=== PATIENT | male | born 1975 | race Caucasian/White ===

== ENCOUNTER 2017-09-12 02:37 | Emergency (ER) | payer OTHER ==
[2017-09-12] MEDS ORDERED: PROMETHAZINE HCL INJ 25 MG/1 ML VIAL IM ONE (02:52)
[2017-09-12] MEDS ORDERED: LORAZEPAM INJ 2 MG/1 ML VIAL IV ONE (02:52)
--- NOTE | 2017-09-12 02:58 | ER Document Report ---
ED General - General Stated Complaint: CHEST PAIN Time Seen by Provider: 09/12/17 02:45 Notes: Patient is a 42-year-old male is brought in from skilled nursing because of complaints of chest pain. Patient was arrested around 4 PM because of being drunk and disorderly. He says after he got to skilled nursing he started having chest pain. He is crying and emotionally upset. He does have a family history of coronary artery disease. His father had a heart attack in his 40s. His brother also had a heart attack as well. Patient himself has no previous history of chest pain before today. He was given nitro in a months which did not make a difference in his chest pain. Pain is mostly over the lower chest and he says it hurts to move. Some pain does seem to radiate to his left arm. Patient was given aspirin by to arrival. He has no other complaints at this time. She does not drink on a regular basis. - Related Data Allergies/Adverse Reactions: No Known Allergies Allergy (Unverified 09/12/17 03:03) Past Medical History - Social History Smoking Status: Never Smoker Frequency of alcohol use: Occasional Drug Abuse: None Family History: CAD Review of Systems - Review of Systems Notes: My Normal Review Basic REVIEW OF SYSTEMS: CONSTITUTIONAL : Denies fever, chills, or sweats. Denies recent illness. EENT: Denies eye, ear, throat, or mouth pain or symptoms. Denies nasal or sinus congestion. CARDIOVASCULAR: Chest pain RESPIRATORY: Denies cough, cold, or chest congestion. Denies shortness of breath, difficulty breathing, or wheezing. GASTROINTESTINAL: Denies abdominal pain. Denies nausea, vomiting, or diarrhea. MUSCULOSKELETAL: Denies neck or back pain or joint pain or swelling. SKIN: Denies rash or skin lesions. NEUROLOGICAL: Denies altered mental status or loss of consciousness. Denies headache. Denies weakness or paralysis or loss of use of either side. Denies problems with gait or speech. Denies sensory or motor loss. PSYCHIATRIC: Patient admits to severe anxiety since being arrested today. ALL OTHER SYSTEMS REVIEWED AND NEGATIVE. Physical Exam - Vital signs Vitals: Resp Pulse Ox 19 98 09/12/17 02:53 09/12/17 02:53 - Notes Notes: General Appearance: Well nourished, alert, cooperative, no acute distress, no obvious discomfort. Patient is very tearful and constantly crying and emotionally upset. Very anxious on exam. Vitals: reviewed, See vital signs table. Head: no swelling or tenderness to the head Eyes: PERRL, EOMI, Conjuctiva clear Mouth: No decreasd moisture Fall: Patient's pain is easily reproducible palpation of the chest wall over the lower left pectoral muscle. Neck: Supple, no neck tenderness Lungs: No wheezing, No rales, No rhonci, No accessory muscle use, good air exchange bilaterally. Heart: Tachycardiac rate, Regular rythm, No murmur, no rub Abdomen: Normal BS, soft, No rigidity, No abdominal tenderness, No guarding, no rebound, no abdominal masses, no organomegaly Extremities: strength 5/5 in all extremities, good pulses in all extremities, no swelling or tenderness in the extremities, no edema. Skin: warm, dry, appropriate color, no rash Neuro: speech clear, oriented x 3, normal affect, responds appropriately to questions. Course - Re-evaluation Re-evalutation: 09/12/17 02:58 I suspect that the patient's chest pain is more related to anxiety and emotional distress being that his pain did not start until he was placed in skilled nursing and the fact that he is crying and emotionally upsetting on exam. He does have family history of coronary disease at a young age and therefore will still do workup to help rule out IN. The initial EKG shows sinus tachycardia without any ischemic changes. 09/12/17 05:06 After the Ativan the patient's symptoms completely resolved. He is no longer crying or upset. His pain is completely resolved. His EKG initial troponin are negative. The please of left release the patient requested. Patient is requesting to leave. Talk to patient length about his family history of coronary disease. Informed him that I do suspect this most likely was anxiety related however he has a very strong family history of coronary disease at a young age and therefore I encouraged him to stay for at least a repeat troponin to make sure that his troponin is staying negative and not uptrending. I informed him that this is appropriate to rule out impending heart attack recurrent heart attack at this time. Patient says he understands this and understands heart attacks be fatal but at this time he wants to go home and wants to go without doing the repeat troponin. Patient is awake and alert. He is showing no signs of intoxication at this time and is acting appropriately and answering all questions appropriately and therefore I cannot hold him against his will. I informed the patient I want what is best form and encouraged to return to ER anytime if he has recurrence of his chest pain or wants further workup. I will refer him to cardiology for reevaluation. Dictation of this chart was performed using voice recognition software; therefore, there may be some unintended grammatical errors. - Vital Signs Vital signs: Temp Pulse Resp BP Pulse Ox 22 H 96 09/12/17 03:00 09/12/17 03:00 - Laboratory Result Diagrams: 09/12/17 03:00 09/12/17 03:00 Laboratory results interpreted by me: 09/12/17 03:00 Potassium 5.1 H Carbon Dioxide 21 L Glucose 249 H Direct Bilirubin 0.5 H AST 60 H ALT 124 H Total Protein 8.6 H Albumin 5.2 H - EKG Interpretation by Me Additional EKG results interpreted by me: 09/12/17 02:56 EKG is reviewed and interpreted by me. EKG shows sinus tachycardia with rate of [address] segment elevation or depression. No ischemic T-wave inversions. NM interval, QRS duration, QTc intervals are within normal range. No old EKG available for comparison. Discharge - Discharge Clinical Impression: Chest pain Qualifiers: Chest pain type: unspecified Qualified Code(s): R07.9 - Chest pain, unspecified Condition: Good Disposition: HOME, SELF-CARE Additional Instructions: As discussed with your we do recommend repeating your heart enzyme one more time to further ensure that there is no evidence of damage to your heart and no evidence for an heart attack. We respect your right to refuse this testing and want to go home. We want you to have a low threshold to return to the ER if you have any recurrence of chest pain or change your mind and want further workup. I will refer you to the auto radiator mechanic (Dr. Sánchez) for reevaluation because you have such a strong family history of heart attacks. Please call his office thursday morning to make a close follow up appointment. Take 81mg of aspirin every day. Referrals: GILBERTO WEIR MD [ACTIVE STAFF] - 09/14/17
[2017-09-12 03:07] LABS: ABSOLUTE EOSINOPHILS # (AUTO) 0.1 10^3/uL (0.0-0.6); ABSOLUTE LYMPHOCYTES (AUTO) 1.7 10^3/uL (0.5-4.7); ABSOLUTE MONOCYTES (AUTO) 0.6 10^3/uL (0.1-1.4); ABSOLUTE NEUT (AUTO) 4.5 10^3/uL (1.7-8.2); BASOPHILS % (AUTO) 0.7 % (0-2); EOSINOPHILS % (AUTO) 1.1 % (0-6); HEMATOCRIT 44.3 % (37.9-51.0); HEMOGLOBIN 15.7 g/dL (13.5-17.0); LYMPHOCYTES % (AUTO) 23.9 % (13-45); MEAN CORPUSCULAR HEMOGLOBIN 30.8 pg (27.0-33.4); MEAN CORPUSCULAR HGB CONC 35.4 g/dL (32.0-36.0); MEAN CORPUSCULAR VOLUME 87 fl (80-97); MONOCYTES % (AUTO) 9.4 % (3-13); PLATELET COUNT 183 10^3/uL (150-450); RED BLOOD COUNT 5.09 10^6/uL (4.35-5.55); SEGMENTED NEUTROPHILS % (AUTO) 64.9 % (42-78); TOTAL CELLS COUNTED % (AUTO) 100 %; WHITE BLOOD COUNT 6.9 10^3/uL (4.0-10.5)
[2017-09-12 03:16] LABS: ALANINE AMINOTRANSFERASE 124 U/L (21-72); ALBUMIN 5.2 g/dL (3.5-5.0); ALKALINE PHOSPHATASE 78 U/L (38-126); ANION GAP 19 (5-19); ASPARTATE AMINO TRANSFERASE 60 U/L (17-59); BILIRUBIN,DIRECT 0.5 mg/dL (0.0-0.4); BILIRUBIN,TOTAL 0.7 mg/dL (0.2-1.3); BLOOD UREA NITROGEN 10 mg/dL (7-20); CALCIUM 9.4 mg/dL (8.4-10.2); CARBON DIOXIDE 21 mmol/L (22-30); CHLORIDE 101 mmol/L (98-107); GLUCOSE 249 mg/dL (75-110); POTASSIUM 5.1 mmol/L (3.6-5.0); SODIUM 140.8 mmol/L (137-145); TOTAL PROTEIN 8.6 g/dL (6.3-8.2)
--- NOTE | 2017-09-12 03:47 | RADIOLOGY REPORT (SQ) ---
EXAM DESCRIPTION: XR CHEST 1 VIEW COMPLETED DATE/TME: 09/12/2017 02:52 CLINICAL HISTORY: chest pain COMPARISON: None. FINDINGS: Single frontal view of the chest. The cardiomediastinal silhouette has normal size and contour. No consolidation, pneumothorax, or pleural effusion. No displaced rib fractures identified. Leads overlie the chest. Low lung volumes. Upper abdominal soft tissues are unremarkable. IMPRESSION: 1. No acute pulmonary process identified.
--- NOTE | 2017-09-12 07:19 | EKG REPORT ---
SEVERITY:- ABNORMAL ECG - SINUS TACHYCARDIA PROBABLE LEFT ATRIAL ABNORMALITY LEFT VENTRICULAR HYPERTROPHY : Confirmed by: Sarah Gonzalez MD 12-Sep-2017 07:17:20
== END 2017-09-12 03:56 | disposition home or self-care (01) ==
LOC: ER 02:37
DX: R07.9 Chest pain, unspecified (principal); F41.9 Anxiety disorder, unspecified; R00.0 Tachycardia, unspecified; Z82.49 Family history of ischemic heart disease and other diseases of the circulatory system
CPT/HCPCS: 93005; 99285; 96372; 96374; 36415; 85025; 80053; 84484; 71045; 93010; J2060; J2550

== ENCOUNTER 2017-11-10 10:38 | Emergency (ER) | payer SELFPAY ==
[~2017-11-10 10:38] MED LIST: ASPIRIN 81 MG TABLET, CHEWABLE ONE; NITROGLYCERIN 0.4 MG/TAB 25 TAB/BOTTLE ONE; TENECTEPLASE INJ 50 MG KIT IV ONE
[2017-11-10] MEDS ORDERED: ASPIRIN 81 MG TABLET, CHEWABLE PO ONE (10:56)
[2017-11-10] MEDS ORDERED: ONDANSETRON HCL INJ/PF 4 MG/2 ML SDV IV ONE (11:00)
[2017-11-10] MEDS ORDERED: MORPHINE SULFATE 10 MG/ML INJ IV ONE (11:00)
[2017-11-10] MEDS ORDERED: NITROGLYCERIN 0.4 MG/TAB 25 TAB/BOTTLE SL PRN (11:01)
[2017-11-10] MEDS ORDERED: METOPROLOL TARTRATE PF/INJ 5 MG/5 ML SDV IV ONE (11:08)
[2017-11-10] MEDS ORDERED: NITROGLYCERIN 2% OINTMENT 1 GM PACKET TP ONE (11:14)
--- NOTE | 2017-11-10 11:15 | ER Document Report ---
ED Cardiac - General Chief Complaint: Chest Pain Stated Complaint: CHEST PAIN Time Seen by Provider: 11/10/17 10:55 Mode of Arrival: Ambulatory Information source: Patient TRAVEL OUTSIDE OF THE [place] IN LAST 30 DAYS: No - HPI Patient complains to provider of: Chest pain Was the onset of pain: Sudden When did pain begin: 0900 YESTERDAY Is the pain a: New problem Chest pain location: Substernal Quality of pain: Tightness Chest pain radiation location: Left arm, Left shoulder Severity now: Moderate Severity at worst: Moderate Chest pain precipitating factors: At Rest Cardiac risk factors: Smoker. denies: Hypertension Positive cardiac history: No Associated symptoms: Nausea/vomiting, Shortness of breath. denies: Diaphoresis Exacerbated by: Denies Relieved by: Nothing Similar symptoms previously: No Recently seen / treated by doctor: No - Related Data Allergies/Adverse Reactions: No Known Allergies Allergy (Verified 11/10/17 10:38) Past Medical History - General Information source: Patient - Social History Smoking Status: Current Every Day Smoker Cigarette use (# per day): Yes - 1/2 PK/DAY Chew tobacco use (# tins/day): No Smoking Education Provided: No Frequency of alcohol use: Occasional - LAST 2 DAYS AGO Drug Abuse: None Lives with: Spouse/Significant other Family History: None, CAD Patient has suicidal ideation: No Patient has homicidal ideation: No - Past Medical History Cardiac Medical History: Reports: None Pulmonary Medical History: Reports: None EENT Medical History: Reports: None Neurological Medical History: Reports: None. Denies: Hx Cerebrovascular Accident Endocrine Medical History: Reports: None. Denies: Hx Diabetes Mellitus Type 1, Hx Diabetes Mellitus Type 2 Renal/ Medical History: Reports: None. Denies: Hx Peritoneal Dialysis Malignancy Medical History: Reports None GI Medical History: Reports: None Musculoskeletal Medical History: Reports None Skin Medical History: Reports None Psychiatric Medical History: Reports: None Past Surgical History: Reports: Hx Orthopedic Surgery Review of Systems - Review of Systems Constitutional: No symptoms reported EENT: No symptoms reported Cardiovascular: See HPI Respiratory: See HPI Gastrointestinal: See HPI Genitourinary: No symptoms reported Musculoskeletal: No symptoms reported Skin: No symptoms reported Neurological/Psychological: No symptoms reported Physical Exam - Vital signs Vitals: Resp Pulse Ox 21 H 100 11/10/17 10:54 11/10/17 10:54 Interpretation: Hypertensive, Tachycardic - General General appearance: Alert, Anxious In distress: Moderate - HEENT Head: Normocephalic Eyes: Normal Conjunctiva: Normal Ears: Normal Nasal: Normal Mouth/Lips: Normal Mucous membranes: Normal - Respiratory Respiratory status: No respiratory distress Chest status: Nontender Breath sounds: Normal - Cardiovascular Rhythm: Regular, Tachycardia Heart sounds: Normal auscultation Murmur: No - Abdominal Inspection: Normal Distension: No distension - Back Back: Normal - Extremities General upper extremity: Normal inspection General lower extremity: Normal inspection - Neurological Neuro grossly intact: Yes Cognition: Normal Orientation: AAOx4 - Psychological Associated symptoms: Normal affect, Normal mood - Skin Skin Temperature: Warm Skin Moisture: Dry Skin Color: Normal Skin Turgor: Elastic Course - Re-evaluation Re-evalutation: 11/10/17 11:25 Patient reports minimal improvement of pain after nitroglycerin and morphine. Still complains of significant shortness of breath. Remains in apparent moderate distress, tachycardic and hypertensive. It was explained to patient that he was having an acute NE and needed the services of a cardiac drop crew laborer, which we do not have here at [facility]. I suggested that we seek transfer to the instrument worker at [facility] as quickly as possible, by air medevac if possible. Patient is very resistant to the idea of transfer to anywhere by any means, says he will get in his car and drive himself there if need be. He absolutely refuses to consider transfer via helicopter. Patient spoke with his by telephone, and she also tried to convince him to agree to transfer, without success. Patient ultimately did agree to transfer by ground ambulance. Consultation was made with the cardiac connections at [facility], and they will send 1 of their ambulance units to transfer patient. - Vital Signs Vital signs: Temp Pulse Resp BP Pulse Ox 29 H 134/90 H 100 11/10/17 11:13 11/10/17 11:05 11/10/17 11:13 - Laboratory Result Diagrams: 11/10/17 10:55 11/10/17 10:55 Laboratory results interpreted by me: 11/10/17 11/10/17 11/10/17 10:55 10:55 10:55 RBC 5.60 H Hgb 17.1 H Glucose 229 H Direct Bilirubin 0.6 H AST 83 H ALT 133 H Creatine Kinase 222 H CK-MB (CK-2) 8.78 H - Diagnostic Test Radiology reviewed: Image reviewed, Reports reviewed - EKG Interpretation by Me EKG shows normal: Sinus rhythm. abnormal: QRS Complexes - Q WAVES IN III, V2, AND V3, ST-T Waves - ST ELEVATION V1 THRU V5 Rate: Tachycardia When compared to previous EKG there are: Changes noted Additional EKG results interpreted by me: 11/10/17 11:40 ACUTE ANTEROSEPTAL STEMI - Consults CARDIAC CONNECTIONS Time consulted: 10:50 DR. BARONE Time consulted: 10:58 Reason for consultation: 11/10/17 11:23 ACCEPTS PATIENT FOR TRANSFER. ADVISES USE CLINICAL JUDGMENT RE: THROMBOLYTIC THERAPY. Critical Care Note - Critical Care Note Total time excluding time spent on procedures (mins): 30 Comments: LIFE-THREATENING MYOCARDIAL INFARCTION, AGGRESSIVE PHARMACOLOGIC INTERVENTIONS NECESSARY, CONSULTATIONS WITH TRANSFER CENTER. Discharge - Discharge Clinical Impression: Myocardial infarction acute Qualifiers: Myocardial infarction type: ST elevation myocardial infarction Involved coronary artery: unspecified coronary artery Qualified Code(s): I21.3 - ST elevation (STEMI) myocardial infarction of unspecified site Condition: Serious Disposition: AGAINST MEDICAL ADVICE Additional Instructions: YOU ARE HAVING AN ACUTE MYOCARDIAL INFARCTION (HEART ATTACK). THIS IS A LIFE- THREATENING CONDITION. PROPER TREATMENT OF YOUR PROBLEM NEEDS TO BE DONE BY A CABLE ARMORER OPERATOR IN A CARDIAC AMMUNITION ASSEMBLY II LABORER. THIS TREATMENT IS NOT AVAILABLE AT [facility]; YOU NEED TO BE TRANSFERRED TO ANOTHER FACILITY. THIS TRANSFER HAS BEEN ARRANGED FOR YOU. WITHOUT PROPER TREATMENT, YOU MIGHT , OR YOU MIGHT BE PERMANENTLY CRIPPLED. REFUSAL OF TREATMENT IS VERY UNWISE, AND VERY, VERY DANGEROUS. PLEASE RETURN TO THE E.R. FOR TREATMENT IF YOU CHANGE YOUR MIND, ANY TIME.
--- NOTE | 2017-11-10 11:25 | RADIOLOGY REPORT (SQ) ---
EXAM DESCRIPTION: CHEST SINGLE VIEW COMPLETED DATE/TIME: 11/10/2017 11:05 am REASON FOR STUDY: CHEST PAIN COMPARISON: AP chest 09/12/2017 EXAM PARAMETERS: NUMBER OF VIEWS: One view. TECHNIQUE: Single frontal radiographic view of the chest acquired. RADIATION DOSE: NA LIMITATIONS: AP portable chest lordotic positioning, 09/12/2017 FINDINGS: LUNGS AND PLEURA: No opacities, masses or pneumothorax. No pleural effusion. MEDIASTINUM AND HILAR STRUCTURES: No masses. Contour normal. HEART AND VASCULAR STRUCTURES: Heart normal in size. Normal vasculature. BONES: No acute findings. HARDWARE: None in the chest. OTHER: No other significant finding. IMPRESSION: NO ACUTE RADIOGRAPHIC FINDING IN THE CHEST. TECHNICAL DOCUMENTATION: JOB ID: [id number] [employer]- All Rights Reserved Reading location - IP/workstation name: [email or web address]
[2017-11-10 11:57] LABS: ABSOLUTE EOSINOPHILS # (AUTO) 0.1 10^3/uL (0.0-0.6); ABSOLUTE LYMPHOCYTES (AUTO) 1.4 10^3/uL (0.5-4.7); ABSOLUTE MONOCYTES (AUTO) 0.9 10^3/uL (0.1-1.4); ABSOLUTE NEUT (AUTO) 6.5 10^3/uL (1.7-8.2); BASOPHILS % (AUTO) 0.5 % (0-2); EOSINOPHILS % (AUTO) 0.7 % (0-6); HEMATOCRIT 49.2 % (37.9-51.0); HEMOGLOBIN 17.1 g/dL (13.5-17.0); LYMPHOCYTES % (AUTO) 16.2 % (13-45); MEAN CORPUSCULAR HEMOGLOBIN 30.5 pg (27.0-33.4); MEAN CORPUSCULAR HGB CONC 34.7 g/dL (32.0-36.0); MEAN CORPUSCULAR VOLUME 88 fl (80-97); MONOCYTES % (AUTO) 10.1 % (3-13); PLATELET COUNT 221 10^3/uL (150-450); RED CELL DISTRIBUTION WIDTH 12.6 % (11.5-14.0); SEGMENTED NEUTROPHILS % (AUTO) 72.5 % (42-78); TOTAL CELLS COUNTED % (AUTO) 100 %; WHITE BLOOD COUNT 8.9 10^3/uL (4.0-10.5)
[2017-11-10 12:12] LABS: ALANINE AMINOTRANSFERASE 133 U/L (21-72); ALBUMIN 4.8 g/dL (3.5-5.0); ALKALINE PHOSPHATASE 99 U/L (38-126); ANION GAP 13 (5-19); ASPARTATE AMINO TRANSFERASE 83 U/L (17-59); BILIRUBIN,DIRECT 0.6 mg/dL (0.0-0.4); BILIRUBIN,TOTAL 1.3 mg/dL (0.2-1.3); BLOOD UREA NITROGEN 9 mg/dL (7-20); CALCIUM 10.1 mg/dL (8.4-10.2); CARBON DIOXIDE 24 mmol/L (22-30); CHLORIDE 100 mmol/L (98-107); CREATINE KINASE 222 U/L (55-170); GLUCOSE 229 mg/dL (75-110); POTASSIUM 4.6 mmol/L (3.6-5.0); SODIUM 137.3 mmol/L (137-145)
--- NOTE | 2017-11-10 12:17 | ER Document Report ---
Inclusion/Exclusion-STEMI - Absolute Contraindications: Any prior Intracranial Hemorrhage: No Known structural cerebral vascular lesion (AV malformations): No Known malignant intracranial neoplasm (primary ormetastatic): No Ischemic stroke with 3 months(except acute ischemic stroke with symptom onset with past 4.5 hours): No Suspected aortic dissection: No Active bleeding or bleeding diathesis (excluding menses): No Significant closed head or facial trauma within 3 months: No Intracranial or intraspinal surgery within 2 months: No Severe uncontrolled hypertension unresponsive to emergent therapy: No If yes to any of the above, DO NOT ADMINISTER FIBRINOLYTIC. Prepare patient for rapid transfer for primary PCI. - Relative Contraindictations: History of chronic, severe. poorly controlled HTN: No Significant HTN on presentation(SBP greater than 180mm Hg or DBP greater than 110 mm Hg): No History of prior ischemic stroke greater than 3 months: No Dementia: No Known intracranial pathology not covered in absolute contraindications: No Traumatic or prolonged CPR (Greater than 10 minutes): No Major Surgery less than 3 weeks: No Recent internal bleeding (within 2-4 weeks): No Non compressible vascular puncture: No : No Active peptic ulcer: No Oral anticoagulant therapy: No Consider transfer for primary PCI, if severe symptoms of cardiogenic shock (SBP less than 90 or Pulse pressure greater than 20 mmHg).
[2017-11-10 12:25] LABS: CREATINE KINASE MB 8.78 ng/mL (<4.55)
[2017-11-10 12:26] LABS: TROPONIN I 1.8 ng/mL
[2017-11-10 13:02] VITALS: BP 138/91
[2017-11-10] MEDS ORDERED: TENECTEPLASE INJ 50 MG KIT IV ONE (14:11)
--- NOTE | 2017-11-10 23:08 | EKG REPORT ---
SEVERITY:- ABNORMAL ECG - SINUS TACHYCARDIA ANTERIOR INFARCT, ACUTE BORDERLINE PROLONGED QT INTERVAL : Confirmed by: Otis Franz 10-Nov-2017 23:07:25
--- NOTE | 2017-11-10 23:08 | EKG REPORT ---
SEVERITY:- ABNORMAL ECG - SINUS TACHYCARDIA ANTERIOR INFARCT, ACUTE LATERAL LEADS ARE ALSO INVOLVED BORDERLINE PROLONGED QT INTERVAL : Confirmed by: Otis Franz 10-Nov-2017 23:07:11
== END 2017-11-10 12:20 | disposition left against medical advice (07) ==
LOC: ER 10:38
DX: I21.3 ST elevation (STEMI) myocardial infarction of unspecified site (principal); R07.9 Chest pain, unspecified; R06.02 Shortness of breath; M79.602 Pain in left arm; M25.512 Pain in left shoulder; R11.2 Nausea with vomiting, unspecified; F17.210 Nicotine dependence, cigarettes, uncomplicated
CPT/HCPCS: 93005; 99291; 96374; 96375; 36415; 82553; 82550; 85025; 80053; 84484; 71045; 93010; J3101; J3490; J2270; J2405

== ENCOUNTER 2017-11-18 23:18 | Emergency (ER) | payer SELFPAY ==
--- NOTE | 2017-11-18 23:39 | ER Document Report ---
ED Cardiac - General Stated Complaint: CHEST PAIN Time Seen by Provider: 11/18/17 23:32 Mode of Arrival: Medic TRAVEL OUTSIDE OF THE [place] IN LAST 30 DAYS: No - HPI Notes: 42-year-old male with recent myocardial infarction 11/10 and 4 stents per patient done at [facility] presents with chest pain. He does not describe it very well states initially it is nonradiating then reports it did go down the back of his left arm. He states this is similar pain as when he had his myocardial infarction when he was here earlier last week and left AMA and ended up going to [place] himself. He has shortness of breath associated. He gives limited history and requires significant redirection. He states he hurts all over and that is because he was resuscitated and "brought back to life". He does not know what medications he is supposed to be taking but he states they are at home and he has been taking them including a blood thinner. He was given nitroglycerin in route to the hospital without any significant improvement. - Related Data Allergies/Adverse Reactions: No Known Allergies Allergy (Verified 11/10/17 10:38) Past Medical History - Social History Smoking Status: Current Every Day Smoker Family History: None, CAD Neurological Medical History: Denies: Hx Cerebrovascular Accident Endocrine Medical History: Denies: Hx Diabetes Mellitus Type 1, Hx Diabetes Mellitus Type 2 Renal/ Medical History: Denies: Hx Peritoneal Dialysis Past Surgical History: Reports: Hx Orthopedic Surgery Review of Systems - Review of Systems -: Yes All other systems reviewed and negative Physical Exam - Vital signs Vitals: Temp Pulse Resp BP Pulse Ox 97.9 F 104 H 20 129/79 H 98 11/18/17 23:18 11/18/17 23:18 11/18/17 23:18 11/18/17 23:18 11/18/17 23:18 - Notes Notes: Physical Exam: GENERAL: VS as per nursing doc. nontoxic-appearing, rolling around on the stretcher, requiring significant redirection for history and physical. HEAD: Atraumatic, normocephalic. EYES: Extraocular movements intact, sclera anicteric, no conjunctival injection or discharge. ENT: Nares patent, oropharynx clear without exudates. Moist mucous membranes. NECK: Normal range of motion, supple without lymphadenopathy. LUNGS: Breath sounds are coarse bilaterally and equal. No wheezes rales or rhonchi. Diffuse chest wall tenderness to palpation. HEART: Normal S1S2. Regular rate and rhythm without murmurs. Equal peripheral pulses. ABDOMEN: Soft, non-tender EXTREMITIES: Normal range of motion. No calf tenderness. No edema. Bruising noted in the right inguinal region from recent heart cath NEUROLOGICAL: Cranial nerves grossly intact. Normal speech. Normal sensory and motor exams. No gross cerebellar abnormalities. PSYCH: Anxious SKIN: Warm, dry, no cyanosis, no splinter hemorrhages. Cap refill < 2 sec. Course - Re-evaluation Re-evalutation: 11/18/17 23:35 Patient's EKG showed some ST elevation that is in the same distribution it was in when he was here with his myocardial infarction which is the anterior distribution with some reciprocal changes in 1 and aVL. I told the patient that he needed emergently to go to [facility]. He adamantly refused offered him transfer to another facility and he states he would leave AMA like he did on Thursday. I encouraged him to reconsider this as likely he will from a myocardial infarction considering he has pain consistent with what he had. The ST elevation appears improved from prior but it is present and unclear where this is in the evolution of his recent NV. 11/18/17 23:42 I went and spoke again with the patient as he is being a difficult patient with the nurses. He is alert and oriented he has capable decision making even no it does not seem very reasonable. He states he just wants some Xanax. I told him I was not comfortable treating his chest pain and appropriately. Again offered him transfer to [facility] or another institution and he is refusing still understanding that likely he is having cardiac ischemia progressive cardiac damage with likelihood of or at least permanent disability. 11/18/17 23:54 Patient now states that he will consider transfer to [facility]. I have contacted the transfer center and awaiting callback. He is now letting him treated us treat him and we are initiating a nitroglycerin drip. 11/19/17 00:[address] Vigil at [facility] from cardiology and he accepts transfer to their facility. He will be going by air. Patient is aware of risks and is accepting of this. Dr. Vigil recommends an IV heparin bolus of 5000 units IV. 09/20/18 01:19 Chest X-Ray 11/18/17 23:48 IMPRESSION: No active disease. - Vital Signs Vital signs: Temp Pulse Resp BP Pulse Ox 97.9 F 104 H 27 H 133/97 H 100 11/18/17 23:18 11/18/17 23:18 11/19/17 00:46 11/19/17 00:46 11/19/17 00:46 - Laboratory Result Diagrams: 11/18/17 23:29 11/18/17 23:29 Laboratory results interpreted by me: 11/18/17 11/18/17 23:29 23:29 RBC 4.32 L Hgb 13.3 L Hct 37.4 L ALT 86 H - EKG Interpretation by Me EKG shows normal: Sinus rhythm Rate: Tachycardia - Some mild ST elevation in the anterior lead his recent myocardial infarction the ST elevation is improved from his prior EKG. He has some reciprocal changes in 1 and aVL. Sinus tachycardia with rate 109. Possibly consistent with acute myocardial infarction but difficult to know in the evolution of his recent myocardial infarction. Critical Care Note - Critical Care Note Total time excluding time spent on procedures (mins): 35 Discharge - Discharge Clinical Impression: Acute coronary syndrome, Chest pain Condition: Serious Disposition: [facility]
[2017-11-18] MEDS ORDERED: ASPIRIN 81 MG TABLET, CHEWABLE PO ONE (23:48)
[2017-11-18] MEDS ORDERED: NITROGLYCERIN/D5W 50 MG/250 ML RTUINJ IV PRN (23:52)
[2017-11-19] MEDS ORDERED: HEPARIN SOD (PORCINE) 1,000 UNIT/ML 10 ML VIAL IV ONE (00:05)
[2017-11-19] MEDS ORDERED: ONDANSETRON HCL INJ/PF 4 MG/2 ML SDV IV ONE (00:07)
[2017-11-19] MEDS ORDERED: MORPHINE SULFATE 10 MG/ML INJ IV ONE (00:08)
[2017-11-19 00:30] LABS: ABSOLUTE BASOPHILS # (AUTO) 0.1 10^3/uL (0.0-0.2); ABSOLUTE EOSINOPHILS # (AUTO) 0.4 10^3/uL (0.0-0.6); ABSOLUTE MONOCYTES (AUTO) 0.9 10^3/uL (0.1-1.4); ABSOLUTE NEUT (AUTO) 6.1 10^3/uL (1.7-8.2); BASOPHILS % (AUTO) 0.9 % (0-2); EOSINOPHILS % (AUTO) 3.8 % (0-6); HEMATOCRIT 37.4 % (37.9-51.0); HEMOGLOBIN 13.3 g/dL (13.5-17.0); MEAN CORPUSCULAR HEMOGLOBIN 30.8 pg (27.0-33.4); MEAN CORPUSCULAR HGB CONC 35.7 g/dL (32.0-36.0); MEAN CORPUSCULAR VOLUME 87 fl (80-97); MONOCYTES % (AUTO) 9.6 % (3-13); PLATELET COUNT 392 10^3/uL (150-450); RED BLOOD COUNT 4.32 10^6/uL (4.35-5.55); RED CELL DISTRIBUTION WIDTH 12.1 % (11.5-14.0); SEGMENTED NEUTROPHILS % (AUTO) 64.7 % (42-78); TOTAL CELLS COUNTED % (AUTO) 100 %; WHITE BLOOD COUNT 9.5 10^3/uL (4.0-10.5)
[2017-11-19 00:36] LABS: ALANINE AMINOTRANSFERASE 86 U/L (21-72); ALKALINE PHOSPHATASE 83 U/L (38-126); ANION GAP 11 (5-19); ASPARTATE AMINO TRANSFERASE 50 U/L (17-59); BILIRUBIN,DIRECT 0.4 mg/dL (0.0-0.4); BILIRUBIN,TOTAL 0.6 mg/dL (0.2-1.3); BLOOD UREA NITROGEN 10 mg/dL (7-20); CALCIUM 9.5 mg/dL (8.4-10.2); CARBON DIOXIDE 26 mmol/L (22-30); CHLORIDE 101 mmol/L (98-107); CREATINE KINASE 107 U/L (55-170); GLUCOSE 98 mg/dL (75-110); INTERNATIONAL RATION (INR) 0.96; POTASSIUM 4.2 mmol/L (3.6-5.0); PROTHROMBIN TIME 13.3 SEC (11.4-15.4); SODIUM 137.9 mmol/L (137-145); TOTAL PROTEIN 7.1 g/dL (6.3-8.2)
--- NOTE | 2017-11-19 00:39 | RADIOLOGY REPORT (SQ) ---
Chest single view on 11/19/2017 at 12:12 AM CLINICAL INDICATION: Chest pain COMPARISON: 11/10/2017 FINDINGS: The lungs are clear. Cardiac, hilar and mediastinal contours are within normal limits. Pulmonary vascularity is within normal limits. No bony abnormality is noted. IMPRESSION: No active disease.
[2017-11-19 00:48] LABS: CREATINE KINASE MB 0.77 ng/mL (<4.55)
[2017-11-19 00:49] LABS: TROPONIN I 1.44 ng/mL
[2017-11-19 06:56] VITALS: BP 100/86
--- NOTE | 2017-11-19 13:46 | EKG REPORT ---
SEVERITY:- ABNORMAL ECG - SINUS RHYTHM ANTERIOR INFARCT, AGE INDETERMINATE : Confirmed by: Sarah Gonzalez MD 19-Nov-2017 13:45:51
--- NOTE | 2017-11-19 13:46 | EKG REPORT ---
SEVERITY:- ABNORMAL ECG - SINUS TACHYCARDIA ANTERIOR INFARCT, AGE INDETERMINATE : Confirmed by: Sarah Gonzalez MD 19-Nov-2017 13:45:57
== END 2017-11-19 00:58 | disposition short-term general hospital (02) ==
LOC: ER 23:18
DX: I24.9 Acute ischemic heart disease, unspecified (principal); R07.9 Chest pain, unspecified; F17.210 Nicotine dependence, cigarettes, uncomplicated
CPT/HCPCS: 93005; 99285; 96375; 96365; 36415; 82553; 82550; 85025; 85610; 80053; 84484; 71045; 93010; J1644; J2270; J2405; J3490

== ENCOUNTER 2017-11-27 19:30 | Emergency (ER) | payer SELFPAY ==
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
[2017-11-27] MEDS ORDERED: NORMAL SALINE 1000 ML 1,000 ML IV ONE (20:21)
[2017-11-27] MEDS ORDERED: DIAZEPAM INJ 10 MG/2 ML DISP.SYRIN IV ONE (20:21)
[2017-11-27] MEDS ORDERED: ONDANSETRON HCL INJ/PF 4 MG/2 ML SDV IV ONE (20:21)
[2017-11-27] MEDS ORDERED: MECLIZINE HCL 25 MG TABLET PO ONE (20:22)
--- NOTE | 2017-11-27 20:24 | RADIOLOGY REPORT (SQ) ---
EXAM DESCRIPTION: CT HEAD WITHOUT COMPLETED DATE/TIME: 11/27/2017 8:00 pm REASON FOR STUDY: dizziness, recent intracranial hemorrhage. COMPARISON: None. TECHNIQUE: Axial images acquired through the brain without intravenous contrast. Images reviewed wi th bone, brain and subdural windows. Additional sagittal and coronal reconstructions were generated. Images stored on PACS. All CT scanners at this facility use dose modulation, iterative reconstruction, and/or weight based d osing when appropriate to reduce radiation dose to as low as reasonably achievable (ALARA). [facility]: Dose Right [facility]: CareDose [facility]: Dose Right [facility]: Teradose 4D [facility]: Smart [place] RADIATION DOSE: CT Rad equipment meets quality standard of care and radiation dose reduction techniq ues were employed. CTDIvol: 55.2 mGy. DLP: 1084 mGy-cm. mGy. LIMITATIONS: None. FINDINGS: VENTRICLES: Normal size and contour. CEREBRUM: No masses. No hemorrhage. No midline shift. No evidence for acute infarction. A lacunar infarct traverses the right internal capsule. Otherwise normal colon/white matter differentiation. No areas of low density in the white matter. CEREBELLUM: No masses. No hemorrhage. No alteration of density. No evidence for acute infarction. EXTRAAXIAL SPACES: No fluid collections. No masses. ORBITS AND GLOBE: No intra- or extraconal masses. Normal contour of globe without masses. CALVARIUM: No fracture. PARANASAL SINUSES: No fluid or mucosal thickening. SOFT TISSUES: No mass or hematoma. OTHER: Atherosclerotic vascular calcifications are seen within the cavernous segments of the internal carotid arteries. IMPRESSION: Right basal ganglia lacunar infarct. No evidence of acute intracranial hemorrhage or se quela of previous intracranial hemorrhage. EVIDENCE OF ACUTE STROKE: NO. COMMENT: Quality ID # [id number]: Final reports with documentation of one or more dose reduction techniques (e.g., Automated exposure control, adjustment of the mA and/or kV according to patient size, use of iterative reconstruction technique) TECHNICAL DOCUMENTATION: JOB ID: [id number] All Rights Reserved Reading location - IP/workstation name: [email or web address]
[2017-11-27 21:47] VITALS: BP 134/71
[2017-11-27] MEDS ORDERED: HYDROCODONE/ACETAMINOPHEN 5-325 MG (6 TAB/ER DISP) PO PRN (21:56)
== END 2017-11-27 22:23 | disposition home or self-care (01) ==
LOC: ER 19:30
DX: R42 Dizziness and giddiness (principal); F07.81 Postconcussional syndrome; F17.210 Nicotine dependence, cigarettes, uncomplicated
CPT/HCPCS: 99284; 96361; 96374; 96375; 70450; J3360; J2405

== ENCOUNTER 2017-12-06 02:40 | Emergency (ER) | payer SELFPAY ==
[2017-12-06] MEDS ORDERED: ONDANSETRON HCL INJ/PF 4 MG/2 ML SDV IV ONE (02:49)
[2017-12-06] MEDS ORDERED: NORMAL SALINE 1000 ML 500 ML IV ONE (02:49)
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
[2017-12-06 03:19] LABS: ABSOLUTE BASOPHILS # (AUTO) 0.1 10^3/uL (0.0-0.2); ABSOLUTE EOSINOPHILS # (AUTO) 0.4 10^3/uL (0.0-0.6); ABSOLUTE LYMPHOCYTES (AUTO) 2.3 10^3/uL (0.5-4.7); ABSOLUTE MONOCYTES (AUTO) 0.6 10^3/uL (0.1-1.4); ABSOLUTE NEUT (AUTO) 4.2 10^3/uL (1.7-8.2); EOSINOPHILS % (AUTO) 5.4 % (0-6); HEMOGLOBIN 13.5 g/dL (13.5-17.0); LYMPHOCYTES % (AUTO) 30.6 % (13-45); MEAN CORPUSCULAR HEMOGLOBIN 30.7 pg (27.0-33.4); MEAN CORPUSCULAR HGB CONC 35.6 g/dL (32.0-36.0); MEAN CORPUSCULAR VOLUME 86 fl (80-97); MONOCYTES % (AUTO) 7.9 % (3-13); PLATELET COUNT 291 10^3/uL (150-450); RED BLOOD COUNT 4.41 10^6/uL (4.35-5.55); RED CELL DISTRIBUTION WIDTH 12.8 % (11.5-14.0); SEGMENTED NEUTROPHILS % (AUTO) 55.1 % (42-78); TOTAL CELLS COUNTED % (AUTO) 100 %; WHITE BLOOD COUNT 7.6 10^3/uL (4.0-10.5)
[2017-12-06 03:21] LABS: ALCOHOL 167 mg/dL (NONE DETECTED); ANION GAP 15 (5-19); BLOOD UREA NITROGEN 12 mg/dL (7-20); CALCIUM 9.1 mg/dL (8.4-10.2); CARBON DIOXIDE 25 mmol/L (22-30); CHLORIDE 102 mmol/L (98-107); GLUCOSE 192 mg/dL (75-110); POTASSIUM 4.3 mmol/L (3.6-5.0); SODIUM 141.5 mmol/L (137-145)
--- NOTE | 2017-12-06 03:27 | RADIOLOGY REPORT (SQ) ---
EXAM DESCRIPTION: XR CHEST 1 VIEW COMPLETED DATE/TME: 12/06/2017 02:48 CLINICAL HISTORY: syncopal episode COMPARISON: 11/19/2017 FINDINGS: Single frontal view of the chest. The cardiomediastinal silhouette has normal size and contour. No consolidation, pneumothorax, or pleural effusion. Leads overlie the chest. Low lung volumes. No displaced rib fractures identified. Upper abdominal soft tissues are unremarkable. IMPRESSION: 1. No acute pulmonary process identified.
--- NOTE | 2017-12-06 03:41 | RADIOLOGY REPORT (SQ) ---
EXAM DESCRIPTION: CT HEAD WITHOUT IV CONTRAST COMPLETED DATE/TME: 12/06/2017 02:48 CLINICAL HISTORY: passed out, head injury, ETOH, on plavix COMPARISON: None available TECHNIQUE: Axial CT of the head obtained from the skull apex to the skull base without contrast. FINDINGS: No acute intracranial hemorrhage identified. No mass, mass effect, shift of the midline, abnormal extra-axial fluid collection or CT evidence of acute ischemic change identified. The ventricular system is unremarkable. Focal residual encephalomalacia involving the right caudate nucleus likely represents a remote lacunar type infarction. No acute abnormalities of the supratentorial white matter, basal ganglia, cerebellum, or brainstem. The visualized paranasal sinuses and the mastoids are clear. No skull fracture identified. Visualized orbits and globes are unremarkable. Atherosclerotic vascular calcification. DLP: 990.56 mGy-cm IMPRESSION: 1. No acute intracranial abnormality identified. This exam was performed according to our departmental dose-optimization program, which includes automated exposure control, adjustment of the mA and/or kV according to patient size and/or use of iterative reconstruction technique.
--- NOTE | 2017-12-06 03:44 | RADIOLOGY REPORT (SQ) ---
EXAM DESCRIPTION: CT CERVICAL SPINE WITHOUT IV CONTRAST COMPLETED DATE/TME: 12/06/2017 02:48 CLINICAL HISTORY: passed out, injury, ETOH, on plavix COMPARISON: None available TECHNIQUE: Axial CT of the cervical spine obtained without contrast. FINDINGS: Alignment of the cervical spine is maintained without evidence of subluxation. The atlantoaxial, atlantodental, and occipitoatlantal intervals are preserved. No fracture identified. Vertebral body height preserved. Prevertebral soft tissues are unremarkable. Endplate spondylosis of the cervical spine. No central canal nor osseous neural foraminal narrowing. Visualized skull base is intact. No fracture of the visualized facial bones. Visualized mastoid air cells and paranasal sinuses are well aerated. Visualized thyroid is unremarkable. No cervical lymphadenopathy. No pneumothorax in the visualized lung apices. DLP: 456.17 mGy-cm IMPRESSION: 1. No acute fracture or subluxation of the cervical spine. This exam was performed according to our departmental dose-optimization program, which includes automated exposure control, adjustment of the mA and/or kV according to patient size and/or use of iterative reconstruction technique.
[2017-12-06 07:49] VITALS: BP 100/54
--- NOTE | 2017-12-06 19:00 | EKG REPORT ---
SEVERITY:- ABNORMAL ECG - SINUS TACHYCARDIA ANTERIOR INFARCT, AGE INDETERMINATE : Confirmed by: Otis Franz 06-Dec-2017 18:59:56
== END 2017-12-06 07:58 | disposition home or self-care (01) ==
LOC: ER 02:40
DX: R42 Dizziness and giddiness (principal); R11.0 Nausea; R51 Headache; F10.929 Alcohol use, unspecified with intoxication, unspecified; R55 Syncope and collapse; E78.00 Pure hypercholesterolemia, unspecified; I10 Essential (primary) hypertension; E11.9 Type 2 diabetes mellitus without complications; I25.2 Old myocardial infarction; Z79.02 Long term (current) use of antithrombotics/antiplatelets
CPT/HCPCS: 93005; 99285; 96361; 96374; 36415; 82962; 80307; 85025; 80048; 84484; 71045; 70450; 72125; 93010; J2405; J7030

== ENCOUNTER 2018-01-30 03:38 | Emergency (ER) | payer SELFPAY ==
[2018-01-30] MEDS ORDERED: NITROGLYCERIN 0.4 MG/TAB 25 TAB/BOTTLE SL PRN (04:01)
[2018-01-30] MEDS ORDERED: NORMAL SALINE 1000 ML 1,000 ML IV ONE (04:02)
[2018-01-30 04:03] LABS: ABSOLUTE EOSINOPHILS # (AUTO) 0.2 10^3/uL (0.0-0.6); ABSOLUTE LYMPHOCYTES (AUTO) 1.7 10^3/uL (0.5-4.7); ABSOLUTE MONOCYTES (AUTO) 0.4 10^3/uL (0.1-1.4); ABSOLUTE NEUT (AUTO) 3.2 10^3/uL (1.7-8.2); BASOPHILS % (AUTO) 0.5 % (0-2); EOSINOPHILS % (AUTO) 3.2 % (0-6); HEMATOCRIT 44.1 % (37.9-51.0); HEMOGLOBIN 15.3 g/dL (13.5-17.0); LYMPHOCYTES % (AUTO) 30.4 % (13-45); MEAN CORPUSCULAR HEMOGLOBIN 30.7 pg (27.0-33.4); MEAN CORPUSCULAR HGB CONC 34.7 g/dL (32.0-36.0); MEAN CORPUSCULAR VOLUME 89 fl (80-97); MONOCYTES % (AUTO) 7.6 % (3-13); PLATELET COUNT 228 10^3/uL (150-450); RED BLOOD COUNT 4.98 10^6/uL (4.35-5.55); RED CELL DISTRIBUTION WIDTH 13.5 % (11.5-14.0); SEGMENTED NEUTROPHILS % (AUTO) 58.3 % (42-78); TOTAL CELLS COUNTED % (AUTO) 100 %; WHITE BLOOD COUNT 5.5 10^3/uL (4.0-10.5)
[2018-01-30 04:07] LABS: INTERNATIONAL RATION (INR) 0.92; PROTHROMBIN TIME 12.8 SEC (11.4-15.4)
[2018-01-30 04:24] LABS: ALANINE AMINOTRANSFERASE 46 U/L (21-72); ALBUMIN 4.7 g/dL (3.5-5.0); ALKALINE PHOSPHATASE 80 U/L (38-126); ANION GAP 17 (5-19); ASPARTATE AMINO TRANSFERASE 36 U/L (17-59); BILIRUBIN,DIRECT 0.3 mg/dL (0.0-0.4); BILIRUBIN,TOTAL 0.4 mg/dL (0.2-1.3); BLOOD UREA NITROGEN 8 mg/dL (7-20); CALCIUM 9.3 mg/dL (8.4-10.2); CARBON DIOXIDE 25 mmol/L (22-30); CHLORIDE 108 mmol/L (98-107); CREATINE KINASE 191 U/L (55-170); GLUCOSE 144 mg/dL (75-110); POTASSIUM 4.2 mmol/L (3.6-5.0); SODIUM 149.5 mmol/L (137-145); TOTAL PROTEIN 7.8 g/dL (6.3-8.2)
--- NOTE | 2018-01-30 04:29 | RADIOLOGY REPORT (SQ) ---
EXAM DESCRIPTION: XR CHEST 1 VIEW COMPLETED DATE/TME: 01/30/2018 03:41 CLINICAL HISTORY: 42 years, Male, chest pain COMPARISON: None. NUMBER OF VIEWS: 1 TECHNIQUE: Portable upright chest LIMITATIONS: None. FINDINGS: Heart size is normal. Lungs are clear. No pneumothorax IMPRESSION: Negative chest copyright 2010 [employer]- All Rights Reserved
[2018-01-30 04:35] LABS: CREATINE KINASE MB 1.55 ng/mL (<4.55)
[2018-01-30 04:38] VITALS: BP 117/69
[2018-01-30 04:50] LABS: TROPONIN I 0.079 ng/mL
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
--- NOTE | 2018-01-30 07:55 | EKG REPORT ---
SEVERITY:- ABNORMAL ECG - SINUS RHYTHM PROBABLE INFERIOR INFARCT, OLD ANTERIOR INFARCT, AGE INDETERMINATE : Confirmed by: Pramod Borden MD 30-Jan-2018 07:54:30
== END 2018-01-30 04:50 | disposition left against medical advice (07) ==
LOC: ER 03:38
DX: R07.9 Chest pain, unspecified (principal); F10.129 Alcohol abuse with intoxication, unspecified; Y90.8 Blood alcohol level of 240 mg/100 ml or more; R55 Syncope and collapse; Z53.20 Procedure and treatment not carried out because of patient's decision for unspecified reasons; I25.10 Atherosclerotic heart disease of native coronary artery without angina pectoris; I10 Essential (primary) hypertension; E11.9 Type 2 diabetes mellitus without complications; F17.200 Nicotine dependence, unspecified, uncomplicated; I25.2 Old myocardial infarction; E78.5 Hyperlipidemia, unspecified; E78.00 Pure hypercholesterolemia, unspecified; Z95.5 Presence of coronary angioplasty implant and graft; Z79.899 Other long term (current) drug therapy; Z79.84 Long term (current) use of oral hypoglycemic drugs; Z79.891 Long term (current) use of opiate analgesic
CPT/HCPCS: 93005; 99285; 96360; 36415; 82553; 80307; 82550; 85025; 85610; 80053; 84484; 71045; 93010; J7030

== ENCOUNTER 2018-02-15 13:50 | Emergency (ER) | payer SELFPAY ==
[2018-02-15 14:23] VITALS: BP 134/76
[2018-02-15 14:29] LABS: ABSOLUTE EOSINOPHILS # (AUTO) 0.1 10^3/uL (0.0-0.6); ABSOLUTE LYMPHOCYTES (AUTO) 1.6 10^3/uL (0.5-4.7); ABSOLUTE MONOCYTES (AUTO) 0.3 10^3/uL (0.1-1.4); ABSOLUTE NEUT (AUTO) 3.4 10^3/uL (1.7-8.2); BASOPHILS % (AUTO) 0.9 % (0-2); HEMATOCRIT 47.3 % (37.9-51.0); HEMOGLOBIN 16.2 g/dL (13.5-17.0); MEAN CORPUSCULAR HEMOGLOBIN 30.3 pg (27.0-33.4); MEAN CORPUSCULAR HGB CONC 34.3 g/dL (32.0-36.0); MEAN CORPUSCULAR VOLUME 88 fl (80-97); MONOCYTES % (AUTO) 5.9 % (3-13); PLATELET COUNT 225 10^3/uL (150-450); RED BLOOD COUNT 5.36 10^6/uL (4.35-5.55); RED CELL DISTRIBUTION WIDTH 13.9 % (11.5-14.0); SEGMENTED NEUTROPHILS % (AUTO) 62.2 % (42-78); TOTAL CELLS COUNTED % (AUTO) 100 %; WHITE BLOOD COUNT 5.5 10^3/uL (4.0-10.5)
[2018-02-15 14:53] LABS: ALANINE AMINOTRANSFERASE 42 U/L (21-72); ALBUMIN 4.6 g/dL (3.5-5.0); ALKALINE PHOSPHATASE 83 U/L (38-126); ANION GAP 14 (5-19); ASPARTATE AMINO TRANSFERASE 40 U/L (17-59); BILIRUBIN,DIRECT 0.2 mg/dL (0.0-0.4); BILIRUBIN,TOTAL 0.2 mg/dL (0.2-1.3); BLOOD UREA NITROGEN 8 mg/dL (7-20); CALCIUM 9.5 mg/dL (8.4-10.2); CARBON DIOXIDE 23 mmol/L (22-30); CHLORIDE 105 mmol/L (98-107); CREATINE KINASE 108 U/L (55-170); GLUCOSE 137 mg/dL (75-110); POTASSIUM 4.5 mmol/L (3.6-5.0); SODIUM 142.3 mmol/L (137-145); TOTAL PROTEIN 7.7 g/dL (6.3-8.2)
--- NOTE | 2018-02-15 14:54 | RADIOLOGY REPORT (SQ) ---
EXAM DESCRIPTION: CHEST SINGLE VIEW COMPLETED DATE/TIME: 02/15/2018 2:37 pm REASON FOR STUDY: chest pain COMPARISON: 01/30/2018. EXAM PARAMETERS: NUMBER OF VIEWS: One view. TECHNIQUE: Single frontal radiographic view of the chest acquired. RADIATION DOSE: NA LIMITATIONS: None. FINDINGS: LUNGS AND PLEURA: No opacities, masses or pneumothorax. No pleural effusion. MEDIASTINUM AND HILAR STRUCTURES: No masses. Contour normal. HEART AND VASCULAR STRUCTURES: Heart normal in size. Normal vasculature. BONES: No acute findings. HARDWARE: None in the chest. OTHER: No other significant finding. IMPRESSION: NO ACUTE RADIOGRAPHIC FINDING IN THE CHEST. TECHNICAL DOCUMENTATION: JOB ID: [id number] [employer]- All Rights Reserved Reading location - IP/workstation name: [email or web address]
[2018-02-15 15:07] LABS: CREATINE KINASE MB 1.39 ng/mL (<4.55); TROPONIN I 0.015 ng/mL
--- NOTE | 2018-02-15 15:10 | ER Document Report ---
ED Cardiac - General Chief Complaint: Chest Pain Stated Complaint: CHEST PAIN Time Seen by Provider: 02/15/18 13:59 Mode of Arrival: Medic Information source: Patient Notes: Patient is a 42-year-old male who presents to the emergency department via EMS for chest pain that has been going on for 3 days. Patient denies any associated symptoms, denies any shortness of breath, nausea or radiation of the pain. Patient does report that he does not like to take medication so he has been drinking beer to take the pain away. He admits to drinking 4-6 beers today. Patient is not very forthcoming with answering questions. TRAVEL OUTSIDE OF THE [place] IN LAST 30 DAYS: No - Related Data Allergies/Adverse Reactions: No Known Allergies Allergy (Verified 11/10/17 10:38) Past Medical History - General Information source: Patient - Social History Smoking Status: Current Every Day Smoker Frequency of alcohol use: currently intoxicated Drug Abuse: None Family History: None, CAD Patient has suicidal ideation: No Patient has homicidal ideation: No - Past Medical History Cardiac Medical History: Reports: Hx Heart Attack - 10/2017, Hx Hypercholesterolemia, Hx Hypertension Neurological Medical History: Denies: Hx Cerebrovascular Accident Endocrine Medical History: Reports: Hx Diabetes Mellitus Type 2. Denies: Hx Diabetes Mellitus Type 1 Renal/ Medical History: Denies: Hx Peritoneal Dialysis Past Surgical History: Reports: Hx Cardiac Catheterization - stent x4, Hx Cardiac Surgery, Hx Orthopedic Surgery - Immunizations Hx Diphtheria, Pertussis, Tetanus Vaccination: Yes Review of Systems - Review of Systems Cardiovascular: Chest pain. denies: Palpitations, Dyspnea, Dizziness Gastrointestinal: denies: Nausea, Vomiting -: Yes All other systems reviewed and negative Physical Exam - Vital signs Vitals: Pulse Ox 94 02/15/18 14:00 - Notes Notes: PHYSICAL EXAMINATION: GENERAL: Disheveled but well-nourished and in no acute distress. HEAD: Atraumatic, normocephalic. EYES: Pupils equal round and reactive to light, extraocular movements intact, sclera anicteric, conjunctiva are normal. ENT: Nares patent, oropharynx clear without exudates. Moist mucous membranes. NECK: Normal range of motion, supple without lymphadenopathy LUNGS: Breath sounds clear to auscultation bilaterally and equal. No wheezes rales or rhonchi. HEART: Regular rate and rhythm without murmurs, reproducible chest pain to the left chest wall with palpation. ABDOMEN: Soft, nontender, nondistended abdomen. No guarding, no rebound. No masses appreciated. Musculoskeletal: Normal range of motion, no pitting or edema. No cyanosis. NEUROLOGICAL: Cranial nerves grossly intact. Normal speech, normal gait. Normal sensory, motor exams PSYCH: Normal mood, normal affect. SKIN: Warm, Dry, normal turgor, no rashes or lesions noted. Course - Re-evaluation Re-evalutation: CBC, CMP are unremarkable. EKG shows a sinus rhythm, rate of 94, normal axis with no ST segment elevations, this EKG is unchanged from previous on record from 01/30/18. Chest x-ray with no acute findings to include infiltrates or pneumothorax. Patient called out became very aggressive with the nurse stating that he is ready to leave. Cardiac enzymes have not resulted yet. Multiple attempts to ask patient to stay and wait for results were unsuccessful. Patient ripped-out his IV and ambulated out of the department. Patient is of sound mind and able to safely make his own decisions. Patient eloped from room. - Vital Signs Vital signs: Temp Pulse Resp BP Pulse Ox 97.9 F 22 H 134/76 H 94 02/15/18 14:16 02/15/18 14:04 02/15/18 14:04 02/15/18 14:04 - Laboratory Result Diagrams: 02/15/18 14:12 02/15/18 14:12 Laboratory results interpreted by me: 02/15/18 14:12 Glucose 137 H Discharge - Discharge Clinical Impression: Chest pain Qualifiers: Chest pain type: unspecified Qualified Code(s): R07.9 - Chest pain, unspecified Disposition: ELOPED
--- NOTE | 2018-02-16 07:41 | EKG REPORT ---
SEVERITY:- ABNORMAL ECG - SINUS RHYTHM PROBABLE LEFT ATRIAL ABNORMALITY ANTEROLATERAL INFARCT, RECENT , SINCE 10/2017 : Confirmed by: Pramod Borden MD 16-Feb-2018 07:40:50
== END 2018-02-15 15:00 | disposition left against medical advice (07) ==
LOC: ER 13:50
DX: R07.9 Chest pain, unspecified (principal); F17.200 Nicotine dependence, unspecified, uncomplicated; F10.129 Alcohol abuse with intoxication, unspecified; I25.2 Old myocardial infarction; I10 Essential (primary) hypertension; E11.9 Type 2 diabetes mellitus without complications
CPT/HCPCS: 36415; 71045; 80053; 82550; 82553; 84484; 85025; 93005; 93010; 99281

== ENCOUNTER 2018-03-24 09:04 | Emergency (ER) | payer SELFPAY ==
[2018-03-24 09:24] VITALS: BP 105/68
--- NOTE | 2018-03-24 09:51 | ER Document Report ---
ED Respiratory Problem - General Chief Complaint: Fever Stated Complaint: FEVER Time Seen by Provider: 03/24/18 09:37 Mode of Arrival: Ambulatory Information source: Patient, [facility] Records Notes: 42-year-old male complaining 2 days of fever to 102, cough and congestion. Reports yellow sputum and yellow nasal discharge. Complains of chest and abdominal pain related to the coughing. TRAVEL OUTSIDE OF THE [place] 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 [employer] Lives with: Spouse/Significant other Family History: None, CAD Patient has suicidal ideation: No Patient has homicidal ideation: No - Past Medical History Cardiac Medical History: Reports: Hx Heart Attack - 10/2017, Hx Hypercholesterolemia, Hx Hypertension Neurological Medical History: Reports: None Endocrine Medical History: Reports: Hx Diabetes Mellitus Type 2 Past Surgical History: Reports: Hx Cardiac Catheterization, Hx Cardiac Surgery, Hx Coronary Stent - x4, Hx Orthopedic Surgery - Immunizations Hx Diphtheria, Pertussis, Tetanus Vaccination: Yes Review of Systems - Review of Systems Constitutional: Fever EENT: Nose congestion, Nose discharge Cardiovascular: See HPI, Chest pain Respiratory: Cough, Short of breath, Sputum, Wheezing Gastrointestinal: See HPI, Abdominal pain Genitourinary: No symptoms reported Musculoskeletal: No symptoms reported Skin: No symptoms reported Hematologic/Lymphatic: No symptoms reported Neurological/Psychological: No symptoms reported Physical Exam - Vital signs Vitals: Temp Pulse Resp BP Pulse Ox 98.7 F 107 H 24 H 105/68 97 03/24/18 09:23 03/24/18 09:23 03/24/18 09:23 03/24/18 09:23 03/24/18 09:23 - Notes Notes: PHYSICAL EXAMINATION: GENERAL: Well-appearing, well-nourished and in no acute distress. HEAD: Atraumatic, normocephalic. I do not appreciate the left facial swelling the patient is describing that he notices. EYES: Pupils equal round and reactive to light, extraocular movements intact, sclera anicteric, conjunctiva are normal. ENT: nares patent, oropharynx clear without exudates. Moist mucous membranes. There is some nasal and sinus congestion. Evaluation of the teeth does not show any significant decay, no gum swelling or buccal mucosal swelling. NECK: Normal range of motion, supple without lymphadenopathy LUNGS: Patient has diffuse wheezes and rhonchi made worse with cough. HEART: Regular rate and rhythm without murmurs ABDOMEN: Soft, normoactive bowel sounds. No guarding, no rebound. No masses appreciated. EXTREMITIES: Normal range of motion, no pitting or edema. No cyanosis. NEUROLOGICAL: Cranial nerves grossly intact. Normal speech, normal gait. Normal sensory, motor, and reflex exams. PSYCH: Normal mood, normal affect. SKIN: Warm, Dry, normal turgor, no rashes or lesions noted. Course - Vital Signs Vital signs: Temp Pulse Resp BP Pulse Ox 98.7 F 107 H 24 H 105/68 97 03/24/18 09:23 03/24/18 09:23 03/24/18 09:23 03/24/18 09:23 03/24/18 09:23 Discharge - Discharge Clinical Impression: Bronchitis, acute, with bronchospasm Sinusitis Qualifiers: Sinusitis location: unspecified location Chronicity: acute Recurrence: non- recurrent Qualified Code(s): J01.90 - Acute sinusitis, unspecified Condition: Stable Disposition: HOME, SELF-CARE Additional Instructions: Bronchitis with Bronchospasm (Wheezing) You have bronchitis with bronchospasm (wheezing). Sometimes people develop wheezing with a chest cold. This occurs either because of an underlying tendency toward asthma or because the virus itself irritates the bronchial tubes. This irritation causes cough, shortness of breath, and wheezing. Emergency treatment of bronchospasm may include adrenaline shots or bronchodilator aerosol. You may feel lightheaded and have a rapid pulse for an hour or two. Rest and get plenty of fluids. At home, we'll treat you with a bronchodilator inhaler. Corticosteroids may be required for some patients. Until you recover, avoid chemical fumes, dusts, pollens, and exercising in very cold or dry air. If you smoke, stop now! Most cases of bronchitis get better without antibiotics. We prescribe antibiotics when we believe bacteria are damaging your airways, or if there's high risk the bronchitis will worsen into pneumonia. Increase your fluid intake. A cool mist humidifier may make your lungs more comfortable. An expectorant (cough medicine that loosens phlegm) can help. Repeated episodes of bronchitis and bronchospasm may result in lung damage -- for example, chronic bronchitis, recurrent pneumonias, or emphysema. If you develop a fever, increased wheezing, chest pain, or severe shortness of breath, you should contact the doctor immediately. Take medications as prescribed. Try Robitussin-DM to help suppress your cough. Try to stop smoking. Drink lots of fluids throughout the day in the evening. Get plenty of rest and sleep. Follow-up with your primary care provider next week if not improving. RETURN TO THE EMERGENCY ROOM IF ANY NEW OR WORSENING SYMPTOMS. Prescriptions: Albuterol Sulfate [Proair Hfa Inhalation Aerosol 8.5 gm Mdi] 2 puff IH Q4 PRN #1 mdi PRN Reason: Doxycycline Hyclate 100 mg PO BID #20 tablet. Prednisone [Deltasone 10 mg Tablet] 10 mg PO ASDIR PRN #21 tablet PRN Reason: Forms: Return to Work
== END 2018-03-24 09:55 | disposition home or self-care (01) ==
LOC: ER 09:04
DX: J20.9 Acute bronchitis, unspecified (principal); J01.90 Acute sinusitis, unspecified; R50.9 Fever, unspecified; R05 Cough; J34.89 Other specified disorders of nose and nasal sinuses; R10.9 Unspecified abdominal pain; R09.81 Nasal congestion; R06.02 Shortness of breath; R07.9 Chest pain, unspecified; F17.210 Nicotine dependence, cigarettes, uncomplicated; I10 Essential (primary) hypertension; I25.2 Old myocardial infarction; E11.9 Type 2 diabetes mellitus without complications; Z95.5 Presence of coronary angioplasty implant and graft
CPT/HCPCS: 99283

== ENCOUNTER 2018-05-05 23:03 | Observation (INO) | payer SELFPAY ==
[2018-05-05] MEDS ORDERED: ASPIRIN 81 MG TABLET, CHEWABLE PO ONE (23:08)
--- NOTE | 2018-05-05 23:47 | RADIOLOGY REPORT (SQ) ---
EXAM DESCRIPTION: XR CHEST 1 VIEW COMPLETED DATE/TME: 05/05/2018 23:08 CLINICAL HISTORY: 42 years, Male, cp COMPARISON: 02/15/2018 chest NUMBER OF VIEWS: 1 TECHNIQUE: Portable chest LIMITATIONS: None. FINDINGS: Heart size is normal. Lungs are clear. No pneumothorax IMPRESSION: Negative chest copyright 2010 [employer]- All Rights Reserved
--- NOTE | 2018-05-05 23:50 | ER Document Report ---
ED General - General Chief Complaint: Chest Pain Stated Complaint: CHEST PAIN Time Seen by Provider: 05/05/18 23:40 TRAVEL OUTSIDE OF THE [place] IN LAST 30 DAYS: No - HPI Notes: Patient is a 42-year-old male that presents to the emergency department for chief complaint of chest pain. Patient reports he was sitting at rest around 10 PM and started having a left- sided chest pain. He describes it as a heavy achy sensation. He states he is now having sharp pains radiating down his left arm. The pain is been constant since onset. He is out of his home nitroglycerin. He did take a baby aspirin and Brilinta this morning. He has a history of coronary stenting x4 in October 2017 at [facility]. Patient states this feels similar to his previous heart attacks. He states he does feel short of breath and has vomited 3 times as well. Past Medical History: CAD, hypertension Past Surgical History: Coronary stent x4 Social History: Daily tobacco, occasional alcohol, denies drug use Family History: Reviewed and noncontributory for presenting illness Allergies: Reviewed, see documented allergy list. REVIEW OF SYSTEMS: CONSTITUTIONAL : No fever No chills No diaphoresis No recent illness EENT: No vision changes No congestion No sore throat CARDIOVASCULAR: chest pain No palpitations RESPIRATORY: shortness of breath No cough No difficulty breathing GASTROINTESTINAL: No abdominal pain nausea vomiting No diarrhea GENITOURINARY: No dysuria No hematuria No difficulty urinating MUSCULOSKELETAL: No back pain No leg pain arm pain SKIN: No rashes No lesions LYMPHATIC: No swollen, enlarged glands. NEUROLOGICAL: No lightheadedness No headache No weakness No paresthesias PSYCHIATRIC: No anxiety No depression PHYSICAL EXAMINATION: Vital signs reviewed, nursing noted reviewed. GENERAL: Mildly diaphoretic, Ell-nourished and in no acute distress. HEAD: Atraumatic, normocephalic. EYES: Eyes appear normal, extraocular movements intact, sclera anicteric, conjunctiva are normal. ENT: nares patent, oropharynx clear without exudates. Moist mucous membranes. NECK: Normal range of motion, supple without lymphadenopathy LUNGS: No chest wall tenderness, breath sounds mild wheezing to auscultation HEART: Regular rate and rhythm without murmurs ABDOMEN: Soft, nontender, normoactive bowel sounds. No rebound, guarding, or rigidity. No masses appreciated. EXTREMITIES: Nontender, good range of motion, no pitting or edema. NEUROLOGICAL: No focal neurological deficits. Moves all extremities spontaneously Motor and sensory grossly intact on exam. PSYCH: Normal mood, normal affect. SKIN: Warm, mildly diaphoretic normal turgor, no rashes or lesions noted on exposed skin - Related Data Allergies/Adverse Reactions: No Known Allergies Allergy (Verified 03/24/18 09:06) Past Medical History - Social History Smoking Status: Current Every Day Smoker Family History: None, CAD - Past Medical History Cardiac Medical History: Reports: Hx Heart Attack - 10/2017, Hx Hypercholesterolemia, Hx Hypertension Neurological Medical History: Denies: Hx Cerebrovascular Accident Endocrine Medical History: Reports: Hx Diabetes Mellitus Type 2. Denies: Hx Diabetes Mellitus Type 1 Renal/ Medical History: Denies: Hx Peritoneal Dialysis Past Surgical History: Reports: Hx Cardiac Catheterization, Hx Cardiac Surgery, Hx Coronary Stent - x4, Hx Orthopedic Surgery - Immunizations Hx Diphtheria, Pertussis, Tetanus Vaccination: Yes Physical Exam - Vital signs Vitals: Temp Pulse Resp BP Pulse Ox 98 F 90 20 175/110 H 97 05/05/18 23:04 05/05/18 23:04 05/05/18 23:04 05/05/18 23:04 05/05/18 23:04 Course - Re-evaluation Re-evalutation: 05/05/18 23:58 Vitals reviewed. Nursing notes reviewed. Patient's EKG is unchanged from prior was given aspirin, nitro and Zofran for symptomatic management. 05/06/18 01:20 Patient reevaluated after 3 sublingual nitroglycerin he was asleep and when I woke him up he stated his pain was significantly better but slightly present st ill. 1 inch of Nitropaste will be placed on his chest. Patient is now complaining of pain all over his body from his bruises. He states he bruises easily because of the Brilinta. He denies any acute traumatic injury. Patient was given morphine for his further pain complaints. His lab work today is unremarkable. His troponin is 0.033. His EKG is unchanged from January 2018. I discussed patient's care with Dr. Gonzalez who feels he is appropriate to be admitted at this facility given his negative initial workup. Patient's care discussed with Dr. Neville who accepted admission. Laboratory 05/05/18 05/05/1805/05/19 23:00 23:00 23:00 WBC 8.0 RBC 5.48 Hgb 16.3 Hct 46.9 MCV 86 MCH 29.7 MCHC 34.7 RDW 13.4 Plt Count 166 Seg Neutrophils % 65.6 Lymphocytes % 23.1 Monocytes % 6.4 Eosinophils % 4.2 Basophils % 0.7 Absolute Neutrophils 5.3 Absolute Lymphocytes 1.8 Absolute Monocytes 0.5 Absolute Eosinophils 0.3 Absolute Basophils 0.1 PT INR APTT Sodium 137.0 Potassium 4.3 Chloride 99 Carbon Dioxide 27 Anion Gap 11 BUN 14 Creatinine 0.80 Est GFR ( Amer) > 60 Est GFR (Non-Af Amer) > 60 Glucose 171 H Calcium 10.2 Total Bilirubin 0.5 Direct Bilirubin 0.2 Neonat Total Bilirubin Not Reportable Neonat Direct Bilirubin Not Reportable Neonat Indirect Bili Not Reportable AST 26 ALT 42 Alkaline Phosphatase 89 Troponin I 0.033 Total Protein 7.8 Albumin 4.8 05/05/18 23:00 WBC RBC Hgb Hct MCV MCH MCHC RDW Plt Count Seg Neutrophils % Lymphocytes % Monocytes % Eosinophils % Basophils % Absolute Neutrophils Absolute Lymphocytes Absolute Monocytes Absolute Eosinophils Absolute Basophils PT 12.1 INR 0.86 APTT 23.7 Sodium Potassium Chloride Carbon Dioxide Anion Gap BUN Creatinine Est GFR ( Amer) Est GFR (Non-Af Amer) Glucose Calcium Total Bilirubin Direct Bilirubin Neonat Total Bilirubin Neonat Direct Bilirubin Neonat Indirect Bili AST ALT Alkaline Phosphatase Troponin I Total Protein Albumin Chest X-Ray 05/05/18 23:08 IMPRESSION: Negative chest copyright 2011 [employer]- All Rights Reserved - Vital Signs Vital signs: Temp Pulse Resp BP Pulse Ox 98 F 90 18 136/86 H 99 05/05/18 23:04 05/05/18 23:04 05/06/18 01:01 05/06/18 01:01 05/06/18 01:01 - Laboratory Result Diagrams: 05/05/18 23:00 05/05/18 23:00 Laboratory results interpreted by me: 05/05/18 23:00 Glucose 171 H - EKG Interpretation by Me Additional EKG results interpreted by me: 05/05/18 23:58 Interpreted by myself [id number]: Normal sinus rhythm, rate 77, normal axis, no ectopy, no STEMI Discharge - Discharge Clinical Impression: Chest pain Qualifiers: Chest pain type: unspecified Qualified Code(s): R07.9 - Chest pain, unspecified Condition: Stable Disposition: ADMITTED OBSERVATION Admitting Provider: Hospitalist Unit Admitted: Telemetry
[2018-05-05 23:54] LABS: ABSOLUTE BASOPHILS # (AUTO) 0.1 10^3/uL (0.0-0.2); ABSOLUTE EOSINOPHILS # (AUTO) 0.3 10^3/uL (0.0-0.6); ABSOLUTE LYMPHOCYTES (AUTO) 1.8 10^3/uL (0.5-4.7); ABSOLUTE MONOCYTES (AUTO) 0.5 10^3/uL (0.1-1.4); ABSOLUTE NEUT (AUTO) 5.3 10^3/uL (1.7-8.2); BASOPHILS % (AUTO) 0.7 % (0-2); EOSINOPHILS % (AUTO) 4.2 % (0-6); HEMATOCRIT 46.9 % (37.9-51.0); HEMOGLOBIN 16.3 g/dL (13.5-17.0); LYMPHOCYTES % (AUTO) 23.1 % (13-45); MEAN CORPUSCULAR HEMOGLOBIN 29.7 pg (27.0-33.4); MEAN CORPUSCULAR HGB CONC 34.7 g/dL (32.0-36.0); MEAN CORPUSCULAR VOLUME 86 fl (80-97); MONOCYTES % (AUTO) 6.4 % (3-13); PLATELET COUNT 166 10^3/uL (150-450); RED BLOOD COUNT 5.48 10^6/uL (4.35-5.55); RED CELL DISTRIBUTION WIDTH 13.4 % (11.5-14.0); SEGMENTED NEUTROPHILS % (AUTO) 65.6 % (42-78); TOTAL CELLS COUNTED % (AUTO) 100 %
[2018-05-05] MEDS: NITROGLYCERIN 0.4 MG/TAB 25 TAB/BOTTLE SL PRN (23:57)
[2018-05-05] MEDS ORDERED: ONDANSETRON HCL INJ/PF 4 MG/2 ML SDV IV ONE (23:58)
[2018-05-06] LABS: INTERNATIONAL RATION (INR) 0.86; PROTHROMBIN TIME 12.1 SEC (11.4-15.4)
[2018-05-06 00:04] LABS: PARTIAL THROMBOPLASTIN TIME 23.7 SEC (23.5-35.8)
[2018-05-06] MEDS: NITROGLYCERIN 0.4 MG/TAB 25 TAB/BOTTLE SL PRN ×5 (00:04→05:49)
[2018-05-06 00:07] LABS: ALANINE AMINOTRANSFERASE 42 U/L (21-72); ALBUMIN 4.8 g/dL (3.5-5.0); ALKALINE PHOSPHATASE 89 U/L (38-126); ANION GAP 11 (5-19); ASPARTATE AMINO TRANSFERASE 26 U/L (17-59); BILIRUBIN,DIRECT 0.2 mg/dL (0.0-0.4); BILIRUBIN,TOTAL 0.5 mg/dL (0.2-1.3); BLOOD UREA NITROGEN 14 mg/dL (7-20); CALCIUM 10.2 mg/dL (8.4-10.2); CARBON DIOXIDE 27 mmol/L (22-30); CHLORIDE 99 mmol/L (98-107); GLUCOSE 171 mg/dL (75-110); POTASSIUM 4.3 mmol/L (3.6-5.0); TOTAL PROTEIN 7.8 g/dL (6.3-8.2)
[2018-05-06] MEDS ORDERED: MORPHINE SULFATE 10 MG/ML INJ IV ONE ×2 (01:11→06:00)
[2018-05-06] MEDS ORDERED: NITROGLYCERIN 2% OINTMENT 1 GM PACKET TP ONE (01:11)
[2018-05-06] MEDS ORDERED: ONDANSETRON HCL INJ/PF 4 MG/2 ML SDV IV PRN (01:56)
[2018-05-06] MEDS ORDERED: ONDANSETRON 4 MG TAB.RAPDIS PO PRN (01:56)
[2018-05-06] MEDS ORDERED: MAGNESIUM HYDROXIDE SUSP 30 ML UDCUP PO PRN (01:56)
[2018-05-06] MEDS ORDERED: TEMAZEPAM 15 MG CAPSULE PO PRN (01:56)
[2018-05-06] MEDS ORDERED: MAG HYDROX/AL HYDROX/SIMETH SUSP 30 ML UDCUP PO PRN (01:56)
[2018-05-06] MEDS ORDERED: LEVALBUTEROL HCL NEB 1.25 MG/3 ML AMPUL NEB PRN (01:56)
[2018-05-06] MEDS ORDERED: DEXTROSE 40% GEL 15 GM TUBE PO PRN ×2 (02:05)
[2018-05-06] MEDS ORDERED: DEXTROSE 50%-WATER 25 GM/50 ML DISP.SYRIN IV PRN ×2 (02:05)
[2018-05-06] MEDS ORDERED: INSULIN REG, HUMAN 100 UNIT/ML 3 ML VIAL (PYX) SUBCUT PRN (02:05)
[2018-05-06] MEDS ORDERED: GLUCAGON,HUMAN RECOMB 1 MG INJ IM PRN (02:05)
[2018-05-06] MEDS ORDERED: NICOTINE 21 MG/24 HR PATCH.TD24 TD PRN (02:25)
[2018-05-06 03:04] LABS: FREE T3 4.9 pg/mL (2.77-5.27); FREE T4 (FREE THYROXINE) 1.25 ng/dL (0.78-2.19)
[2018-05-06 03:18] LABS: THYROID STIMULATING HORMONE 1.73 uIU/mL (0.47-4.68)
[2018-05-06 05:14] LABS: ANION GAP 7 (5-19); BLOOD UREA NITROGEN 14 mg/dL (7-20); CALCIUM 9.5 mg/dL (8.4-10.2); CARBON DIOXIDE 28 mmol/L (22-30); CHLORIDE 103 mmol/L (98-107); CHOLESTEROL 213.24 mg/dL (0-200); GLUCOSE 170 mg/dL (75-110); POTASSIUM 4.4 mmol/L (3.6-5.0); SODIUM 138.1 mmol/L (137-145); TRIGLYCERIDES 77 mg/dL (<150)
[2018-05-06] MEDS ORDERED: MORPHINE SULFATE 10 MG/ML INJ ONE (05:24)
[2018-05-06 05:25] LABS: DIRECT LDL 152 mg/dL (<100)
--- NOTE | 2018-05-06 05:28 | PDOC H&P ---
History of Present Illness Admission Date/PCP: 05/06/18 01:39 Patient complains of: Chest pain History of Present Illness: MAUDE MENA is a 42 year old male who presented to the emergency room with the acute onset of chest pain. Patient admitted that he suddenly began having chest pain while seated in his chair at home, at approximately 10 PM. He describes the pain as a constant, heavy aching painful sensation in his left anterior chest, radiating down his left arm and accompanied by dyspnea and 3 episodes of emesis. He describes the pain as being exactly the same as he had with his previous heart attacks. He denies identification of any aggravating or ameliorating factors for his chest pain at this time. He has a long coronary artery disease history and 4 prior stent placements. In the emergency room he was found to have no acute EKG changes and his cardiac enzymes were negative. Patient's pain was treated with nitroglycerin sublingually x3 after which she had some improvement but did not have resolution of his pain. He was continued with nitroglycerin paste but still had chest pain after that application. As the patient was having fairly typical anginal pain I felt that the patient might be best transferred to the hospital where emergency catheterization was available, but due to severely limited ability to transfer patient's at the current time due to high hospital census situations and Dr. Gonzalez's willingness to accept the patient, the patient admitted via observation status to [facility]. Past Medical History Cardiac Medical History: Reports: Coronary Artery Disease, Myocardial Infarction - 10/2017, Hyperlipidema, Hypertension Pulmonary Medical History: Reports: Chronic Obstructive Pulmonary Disease (COPD) Denies: Asthma EENT Medical History: Denies: Cataracts, Nose - Nasal polyps Neurological Medical History: Denies: Hemorrhagic CVA, Ischemic CVA, Seizures Endocrine Medical History: Reports: Diabetes Mellitus Type 2 Denies: Diabetes Mellitus Type 1, Hyperthyroidism, Hypothyroidism Renal/ Medical History: Denies: Chronic Kidney Disease, Nephrolithiasis Malignancy Medical History: Reports: None GI Medical History: Denies: Cirrhosis, Hepatitis Musculoskeltal Medical History: Denies: Arthritis, Gout Skin Medical History: Denies: Eczema, Psoriasis Psychiatric Medical History: Reports: Tobacco Dependency Denies: Alcohol Dependency, Substance Abuse Traumatic Medical History: Reports: None Hematology: Denies: Anemia, Bleeding Tendencies Infectious Medical History: Reports: None Past Surgical History Past Surgical History: Reports: Cardiac Catheterization, Coronary Stent - x4, Orthopedic Surgery Social History Information Source: Patient Lives with: Spouse/Significant other Smoking Status: Current Every Day Smoker Frequency of Alcohol Use: Rare Hx Recreational Drug Use: No Drugs: None Hx Prescription Drug Abuse: No - Advance Directive Resuscitation Status: Full Code Surrogate healthcare decision maker:: Ashleigh his significant other Family History Family History: CAD, Hypertension Parental Family History Reviewed: Yes Children Family History Reviewed: No Sibling(s) Family History Reviewed.: Yes Medication/Allergy Home Medications: Albuterol Sulfate [Proair Hfa Inhalation Aerosol 8.5 gm Mdi] 2 puff IH Q4 PRN #1 mdi 03/24/18 Aspirin [Ecotrin 81 mg EC Tablet] 81 mg PO DAILY 03/24/18 Atorvastatin Calcium [Lipitor 80 mg Tablet] 80 mg PO QHS 03/24/18 Clopidogrel Bisulfate [Plavix 75 mg Tablet] 75 mg PO DAILY 03/24/18 Doxycycline Hyclate 100 mg PO BID #20 tablet. 03/24/18 Glipizide [Glocotrol 5 Mg Tablet] 5 mg PO DAILY 03/24/18 Isosorbide Mononitrate [Imdur 30 mg Tablet.er] 30 mg PO DAILY 03/24/18 Lisinopril/Hydrochlorothiazide [Lisinopril-Hctz 10-12.5 mg Tab] 1 each PO DAILY 03/24/18 Metoprolol Tartrate [Lopressor 50 mg Tablet] 50 mg PO DAILY 03/24/18 Nicotine [Nicotine Patch] 1 each TD Q24H 03/24/18 Nitroglycerin [Nitrostat 0.4 mg (1/150 Gr) Tabs 25/Bottle] 1 tab SL Q5MP PRN 03/24/18 Prednisone [Deltasone 10 mg Tablet] 10 mg PO ASDIR PRN #21 tablet 03/24/18 Allergies/Adverse Reactions: No Known Allergies Allergy (Verified 03/24/18 09:06) Review of Systems Constitutional: ABSENT: chills, fever(s) Eyes: ABSENT: visual disturbances, other - Eye pain Ears: ABSENT: hearing changes, other - Ear pain Nose, Mouth, and Throat: ABSENT: mouth pain, sore throat Cardiovascular: PRESENT: as per HPI, chest pain, other - Dyspnea at rest. ABSENT: dyspnea on exertion, edema, orthropnea, palpitations Respiratory: PRESENT: dyspnea. ABSENT: cough Gastrointestinal: ABSENT: abdominal pain, constipation, diarrhea, nausea, vom iting Genitourinary: ABSENT: dysuria, hematuria Musculoskeletal: ABSENT: deformity, joint swelling Integumentary: ABSENT: pruritus, rash Neurological: ABSENT: confusion, convulsions, focal weakness, memory loss Psychiatric: ABSENT: anxiety, depression Endocrine: ABSENT: cold intolerance, heat intolerance Hematologic/Lymphatic: ABSENT: easy bleeding, easy bruising Physical Exam Vital Signs: Temp Pulse Resp BP Pulse Ox 98 F 90 18 136/86 H 99 05/05/18 23:04 05/05/18 23:04 05/06/18 01:01 05/06/18 01:01 05/06/18 01:01 Intake & Output 05/04/18 05/05/18 05/06/18 23:59 23:59 23:59 Weight 91.8 kg General appearance: PRESENT: no acute distress, cooperative Head exam: PRESENT: atraumatic, normocephalic Eye exam: PRESENT: conjunctiva pink, EOMI. ABSENT: scleral icterus Ear exam: PRESENT: normal external ear exam. ABSENT: bleeding, drainage Mouth exam: PRESENT: dry mucosa, neck supple Neck exam: ABSENT: thyromegaly, tracheal deviation Respiratory exam: PRESENT: clear to auscultation elizabeth, symmetrical, unlabored Cardiovascular exam: PRESENT: RRR. ABSENT: clicks, gallop, rubs Pulses: PRESENT: normal radial pulses, normal dorsalis pedis pul Vascular exam: PRESENT: normal capillary refill. ABSENT: pallor GI/Abdominal exam: PRESENT: normal bowel sounds, soft Rectal exam: PRESENT: deferred Extremities exam: ABSENT: joint swelling, pedal edema Musculoskeletal exam: PRESENT: full ROM, normal inspection Neurological exam: PRESENT: alert, oriented to person, oriented to place, oriented to time, oriented to situation, CN II-XII grossly intact. ABSENT: motor sensory deficit Psychiatric exam: PRESENT: appropriate affect, normal mood Skin exam: PRESENT: dry, intact, warm. ABSENT: jaundice, rash, urticaria Results Laboratory Results: 05/05/18 23:00 05/05/18 23:00 05/05/18 05/05/18 23:00 23:00 WBC 8.0 RBC 5.48 Hgb 16.3 Hct 46.9 MCV 86 MCH 29.7 MCHC 34.7 RDW 13.4 Plt Count 166 Seg Neutrophils % 65.6 Lymphocytes % 23.1 Monocytes % 6.4 Eosinophils % 4.2 Basophils % 0.7 Absolute Neutrophils 5.3 Absolute Lymphocytes 1.8 Absolute Monocytes 0.5 Absolute Eosinophils 0.3 Absolute Basophils 0.1 Sodium 137.0 Potassium 4.3 Chloride 99 Carbon Dioxide 27 Anion Gap 11 BUN 14 Creatinine 0.80 Est GFR ( Amer) > 60 Est GFR (Non-Af Amer) > 60 Glucose 171 H Calcium 10.2 Total Bilirubin 0.5 AST 26 ALT 42 Alkaline Phosphatase 89 Total Protein 7.8 Albumin 4.8 05/05/18 23:00 Troponin I 0.033 Impressions: Chest X-Ray 05/05/18 23:08 IMPRESSION: Negative chest copyright 2011 [employer]- All Rights Reserved Assessment & Plan - Diagnosis (1) Acute angina Plan: Patient is admitted to observation status and will be treated with nitroglycerin sublingual every 5 minutes as needed chest pain. If patient's pain persists he will be treated with morphine sulfate IV 2-4 mg every 2 hours as needed for chest pain. Serial cardiac enzymes will be performed to evaluate the patient for cardiac ischemia or injury. (2) Coronary artery disease Qualifiers: Coronary Disease-Associated Artery/Lesion type: [place] artery [place] vs. transplanted heart: [place] heart Associated angina: with unstable angina Qualified Code(s): I25.110 - Atherosclerotic heart disease of [place] coronary artery with unstable angina pectoris Is this a current diagnosis for this admission?: Yes Plan: Serial cardiac enzymes will be performed to evaluate the patient for cardiac is chemia or injury. Cardiac consultation will be obtained with Dr. Gonzalez. (3) Hypertension Is this a current diagnosis for this admission?: Yes Plan: Patient will be continued on his usual antihypertensive medications as approp riate during his hospital care. (4) Tobacco use disorder, severe, dependence Is this a current diagnosis for this admission?: Yes Plan: Smoking cessation is advised and counseled briefly. A nicotine patch will be available patient as desired. - Time Time Spent: 30 to 50 Minutes Critical Time spent with patient: Less than 15 minutes Smoking Cessation Education: 3 to 10 minutes Medications reviewed and adjusted accordingly: Yes Anticipated discharge: Home - Inpatient Certification Based on my medical assessment, after consideration of the patient's comorbidit ies, presenting symptoms, or acuity I expect that the services needed warrant INPATIENT care.: No I certify that my determination is in accordance with my understanding of [facility]'s requirements for reasonable and necessary INPATIENT services [42 CFR 412.3e].: No Medical Necessity: Need Close Monitoring Due to Risk of Patient Decompensation, Need For Continuous Telemetry Monitoring, Need for Pain Control, Risk of Complication if Not Cared For in Hospital
[2018-05-06] MEDS ORDERED: NITROGLYCERIN 50 MG/D5W 250 ML IV PRN (05:38)
[2018-05-06] MEDS ORDERED: METOPROLOL TARTRATE PF/INJ 5 MG/5 ML SDV IV ONE ×2 (05:50→05:54)
[2018-05-06] MEDS ORDERED: HEPARIN SOD (PORCINE) 5,000 UNIT/ML 1 ML SYRINGE SUBCUT SCH (06:00)
[2018-05-06] MEDS ORDERED: HYDROCODONE/ACETAMINOPHEN 5-325 MG TABLET PO ONE (06:10)
[2018-05-06] MEDS ORDERED: HYDROCODONE/ACETAMINOPHEN 5-325 MG TABLET ONE (06:13)
[2018-05-06] MEDS ORDERED: HEPARIN SODIUM,PORCINE/D5W 25,000 UNIT/250 ML RTUINJ IV PRN (06:47)
[2018-05-06] MEDS ORDERED: HEPARIN SOD (PORCINE) 1,000 UNIT/ML 10 ML VIAL IV ONE (06:47)
[2018-05-06] MEDS ORDERED: TICAGRELOR 90 MG TABLET PO ONE (07:00)
[2018-05-06 07:20] VITALS: BP 121/61
[2018-05-06 07:33] LABS: ABSOLUTE BASOPHILS # (AUTO) 0.1 10^3/uL (0.0-0.2); ABSOLUTE EOSINOPHILS # (AUTO) 0.3 10^3/uL (0.0-0.6); ABSOLUTE LYMPHOCYTES (AUTO) 1.8 10^3/uL (0.5-4.7); ABSOLUTE MONOCYTES (AUTO) 0.6 10^3/uL (0.1-1.4); BASOPHILS % (AUTO) 0.8 % (0-2); EOSINOPHILS % (AUTO) 4.8 % (0-6); HEMOGLOBIN 15.2 g/dL (13.5-17.0); LYMPHOCYTES % (AUTO) 26.4 % (13-45); MEAN CORPUSCULAR HEMOGLOBIN 29.2 pg (27.0-33.4); MEAN CORPUSCULAR HGB CONC 33.9 g/dL (32.0-36.0); MEAN CORPUSCULAR VOLUME 86 fl (80-97); PLATELET COUNT 167 10^3/uL (150-450); RED BLOOD COUNT 5.21 10^6/uL (4.35-5.55); RED CELL DISTRIBUTION WIDTH 13.4 % (11.5-14.0); TOTAL CELLS COUNTED % (AUTO) 100 %; WHITE BLOOD COUNT 6.8 10^3/uL (4.0-10.5)
[2018-05-06 07:35] LABS: INTERNATIONAL RATION (INR) 0.91; PROTHROMBIN TIME 12.8 SEC (11.4-15.4)
[2018-05-06 07:36] LABS: PARTIAL THROMBOPLASTIN TIME 24.3 SEC (23.5-35.8)
[2018-05-06 08:05] LABS: CREATINE KINASE MB 6.63 ng/mL (<4.55)
[2018-05-06 08:16] LABS: TROPONIN I 2.59 ng/mL
--- NOTE | 2018-05-06 08:35 | PDOC CONSULTATION ---
Consultation-Blank Consultation: Cardiology consultation/transfer summary note by Dr. Sarah Gonzalez on 05/06/2017. Patient seen at 5:20 AM. 60 minutes spent on this patient, with more than 50% of time spent in direct patient care and coordinating his medication treatment. REASON FOR CONSULTATION: Patient with non-ST elevation HI, with postinfarction angina. DISPOSITION: Patient being transferred to [facility] under Dr.Alho pérez of [place], [place]. FINAL DIAGNOSIS ON TRANSFER: 1. Non-ST elevation HI with postinfarction angina: Acute coronary syndrome. The patient was given Lopressor 2.5 mg IV push, with the patient only receiving 5 mg IV push. The patient's has been started on IV nitroglycerin at 10 mcg/min, will give morphine sulfate intravenously as needed, will start the patient on full dose heparin with a bolus of 3500 units, and start the patient on 70 units/h. We will continue the patient's aspirin at 81 mg p.o. daily, and Brilinta 90 mg p.o. twice daily the patient being transferred, being kept n.p.o., for emergent cardiac catheterization. 2. Coronary artery disease:: History o ST is elevation HI in October 2017, found to have a totally occluded mid LAD, which was intervened upon and a bare- metal stent placed in the LAD with good results. The patient on that admission also had a intra-aortic balloon pump placement, and also had a bare-metal stent in the obtuse marginal branch and bare-metal stent in his left circumflex. 3. Cardiomyopathy/ischemic: With a moderate reduction in LV ejection fraction of 40% by echo of October 2017.: No clinical signs of heart failure. 4. Hypertension: Blood pressure seems to be well-controlled 5. Diabetes mellitus: Type II [id number] without complications. 6. Hyperlipidemia. 7. Ongoing tobacco abuse disorder: Ill effects of tobacco explained to the patient. Tobacco cessation counseling given 3 minutes spent on this. Current Medications Generic Name Dose Route Start Last Admin Trade Name Freq PRN Reason Stop Dose Admin Al Hydrox/Mg Hydrox/Simethicone 30 ml 05/06/18 01:56 Maalox Plus Susp 30 Udcup PO 06/05/18 01:55 Q6HP PRN HEARTBURN Aspirin 81 mg 05/06/18 10:00 Aspirin 81 Mg Chewable Tablet PO 06/05/18 09:59 DAILY [facility] Dextrose 12.5 gm 05/06/18 02:05 Dextrose Inj 50% Syringe (25 Gm/50 Ml) IV 06/05/18 02:04 PRN PRN FOR BG 50-69 IN ALERT PATIENT Protocol Dextrose 25 gm 05/06/18 02:05 Dextrose Inj 50% Syringe (25 Gm/50 Ml) IV 06/05/18 02:04 PRN PRN PER PROTOCOL Protocol Docusate Sodium 100 mg 05/06/18 10:00 Colace 100 Mg Capsule PO 06/05/18 09:59 BID [facility] Famotidine 20 mg 05/06/18 10:00 Pepcid 20 Mg Tablet PO 06/05/18 09:59 Q12 [facility] Glucagon 1 mg 05/06/18 02:05 Glucagen Inj 1 Mg Vial IM 06/05/18 02:04 PRN PRN Evaluate for BG < 70 Protocol Glucose 15 gm 05/06/18 02:05 Glutose 40% Gel 15 Gm Tube PO 06/05/18 02:04 PRN PRN FOR BG 50-69 IN ALERT PATIENT Protocol Glucose 30 gm 05/06/18 02:05 Glutose 40% Gel 15 Gm Tube PO 06/05/18 02:04 PRN PRN FOR BG < 50 IN ALERT PATIENT Protocol Nitroglycerin/Dextrose 50 mg in 250 mls @ 0 mls/hr 05/06/18 05:38 05/06/18 06:01 Ntg Rtu 50 Mg/D5w 250 Ml Iv Premix Bottle IV 06/05/18 05:37 3 mls/hr CONTINUOUS PRN 3 mls/hr THIS MED IS NOT "PRN" Administration Protocol Titrate Heparin Sodium/Dextrose 25,000 unit in 250 mls @ 0 mls/hr 05/06/18 06:47 03/0 09/17 07:58 Heparin Rtu 25,000 Unit/250 Ml D5w Premix IV 06/05/18 06:46 20 mls/hr CONTINUOUS PRN 20 mls/hr THIS MED IS NOT "PRN" Administration Protocol Titrate Insulin Human Regular 0 - 15 unit 05/06/18 02:05 Humulin R (Pyxis) Insulin 100 Unit/Ml 3ml SUBCUT 06/05/18 02:04 ACHSP PRN PER PROTOCOL Protocol Levalbuterol HCl 1.25 mg 05/06/18 01:56 Xopenex Neb 1.25 Mg/3 Ml Ampul NEB 06/05/18 01:55 RTQ2HP PRN SHORTNESS OF BREATH Magnesium Hydroxide 30 ml 05/06/18 01:56 Milk Of Magnesia 30 Ml Udcup PO 06/05/18 01:55 HSP PRN FOR CONSTIPATION Metoprolol Tartrate 50 mg 05/06/18 10:00 Lopressor 50 Mg Tablet PO 06/05/18 09:59 Q12 [facility] Nicotine 1 each 05/06/18 02:25 Nicoderm 21 Mg/24 Hr Transderm Patch TD 06/05/18 02:24 DAILYP PRN WITHDRAWAL SYMPTOMS Nitroglycerin 1 tab 05/05/18 23:46 05/06/18 05:49 Nitrostat 0.4 Mg (1/150 Gr) Tabs 25/Bottle SL 06/04/18 23:45 1 tab Q5MP PRN Administration FOR CHEST PAIN Ondansetron HCl 4 mg 05/06/18 01:56 Zofran Inj/Pf 4 Mg/2 Ml Sdv IV 06/05/18 01:55 Q4HP PRN FOR NAUSEA/VOMITING Ondansetron HCl 4 mg 05/06/18 01:56 Zofran Odt 4 Mg Tablet PO 06/05/18 01:55 Q4HP PRN FOR NAUSEA/VOMITING Sodium Chloride 2.5 ml 05/06/18 06:00 05/06/18 06:02 Saline Flush 2.5 Ml Monoject Prefil Syrin IV 06/05/18 05:59 Not Given Q8 [facility] Temazepam 15 mg 05/06/18 01:56 Restoril 15 Mg Capsule PO 05/13/18 01:55 HSP PRN SLEEP OR INSOMNIA Ticagrelor 90 mg 05/06/18 18:00 Brilinta 90 Mg Tablet PO 06/05/18 17:59 BID [facility] Discontinued Medications 05/06/18 07:16 05/06/18 03:30 05/05/18 05/05/18 05/05/18 23:00 23:00 23:00 WBC 8.0 RBC 5.48 Hgb 16.3 Hct 46.9 MCV 86 MCH 29.7 MCHC 34.7 RDW 13.4 Plt Count 166 Seg Neutrophils % 65.6 Lymphocytes % 23.1 Monocytes % 6.4 Eosinophils % 4.2 Basophils % 0.7 Absolute Neutrophils 5.3 Absolute Lymphocytes 1.8 Absolute Monocytes 0.5 Absolute Eosinophils 0.3 Absolute Basophils 0.1 Sodium 137.0 Potassium 4.3 Chloride 99 Carbon Dioxide 27 Anion Gap 11 BUN 14 Creatinine 0.80 Est GFR ( Amer) > 60 Est GFR (Non-Af Amer) > 60 Glucose 171 H Calcium 10.2 Magnesium Total Bilirubin 0.5 AST 26 ALT 42 Alkaline Phosphatase 89 Total Protein 7.8 Albumin 4.8 Triglycerides Cholesterol LDL Cholesterol Direct VLDL Cholesterol HDL Cholesterol TSH 1.73 Free T4 1.25 Free T3 pg/mL 4.90 05/06/18 05/06/18 03:30 07:16 WBC 6.8 RBC 5.21 Hgb 15.2 Hct 45.0 MCV 86 MCH 29.2 MCHC 33.9 RDW 13.4 Plt Count 167 Seg Neutrophils % 59.0 Lymphocytes % 26.4 Monocytes % 9.0 Eosinophils % 4.8 Basophils % 0.8 Absolute Neutrophils 4.0 Absolute Lymphocytes 1.8 Absolute Monocytes 0.6 Absolute Eosinophils 0.3 Absolute Basophils 0.1 Sodium 138.1 Potassium 4.4 Chloride 103 Carbon Dioxide 28 Anion Gap 7 BUN 14 Creatinine 0.75 Est GFR ( Amer) > 60 Est GFR (Non-Af Amer) > 60 Glucose 170 H Calcium 9.5 Magnesium 1.8 Total Bilirubin AST ALT Alkaline Phosphatase Total Protein Albumin Triglycerides 77 Cholesterol 213.24 H LDL Cholesterol Direct 152 H VLDL Cholesterol 15.0 HDL Cholesterol 46 TSH Free T4 Free T3 pg/mL 05/05/18 05/06/18 05/06/18 23:00 03:30 07:16 Creatine Kinase 157 Troponin I 0.033 1.080 Labs- Entire Visit 05/05/18 05/05/18 05/05/18 23:00 23:00 23:00 WBC 8.0 RBC 5.48 Hgb 16.3 Hct 46.9 MCV 86 MCH 29.7 MCHC 34.7 RDW 13.4 Plt Count 166 Seg Neutrophils % 65.6 Lymphocytes % 23.1 Monocytes % 6.4 Eosinophils % 4.2 Basophils % 0.7 Absolute Neutrophils 5.3 Absolute Lymphocytes 1.8 Absolute Monocytes 0.5 Absolute Eosinophils 0.3 Absolute Basophils 0.1 PT INR APTT Sodium 137.0 Potassium 4.3 Chloride 99 Carbon Dioxide 27 Anion Gap 11 BUN 14 Creatinine 0.80 Est GFR ( Amer) > 60 Est GFR (Non-Af Amer) > 60 Glucose 171 H POC Glucose Hemoglobin A1c % Calcium 10.2 Magnesium Total Bilirubin 0.5 Direct Bilirubin 0.2 Neonat Total Bilirubin Not Reportable Neonat Direct Bilirubin Not Reportable Neonat Indirect Bili Not Reportable AST 26 ALT 42 Alkaline Phosphatase 89 Creatine Kinase Troponin I 0.033 Total Protein 7.8 Albumin 4.8 Triglycerides Cholesterol LDL Cholesterol Direct VLDL Cholesterol HDL Cholesterol TSH Free T4 Free T3 pg/mL 05/05/18 05/05/18 05/06/18 23:00 23:00 03:30 WBC RBC Hgb Hct MCV MCH MCHC RDW Plt Count Seg Neutrophils % Lymphocytes % Monocytes % Eosinophils % Basophils % Absolute Neutrophils Absolute Lymphocytes Absolute Monocytes Absolute Eosinophils Absolute Basophils PT 12.1 INR 0.86 APTT 23.7 Sodium Potassium Chloride Carbon Dioxide Anion Gap BUN Creatinine Est GFR ( Amer) Est GFR (Non-Af Amer) Glucose POC Glucose Hemoglobin A1c % Calcium Magnesium Total Bilirubin Direct Bilirubin Neonat Total Bilirubin Neonat Direct Bilirubin Neonat Indirect Bili AST ALT Alkaline Phosphatase Creatine Kinase Troponin I 1.080 Total Protein Albumin Triglycerides Cholesterol LDL Cholesterol Direct VLDL Cholesterol HDL Cholesterol TSH 1.73 Free T4 1.25 Free T3 pg/mL 4.90 05/06/18 05/06/18 05/06/18 03:30 06:17 07:16 WBC RBC Hgb Hct MCV MCH MCHC RDW Plt Count Seg Neutrophils % Lymphocytes % Monocytes % Eosinophils % Basophils % Absolute Neutrophils Absolute Lymphocytes Absolute Monocytes Absolute Eosinophils Absolute Basophils PT INR APTT Sodium 138.1 Potassium 4.4 Chloride 103 Carbon Dioxide 28 Anion Gap 7 BUN 14 Creatinine 0.75 Est GFR ( Amer) > 60 Est GFR (Non-Af Amer) > 60 Glucose 170 H POC Glucose 154 H Hemoglobin A1c % Calcium 9.5 Magnesium 1.8 Total Bilirubin Direct Bilirubin Neonat Total Bilirubin Neonat Direct Bilirubin Neonat Indirect Bili AST ALT Alkaline Phosphatase Creatine Kinase 157 Troponin I Total Protein Albumin Triglycerides 77 Cholesterol 213.24 H LDL Cholesterol Direct 152 H VLDL Cholesterol 15.0 HDL Cholesterol 46 TSH Free T4 Free T3 pg/mL 05/06/18 05/06/18 05/06/18 07:16 07:16 07:16 WBC 6.8 RBC 5.21 Hgb 15.2 Hct 45.0 MCV 86 MCH 29.2 MCHC 33.9 RDW 13.4 Plt Count 167 Seg Neutrophils % 59.0 Lymphocytes % 26.4 Monocytes % 9.0 Eosinophils % 4.8 Basophils % 0.8 Absolute Neutrophils 4.0 Absolute Lymphocytes 1.8 Absolute Monocytes 0.6 Absolute Eosinophils 0.3 Absolute Basophils 0.1 PT 12.8 INR 0.91 APTT 24.3 Sodium Potassium Chloride Carbon Dioxide Anion Gap BUN Creatinine Est GFR ( Amer) Est GFR (Non-Af Amer) Glucose POC Glucose Hemoglobin A1c % 7.2 H Calcium Magnesium Total Bilirubin Direct Bilirubin Neonat Total Bilirubin Neonat Direct Bilirubin Neonat Indirect Bili AST ALT Alkaline Phosphatase Creatine Kinase Troponin I Total Protein Albumin Triglycerides Cholesterol LDL Cholesterol Direct VLDL Cholesterol HDL Cholesterol TSH Free T4 Free T3 pg/mL Labs- Entire Visit 05/05/18 05/05/18 05/05/18 23:00 23:00 23:00 WBC 8.0 RBC 5.48 Hgb 16.3 Hct 46.9 MCV 86 MCH 29.7 MCHC 34.7 RDW 13.4 Plt Count 166 Seg Neutrophils % 65.6 Lymphocytes % 23.1 Monocytes % 6.4 Eosinophils % 4.2 Basophils % 0.7 Absolute Neutrophils 5.3 Absolute Lymphocytes 1.8 Absolute Monocytes 0.5 Absolute Eosinophils 0.3 Absolute Basophils 0.1 PT INR APTT Sodium 137.0 Potassium 4.3 Chloride 99 Carbon Dioxide 27 Anion Gap 11 BUN 14 Creatinine 0.80 Est GFR ( Amer) > 60 Est GFR (Non-Af Amer) > 60 Glucose 171 H POC Glucose Hemoglobin A1c % Calcium 10.2 Magnesium Total Bilirubin 0.5 Direct Bilirubin 0.2 Neonat Total Bilirubin Not Reportable Neonat Direct Bilirubin Not Reportable Neonat Indirect Bili Not Reportable AST 26 ALT 42 Alkaline Phosphatase 89 Creatine Kinase Troponin I 0.033 Total Protein 7.8 Albumin 4.8 Triglycerides Cholesterol LDL Cholesterol Direct VLDL Cholesterol HDL Cholesterol TSH Free T4 Free T3 pg/mL 05/05/18 05/05/18 05/06/18 23:00 23:00 03:30 WBC RBC Hgb Hct MCV MCH MCHC RDW Plt Count Seg Neutrophils % Lymphocytes % Monocytes % Eosinophils % Basophils % Absolute Neutrophils Absolute Lymphocytes Absolute Monocytes Absolute Eosinophils Absolute Basophils PT 12.1 INR 0.86 APTT 23.7 Sodium Potassium Chloride Carbon Dioxide Anion Gap BUN Creatinine Est GFR ( Amer) Est GFR (Non-Af Amer) Glucose POC Glucose Hemoglobin A1c % Calcium Magnesium Total Bilirubin Direct Bilirubin Neonat Total Bilirubin Neonat Direct Bilirubin Neonat Indirect Bili AST ALT Alkaline Phosphatase Creatine Kinase Troponin I 1.080 Total Protein Albumin Triglycerides Cholesterol LDL Cholesterol Direct VLDL Cholesterol HDL Cholesterol TSH 1.73 Free T4 1.25 Free T3 pg/mL 4.90 05/06/18 05/06/18 05/06/18 03:30 06:17 07:16 WBC RBC Hgb Hct MCV MCH MCHC RDW Plt Count Seg Neutrophils % Lymphocytes % Monocytes % Eosinophils % Basophils % Absolute Neutrophils Absolute Lymphocytes Absolute Monocytes Absolute Eosinophils Absolute Basophils PT INR APTT Sodium 138.1 Potassium 4.4 Chloride 103 Carbon Dioxide 28 Anion Gap 7 BUN 14 Creatinine 0.75 Est GFR ( Amer) > 60 Est GFR (Non-Af Amer) > 60 Glucose 170 H POC Glucose 154 H Hemoglobin A1c % Calcium 9.5 Magnesium 1.8 Total Bilirubin Direct Bilirubin Neonat Total Bilirubin Neonat Direct Bilirubin Neonat Indirect Bili AST ALT Alkaline Phosphatase Creatine Kinase 157 Troponin I Total Protein Albumin Triglycerides 77 Cholesterol 213.24 H LDL Cholesterol Direct 152 H VLDL Cholesterol 15.0 HDL Cholesterol 46 TSH Free T4 Free T3 pg/mL 05/06/18 05/06/18 05/06/18 07:16 07:16 07:16 WBC 6.8 RBC 5.21 Hgb 15.2 Hct 45.0 MCV 86 MCH 29.2 MCHC 33.9 RDW 13.4 Plt Count 167 Seg Neutrophils % 59.0 Lymphocytes % 26.4 Monocytes % 9.0 Eosinophils % 4.8 Basophils % 0.8 Absolute Neutrophils 4.0 Absolute Lymphocytes 1.8 Absolute Monocytes 0.6 Absolute Eosinophils 0.3 Absolute Basophils 0.1 PT 12.8 INR 0.91 APTT 24.3 Sodium Potassium Chloride Carbon Dioxide Anion Gap BUN Creatinine Est GFR ( Amer) Est GFR (Non-Af Amer) Glucose POC Glucose Hemoglobin A1c % 7.2 H Calcium Magnesium Total Bilirubin Direct Bilirubin Neonat Total Bilirubin Neonat Direct Bilirubin Neonat Indirect Bili AST ALT Alkaline Phosphatase Creatine Kinase Troponin I Total Protein Albumin Triglycerides Cholesterol LDL Cholesterol Direct VLDL Cholesterol HDL Cholesterol TSH Free T4 Free T3 pg/mL Chest X-Ray 05/05/18 23:08 IMPRESSION: Negative chest THE patient's EKG: Initial EKG shows sinus rhythm with old anteroseptal HI, with involvement of the apical lateral wall. Subsequent EKG shows no changes. There is no ST segment shifts. Generic Name Dose Route Start Last Admin Trade Name Anant PRN Reason Stop Dose Admin Hydrocodone Bitart/Acetaminophen 1 tab 05/06/18 06:10 05/06/18 07:17 Rayle 5-325 Mg Tablet PO 05/06/18 06:11 Not Given NOW ONE Hydrocodone Bitart/Acetaminophen Confirm 05/06/18 06:13 05/06/18 06:17 Rayle 5-325 Mg Tablet Administered 05/06/18 06:14 1 tab Dose Administration 1 tab .ROUTE .STK-MED ONE Aspirin 324 mg 05/05/18 23:08 05/05/18 23:57 Aspirin 81 Mg Chewable Tablet PO 05/05/18 23:09 324 mg NOW ONE Administration Heparin Sodium (Porcine) 5,000 unit 05/06/18 06:00 05/06/18 05:31 Heparin Inj 5,000 Units/Ml 1 Ml Syringe SUBCUT 06/05/18 05:59 5,000 unit Q8 [facility] Administration Heparin Sodium (Porcine) 3,500 unit 05/06/18 06:47 05/06/18 07:58 Heparin Inj 1,000 Unit/Ml 10 Ml Vial IV 05/06/18 06:48 3,500 units NOW ONE Administration Metoprolol Tartrate Confirm 05/06/18 05:50 05/06/18 05:58 Lopressor Inj/Pf 5 Mg/5 Ml Sdv Administered 05/06/18 05:51 2.5 mg Dose Administration 5 mg IV .STK-MED ONE Metoprolol Tartrate 2.5 mg 05/06/18 05:54 05/06/18 07:17 Lopressor Inj/Pf 5 Mg/5 Ml Sdv IV 05/06/18 05:55 Not Given NOW ONE Morphine Sulfate 4 mg 05/06/18 01:11 05/06/18 01:19 Morphine 10 Mg/Ml Inj IV 05/06/18 01:12 4 mg NOW ONE Administration Morphine Sulfate Confirm 05/06/18 05:24 05/06/18 05:30 Morphine 10 Mg/Ml Inj Administered 05/06/18 05:25 Not Given Dose 10 mg .ROUTE .STK-MED ONE Morphine Sulfate 3 mg 05/06/18 06:00 05/06/18 05:44 Morphine 10 Mg/Ml Inj IV 05/06/18 06:01 3 mg NOW ONE Administration Nitroglycerin 1 gm 05/06/18 01:11 05/06/18 01:19 Nitrol 2% Ointment 1gm Packet TP 05/06/18 01:12 1 gm NOW ONE Administration Ondansetron HCl 4 mg 05/05/18 23:58 05/06/18 00:03 Zofran Inj/Pf 4 Mg/2 Ml Sdv IV 05/05/18 23:59 4 mg NOW ONE Administration Ticagrelor 90 mg 05/06/18 07:00 Brilinta 90 Mg Tablet PO 05/06/18 07:01 NOW ONE Selected Entries 05/05/18 05/05/18 05/06/18 23:00 23:00 03:30 Troponin I 0.033 1.080 Total Protein 7.8 HISTORY OF PRESENT ILLNESS: Patient is a 42-year-old male with known history of coronary artery disease, prior history of HI, and history of stents in the mid LAD for a totally occluded LAD in October 2017 which caused him to have ST elevation HI, and stents in the obtuse marginal 1 branch and circumflex branch, who states he has been compliant with medications states that he was sitting in in a chair yesterday at around 10 PM, when he started having sudden onset of left sided oppressive chest pressure with radiation of the pain into the left arm. This was associated shortness of breath. Stated he had nausea and vomited once, without any blood or dark coffee-ground vomitus. He came to the emergency room. Although the ER physician told me that the patient is being pain-free and the initial troponin was 0.033, the patient states that his pain level left and the pain had decreased with the treatment in the emergency room. This morning his pain escalated to 3 out of 5. EKG obtained showed no acute ST segment changes, and was consistent with old anterolateral infarct. The patient was given several nitroglycerin, and IV Lopressor, and also IV morphine, and the patient was started on IV nitroglycerin drip and also IV heparin. With this the patient chest pain did decrease to less than 1 out of 5. The patient looked much more comfortable. The patient at present is no shortness of breath. There is no palpitations. There is no diaphoresis. There is no syncope or near syncopal symptoms or symptoms. There is no atrial or ventricular arrhythmia seen on the monitor.. The case was discussed with the transfer center and [facility], and the patient is being flown over there by helicopter, with ACLS protocol, for emergent cardiac catheterization. PAST MEDICAL HISTORY: Is positive coronary artery disease, history of ST elevation HI, and history of stents. He has a history of ischemic cardia myopathy with a echo EF of 40% with and anterior and anteroseptal hypokinesis, as per report of report of 07/2017. As mentioned earlier he has had stents [bare-metal stents] in the mid LAD, and a home 1 branch and the left circumflex branch. He also has a history of diabetes mellitus type 2 [id number]. He has a history of hypertension. He has a history of ongoing tobacco abuse. All of the patient states he has been compliant with medications. He has no history of asthma or COPD. There is no history of TIA CVA. Note that the patient is on Brilinta 90 mg p.o. twice daily and aspirin 81 mg p.o. daily he states that he has been taking these regularly, without missing any doses. Past SURGICAL HISTORY: The Patient Has Had Cardiac Catheterization and Stent Placement. ALLERGIES: The Patient Has No Known Allergies. FAMILY HISTORY: Is Positive for Hypertension and Coronary Artery Disease. DISPOSITION: The Patient Is a Full Code. His Is His Surrogate Healthcare Decision Maker. SOCIAL HISTORY: The patient smokes. There is no history of EtOH abuse. REVIEW SYSTEMS: CONSTITUTIONAL: Denies any fever chills or rigors. There is no generalized malaise or fatigue. HEAD: No history of headaches or head injury. EYES: No history of amblyopia diplopia. No history of amaurosis fugax. EARS: No history of hearing loss. No history of tinnitus. No history of recurrent ear infections. NOSE: No history of hayfever. No history of nosebleeds. MOUTH: No history of altered taste sensation. No ulcers in the mouth. THROAT: No history of odynophagia or dysphagia. No history of recurrent sore throats. SKIN: No history of pruritus. No history of yellowish discoloration of the skin. NECK: No history of neck pain. No history of swelling in the neck. No history of goiter. LUNGS: No history of asthma or COPD. The patient is a ongoing smoker. No history of sleep apnea. But is not. No history of hemoptysis or pleuritic chest pain. No history of pulmonary embolism. No symptoms of upper or lower respiratory tract infection. No history of asthma and no wheezing. HEART: History of coronary artery disease. History of HI history. History of stents. Also has moderately reduced LV ejection fraction secondary to ischemic cardia myopathy. History of hypertension, well controlled as per the patient. No history of congestive heart failure. No history of palpitations or arrhythmia. No history of syncope. No history of PND orthopnea or leg edema. GI: Denies history of GERD or GI bleed. No history of fatty food intolerance. No history of jaundice. No history of altered bowel movements. No abdominal pain. MUSCULOSKELETAL denies arthritis or collagen vascular disease. ENDOCRINE: No history of thyroid disease. History of diabetes mellitus type 2 [id number]. No polydipsia or polyuria. His hemoglobin A1c is elevated. He has no heat or cold intolerance. RENAL: No history of chronic kidney disease. No symptoms of enlarged prostate. No history of hematuria pyuria or dysuria. No symptoms of UTI. METABOLIC: History of hyperlipidemia present. No history of gout or obesity. DOOR ASSEMBLER: No history of TIA or CVA. No history of headaches migraines or seizures. No gait imbalance. PSYCHIATRIC: No history of anxiety or depression. No suicidal ideation. No homicidal ideation. HEMATOLOGICAL: No history of bleeding diathesis. No history of anemia. No history of hematological malignancies. No history of clotting disorders. Vascular: No history of calf or buttock claudication. No h istory of DVT. PHYSICAL EXAMINATION: The patient is well-built and well-nourished. In mild distress due to chest pain. Selected Entries 05/06/18 07:18 Temperature 98.0 F Temperature Oral Source Pulse Rate 77 Respiratory 16 Rate Blood Pressure 121/61 Blood Pressure 81 Mean BP Location Right Arm BP Position Supine O2 Sat by Pulse 100 Oximetry Oxygen Flow 2.00 Rate Oxygen Delivery Nasal Cannula Method HEAD: Is atraumatic, normocephalic. EYES: Pupils are equal round regular react to light accommodation. Extraocular movements are normal. There is no clinical pallor. There is no scleral icterus. EARS: Tympanic memories are intact. External auditory canals are clear. EYES: Pupils are equal round regular reactive to light accommodation, there is no clinical pallor. There is no scleral icterus. NOSE: Nasal mucous membranes are without any inflammation. There is no deviated nasal septum. MOUTH: Mucous mucous members of the mouth are moist. Tongue is moist. There is no ulcers in the mouth. There is no bleeding from the gums. THROAT: There is no redness of the oropharynx. There is no exudates. SKIN: There is no petechia or ecchymosis. There is no skin lesions or skin rashes. NECK: Is supple. There is no JVD. Carotids are equal without any bruits. There is no transmitted murmurs over the carotids. There is no carotid delay. There is no lymphadenopathy. There is no goiter. There is no accessory muscle respiration use. Trachea central. LUNGS: Is clear to auscultation percussion, without any rhonchi rales or wheezing.. There is no chest wall tenderness on palpation. HEART: S1-S2 is heard. There is no S3 gallop. There is no S4 gallop. S1 is of normal intensity. There is systolic murmur left sternal border and the apex. There is no rub. ABDOMEN: Is soft. Nontender. There is no masses. Bowel sounds are normal. There is no hepatosplenomegaly. There is no rebound, guarding or rigidity. EXTREMITIES: F emorals are well felt. There is no femoral bruits. Leg pulses are well felt. There is no pedal edema. There is no DVT or cellulitis. There is no calf tenderness. No cyanosis or clubbing capillary refill is normal. DOOR ASSEMBLER: The patient is conscious awake alert oriented x3 with no focal deficit. P SYCHIATRIC: The patient judgment and insight are intact. His affect is normal. Plan: Continue medications as mentioned above. Patient being transferred to [facility] for emergent cardiac catheterization. Case discussed with [facility]. Medical decision making is of high complexity. 60 minutes spent on this patient with more than 50% of time spent in direct patient care. Management plan and transfer plans discussed with attending physician on the case. The the benefits and risks of transfer have all been discussed with the patient also discussed the patient need to be airlifted to [facility], in view of the emergent need for cardiac catheterization.
[2018-05-06] MEDS ORDERED: FAMOTIDINE 20 MG TABLET PO SCH (10:00)
[2018-05-06] MEDS ORDERED: ASPIRIN 81 MG TABLET, CHEWABLE PO SCH (10:00)
[2018-05-06] MEDS ORDERED: METOPROLOL TARTRATE 50 MG TABLET PO SCH (10:00)
[2018-05-06] MEDS ORDERED: DOCUSATE SODIUM 100 MG CAPSULE PO SCH (10:00)
--- NOTE | 2018-05-06 12:37 | EKG REPORT ---
SEVERITY:- ABNORMAL ECG - SINUS RHYTHM ANTEROLATERAL INFARCT, OLD : Confirmed by: Sarah Gonzalez MD 06-May-2018 12:37:18
--- NOTE | 2018-05-06 12:39 | EKG REPORT ---
SEVERITY:- ABNORMAL ECG - SINUS RHYTHM ANTERIOR INFARCT, OLD WITH APICAL LATERAL INVOLVEMENT. : Confirmed by: Sarah Gonzalez MD 06-May-2018 12:38:09
[2018-05-06] MEDS ORDERED: TICAGRELOR 90 MG TABLET PO SCH (18:00)
--- NOTE | 2018-05-08 15:58 | PDOC TRANSFER SUMMARY ---
General Admission Date/PCP: 05/06/18 01:39 Resuscitation Status: Full Code - Transfer Diagnosis (1) Non-STEMI (non-ST elevated myocardial infarction) Is this a current diagnosis for this admission?: Yes Diagnosis Summary: Non-ST elevation ND with postinfarction angina: Acute coronary syndrome. The patient was given Lopressor 2.5 mg IV push, with the patient only receiving 5 mg IV push. The patient's has been started on IV nitroglycerin at 10 mcg/min, will give morphine sulfate intravenously as needed, will start the patient on full dose heparin with a bolus of 3500 units, and start the patient on 70 units/h. We will continue the patient's aspirin at 81 mg p.o. daily, and Brilinta 90 mg p.o. twice daily the patient being transferred, being kept n.p.o., for emergent cardiac catheterization. (2) Chest pain Is this a current diagnosis for this admission?: Yes (3) Coronary artery disease Is this a current diagnosis for this admission?: No Diagnosis Summary: History o ST is elevation ND in October 2017, found to have a totally occluded mid LAD, which was intervened upon and a bare-metal stent placed in the LAD with good results. The patient on that admission also had a intra-aortic balloon pump placement, and also had a bare-metal stent in the obtuse marginal branch and bare-metal stent in his left circumflex. (4) Hypertension Is this a current diagnosis for this admission?: No Diagnosis Summary: Blood pressure seems to be well-controlled (5) Tobacco use disorder, severe, dependence Is this a current diagnosis for this admission?: No Diagnosis Summary: : Ill effects of tobacco explained to the patient. Tobacco cessation counseling given 3 minutes spent on this. - Allergies Allergies/Adverse Reactions: No Known Allergies Allergy (Verified 03/24/18 09:06) Physical Exam Vital Signs: Temp Pulse Resp BP Pulse Ox 98.0 F 77 16 121/61 100 05/06/18 07:18 05/06/18 07:18 05/06/18 07:18 05/06/18 07:18 05/06/18 07:18 General appearance: PRESENT: no acute distress Head exam: PRESENT: atraumatic Eye exam: PRESENT: PERRLA Mouth exam: PRESENT: moist, tongue midline Neck exam: ABSENT: carotid bruit, JVD, lymphadenopathy, thyromegaly Respiratory exam: PRESENT: clear to auscultation elizabeth. ABSENT: rales, rhonchi, wheezes Cardiovascular exam: PRESENT: RRR. ABSENT: diastolic murmur, rubs, systolic murmur GI/Abdominal exam: PRESENT: normal bowel sounds, soft. ABSENT: distended, guarding, mass, organolmegaly, rebound, tenderness Extremities exam: PRESENT: full ROM. ABSENT: calf tenderness, clubbing, pedal edema Neurological exam: PRESENT: alert, awake, oriented to person, oriented to place, oriented to time, oriented to situation, CN II-XII grossly intact. ABSENT: motor sensory deficit Psychiatric exam: PRESENT: appropriate affect, normal mood. ABSENT: homicidal ideation, suicidal ideation Results Laboratory Results: 05/06/18 07:16 05/06/18 03:30 05/05/18 05/06/18 05/06/18 23:00 03:30 07:16 Creatine Kinase 157 CK-MB (CK-2) Troponin I 0.033 1.080 05/06/18 07:16 Creatine Kinase CK-MB (CK-2) 6.63 H Troponin I 2.590 Impressions: Chest X-Ray 05/05/18 23:08 IMPRESSION: Negative chest copyright 2010 [employer]- All Rights Reserved Plan Discharge Plan: Patient is transferred to [facility] please see Dr. Gonzalez's consult/transfer summary.
== END 2018-05-06 08:22 | disposition short-term general hospital (02) ==
LOC: ER 23:03 → EH 05-06 01:39 → 3S 05-06 04:57
PROVIDERS: ADMIT Emergency Medicine; ATTEND Emergency Medicine
PROC: HZ31ZZZ Individual Counseling for Substance Abuse Treatment, Behavioral (ICD-10-PCS; principal; 2018-05-06)
DX: I21.4 Non-ST elevation (NSTEMI) myocardial infarction (principal); I23.7 Postinfarction angina; R07.89 Other chest pain; I25.2 Old myocardial infarction; I10 Essential (primary) hypertension; I25.5 Ischemic cardiomyopathy; E11.9 Type 2 diabetes mellitus without complications; E78.5 Hyperlipidemia, unspecified; J44.9 Chronic obstructive pulmonary disease, unspecified; I25.110 Atherosclerotic heart disease of native coronary artery with unstable angina pectoris; F17.200 Nicotine dependence, unspecified, uncomplicated; T14.8XXA Other injury of unspecified body region, initial encounter; X58.XXXA Exposure to other specified factors, initial encounter; Z95.5 Presence of coronary angioplasty implant and graft; Z79.899 Other long term (current) drug therapy; Z82.49 Family history of ischemic heart disease and other diseases of the circulatory system; Z79.02 Long term (current) use of antithrombotics/antiplatelets
CPT/HCPCS: 93005 ×2; 99285; 96374; 96375; 36415 ×2; 84439; 82553; 82962; 82550; 83735; 84443; 85025 ×2; 85610 ×2; 85730 ×2; 80048; 80053; 84484 ×2; 84481; 83036; 80061; 71045; 93010 ×2; 99406; G0378 ×2; J1644 ×3; J3490 ×2; J2270; J2405

== ENCOUNTER 2018-05-19 21:59 | Emergency (ER) | payer SELFPAY ==
[2018-05-19] MEDS ORDERED: ONDANSETRON HCL INJ/PF 4 MG/2 ML SDV ONE (22:26)
[2018-05-19] MEDS ORDERED: HYDROMORPHONE HCL INJ/PF 2 MG/ML AMPULE ONE (22:26)
[2018-05-19] MEDS ORDERED: NORMAL SALINE 1000 ML 1,000 ML IV ONE (22:36)
--- NOTE | 2018-05-19 22:41 | RADIOLOGY REPORT (SQ) ---
EXAM DESCRIPTION: XR CHEST 1 VIEW COMPLETED DATE/TME: 05/19/2018 22:20 CLINICAL HISTORY: 42 years, Male, cp COMPARISON: 05/05/2018 chest NUMBER OF VIEWS: 1 TECHNIQUE: Portable chest LIMITATIONS: None. FINDINGS: Heart size at the upper limits of normal. There are new sternotomy wires and postsurgical changes of the mediastinum. Lungs are clear. No pneumothorax IMPRESSION: New postsurgical change. Lungs are clear copyright 2011 [employer]- All Rights Reserved
[2018-05-19 22:47] LABS: ABSOLUTE BASOPHILS # (AUTO) 0.1 10^3/uL (0.0-0.2); ABSOLUTE EOSINOPHILS # (AUTO) 0.3 10^3/uL (0.0-0.6); ABSOLUTE LYMPHOCYTES (AUTO) 1.2 10^3/uL (0.5-4.7); ABSOLUTE MONOCYTES (AUTO) 1.2 10^3/uL (0.1-1.4); ABSOLUTE NEUT (AUTO) 5.1 10^3/uL (1.7-8.2); BASOPHILS % (AUTO) 0.6 % (0-2); EOSINOPHILS % (AUTO) 3.4 % (0-6); HEMATOCRIT 32.6 % (37.9-51.0); HEMOGLOBIN 11.5 g/dL (13.5-17.0); LYMPHOCYTES % (AUTO) 15.7 % (13-45); MEAN CORPUSCULAR HEMOGLOBIN 29.9 pg (27.0-33.4); MEAN CORPUSCULAR HGB CONC 35.4 g/dL (32.0-36.0); MEAN CORPUSCULAR VOLUME 85 fl (80-97); MONOCYTES % (AUTO) 14.9 % (3-13); PLATELET COUNT 354 10^3/uL (150-450); RED BLOOD COUNT 3.85 10^6/uL (4.35-5.55); RED CELL DISTRIBUTION WIDTH 13.1 % (11.5-14.0); SEGMENTED NEUTROPHILS % (AUTO) 65.4 % (42-78); TOTAL CELLS COUNTED % (AUTO) 100 %; WHITE BLOOD COUNT 7.8 10^3/uL (4.0-10.5)
[2018-05-19] MEDS ORDERED: HYDROMORPHONE HCL INJ/PF 2 MG/ML AMPULE IV ONE ×2 (22:51→23:16)
[2018-05-19] MEDS ORDERED: ONDANSETRON HCL INJ/PF 4 MG/2 ML SDV IV ONE (22:52)
[2018-05-19 23:07] LABS: ALANINE AMINOTRANSFERASE 33 U/L (21-72); ALKALINE PHOSPHATASE 76 U/L (38-126); ANION GAP 13 (5-19); ASPARTATE AMINO TRANSFERASE 32 U/L (17-59); BILIRUBIN,DIRECT 0.2 mg/dL (0.0-0.4); BILIRUBIN,TOTAL 1.1 mg/dL (0.2-1.3); BLOOD UREA NITROGEN 13 mg/dL (7-20); CALCIUM 9.5 mg/dL (8.4-10.2); CARBON DIOXIDE 31 mmol/L (22-30); CHLORIDE 88 mmol/L (98-107); CREATINE KINASE 139 U/L (55-170); GLUCOSE 141 mg/dL (75-110); POTASSIUM 3.6 mmol/L (3.6-5.0); SODIUM 131.7 mmol/L (137-145); TOTAL PROTEIN 7.2 g/dL (6.3-8.2)
[2018-05-19 23:19] LABS: CREATINE KINASE MB 0.96 ng/mL (<4.55)
--- NOTE | 2018-05-19 23:28 | EKG REPORT ---
SEVERITY:- ABNORMAL ECG - SINUS RHYTHM PROBABLE LEFT ATRIAL ABNORMALITY INFERIOR INFARCT, AGE INDETERMINATE ANTERIOR INFARCT, POSSIBLY ACUTE : Confirmed by: Otis Franz 19-May-2018 23:27:58
--- NOTE | 2018-05-19 23:29 | EKG REPORT ---
SEVERITY:- ABNORMAL ECG - SINUS RHYTHM PROBABLE LEFT ATRIAL ABNORMALITY INFERIOR INFARCT, AGE INDETERMINATE LATERAL INFARCT, AGE INDETERMINATE ANTERIOR INFARCT, AGE INDETERMINATE : Confirmed by: Otis Franz 19-May-2018 23:28:19
[2018-05-19 23:31] LABS: TROPONIN I 3.94 ng/mL
[2018-05-20] MEDS ORDERED: HYDROMORPHONE HCL INJ/PF 2 MG/ML AMPULE IV ONE (00:29)
[2018-05-20] MEDS ORDERED: ONDANSETRON ODT 4 MG TAB (6 TAB/ER DISP) PO PRN (00:35)
--- NOTE | 2018-05-20 00:36 | ER Document Report ---
ED General - General Chief Complaint: Chest Pain Stated Complaint: CHEST PAIN Time Seen by Provider: 05/19/18 22:20 Primary Care Provider: SYED GIVENS MD [Primary Care Provider] - Follow up as needed Mode of Arrival: Wheelchair Information source: Patient Notes: 42-year-old man with coronary artery disease status post CABG in [place] earlier this month, just discharged 1 week ago. Patient presents to the ER with significant pain to the sternal area. Patient states this is significantly different from his cardiac pain. He states that sternal pain and its worse with movement and taking off his shirt and moving his arms. Patient's states that he has had this pain ever since discharge. TRAVEL OUTSIDE OF THE [place] IN LAST 30 DAYS: No - HPI Onset: Last week Onset/Duration: Gradual Quality of pain: Sharp Severity: Moderate Pain Level: 3 Associated symptoms: Chest pain. denies: Fever, Shortness of breath Exacerbated by: Movement Relieved by: Denies Similar symptoms previously: Yes Recently seen / treated by doctor: Yes - Related Data Allergies/Adverse Reactions: No Known Allergies Allergy (Verified 03/24/18 09:06) Past Medical History - General Information source: Patient - Social History Smoking Status: Former Smoker Cigarette use (# per day): No Chew tobacco use (# tins/day): No Frequency of alcohol use: None Drug Abuse: None Lives with: Spouse/Significant other Family History: CAD, Hypertension Patient has suicidal ideation: No Patient has homicidal ideation: No - Past Medical History Cardiac Medical History: Reports: Hx Coronary Artery Disease, Hx Heart Attack - 10/2017, Hx Hypercholesterolemia, Hx Hypertension Pulmonary Medical History: Reports: Hx COPD Denies: Hx Asthma Neurological Medical History: Denies: Hx Cerebrovascular Accident, Hx Seizures Endocrine Medical History: Reports: Hx Diabetes Mellitus Type 2. Denies: Hx Diabetes Mellitus Type 1, Hx Hyperthyroidism, Hx Hypothyroidism Renal/ Medical History: Denies: Hx Peritoneal Dialysis GI Medical History: Denies: Hx Cirrhosis, Hx Hepatitis Musculoskeletal Medical History: Denies Hx Arthritis, Denies Hx Gout Skin Medical History: Denies Hx Eczema, Denies Hx Psoriasis Psychiatric Medical History: Reports: Hx Depression Infectious Medical History: Denies: Hx Hepatitis Past Surgical History: Reports: Hx Cardiac Catheterization, Hx Cardiac Surgery, Hx Coronary Stent - x4, Hx Orthopedic Surgery - Immunizations Hx Diphtheria, Pertussis, Tetanus Vaccination: Yes Review of Systems - Review of Systems Constitutional: denies: Chills, Fever EENT: No symptoms reported Cardiovascular: See HPI Respiratory: No symptoms reported Gastrointestinal: No symptoms reported Genitourinary: No symptoms reported Male Genitourinary: No symptoms reported Musculoskeletal: See HPI Skin: No symptoms reported Hematologic/Lymphatic: No symptoms reported Neurological/Psychological: No symptoms reported Physical Exam - Vital signs Vitals: Pulse Ox 96 05/19/18 22:06 Notes: Physical exam: GENERAL: Patient is alert and oriented x3, he is complaining of sternal pain to palpation and movement of his torso. HEAD: Atraumatic, normocephalic. EYES: Pupils equal round and reactive to light, extraocular movements intact, sclera anicteric, conjunctiva are normal. ENT: TMs normal, nares patent, oropharynx clear without exudates. Moist mucous membranes. NECK: Normal range of motion, supple without obvious mass or JVD. LUNGS: Breath sounds clear to auscultation bilaterally and equal. No wheezes rales or rhonchi. Chest wall: Sternotomy site is intact, no evidence of infection. HEART: Regular rate and rhythm without murmurs, rubs or gallops. ABDOMEN: Soft, normoactive bowel sounds. No tenderness to palpation. No guarding, no rebound. No masses appreciated. EXTREMITIES: Normal range of motion, no pitting or edema. No clubbing or cyanosis. NEUROLOGICAL: Cranial nerves II through XII grossly intact. Normal speech, moving all extremities. PSYCH: Normal mood, normal affect. SKIN: Warm, Dry, normal turgor, no rashes or lesions noted. Course - Re-evaluation Re-evalutation: 05/20/18 00:31 I have had multiple conversations with the patient as well as his . Patient absolutely refuses that I discuss the case with [facility]. He does not want to be transferred there. He states he will contact them himself. He states that his pain is from the sternotomy site. His pain does appear to be chest wall in origin and hurts putting on his shirt and moving. When I tell him his troponin was elevated to 3.9, he states that it has been elevated and he has been told by the cardiac surgeon that the troponin may be elevated for another 4 weeks. He states that this is absolutely different than his heart pain. And he has refused on multiple occasions that I call and states he does not want to be transferred. Patient wants his chest wall pain addressed (Dilaudid has significantly helped) and he would like to follow-up as an outpatient. He was given IV fluids and we watched him and gave him IV Dilaudid. He looks 100% better than when he came in and states he feels so much better. I discussed with him that there is no way I could potentially tell him that this is not cardiac in origin based upon his history and he fully understands and comprehends. He is alert and oriented x3 and conversant and appears to understand everything that I say. He is leaving against my advice but I have told him he is welcome to come back here at any time if he feels his pain is getting worse. 05/20/18 03:16 - Vital Signs Vital signs: Temp Pulse Resp BP Pulse Ox 13 118/75 100 05/20/18 01:00 05/20/18 01:00 05/20/18 01:00 - Laboratory Result Diagrams: 05/19/18 22:30 05/19/18 22:30 Laboratory results interpreted by me: 05/19/18 05/19/18 22:30 22:30 RBC 3.85 L Hgb 11.5 L Hct 32.6 L Monocytes % 14.9 H Sodium 131.7 L Chloride 88 L Carbon Dioxide 31 H Glucose 141 H - Diagnostic Test Radiology reviewed: Image reviewed, Reports reviewed - Chest x-ray shows no infiltrates - EKG Interpretation by Me Rhythm: NSR - Patient's EKG shows normal sinus rhythm with a ventricular rate of 72. He does have Q waves inferiorly as well as anteriorly he is got some ST elevation in 2, F, V2, V3. He does have a history of having ST elevations in these leads compared to previous EKG. We do not have an EKG since his CABG. Discharge - Discharge Clinical Impression: Chest wall pain Condition: Stable Disposition: AGAINST MEDICAL ADVICE Additional Instructions: As we discussed, there is no way for me to say that this is not heart pain. As far as the chest wall pain, I want you to take the Dilaudid as prescribed. Take the Zofran for nausea. I want you to follow-up with your heart doctors in [place] as planned. Return to the emergency room for worsening pain. Prescriptions: Hydromorphone HCl [Dilaudid 2 Mg Tablet] 2 mg PO Q6H PRN #30 tablet PRN Reason: for pain Ondansetron HCl [Zofran 4 mg Tablet] 1 - 2 tab PO Q4H PRN #10 tablet PRN Reason: Referrals: SYED GIVENS MD [Primary Care Provider] - Follow up as needed
[2018-05-20 01:02] VITALS: BP 118/75
== END 2018-05-20 01:07 | disposition left against medical advice (07) ==
LOC: ER 21:59
DX: R07.89 Other chest pain (principal); R74.8 Abnormal levels of other serum enzymes; I25.10 Atherosclerotic heart disease of native coronary artery without angina pectoris; I25.2 Old myocardial infarction; I10 Essential (primary) hypertension; J44.9 Chronic obstructive pulmonary disease, unspecified; E11.9 Type 2 diabetes mellitus without complications; Z95.5 Presence of coronary angioplasty implant and graft; Z95.1 Presence of aortocoronary bypass graft; Z87.891 Personal history of nicotine dependence; Z53.20 Procedure and treatment not carried out because of patient's decision for unspecified reasons
CPT/HCPCS: 93005; 96376; 99285; 96361; 96374; 96375; 36415; 82553; 80307; 82550; 85025; 80053; 84484; 71045; 93010; J1170 ×2; J2405; J7030

== ENCOUNTER 2018-05-23 00:35 | Emergency (ER) | payer SELFPAY ==
[2018-05-23] MEDS ORDERED: HYDROMORPHONE HCL INJ/PF 2 MG/ML AMPULE ONE (00:45)
[2018-05-23] MEDS ORDERED: NORMAL SALINE 500 ML IV ONE (00:53)
[2018-05-23] MEDS ORDERED: HYDROMORPHONE HCL INJ/PF 2 MG/ML AMPULE IV ONE ×2 (00:53→00:56)
[2018-05-23 01:01] LABS: ABSOLUTE BASOPHILS # (AUTO) 0.1 10^3/uL (0.0-0.2); ABSOLUTE EOSINOPHILS # (AUTO) 0.3 10^3/uL (0.0-0.6); ABSOLUTE LYMPHOCYTES (AUTO) 1.6 10^3/uL (0.5-4.7); ABSOLUTE MONOCYTES (AUTO) 0.9 10^3/uL (0.1-1.4); ABSOLUTE NEUT (AUTO) 7.8 10^3/uL (1.7-8.2); EOSINOPHILS % (AUTO) 3.1 % (0-6); HEMATOCRIT 34.4 % (37.9-51.0); LYMPHOCYTES % (AUTO) 14.7 % (13-45); MEAN CORPUSCULAR HEMOGLOBIN 29.8 pg (27.0-33.4); MEAN CORPUSCULAR VOLUME 85 fl (80-97); MONOCYTES % (AUTO) 8.7 % (3-13); PLATELET COUNT 557 10^3/uL (150-450); RED BLOOD COUNT 4.03 10^6/uL (4.35-5.55); RED CELL DISTRIBUTION WIDTH 13.1 % (11.5-14.0); SEGMENTED NEUTROPHILS % (AUTO) 72.5 % (42-78); TOTAL CELLS COUNTED % (AUTO) 100 %; WHITE BLOOD COUNT 10.8 10^3/uL (4.0-10.5)
[2018-05-23] MEDS ORDERED: LORAZEPAM INJ 2 MG/1 ML VIAL ONE (01:10)
--- NOTE | 2018-05-23 01:23 | RADIOLOGY REPORT (SQ) ---
EXAM DESCRIPTION: XR CHEST 1 VIEW COMPLETED DATE/TME: 05/23/2018 00:54 CLINICAL HISTORY: 42 years, Male, fall COMPARISON: 05/19/2018 chest NUMBER OF VIEWS: 1 TECHNIQUE: Portable chest LIMITATIONS: None. FINDINGS: Cardiomegaly. Stable postsurgical changes. Scarring in the left midlung. No pneumothorax. Lungs are otherwise clear IMPRESSION: Cardiomegaly with stable postsurgical change copyright 2010 [employer]- All Rights Reserved
[2018-05-23 01:34] LABS: ANION GAP 10 (5-19); BLOOD UREA NITROGEN 10 mg/dL (7-20); CALCIUM 9.9 mg/dL (8.4-10.2); CARBON DIOXIDE 31 mmol/L (22-30); CHLORIDE 96 mmol/L (98-107); GLUCOSE 166 mg/dL (75-110); POTASSIUM 4.4 mmol/L (3.6-5.0); SODIUM 137.1 mmol/L (137-145)
[2018-05-23] MEDS ORDERED: LORAZEPAM INJ 2 MG/1 ML VIAL IV ONE ×2 (01:35→01:36)
--- NOTE | 2018-05-23 01:41 | ER Document Report ---
ED General - General Chief Complaint: Fall Injury Stated Complaint: FALL/POST OP PAIN Time Seen by Provider: 05/23/18 00:53 Primary Care Provider: SYED GIVENS MD [Primary Care Provider] - Follow up as needed Notes: Patient is a 42-year-old male who presents with complaint of tripping over his dog and falling hitting his chest. He had coronary bypass surgery at [facility] on May 06. He says he has pain over the upper part of his sternum and he feels as if it swelling over his upper chest. Patient is very anxious on arrival. He denies any other injuries or any other complaints. He has some difficulty breathing. No coughing up of blood. No vomiting. Did not hit his head. TRAVEL OUTSIDE OF THE [place] IN LAST 30 DAYS: No - Related Data Allergies/Adverse Reactions: No Known Allergies Allergy (Verified 05/23/18 00:39) Past Medical History - Social History Smoking Status: Unknown if Ever Smoked Frequency of alcohol use: None Drug Abuse: None Family History: CAD, Hypertension - Past Medical History Cardiac Medical History: Reports: Hx Coronary Artery Disease, Hx Heart Attack - 10/2017, Hx Hypercholesterolemia, Hx Hypertension Pulmonary Medical History: Reports: Hx COPD Denies: Hx Asthma Neurological Medical History: Denies: Hx Cerebrovascular Accident, Hx Seizures Endocrine Medical History: Reports: Hx Diabetes Mellitus Type 2. Denies: Hx Diabetes Mellitus Type 1, Hx Hyperthyroidism, Hx Hypothyroidism Renal/ Medical History: Denies: Hx Peritoneal Dialysis GI Medical History: Denies: Hx Cirrhosis, Hx Hepatitis Musculoskeletal Medical History: Denies Hx Arthritis, Denies Hx Gout Skin Medical History: Denies Hx Eczema, Denies Hx Psoriasis Psychiatric Medical History: Reports: Hx Depression Infectious Medical History: Denies: Hx Hepatitis Past Surgical History: Reports: Hx Cardiac Catheterization, Hx Cardiac Surgery, Hx Coronary Stent - x4, Hx Orthopedic Surgery - Immunizations Hx Diphtheria, Pertussis, Tetanus Vaccination: Yes Review of Systems - Review of Systems Notes: My Normal Review Basic REVIEW OF SYSTEMS: CONSTITUTIONAL : Denies fever, chills, or sweats. Denies recent illness. CARDIOVASCULAR: Chest pain after fall RESPIRATORY: Denies cough, cold, or chest congestion. Denies shortness of breath, difficulty breathing, or wheezing. GASTROINTESTINAL: Denies abdominal pain. Denies nausea, vomiting, or diarrhea. MUSCULOSKELETAL: Pain over upper chest from fall SKIN: Denies rash or skin lesions. HEMATOLOGIC : Denies easy bruising or bleeding. NEUROLOGICAL: Denies altered mental status or loss of consciousness. Denies headache. Denies weakness or paralysis or loss of use of either side. Denies problems with gait or speech. Denies sensory or motor loss. ALL OTHER SYSTEMS REVIEWED AND NEGATIVE. Physical Exam - Vital signs Vitals: Temp Pulse Resp BP Pulse Ox 97.7 F 95 24 H 143/90 H 100 05/23/18 00:35 05/23/18 00:35 05/23/18 00:35 05/23/18 00:35 05/23/18 00:35 - Notes Notes: General Appearance: Well nourished, alert, cooperative, no acute distress, moderate obvious discomfort. Very anxious Vitals: reviewed, See vital signs table. Head: no swelling or tenderness to the head Eyes: PERRL, EOMI, Conjuctiva clear Mouth: No decreasd moisture Neck: Supple, no neck tenderness, no neck swelling Chest wall: Tenderness to palpation over upper chest wall. There may be very minimal swelling over the upper sternum. No further swelling noted. Lungs: No wheezing, No rales, No rhonci, No accessory muscle use, good air exchange bilaterally. Heart: Normal rate, Regular rythm, No murmur, no rub Abdomen: Normal BS, soft, No rigidity, No abdominal tenderness, No guarding, no rebound, no abdominal masses, no organomegaly Extremities: strength 5/5 in all extremities, good pulses in all extremities, no swelling or tenderness in the extremities, no edema. Skin: warm, dry, appropriate color, no rash Neuro: speech clear, oriented x 3, normal affect, responds appropriately to questions. Course - Re-evaluation Re-evalutation: 05/23/18 01:[address] of the chest did not show any evidence of concerning traumatic injury to the chest. His EKG does show some ST segment elevation in V2 which she has had on his previous EKG; however, it is less concave up but it has been in the past. Therefore avoid a troponin. Patient does not meet STEMI criteria as the patient does not have any ST segment changes in the other leads. His only lead V2. I think it is unlikely that this would be indicative of an [place] as patient just recently had coronary bypass surgery and also the patient has had similar changes on his most recent previous EKG. 05/23/18 02:02 Pain is starting to calm down. I will give patient a dose of fentanyl to try to help relieve rest away as he still is having significant pain despite it being better than when he first arrived. 05/23/18 02:35 Patient's troponin is elevated. It is unclear if this is new or related to his recent surgery. Suspect his troponin should be almost normalized by now basically his surgery was over 2 weeks ago. I will do a delta troponin. I have ordered repeat EKG to make sure there is no progression of any changes. 05/23/18 03:26 I am concerned the patient continues to have ongoing pain. Again his pain is better than when he first arrived but he is requiring large doses of pain medicine to get make it bearable and he continues to ask for more pain medicine. I am also concerned that the patient has dynamic EKG changes and that he had a significant ST segment elevation in lead V2 which then resolved once his his pain did prove some. I did discuss case with Dr. Cruz, cardiothoracic surgeon at [facility]. He agrees to accept the patient so they can further evaluate him. My concern is patient could potentially have a cardiac contusion based on his fall and the EKG change when he arrived and his ongoing pain. - Vital Signs Vital signs: Temp Pulse Resp BP Pulse Ox 97.7 F 95 23 H 104/72 97 05/23/18 00:35 05/23/18 00:35 05/23/18 03:01 05/23/18 03:01 05/23/18 03:01 - Laboratory Result Diagrams: 05/23/18 00:48 05/23/18 00:48 Laboratory results interpreted by me: 05/23/18 05/23/18 00:48 00:48 WBC 10.8 H RBC 4.03 L Hgb 12.0 L Hct 34.4 L Plt Count 557 H Chloride 96 L Carbon Dioxide 31 H Glucose 166 H - EKG Interpretation by Me Additional EKG results interpreted by me: 05/23/18 01:51 EKG is reviewed and interpreted by me. EKG shows sinus rhythm with rate of 83 bpm. Patient does have [address] segment elevation in lead V2. He does have similar previous ST segment elevation on his previous EKG from May 19; however, it is less concave up than it was in the past. There is no reciprocal ST segment depression. There are no other acute changes on the EKG. 05/23/18 02:49 EKG is reviewed and interpreted by me. EKG #2 shows sinus rhythm with a rate of [address] segment elevation in lead V2 has improved. No further changes. WV interval, QRS duration, QTc intervals are within normal range. Discharge - Discharge Clinical Impression: Acute electrocardiogram changes Chest pain Qualifiers: Chest pain type: unspecified Qualified Code(s): R07.9 - Chest pain, unspecified Fall Qualifiers: Encounter type: initial encounter Qualified Code(s): W19.XXXA - Unspecified fall, initial encounter Condition: Stable Disposition: [facility] Referrals: SYED GIVENS MD [Primary Care Provider] - Follow up as needed
--- NOTE | 2018-05-23 01:49 | RADIOLOGY REPORT (SQ) ---
EXAM DESCRIPTION: CT CHEST ANGIOGRAPHY WITHOUT THEN WITH IV CONTRAST COMPLETED DATE/TME: 05/23/2018 00:53 CLINICAL HISTORY: 42 years, Male, chest trauma. 14 days post CABG COMPARISON: None. TECHNIQUE: 514 Images stored on PACS. All CT scanners at this facility use dose modulation, iterative reconstruction, and/or weight based dosing when appropriate to reduce radiation dose to as low as reasonably achievable (ALARA). Axial CTA images with coronal and sagittal MIPS reconstructions. [facility]: Dose Right [facility]: CareDose [facility]: Dose Right [facility]: Teradose 4D [facility]: [employer] LIMITATIONS: None. FINDINGS: Mediastinal vasculature enhances normally. No intraluminal filling defect to suggest pulmonary embolus. Suboptimal opacification of the thoracic aorta. No gross evidence for thoracic aorta aneurysm or dissection. Post surgical changes of the mediastinum. Coronary artery calcification. The heart and pericardium are otherwise unremarkable. Small amount of air anterior to the heart in the retrosternal region is likely postoperative in nature. Minor adjacent inflammatory changes are present. Limited evaluation of the upper abdomen is unremarkable. Tiny left pleural effusion. Minor consolidative changes in each lung base. No pneumothorax. IMPRESSION: Post surgical changes of the mediastinum with small amount of residual inflammatory change and gas in the anterior mediastinum, as above. Negative for pulmonary embolus. Tiny left pleural effusion. Minor consolidative change in each lung base TECHNICAL DOCUMENTATION: Quality ID # [id number]: Final reports with documentation of one or more dose reduction techniques (e.g., Automated exposure control, adjustment of the mA and/or kV according to patient size, use of iterative reconstruction technique) copyright 2011 [employer]- All Rights Reserved
[2018-05-23] MEDS ORDERED: FENTANYL CITRATE INJ/PF 100 MCG/2 ML AMPUL IV ONE ×2 (02:02→03:25)
[2018-05-23 04:22] VITALS: BP 105/74
--- NOTE | 2018-05-23 10:41 | EKG REPORT ---
SEVERITY:- ABNORMAL ECG - SINUS RHYTHM INFERIOR INFARCT, OLD LATERAL INFARCT, OLD ANTERIOR INFARCT, AGE INDETERMINATE : Confirmed by: Otis Franz 23-May-2018 10:41:34
--- NOTE | 2018-05-23 10:43 | EKG REPORT ---
SEVERITY:- ABNORMAL ECG - SINUS RHYTHM INFERIOR INFARCT, OLD ANTERIOR INFARCT, AGE INDETERMINATE : Confirmed by: Otis Franz 23-May-2018 10:42:09
== END 2018-05-23 04:01 | disposition short-term general hospital (02) ==
LOC: ER 00:35
DX: R07.9 Chest pain, unspecified (principal); W01.0XXA Fall on same level from slipping, tripping and stumbling without subsequent striking against object, initial encounter; Z95.1 Presence of aortocoronary bypass graft; R74.8 Abnormal levels of other serum enzymes; R94.31 Abnormal electrocardiogram [ECG] [EKG]; I25.10 Atherosclerotic heart disease of native coronary artery without angina pectoris; I10 Essential (primary) hypertension; J44.9 Chronic obstructive pulmonary disease, unspecified; E11.9 Type 2 diabetes mellitus without complications; Z95.5 Presence of coronary angioplasty implant and graft
CPT/HCPCS: 93005; 96376; 99285; 96374; 96375; 36415; 85025; 80048; 84484; 71045; 71275; 93010; J3010; J1170; J2060; J7040

== ENCOUNTER 2018-05-27 21:02 | Emergency (ER) | payer SELFPAY ==
[2018-05-27] MEDS ORDERED: ASPIRIN 81 MG TABLET, CHEWABLE PO ONE (21:38)
[2018-05-27] MEDS ORDERED: HYDROMORPHONE HCL INJ/PF 2 MG/ML AMPULE IV ONE ×3 (21:59→23:55)
--- NOTE | 2018-05-27 22:02 | ER Document Report ---
ED General - General Chief Complaint: Chest Pain Stated Complaint: CHEST PAIN Time Seen by Provider: 05/27/18 21:52 Primary Care Provider: SYED GIVENS MD [Primary Care Provider] - Follow up as needed Mode of Arrival: Ambulatory Information source: Patient Notes: 42-year-old man with a history of coronary artery disease (status post CABG on May 06 in [place]) who presents chest wall pain. Patient has had a lot of chest wall pain secondary to his sternotomy. He denies any fever, Chills, shortness of breath. He states that this pain is nothing like his cardiac pain before the surgery. TRAVEL OUTSIDE OF THE [place] IN LAST 30 DAYS: No - HPI Onset: Last week Onset/Duration: Gradual Quality of pain: Sharp Severity: Moderate Pain Level: 3 Associated symptoms: Chest pain. denies: Fever, Shortness of breath Exacerbated by: Movement - Chest wall pain Relieved by: Remaining still Similar symptoms previously: No Recently seen / treated by doctor: No - Related Data Allergies/Adverse Reactions: No Known Allergies Allergy (Verified 05/23/18 00:39) Past Medical History - General Information source: Patient - Social History Smoking Status: Never Smoker Cigarette use (# per day): No Chew tobacco use (# tins/day): No Frequency of alcohol use: None Drug Abuse: None Lives with: Family Family History: CAD, Hypertension Patient has suicidal ideation: No Patient has homicidal ideation: No - Past Medical History Cardiac Medical History: Reports: Hx Coronary Artery Disease, Hx Heart Attack - 10/2017, Hx Hypercholesterolemia, Hx Hypertension Pulmonary Medical History: Reports: Hx COPD Denies: Hx Asthma Neurological Medical History: Denies: Hx Cerebrovascular Accident, Hx Seizures Endocrine Medical History: Reports: Hx Diabetes Mellitus Type 2. Denies: Hx Diabetes Mellitus Type 1, Hx Hyperthyroidism, Hx Hypothyroidism Renal/ Medical History: Denies: Hx Peritoneal Dialysis GI Medical History: Denies: Hx Cirrhosis, Hx Hepatitis Musculoskeletal Medical History: Denies Hx Arthritis, Denies Hx Gout Skin Medical History: Denies Hx Eczema, Denies Hx Psoriasis Psychiatric Medical History: Reports: Hx Depression Infectious Medical History: Denies: Hx Hepatitis Past Surgical History: Reports: Hx Cardiac Catheterization, Hx Cardiac Surgery, Hx Coronary Stent - x4, Hx Orthopedic Surgery - Immunizations Hx Diphtheria, Pertussis, Tetanus Vaccination: Yes Review of Systems - Review of Systems Constitutional: denies: Chills, Fever EENT: No symptoms reported Cardiovascular: Chest pain. denies: Palpitations - This wall pain, Dyspnea Respiratory: No symptoms reported Gastrointestinal: No symptoms reported Genitourinary: No symptoms reported Male Genitourinary: No symptoms reported Musculoskeletal: See HPI Skin: No symptoms reported Hematologic/Lymphatic: No symptoms reported Neurological/Psychological: No symptoms reported Physical Exam - Vital signs Vitals: Temp Pulse Resp BP Pulse Ox 98.8 F 108 H 42 H 125/72 108 H 05/27/18 21:17 05/27/18 21:17 05/27/18 21:17 05/27/18 21:17 05/27/18 21:17 Notes: Physical exam: GENERAL: Patient is alert and oriented x3, no acute distress HEAD: Atraumatic, normocephalic. EYES: Pupils equal round and reactive to light, extraocular movements intact, sclera anicteric, conjunctiva are normal. ENT: TMs normal, nares patent, oropharynx clear without exudates. Moist mucous membranes. NECK: Normal range of motion, supple without obvious mass or JVD. Chest wall: Sternotomy site is dry and intact. Site looks good. There is no evidence of infection LUNGS: Breath sounds clear to auscultation bilaterally and equal. No wheezes rales or rhonchi. HEART: Regular rate and rhythm without murmurs, rubs or gallops. ABDOMEN: Soft, normoactive bowel sounds. No tenderness to palpation. No guarding, no rebound. No masses appreciated. EXTREMITIES: Normal range of motion, no pitting or edema. No clubbing or cyanosis. NEUROLOGICAL: Cranial nerves II through XII grossly intact. Normal speech, moving all extremities. PSYCH: Normal mood, normal affect. SKIN: Warm, Dry, normal turgor, no rashes or lesions noted. Course - Vital Signs Vital signs: Temp Pulse Resp BP Pulse Ox 98.8 F 108 H 19 128/84 H 108 H 05/27/18 21:17 05/27/18 21:17 05/28/18 01:01 05/28/18 01:01 05/27/18 21:17 - Laboratory Result Diagrams: 05/27/18 22:15 05/27/18 22:15 Laboratory results interpreted by me: 05/27/18 05/27/18 22:15 22:15 WBC 12.3 H RBC 4.04 L Hgb 11.9 L Hct 33.4 L Plt Count 620 H Seg Neutrophils % 80.6 H Lymphocytes % 9.9 L Absolute Neutrophils 9.9 H Sodium 136.9 L Chloride 97 L Glucose 176 H Creatine Kinase 43 L - Diagnostic Test Radiology reviewed: Image reviewed, Reports reviewed - X-ray shows no infiltrates - EKG Interpretation by Me Rate: Tachycardia - EKG shows sinus tachycardia with a ventricular rate of 101, no significant change from previous EKG. Discharge - Discharge Clinical Impression: Chest wall pain Condition: Stable Disposition: HOME, SELF-CARE Additional Instructions: Important that you follow-up with your heart surgeon is planned on Thursday. Continue current medicines. The pain medicine you're taking prescribed as a narcotic. There are several important things you should know about this medicine: 1. Taking narcotics for too long can lead to physical and mental dependence. Take this medicine only if really needed and in the lowest quantity to achieve pain relief. 2. Do not drink alcohol while on this medicine. Alcohol interacts with narcotics and the combination can be dangerous. 3. Do not drive or operate machinery while on this medicine. 4. Narcotics do cause constipation, so drink plenty of fluids and daily stool softeners. Prescriptions: Hydromorphone HCl [Dilaudid 2 Mg Tablet] 2 mg PO Q6H PRN #20 tablet PRN Reason: for pain Referrals: SYED GIVENS MD [Primary Care Provider] - Follow up as needed
[2018-05-27 22:28] LABS: ABSOLUTE BASOPHILS # (AUTO) 0.1 10^3/uL (0.0-0.2); ABSOLUTE EOSINOPHILS # (AUTO) 0.4 10^3/uL (0.0-0.6); ABSOLUTE LYMPHOCYTES (AUTO) 1.2 10^3/uL (0.5-4.7); ABSOLUTE MONOCYTES (AUTO) 0.7 10^3/uL (0.1-1.4); ABSOLUTE NEUT (AUTO) 9.9 10^3/uL (1.7-8.2); BASOPHILS % (AUTO) 0.8 % (0-2); EOSINOPHILS % (AUTO) 2.9 % (0-6); HEMATOCRIT 33.4 % (37.9-51.0); HEMOGLOBIN 11.9 g/dL (13.5-17.0); LYMPHOCYTES % (AUTO) 9.9 % (13-45); MEAN CORPUSCULAR HEMOGLOBIN 29.4 pg (27.0-33.4); MEAN CORPUSCULAR HGB CONC 35.5 g/dL (32.0-36.0); MEAN CORPUSCULAR VOLUME 83 fl (80-97); MONOCYTES % (AUTO) 5.8 % (3-13); PLATELET COUNT 620 10^3/uL (150-450); RED BLOOD COUNT 4.04 10^6/uL (4.35-5.55); SEGMENTED NEUTROPHILS % (AUTO) 80.6 % (42-78); TOTAL CELLS COUNTED % (AUTO) 100 %; WHITE BLOOD COUNT 12.3 10^3/uL (4.0-10.5)
--- NOTE | 2018-05-27 22:29 | RADIOLOGY REPORT (SQ) ---
EXAM DESCRIPTION: X-ray single view chest. CLINICAL HISTORY: 42 years Male, with chest pain status post open heart surgery on 05/13/2018 COMPARISON: Prior portable chest performed on 05/23/2018 and 05/19/2018 and CTA chest performed on 05/23/2018 TECHNIQUE: Single (one) portable x-ray view of the chest performed on 05/27/2018 at 9:49 PM FINDINGS: The lungs are well expanded and are grossly clear. There is minimal scarring or atelectasis in the left perihilar region. There is no evidence of a pneumothorax. The cardiac silhouette is normal in size and configuration. There are postsurgical changes of the mediastinum. The mediastinal contours are normal. No acute osseous abnormality is identified. No focal soft tissue abnormalities are seen. Lines and tubes: None. IMPRESSION: 1. No evidence of acute intrathoracic disease or significant change when compared to the prior studies. There is minimal scarring or atelectasis in the left perihilar region. 2. Status post median sternotomy.
[2018-05-27 22:43] LABS: ALANINE AMINOTRANSFERASE 24 U/L (21-72); ALKALINE PHOSPHATASE 98 U/L (38-126); ANION GAP 11 (5-19); ASPARTATE AMINO TRANSFERASE 19 U/L (17-59); BILIRUBIN,DIRECT 0.2 mg/dL (0.0-0.4); BILIRUBIN,TOTAL 0.4 mg/dL (0.2-1.3); BLOOD UREA NITROGEN 15 mg/dL (7-20); CARBON DIOXIDE 29 mmol/L (22-30); CHLORIDE 97 mmol/L (98-107); CREATINE KINASE 43 U/L (55-170); GLUCOSE 176 mg/dL (75-110); POTASSIUM 4.5 mmol/L (3.6-5.0); SODIUM 136.9 mmol/L (137-145); TOTAL PROTEIN 7.2 g/dL (6.3-8.2)
[2018-05-27 22:55] LABS: CREATINE KINASE MB 0.94 ng/mL (<4.55)
[2018-05-27 22:58] LABS: TROPONIN I 0.065 ng/mL
[2018-05-28] MEDS ORDERED: HYDROMORPHONE HCL INJ/PF 2 MG/ML AMPULE IV ONE (01:29)
[2018-05-28 01:48] VITALS: BP 144/92
--- NOTE | 2018-05-28 20:59 | EKG REPORT ---
SEVERITY:- ABNORMAL ECG - SINUS TACHYCARDIA PROBABLE LEFT ATRIAL ABNORMALITY PROBABLE INFERIOR INFARCT, AGE INDETERMINATE LATERAL INFARCT, AGE INDETERMINATE ANTERIOR INFARCT, AGE INDETERMINATE : Confirmed by: Sarah Gonzalez MD 28-May-2018 20:58:02
== END 2018-05-28 01:55 | disposition home or self-care (01) ==
LOC: ER 21:02
DX: R07.89 Other chest pain (principal); I25.10 Atherosclerotic heart disease of native coronary artery without angina pectoris; I10 Essential (primary) hypertension; J44.9 Chronic obstructive pulmonary disease, unspecified; E11.9 Type 2 diabetes mellitus without complications
CPT/HCPCS: 93005; 96376; 99284; 96374; 36415; 82553; 82550; 85025; 80053; 84484; 71045; 93010; J1170 ×2

== ENCOUNTER 2018-06-02 09:09 | Emergency (ER) | payer SELFPAY ==
[2018-06-02 09:13] VITALS: BP 125/73
--- NOTE | 2018-06-02 10:51 | ER Document Report ---
ED Extremity Problem, Lower - General Chief Complaint: Leg Pain Stated Complaint: LEFT LEG PAIN Time Seen by Provider: 06/02/18 10:14 Primary Care Provider: CONCEPCION SARMIENTO PA-C [Primary Care Provider] - 06/02/18 Notes: Patient is a 42-year-old male who presents emergency department with a chief complaint of left lower extremity pain. He states he started to have an aching pain in her his left lower extremities 3 days after he had a CABG, which was May 13. He was seen by his primary care provider and was sent for a left lower extremity venous Doppler study and there was a DVT noted in his popliteal and calf veins. He was then referred here to the emergency department. Past medical history includes hyperlipidemia, hypertension, borderline diabetes, and his CABG. He states that he had 4 stents placed, but the stents did not take, therefore he ended up having the CABG. patient denies any shortness of breath, difficulty breathing, chest pain. He only admits to incision pain and left lower extremity pain in his calf. TRAVEL OUTSIDE OF THE [place] IN LAST 30 DAYS: No - Related Data Allergies/Adverse Reactions: No Known Allergies Allergy (Verified 06/02/18 09:09) Past Medical History - Social History Smoking Status: Former Smoker Frequency of alcohol use: None Drug Abuse: None Family History: CAD, Hypertension Patient has suicidal ideation: No Patient has homicidal ideation: No - Past Medical History Cardiac Medical History: Reports: Hx Coronary Artery Disease, Hx Heart Attack - 10/2017, Hx Hypercholesterolemia, Hx Hypertension Pulmonary Medical History: Reports: Hx COPD Denies: Hx Asthma Neurological Medical History: Denies: Hx Cerebrovascular Accident, Hx Seizures Endocrine Medical History: Reports: Hx Diabetes Mellitus Type 2. Denies: Hx Diabetes Mellitus Type 1, Hx Hyperthyroidism, Hx Hypothyroidism Renal/ Medical History: Denies: Hx Peritoneal Dialysis GI Medical History: Denies: Hx Cirrhosis, Hx Hepatitis Musculoskeletal Medical History: Denies Hx Arthritis, Denies Hx Gout Skin Medical History: Denies Hx Eczema, Denies Hx Psoriasis Psychiatric Medical History: Reports: Hx Depression Infectious Medical History: Denies: Hx Hepatitis Past Surgical History: Reports: Hx Cardiac Catheterization, Hx Cardiac Surgery - cabg 05/13, Hx Coronary Stent - x4, Hx Orthopedic Surgery - Immunizations Hx Diphtheria, Pertussis, Tetanus Vaccination: Yes Review of Systems - Review of Systems Notes: REVIEW OF SYSTEMS: CONSTITUTIONAL : Denies recent illness. Denies recent unintentional weight loss. Denies fever, chills, or sweats. EENT: Denies eye, ear, throat, or mouth pain, discharge, or symptoms. Denies nasal or sinus congestion. CARDIOVASCULAR: Denies chest pain. RESPIRATORY: Denies shortness of breath, cough, congestion, difficulty breathing, or wheezing. GASTROINTESTINAL: Denies nausea, vomiting, and diarrhea. Denies abdominal pain. Denies constipation. GENITOURINARY: Denies difficulty urinating, burning, blood in urine, urgency or frequency. MUSCULOSKELETAL: See HPI SKIN: Denies rash, itchiness, or lesions HEMATOLOGIC : Denies easy bruising or bleeding. LYMPHATIC: Denies swollen, painful, enlarged glands. NEUROLOGICAL: Denies no numbness or tingling denies weakness. Denies headache. Denies altered mental status. Denies alteration in speech. PSYCHIATRIC: Denies stress, anxiety, alteration in sleep patterns, or depression. All other systems reviewed and negative. Physical Exam - Vital signs Vitals: Temp Pulse Resp BP Pulse Ox 97.6 F 86 18 125/73 100 06/02/18 09:13 06/02/18 09:13 06/02/18 09:13 06/02/18 09:13 06/02/18 09:13 - Notes Notes: PHYSICAL EXAMINATION: GENERAL: Appears well, healthy, well-nourished, no acute distress. HEAD: Normocephalic, atraumatic. EYES: PERRL, conjunctiva normal, all extraocular movements intact, sclera nonicteric ENT: Moist mucous membranes. NECK: Supple, no noticeable swelling, redness, rash. Normal range of motion. LUNGS: Equal breath sounds bilaterally and clear to auscultation. No wheezes rales or rhonchi. CARDIOVASCULAR: S1-S2, regular rate, regular rhythm. Radial pulses 2+, normal. ABDOMEN: Normoactive bowel sounds. Soft, nontender, no guarding, no rebound tenderness, and no masses palpated. EXTREMITIES: Normal strength and range of motion, no pitting or edema. No cyanosis. NEUROLOGICAL: Moves all extremities upon command. Strength 5/5 in all extremities. PSYCH: Normal mood, normal affect. SKIN: Warm, dry. No rash, lesions, ulcerations noted. Normal skin turgor. Midline incision noted to sternum from CABG. Incision on left lower extremity from CABG donor site. Course - Re-evaluation Re-evalutation: 06/02/18 10:[address] Sarmiento, who saw the patient outpatient, and they were unable to get a hold of the patient, therefore the patient did not know to go back to his doctor's office. Dr. Sarmiento would like to see the patient in the office. Patient is in agreement with this plan. He will be covered with his normal pain medication here in the emergency department. Verbal discharge instructions were given to the patient. They verbalized understanding. They are stable for discharge. - Vital Signs Vital signs: Temp Pulse Resp BP Pulse Ox 97.6 F 86 18 125/73 100 06/02/18 09:13 06/02/18 09:13 06/02/18 09:13 06/02/18 09:13 06/02/18 09:13 Discharge - Discharge Clinical Impression: DVT (deep venous thrombosis) Qualifiers: DVT location: lower extremity Affected thrombotic vein of extremity: unspecified lower extremity distal vein Chronicity: acute Laterality: left Qualified Code(s): I82.4Z2 - Acute embolism and thrombosis of unspecified deep veins of left distal lower extremity Condition: Stable Disposition: HOME, SELF-CARE Additional Instructions: You were seen today in the emergency department for a deep vein thrombosis, a blood clot in your leg. Your primary care doctor would like to manage your blood clot in the office. Please see him immediately after leaving the emergency department. If you develop shortness of breath, difficulty breathing, or any symptoms that are worrisome to you, please return to the emergency department. Referrals: CONCEPCION SARMIENTO PA-C [Primary Care Provider] - 06/02/18
[2018-06-02] MEDS ORDERED: OXYCODONE HCL IR 5 MG TABLET PO ONE (10:59)
== END 2018-06-02 11:16 | disposition home or self-care (01) ==
LOC: ER 09:09
DX: I82.432 Acute embolism and thrombosis of left popliteal vein (principal); M79.662 Pain in left lower leg; Z95.1 Presence of aortocoronary bypass graft; I10 Essential (primary) hypertension; I25.10 Atherosclerotic heart disease of native coronary artery without angina pectoris; I25.2 Old myocardial infarction; J44.9 Chronic obstructive pulmonary disease, unspecified; Z87.891 Personal history of nicotine dependence
CPT/HCPCS: 99283

== ENCOUNTER 2018-06-16 20:59 | Emergency (ER) | payer SELFPAY ==
--- NOTE | 2018-06-16 21:50 | EKG REPORT ---
SEVERITY:- ABNORMAL ECG - SINUS RHYTHM INFERIOR INFARCT, AGE INDETERMINATE ANTERIOR INFARCT, AGE INDETERMINATE : Confirmed by: Sarah Gonzalez MD 16-Jun-2018 21:49:37
[2018-06-16] MEDS ORDERED: NITROGLYCERIN 0.4 MG/TAB 25 TAB/BOTTLE SL STA (22:25)
--- NOTE | 2018-06-16 22:31 | ER Document Report ---
ED Medical Screen (RME) - General Chief Complaint: Chest Pain Stated Complaint: SICK Time Seen by Provider: 06/16/18 22:01 Primary Care Provider: CONCEPCION SMITH PA-C [Primary Care Provider] - Follow up as needed Mode of Arrival: Ambulatory Information source: Patient, Relative Notes: Patient is a 42-year-old male who comes emergency room with a 2-day onset of left anterior chest pain with increasing shortness of breath. Patient states that he had a two-vessel bypass on May 132018 and since that time has been having difficulty with the outcome of that surgery. He states that he has been having some stabbing pains in his chest that seem to go to his back. The started yesterday. Patient is currently taking pain medication on a regular basis last time he can at 7 PM tonight which is Percocet and oxycodone cotton. A stating that this medication is not helping him. His increasing shortness of breath and having reaction with him on his daily functions of living. He is unable to walk very far without getting short of breath. Patient denies smoking he will be soon be seeing Dr. Frost here locally. Patient's vital signs on arrival at triage showed a temp of 98.1 a pulse rate of 92 respiratory rate of 18 saturating 98% on room air but nonlabored blood pressure is 142/84. His EKG was completed at 2108 and shows a normal sinus rhythm as read by bevel gear generator operator shows that there is an inferior infarct age undetermined and anterior infarct age undetermined. Comparison of the EKGs are difficult because the last one was done with patient with anxiety and the leads are somewhat sketchy. But it to set a lateral infarct age undetermined and anterior infarct age undetermined. TRAVEL OUTSIDE OF THE [place] IN LAST 30 DAYS: No - HPI Onset: Other - 2 days Onset/Duration: Gradual, Persistent, Worse Quality of pain: Sharp, Stabbing, Throbbing Severity: Moderate Pain Level: 3 Exacerbated by: Movement, Walking, Coughing, Deep breathing Relieved by: Denies Similar symptoms previously: Yes Recently seen / treated by doctor: Yes - Related Data Allergies/Adverse Reactions: No Known Allergies Allergy (Verified 06/02/18 09:09) Past Medical History - General Information source: Patient, Relative - Social History Cigarette use (# per day): No Chew tobacco use (# tins/day): No Frequency of alcohol use: None Drug Abuse: None Lives with: Family Family history: Reviewed & Not Pertinent - Past Medical History Cardiac Medical History: Reports: Hx Coronary Artery Disease, Hx Heart Attack - 10/2017, Hx Hypercholesterolemia, Hx Hypertension Pulmonary Medical History: Reports: Hx COPD Denies: Hx Asthma Neurological Medical History: Denies: Hx Cerebrovascular Accident, Hx Seizures Endocrine Medical History: Reports: Hx Diabetes Mellitus Type 2. Denies: Hx Diabetes Mellitus Type 1, Hx Hyperthyroidism, Hx Hypothyroidism Renal/ Medical History: Denies: Hx Peritoneal Dialysis GI Medical History: Denies: Hx Cirrhosis, Hx Hepatitis Musculoskeltal Medical History: Denies Hx Arthritis, Denies Hx Gout Skin Medical History: Denies Hx Eczema, Denies Hx Psoriasis Psychiatric Medical History: Reports: Hx Depression Infectious Medical History: Denies: Hx Hepatitis Past Surgical History: Reports: Hx Cardiac Catheterization, Hx Cardiac Surgery - cabg 05/13, Hx Coronary Stent - x4, Hx Orthopedic Surgery - Immunizations Hx Diphtheria, Pertussis, Tetanus Vaccination: Yes Review of Systems - Review of Systems Constitutional: No symptoms reported EENT: No symptoms reported Cardiovascular: See HPI, Chest pain, Dizziness Respiratory: See HPI, Hurts to breathe, Short of breath Gastrointestinal: No symptoms reported Genitourinary: No symptoms reported Male Genitourinary: No symptoms reported Musculoskeletal: No symptoms reported Skin: No symptoms reported Hematologic/Lymphatic: No symptoms reported Neurological/Psychological: No symptoms reported -: Yes All other systems reviewed and negative Physical Exam - Vital signs Vitals: Temp Pulse Resp BP Pulse Ox 98.1 F 97 18 142/84 H 98 06/16/18 21:21 06/16/18 21:21 06/16/18 21:21 06/16/18 21:21 06/16/18 21:21 Interpretation: Hypertensive - Notes Notes: PHYSICAL EXAMINATION: GENERAL: Patient is a well-nourished well-developed 42-year-old male who is no apparent distress on physical exam tonight however he does appear somewhat uncom fortable and is having a difficult time finding a position of comfort. HEAD: Atraumatic, normocephalic. EYES: Pupils equal round and reactive to light, extraocular movements intact, sclera anicteric, conjunctiva are normal. ENT: Nares patent, oropharynx clear without exudates. Moist mucous membranes. NECK: Normal range of motion, supple without lymphadenopathy LUNGS: auscultation patient's lung monzon shows he has bilateral breath sounds breath sounds are increased throughout all lung monzon there is no noticeable respiratory expiratory wheeze no rhonchi or rales are heard at this time. Examination patient's anterior chest shows a anterior surgical scar extending from the base of the neck downwards towards the top of the stomach. Well- healing no sign of infection no sign of dehiscence.. HEART: Regular rate and rhythm without murmurs ABDOMEN: Soft, nontender, nondistended abdomen. No guarding, no rebound. No masses appreciated. Musculoskeletal: Normal range of motion, no pitting or edema. No cyanosis. NEUROLOGICAL: Normal speech, normal gait. Normal sensory, motor exams PSYCH: Normal mood, normal affect. SKIN: See chest above Course - Re-evaluation Re-evalutation: 06/16/18 23:29 I have greeted and performed a rapid initial assessment of this patient. A comprehensive ED assessment and evaluation of the patient, analysis of test results and completion of the medical decision making process will be conducted by additional ED providers. Dictation of this chart was performed using voice recognition software; therefore, there may be some unintended grammatical errors. - Vital Signs Vital signs: Temp Pulse Resp BP Pulse Ox 98.1 F 97 18 142/84 H 98 06/16/18 21:21 06/16/18 21:21 06/16/18 21:21 06/16/18 21:21 06/16/18 21:21 - Laboratory Result Diagrams: 06/16/18 23:00 06/16/18 23:00 Laboratory results interpreted by me: 06/16/18 23:00 Hgb 13.1 L Hct 37.8 L RDW 14.5 H Eosinophils % 6.2 H Doctor's Discharge - Discharge Referrals: CONCEPCION SMITH PA-C [Primary Care Provider] - Follow up as needed
--- NOTE | 2018-06-16 22:58 | RADIOLOGY REPORT (SQ) ---
EXAM DESCRIPTION: XR CHEST 1 VIEW COMPLETED DATE/TME: 06/16/2018 22:23 CLINICAL HISTORY: 42 years Male chest pain COMPARISON: 05/27/2018 FINDINGS: The cardiomediastinal silhouette appears unremarkable. No consolidating infiltrates or pleural effusions. No pneumothorax. Median sternotomy wires are present. Small amount of atelectasis or scarring adjacent to the left heart border. IMPRESSION: No acute abnormality is identified.
[2018-06-16 23:12] LABS: ABSOLUTE BASOPHILS # (AUTO) 0.1 10^3/uL (0.0-0.2); ABSOLUTE EOSINOPHILS # (AUTO) 0.6 10^3/uL (0.0-0.6); ABSOLUTE LYMPHOCYTES (AUTO) 1.9 10^3/uL (0.5-4.7); ABSOLUTE MONOCYTES (AUTO) 0.6 10^3/uL (0.1-1.4); ABSOLUTE NEUT (AUTO) 6.9 10^3/uL (1.7-8.2); BASOPHILS % (AUTO) 1.1 % (0-2); EOSINOPHILS % (AUTO) 6.2 % (0-6); HEMATOCRIT 37.8 % (37.9-51.0); HEMOGLOBIN 13.1 g/dL (13.5-17.0); LYMPHOCYTES % (AUTO) 18.9 % (13-45); MEAN CORPUSCULAR HEMOGLOBIN 28.9 pg (27.0-33.4); MEAN CORPUSCULAR HGB CONC 34.7 g/dL (32.0-36.0); MEAN CORPUSCULAR VOLUME 83 fl (80-97); MONOCYTES % (AUTO) 6.3 % (3-13); PLATELET COUNT 306 10^3/uL (150-450); RED BLOOD COUNT 4.55 10^6/uL (4.35-5.55); RED CELL DISTRIBUTION WIDTH 14.5 % (11.5-14.0); SEGMENTED NEUTROPHILS % (AUTO) 67.5 % (42-78); TOTAL CELLS COUNTED % (AUTO) 100 %; WHITE BLOOD COUNT 10.2 10^3/uL (4.0-10.5)
[2018-06-16 23:20] LABS: INTERNATIONAL RATION (INR) 1.19; PROTHROMBIN TIME 15.7 SEC (11.4-15.4)
[2018-06-16 23:46] LABS: ALANINE AMINOTRANSFERASE 36 U/L (21-72); ALBUMIN 4.5 g/dL (3.5-5.0); ALKALINE PHOSPHATASE 97 U/L (38-126); ANION GAP 11 (5-19); ASPARTATE AMINO TRANSFERASE 23 U/L (17-59); BILIRUBIN,DIRECT 0.3 mg/dL (0.0-0.4); BILIRUBIN,TOTAL 0.4 mg/dL (0.2-1.3); BLOOD UREA NITROGEN 12 mg/dL (7-20); CALCIUM 10.2 mg/dL (8.4-10.2); CARBON DIOXIDE 32 mmol/L (22-30); CHLORIDE 98 mmol/L (98-107); CREATINE KINASE 46 U/L (55-170); GLUCOSE 145 mg/dL (75-110); SODIUM 140.5 mmol/L (137-145); TOTAL PROTEIN 7.9 g/dL (6.3-8.2)
[2018-06-16 23:58] LABS: CREATINE KINASE MB 0.53 ng/mL (<4.55); TROPONIN I 0.024 ng/mL
--- NOTE | 2018-06-17 01:09 | ER Document Report ---
ED General - General Chief Complaint: Chest Pain Stated Complaint: SICK Time Seen by Provider: 06/16/18 22:01 Primary Care Provider: CONCEPCION SMITH PA-C [Primary Care Provider] - 06/18/18 Mode of Arrival: Ambulatory Notes: Patient is a 42-year-old male with extensive history of coronary disease. He recently had a coronary artery bypass approximately a month ago. This was done at [facility]. Since then he has had recurrent chronic pain over his chest. He says just touching the skin on his chest causing severe pain. He says that he has been taking oxycodone and Percocet which have not helped. He said last time he was in the ER they gave him oral Dilaudid which helped. He says at this time the pain is taking his breath away. He has no other complaints at this time. He said he just saw his heart doctor 2 days ago was told to continue his pain medicine. He does have a known DVT in the left leg. He is currently on Xarelto. No previous history of PE. TRAVEL OUTSIDE OF THE [place] IN LAST 30 DAYS: No - Related Data Allergies/Adverse Reactions: No Known Allergies Allergy (Verified 06/02/18 09:09) Past Medical History - General Information source: Patient, Relative - Social History Smoking Status: Unknown if Ever Smoked Cigarette use (# per day): No Chew tobacco use (# tins/day): No Frequency of alcohol use: None Drug Abuse: None Lives with: Family Family History: CAD, Hypertension - Past Medical History Cardiac Medical History: Reports: Hx Coronary Artery Disease, Hx Heart Attack - 10/2017, Hx Hypercholesterolemia, Hx Hypertension Pulmonary Medical History: Reports: Hx COPD Denies: Hx Asthma Neurological Medical History: Denies: Hx Cerebrovascular Accident, Hx Seizures Endocrine Medical History: Reports: Hx Diabetes Mellitus Type 2. Denies: Hx Diabetes Mellitus Type 1, Hx Hyperthyroidism, Hx Hypothyroidism Renal/ Medical History: Denies: Hx Peritoneal Dialysis GI Medical History: Denies: Hx Cirrhosis, Hx Hepatitis Musculoskeletal Medical History: Denies Hx Arthritis, Denies Hx Gout Skin Medical History: Denies Hx Eczema, Denies Hx Psoriasis Psychiatric Medical History: Reports: Hx Depression Infectious Medical History: Denies: Hx Hepatitis Past Surgical History: Reports: Hx Cardiac Catheterization, Hx Cardiac Surgery - cabg 05/13, Hx Coronary Stent - x4, Hx Orthopedic Surgery - Immunizations Hx Diphtheria, Pertussis, Tetanus Vaccination: Yes Review of Systems - Review of Systems Notes: My Normal Review Basic REVIEW OF SYSTEMS: CONSTITUTIONAL : Denies fever, chills, or sweats. Denies recent illness. EENT: Denies eye, ear, throat, or mouth pain or symptoms. Denies nasal or sinus congestion. CARDIOVASCULAR: Chronic ongoing chest pain RESPIRATORY: Denies cough, cold, or chest congestion. Some shortness of breath GASTROINTESTINAL: Denies abdominal pain. Denies nausea, vomiting, or diarrhea. MUSCULOSKELETAL: Denies neck or back pain or joint pain or swelling. SKIN: Denies rash or skin lesions. NEUROLOGICAL: Denies altered mental status or loss of consciousness. Denies headache. Denies weakness or paralysis or loss of use of either side. Denies problems with gait or speech. Denies sensory or motor loss. ALL OTHER SYSTEMS REVIEWED AND NEGATIVE. Physical Exam - Vital signs Vitals: Temp Pulse Resp BP Pulse Ox 98.1 F 97 18 142/84 H 98 06/16/18 21:21 06/16/18 21:21 06/16/18 21:21 06/16/18 21:21 06/16/18 21:21 - Notes Notes: General Appearance: Well nourished, alert, cooperative, no acute distress, moderate obvious discomfort. Vitals: reviewed, See vital signs table. Head: no swelling or tenderness to the head Eyes: PERRL, EOMI, Conjuctiva clear Mouth: No decreasd moisture Neck: Supple, no neck tenderness, No thyromegaly Chest wall: Patient has tenderness to palpation of chest wall when I barely brush my fingers across the skin of his chest. He says that the skin on his chest is extremely sensitive and any touch causes severe pain. Lungs: No wheezing, No rales, No rhonci, No accessory muscle use, good air exchange bilaterally. Heart: Normal rate, Regular rythm, No murmur, no rub Abdomen: Normal BS, soft, No rigidity, No abdominal tenderness, No guarding, no rebound, no abdominal masses, no organomegaly Extremities: good pulses in all extremities, no swelling or tenderness in the extremities, no edema. Skin: warm, dry, appropriate color, no rash Neuro: speech clear, oriented x 3, normal affect, responds appropriately to questions. Course - Re-evaluation Re-evalutation: 06/17/18 07:07 Patient is feeling improved after the dose of fentanyl. He asked me if I would give him fentanyl patches. I informed that I do not think this is a good idea as he is already on Percocet and oxycodone. He denies to me from prescribing Dilaudid. Also informed him that this would not be a good idea. I had a long talk with him and informed him that I think a lot of his chronic pain is related to the fact that he is now become dependent on opiates and explained to him the process of upper regulation of pain receptors and why this occurs. I informed him that he should talk to his doctor about potentially decreasing his opiates and seeing if he actually did start having improvement in his painful symptoms by actually slowly decreasing his pain medicine over time. In the meantime I informed him we will try lidocaine patch over the chest wall being that he is so tender to touch even the skin on the chest wall. He seems to have a hypersensitivity of the skin on the chest wall itself. I did do a CTA of the chest pain with patients that he was having some dyspnea with the pain this time around and he has a DVT. CT of the chest was negative. His troponin and delta troponin are normal. He just had a recent coronary bypass and therefore it is unlikely that he is having ischemia to the heart especially being that his EKG in troponin and repeat troponin are negative. At this time I feel he is safe to be discharged home. I encouraged him to follow-up closely with his doctor. Encouraged him return to ER if he has worsening pain or difficulty breathing or fevers. Dictation of this chart was performed using voice recognition software; therefore, there may be some unintended grammatical errors. - Vital Signs Vital signs: Temp Pulse Resp BP Pulse Ox 98.3 F 97 18 134/88 H 99 06/17/18 04:25 06/16/18 21:21 06/17/18 04:01 06/17/18 04:01 06/17/18 04:01 - Laboratory Result Diagrams: 06/16/18 23:00 06/16/18 23:00 Laboratory results interpreted by me: 06/16/18 06/16/18 06/16/18 23:00 23:00 23:00 Hgb 13.1 L Hct 37.8 L RDW 14.5 H Eosinophils % 6.2 H PT 15.7 H Carbon Dioxide 32 H Glucose 145 H Creatine Kinase 46 L NT-Pro-B Natriuret Pep 06/16/18 23:00 Hgb Hct RDW Eosinophils % PT Carbon Dioxide Glucose Creatine Kinase NT-Pro-B Natriuret Pep 1440 H - EKG Interpretation by Me Additional EKG results interpreted by me: 06/17/18 01:07 EKG is reviewed and interpreted by me. EKG shows sinus rhythm with rate of [address] segment elevation or depression. Some T wave inversions need aVL which are unchanged comparison to previous EKG. Small Q waves in inferior and the lateral precordial leads which were also seen on his previous EKG. Old EKG for comparison is from May 19, 2018. NE interval, QRS duration, QT intervals are within normal range. Discharge - Discharge Clinical Impression: Chest pain Qualifiers: Chest pain type: unspecified Qualified Code(s): R07.9 - Chest pain, unspecified Condition: Good Disposition: HOME, SELF-CARE Additional Instructions: Please take your pain medicine as prescribed. I have given you a lidocaine patch to place over your chest to see if this helps your pain. Please let your doctor know if this helps so they can consider continue prescribing them for you. please return to the ER if you have worsening pain, fevers, or if you feel that you are worsening in any way. Referrals: CONCEPCION SMITH PA-C [Primary Care Provider] - 06/18/18
[2018-06-17] MEDS ORDERED: MORPHINE SULFATE 10 MG/ML INJ IV ONE (01:23)
--- NOTE | 2018-06-17 02:41 | RADIOLOGY REPORT (SQ) ---
EXAM DESCRIPTION: CT CHEST ANGIOGRAPHY WITHOUT THEN WITH IV CONTRAST COMPLETED DATE/TME: 06/17/2018 01:23 CLINICAL HISTORY: 42 years, Male, chest pain, recent DVT, OPEN HEART SURG A MONTH AGO. COMPARISON: 05/23/2018 CTA chest TECHNIQUE: 539 Images stored on PACS. All CT scanners at this facility use dose modulation, iterative reconstruction, and/or weight based dosing when appropriate to reduce radiation dose to as low as reasonably achievable (ALARA). Axial CTA images with coronal and sagittal MIPS reconstructions [facility]: Dose Right [facility]: CareDose [facility]: Dose Right [facility]: Teradose 4D [facility]: [employer] LIMITATIONS: None. FINDINGS: The mediastinal vasculature enhances normally. No intraluminal filling defect to suggest pulmonary most. Negative for thoracic aneurysm or dissection. Post surgical changes of the mediastinum. Coronary artery catheterization. Heart is mildly. Limited evaluation of upper abdomen unremarkable. Osseous structures otherwise grossly intact. No pneumothorax. Visualized airways are patent. Lungs are clear IMPRESSION: Negative for pulmonary embolus, thoracic aortic aneurysm, or dissection. Postsurgical changes of the mediastinum. TECHNICAL DOCUMENTATION: Quality ID # 436: Final reports with documentation of one or more dose reduction techniques (e.g., Automated exposure control, adjustment of the mA and/or kV according to patient size, use of iterative reconstruction technique) copyright 2011 [employer]- All Rights Reserved
[2018-06-17] MEDS ORDERED: FENTANYL CITRATE INJ/PF 100 MCG/2 ML AMPUL IV ONE (02:51)
[2018-06-17] MEDS ORDERED: NORMAL SALINE 500 ML IV ONE (03:48)
[2018-06-17 04:11] VITALS: BP 134/88
[2018-06-17] MEDS ORDERED: LIDOCAINE 5% (700 MG) TRANSDERMAL ADH..PATCH TP ONE (04:18)
== END 2018-06-17 04:43 | disposition home or self-care (01) ==
LOC: ER 20:59
DX: R07.9 Chest pain, unspecified (principal); I25.10 Atherosclerotic heart disease of native coronary artery without angina pectoris; E78.00 Pure hypercholesterolemia, unspecified; I10 Essential (primary) hypertension; E11.9 Type 2 diabetes mellitus without complications; Z95.1 Presence of aortocoronary bypass graft; I25.2 Old myocardial infarction
CPT/HCPCS: 93005; 99285; 96374; 96375; 36415; 82553; 82550; 85025; 85610; 80053; 84484; 83880; 71045; 71275; 93010; J3010; J2270; J7040

== ENCOUNTER 2018-10-05 12:46 | Emergency (ER) | payer SELFPAY ==
[2018-10-05] MEDS ORDERED: ASPIRIN 81 MG TABLET, CHEWABLE PO ONE (13:12)
[2018-10-05 13:30] LABS: ABSOLUTE BASOPHILS # (AUTO) 0.1 10^3/uL (0.0-0.2); ABSOLUTE EOSINOPHILS # (AUTO) 0.1 10^3/uL (0.0-0.6); ABSOLUTE LYMPHOCYTES (AUTO) 1.5 10^3/uL (0.5-4.7); ABSOLUTE MONOCYTES (AUTO) 0.5 10^3/uL (0.1-1.4); ABSOLUTE NEUT (AUTO) 5.7 10^3/uL (1.7-8.2); BASOPHILS % (AUTO) 0.9 % (0-2); EOSINOPHILS % (AUTO) 1.6 % (0-6); HEMATOCRIT 43.2 % (37.9-51.0); HEMOGLOBIN 14.6 g/dL (13.5-17.0); LYMPHOCYTES % (AUTO) 18.9 % (13-45); MEAN CORPUSCULAR HEMOGLOBIN 27.9 pg (27.0-33.4); MEAN CORPUSCULAR HGB CONC 33.8 g/dL (32.0-36.0); MEAN CORPUSCULAR VOLUME 83 fl (80-97); MONOCYTES % (AUTO) 6.1 % (3-13); PLATELET COUNT 217 10^3/uL (150-450); RED BLOOD COUNT 5.24 10^6/uL (4.35-5.55); RED CELL DISTRIBUTION WIDTH 15.4 % (11.5-14.0); SEGMENTED NEUTROPHILS % (AUTO) 72.5 % (42-78); TOTAL CELLS COUNTED % (AUTO) 100 %; WHITE BLOOD COUNT 7.9 10^3/uL (4.0-10.5)
[2018-10-05] MEDS ORDERED: FENTANYL CITRATE INJ/PF 100 MCG/2 ML AMPUL IV ONE ×3 (13:45→16:56)
--- NOTE | 2018-10-05 13:51 | ER Document Report ---
ED Cardiac - General Chief Complaint: Chest Pain Stated Complaint: CHEST PAIN Time Seen by Provider: 10/05/18 13:35 Information source: Patient TRAVEL OUTSIDE OF THE [place] IN LAST 30 DAYS: No - HPI Patient complains to provider of: Chest pain, Shortness of breath Was the onset of pain: Gradual - chronic Is the pain a: Chronic problem Chest pain location: Substernal - at cabg scar Quality of pain: Constant Chest pain radiation location: None Severity now: Moderate Severity at worst: Severe Chest pain precipitating factors: Physical Exertion - with movement Cardiac risk factors: Hx GA - had CABG this year in [place] Positive cardiac history: Yes Associated symptoms: Shortness of breath. denies: Diaphoresis, Jaw pain, Nausea/vomiting Exacerbated by: Torso movement Relieved by: Other - oxycodone Similar symptoms previously: Yes Notes: 43 y/o s/p cabg done in [place] earlier this year he reports pain at sternotomy site since he is on oxycodone but notes incomplete relief with this he has had a DVT since CABG and was on xarelto for 3 months denies h/o PE he is on brilinta currently for CAD prevention/care he tells me the pain is worsened by certain movements of the chest and neck he is having some mild sob as well but notes he feels like he cannot breathe due to the pain - Related Data Allergies/Adverse Reactions: No Known Allergies Allergy (Verified 06/02/18 09:09) Past Medical History - General Information source: Patient - Social History Smoking Status: Former Smoker Chew tobacco use (# tins/day): No Frequency of alcohol use: Rare Drug Abuse: None Family History: CAD, Hypertension Patient has suicidal ideation: No Patient has homicidal ideation: No - Past Medical History Cardiac Medical History: Reports: Hx Coronary Artery Disease, Hx Heart Attack - 10/2017, Hx Hypercholesterolemia, Hx Hypertension Pulmonary Medical History: Reports: Hx COPD Denies: Hx Asthma Neurological Medical History: Denies: Hx Cerebrovascular Accident, Hx Seizures Endocrine Medical History: Reports: Hx Diabetes Mellitus Type 2. Denies: Hx Diabetes Mellitus Type 1, Hx Hyperthyroidism, Hx Hypothyroidism Renal/ Medical History: Denies: Hx Peritoneal Dialysis GI Medical History: Denies: Hx Cirrhosis, Hx Hepatitis Musculoskeletal Medical History: Denies Hx Arthritis, Denies Hx Gout Skin Medical History: Denies Hx Eczema, Denies Hx Psoriasis Psychiatric Medical History: Reports: Hx Depression Infectious Medical History: Denies: Hx Hepatitis Past Surgical History: Reports: Hx Cardiac Catheterization, Hx Cardiac Surgery - cabg 05/13, Hx Coronary Stent - x4, Hx Orthopedic Surgery - Immunizations Hx Diphtheria, Pertussis, Tetanus Vaccination: Yes Review of Systems - Review of Systems Constitutional: No symptoms reported EENT: No symptoms reported Cardiovascular: Chest pain Respiratory: No symptoms reported Gastrointestinal: No symptoms reported Genitourinary: No symptoms reported Male Genitourinary: No symptoms reported Musculoskeletal: No symptoms reported Skin: No symptoms reported Hematologic/Lymphatic: No symptoms reported Neurological/Psychological: No symptoms reported Physical Exam - Vital signs Vitals: Temp Pulse Resp BP Pulse Ox 98.3 F 98 16 153/90 H 97 10/05/18 13:04 10/05/18 13:04 10/05/18 13:04 10/05/18 13:04 10/05/18 13:04 Interpretation: Normal - General General appearance: Appears well, Alert - HEENT Head: Normocephalic, Atraumatic Eyes: Normal Pupils: PERRL - Respiratory Respiratory status: No respiratory distress Chest status: Nontender Breath sounds: Normal Chest palpation: Normal - Cardiovascular Rhythm: Regular Heart sounds: Normal auscultation Murmur: No Notes: chest wall w/ healed sternotomy scar. no evidence of cellulitis, no fluctuance or induration to suggest abscess. this scar region is tender to palpation - Abdominal Inspection: Normal Distension: No distension Bowel sounds: Normal Tenderness: Nontender Organomegaly: No organomegaly - Back Back: Normal, Nontender - Extremities General upper extremity: Normal inspection, Nontender, Normal color, Normal ROM, Normal temperature General lower extremity: Normal inspection, Nontender, Normal color, Normal ROM, Normal temperature, Normal weight bearing. No: Lesley's sign - Neurological Neuro grossly intact: Yes Cognition: Normal Orientation: AAOx4 Garett Coma Scale Eye Opening: Spontaneous Lincoln Coma Scale Verbal: Oriented Garett Coma Scale Motor: Obeys Commands Garett Coma Scale Total: 15 Speech: Normal Motor strength normal: LUE, RUE, LLE, RLE Sensory: Normal - Psychological Associated symptoms: Normal affect, Normal mood - Skin Skin Temperature: Warm Skin Moisture: Dry Skin Color: Normal Course - Re-evaluation Re-evalutation: 10/05/18 13:49 patient seen in ED by me upon arrival to a room his EKG has sinus rhythm with normal rate given his h/o cad s/p cabg and dvt, will obtain CTA to evaluate for PE will check troponin to evaluate for coronary ischemia however patient's history is very inconsistnet w/ coronary related pain patient states fentanyl helps pain so fentanyl dose ordered 10/05/18 13:51 10/05/18 18:32 2 trops neg CTA neg will discharge to home w/ encouragement to see cardiology as outpt and consider enrolling in a pain management program for ongoing chest wall pain - Vital Signs Vital signs: Temp Pulse Resp BP Pulse Ox 98.3 F 87 19 144/81 H 98 10/05/18 13:04 10/05/18 16:00 10/05/18 16:31 10/05/18 16:31 10/05/18 16:31 - Laboratory Result Diagrams: 10/05/18 13:20 10/05/18 13:20 Laboratory results interpreted by me: 10/05/18 10/05/18 13:20 13:20 RDW 15.4 H Sodium 136.4 L Glucose 235 H - Diagnostic Test Radiology reviewed: Reports reviewed - CXR and CTA - EKG Interpretation by Me EKG shows normal: Sinus rhythm Rate: Normal - 92 Rhythm: NSR When compared to previous EKG there are: No significant change Additional EKG results interpreted by me: 10/05/18 13:50 Q waves inferiorly, poor R wave progression similar to previous study Discharge - Discharge Clinical Impression: Elevated blood pressure reading Chest pain Qualifiers: Chest pain type: unspecified Qualified Code(s): R07.9 - Chest pain, unspecified Condition: Stable Disposition: HOME, SELF-CARE Instructions: Chest Wall Pain ([facility]), Oral Narcotic Medication ([facility]) Prescriptions: Oxycodone HCl [Oxycodone HCl 10 MG Tablet] 1 tab PO Q6H PRN #10 tablet PRN Reason: Pain Scale Per Md
[2018-10-05 13:52] LABS: ALBUMIN 4.6 g/dL (3.5-5.0); ALKALINE PHOSPHATASE 84 U/L (38-126); ANION GAP 12 (5-19); ASPARTATE AMINO TRANSFERASE 27 U/L (17-59); BILIRUBIN,DIRECT 0.3 mg/dL (0.0-0.4); BILIRUBIN,TOTAL 0.7 mg/dL (0.2-1.3); BLOOD UREA NITROGEN 10 mg/dL (7-20); CALCIUM 9.7 mg/dL (8.4-10.2); CARBON DIOXIDE 26 mmol/L (22-30); CHLORIDE 98 mmol/L (98-107); CREATINE KINASE 83 U/L (55-170); GLUCOSE 235 mg/dL (75-110); TOTAL PROTEIN 7.4 g/dL (6.3-8.2)
[2018-10-05 14:02] LABS: CREATINE KINASE MB 0.88 ng/mL (<4.55)
[2018-10-05 14:07] LABS: TROPONIN I < 0.012 ng/mL
--- NOTE | 2018-10-05 14:15 | RADIOLOGY REPORT (SQ) ---
EXAM DESCRIPTION: CHEST SINGLE VIEW COMPLETED DATE/TIME: 10/05/2018 1:53 pm REASON FOR STUDY: cp COMPARISON: 06/16/2018 EXAM PARAMETERS: NUMBER OF VIEWS: One view. TECHNIQUE: Single frontal radiographic view of the chest acquired. RADIATION DOSE: NA LIMITATIONS: None. FINDINGS: LUNGS AND PLEURA: No opacities, masses or pneumothorax. No pleural effusion. MEDIASTINUM AND HILAR STRUCTURES: No masses. Contour normal. HEART AND VASCULAR STRUCTURES: Cardiomegaly. No pulmonary edema. BONES: No acute findings. HARDWARE: Sternotomy wires. OTHER: No other significant finding. IMPRESSION: Cardiomegaly without pulmonary edema. TECHNICAL DOCUMENTATION: JOB ID: [id number] [employer]- All Rights Reserved Reading location - IP/workstation name: [email or web address]
--- NOTE | 2018-10-05 15:40 | RADIOLOGY REPORT (SQ) ---
EXAM DESCRIPTION: CTA CHEST COMPLETED DATE/TIME: 10/05/2018 3:28 pm REASON FOR STUDY: chest pain COMPARISON: 06/17/2018 TECHNIQUE: CT scan of the chest performed using helical scanning technique with dynamic intravenous contrast injection. Images reviewed with lung, soft tissue and bone windows. Reconstructed coronal and sagittal MPR images reviewed. Additional 3 dimensional post-processing performed to develop Maximal Intensity Projection images (MT P). All images stored on PACS. All CT scanners at this facility use dose modulation, iterative reconstruction, and/or weight based d osing when appropriate to reduce radiation dose to as low as reasonably achievable (ALARA). [facility]: Dose Right [facility]: CareDose [facility]: Dose Right [facility]: Teradose 4D [facility]: Real Time Tomography CONTRAST TYPE AND DOSE: contrast/concentration: Isovue 350.00 mg/ml; Total Contrast Delivered: 68.0 ml; Total Saline Delivered: 50.0 ml Contrast bolus adequate for pulmonary arteries and aorta. RENAL FUNCTION: BUN 10, creatinine 0.80 RADIATION DOSE: CT Rad equipment meets quality standard of care and radiation dose reduction techniq ues were employed. CTDIvol: 20.5 - 29.8 mGy. DLP: 798 mGy-cm. . LIMITATIONS: None. FINDINGS: LUNGS AND PLEURA: No masses, infiltrates, or pneumothorax. No pleural effusions or pleura l calcifications. AORTA AND GREAT VESSELS: No aneurysm. Contrast bolus not optimized for the aorta. HEART: No pericardial effusion. No significant coronary artery calcifications. PULMONARY ARTERIES: No emboli visualized in the main pulmonary arteries or the segmental branches. HILAR AND MEDIASTINAL STRUCTURES: No identified masses or abnormal nodes. HARDWARE: None in the chest. UPPER ABDOMEN: No significant findings. Limited exam. THYROID AND OTHER SOFT TISSUES: No masses. No adenopathy. BONES: No acute or significant finding. 3D MIPS: Confirm above findings. OTHER: No other significant finding. IMPRESSION: NORMAL CTA OF THE CHEST. NO PULMONARY EMBOLI. COMMENT: Quality ID # [id number]: Final reports with documentation of one or more dose reduction techniques (e.g., Automated exposure control, adjustment of the mA and/or kV according to patient size, use of iterative reconstruction technique) TECHNICAL DOCUMENTATION: JOB ID: [id number] [employer]- All Rights Reserved Reading location - IP/workstation name: [email or web address]
--- NOTE | 2018-10-05 18:26 | EKG REPORT ---
SEVERITY:- ABNORMAL ECG - SINUS RHYTHM ABERRANT COMPLEX, POSSIBLY SUPRAVENTRICULAR PROBABLE LEFT ATRIAL ABNORMALITY INFERIOR INFARCT, OLD ANTERIOR INFARCT, AGE INDETERMINATE : Confirmed by: Pramod Borden MD 05-Oct-2018 18:26:22
[2018-10-05 18:45] VITALS: BP 153/93
== END 2018-10-05 18:45 | disposition home or self-care (01) ==
LOC: ER 12:46
DX: R07.89 Other chest pain (principal); J44.9 Chronic obstructive pulmonary disease, unspecified; R06.02 Shortness of breath; I10 Essential (primary) hypertension; E11.9 Type 2 diabetes mellitus without complications; I25.10 Atherosclerotic heart disease of native coronary artery without angina pectoris; I25.2 Old myocardial infarction; Z95.1 Presence of aortocoronary bypass graft; Z79.02 Long term (current) use of antithrombotics/antiplatelets; Z87.891 Personal history of nicotine dependence; Z95.5 Presence of coronary angioplasty implant and graft
CPT/HCPCS: 93005; 96376; 99285; 96374; 36415; 82553; 82550; 83690; 85025; 80053; 84484; 71045; 71275; 93010; J3010

== ENCOUNTER 2018-10-18 22:55 | Emergency (ER) | payer SELFPAY ==
[2018-10-18] MEDS ORDERED: ASPIRIN 81 MG TABLET, CHEWABLE PO ONE (23:21)
--- NOTE | 2018-10-18 23:48 | RADIOLOGY REPORT (SQ) ---
EXAM DESCRIPTION: XR CHEST 2 VIEWS COMPLETED DATE/TME: 10/18/2018 00:00 CLINICAL HISTORY: 43 years, Male, chest pain COMPARISON: 10/05/2018 chest NUMBER OF VIEWS: 2 TECHNIQUE: 2 view chest LIMITATIONS: None. FINDINGS: Heart size normal. Stable postsurgical change. Lungs clear. No pneumothorax IMPRESSION: No acute cardiopulmonary process copyright 2010 [employer]- All Rights Reserved
[2018-10-18 23:52] LABS: HEMOGLOBIN 16.5 g/dL (13.5-17.0); MEAN CORPUSCULAR HEMOGLOBIN 28.2 pg (27.0-33.4); MEAN CORPUSCULAR HGB CONC 34.3 g/dL (32.0-36.0); MEAN CORPUSCULAR VOLUME 82 fl (80-97); PLATELET COUNT 234 10^3/uL (150-450); RED BLOOD COUNT 5.85 10^6/uL (4.35-5.55); RED CELL DISTRIBUTION WIDTH 15.1 % (11.5-14.0); WHITE BLOOD COUNT 7.9 10^3/uL (4.0-10.5)
[2018-10-18 23:53] LABS: INTERNATIONAL RATION (INR) 0.98
[2018-10-19 00:15] LABS: ALBUMIN 4.9 g/dL (3.5-5.0); ALKALINE PHOSPHATASE 99 U/L (38-126); ANION GAP 14 (5-19); ASPARTATE AMINO TRANSFERASE 36 U/L (17-59); BILIRUBIN,DIRECT 0.3 mg/dL (0.0-0.4); BILIRUBIN,TOTAL 0.4 mg/dL (0.2-1.3); BLOOD UREA NITROGEN 13 mg/dL (7-20); CARBON DIOXIDE 28 mmol/L (22-30); CHLORIDE 95 mmol/L (98-107); CREATINE KINASE 84 U/L (55-170); GLUCOSE 205 mg/dL (75-110); POTASSIUM 4.5 mmol/L (3.6-5.0); TOTAL PROTEIN 7.9 g/dL (6.3-8.2)
[2018-10-19 00:27] LABS: CREATINE KINASE MB 0.91 ng/mL (<4.55); TROPONIN I < 0.012 ng/mL
[2018-10-19 00:29] LABS: ABSOLUTE LYMPHOCYTES# (MANUAL) 2.4 10^3/uL (0.5-4.7); ABSOLUTE MONOCYTES # (MANUAL) 0.2 10^3/uL (0.1-1.4); BASOPHILS % (MANUAL) 0 % (0-2); EOSINOPHILS % (MANUAL) 2 % (0-6); LYMPHOCYTES % (MANUAL) 27 % (13-45); MONOCYTES % (MANUAL) 2 % (3-13); SEGMENTED NEUTROPHILS % (MAN) 65 % (42-78); TOTAL CELLS COUNTED 100
[2018-10-19 00:34] LABS: ANISOCYTOSIS SLIGHT; OVALOCYTES SLIGHT; PLATELET COMMENT ADEQUATE; POIKILOCYTOSIS SLIGHT; TEAR DROP CELLS SLIGHT
[2018-10-19] MEDS ORDERED: ONDANSETRON HCL INJ/PF 4 MG/2 ML SDV IV ONE (00:38)
[2018-10-19] MEDS ORDERED: MORPHINE SULFATE 10 MG/ML INJ IV ONE (00:38)
--- NOTE | 2018-10-19 00:39 | ER Document Report ---
ED General - General Chief Complaint: Chest Pain Stated Complaint: CHEST PAIN Time Seen by Provider: 10/19/18 00:04 Primary Care Provider: [facility] [Provider Group] - Follow up in 3-5 days Notes: Patient is a 43-year-old male that presents to the emergency department for chief complaint of chest pain, body pain and lightheadedness. Patient reports that he went to get something out of the oven and felt lightheaded and fell backwards and landed on his back, he had some nausea before this occurred, and is not feeling pain across his chest and abdomen and on his arms as well, essentially pain all over, currently describes as an aching sensation. He does have a history of CAD, status post PCI and stenting and CABG in April of this year, he states this does not feel like his heart pain, and states it feels more like muscles. He states he also has some pain in his left elbow where he is had a bursitis in the past, and is tender to palpate he thinks he may have injured it today. He currently rates his pain as a 7 out of 10 describes as aching all over. He denies having any head injury or neck injury, denies any numbness, weakness or tingling in extremity. Denies any shortness of breath or difficulty breathing. Past Medical History: CAD, diabetes, hyperlipidemia Past Surgical History: PCI with stenting, CABG x2 Social History: Former smoker, denies current alcohol or illicit drug use. Family History: Reviewed and noncontributory for presenting illness Allergies: Reviewed, see documented allergy list. REVIEW OF SYSTEMS: Other than noted above, the 12 point review of systems was reviewed with the patient and were negative, all pertinent findings are included in the HPI. PHYSICAL EXAMINATION: Vital signs reviewed, nursing noted reviewed. GENERAL: Well-appearing, well-nourished and in no acute distress. HEAD: Atraumatic, normocephalic. EYES: Eyes appear normal, extraocular movements intact, sclera anicteric, conjunctiva are normal. ENT: nares patent, oropharynx clear without exudates. Moist mucous membranes. The right TM, does have a middle ear effusion, no erythema, the left TM appears normal. NECK: Normal range of motion, supple without lymphadenopathy, no midline or paraspinal tenderness. LUNGS: Breath sounds clear to auscultation bilaterally and equal. No wheezes rales or rhonchi. Chest wall tenderness with palpation, diffusely bilaterally. HEART: Regular rate and rhythm without murmurs ABDOMEN: Soft, mild upper abdominal tenderness to palpation bilaterally, normoactive bowel sounds. No rebound, guarding, or rigidity. No masses appreciated. EXTREMITIES: Tenderness to palpation to the upper extremities, and more specifically he was having some tenderness to palpation in the left elbow over the olecranon, without gross deformity, no significant signs of bursitis, no erythema, no lacerations noted in there is good range of motion, he can flex with full range of motion of the elbow and extend a full range, without difficulty. The rest the patient's extremity exam is grossly unremarkable. No edema. NEUROLOGICAL: No focal neurological deficits. Moves all extremities spontaneously Motor and sensory grossly intact on exam. PSYCH: Normal mood, normal affect. SKIN: Warm, Dry, normal turgor, no rashes or lesions noted on exposed skin TRAVEL OUTSIDE OF THE [place] IN LAST 30 DAYS: No - Related Data Allergies/Adverse Reactions: No Known Allergies Allergy (Verified 06/02/18 09:09) Past Medical History - Social History Smoking Status: Former Smoker Family History: CAD, Hypertension - Past Medical History Cardiac Medical History: Reports: Hx Coronary Artery Disease, Hx Heart Attack - 10/2017, Hx Hypercholesterolemia, Hx Hypertension Pulmonary Medical History: Reports: Hx COPD Denies: Hx Asthma Neurological Medical History: Denies: Hx Cerebrovascular Accident, Hx Seizures Endocrine Medical History: Reports: Hx Diabetes Mellitus Type 2. Denies: Hx Di abetes Mellitus Type 1, Hx Hyperthyroidism, Hx Hypothyroidism Renal/ Medical History: Denies: Hx Peritoneal Dialysis GI Medical History: Denies: Hx Cirrhosis, Hx Hepatitis Musculoskeletal Medical History: Denies Hx Arthritis, Denies Hx Gout Skin Medical History: Denies Hx Eczema, Denies Hx Psoriasis Psychiatric Medical History: Reports: Hx Depression Infectious Medical History: Denies: Hx Hepatitis Past Surgical History: Reports: Hx Cardiac Catheterization, Hx Cardiac Surgery - cabg 05/13, Hx Coronary Stent - x4, Hx Orthopedic Surgery - Immunizations Hx Diphtheria, Pertussis, Tetanus Vaccination: Yes Physical Exam - Vital signs Vitals: Temp Pulse Resp BP Pulse Ox 98.6 F 102 H 24 H 168/105 H 100 10/18/18 23:11 10/18/18 23:11 10/18/18 23:11 10/18/18 23:11 10/18/18 23:11 Course - Re-evaluation Re-evalutation: Patient seen and examined vital signs reviewed. Laboratory data and/or imaging were ordered as appropriate for the patient's presenting symptoms and complaint, with consideration of any critical or life threatening conditions that may be associated with their obtained history and exam as noted above. Patient was treated with nitro glycerin, morphine Results were reviewed when available and demonstrated unchanged EKG from prior, chest x-ray negative, elbow x-ray negative he does have a spur there, but no fracture or signs of effusion, his blood work was otherwise unremarkable, he had 2- troponins. The patient was re-evaluated and was stable still complaining of some overall body pain, I have low suspicion that this patient is having ACS, or that this is cardiac related pain, as he had diffuse tenderness to palpation across the chest wall, and was reproducible, patient was asking for Dilaudid by name, stating that morphine did not work, I did not give him Dilaudid in the ED, I reviewed the patient's prescription history he was intermittently given prescriptions for oxycodone, most recently was almost a month ago, I discussed with him, that he should follow-up with pain management as he is having chronic postoperative pain from sternotomy, and patient states that he will try to follow-up he was referred to the before he was just afraid to go see pain management, because of the stigma. He is given a short prescription of 6 tablets of oxycodone, is given a prescription for meclizine, for his ear effusion as well as Flonase, as he was having vertigo type symptoms when he turned his head to became more dizzy. Evaluation was most consistent with dizziness, chest wall pain, advised follow- up with his primary care. Results were discussed with the patient at this point, after careful consideration I feel that that patient can be discharged from the emergency department, the patient was educated treatments and reasons to return to the emergency department based on their presumed diagnosis as noted above, they were advised to followup with a primary care physician in 2-3 days. Patient was agreeable to plan of care. *Note is created using voice recognition software and may contain spelling, syntax or grammatical errors. Laboratory 10/18/18 10/18/18 10/18/18 23:33 23:33 23:33 WBC 7.9 RBC 5.85 H Hgb 16.5 Hct 48.0 MCV 82 MCH 28.2 MCHC 34.3 RDW 15.1 H Plt Count 234 Total Counted 100 Seg Neutrophils % Not Reportable Seg Neuts % (Manual) 65 Lymphocytes % Not Reportable Lymphocytes % (Manual) 27 Atypical Lymphs % 4 Monocytes % Not Reportable Monocytes % (Manual) 2 L Eosinophils % Not Reportable Eosinophils % (Manual) 2 Basophils % Not Reportable Basophils % (Manual) 0 Absolute Neutrophils Not Reportable Abs Neuts (Manual) 5.1 Absolute Lymphocytes Not Reportable Abs Lymphs (Manual) 2.4 Absolute Monocytes Not Reportable Abs Monocytes (Manual) 0.2 Absolute Eosinophils Not Reportable Absolute Eos (Manual) 0.2 Absolute Basophils Not Reportable Abs Basophils (Manual) 0.0 Platelet Comment ADEQUATE Poikilocytosis SLIGHT Anisocytosis SLIGHT Tear Drop Cells SLIGHT Ovalocytes SLIGHT PT 13.0 INR 0.98 Sodium 136.7 L Potassium 4.5 Chloride 95 L Carbon Dioxide 28 Anion Gap 14 BUN 13 Creatinine 0.97 Est GFR ( Amer) > 60 Est GFR (Non-Af Amer) > 60 Glucose 205 H Calcium 10.0 Total Bilirubin 0.4 Direct Bilirubin 0.3 Neonat Total Bilirubin Not Reportable Neonat Direct Bilirubin Not Reportable Neonat Indirect Bili Not Reportable AST 36 ALT 45 Alkaline Phosphatase 99 Creatine Kinase 84 CK-MB (CK-2) Troponin I Total Protein 7.9 Albumin 4.9 10/18/18 10/19/18 23:33 01:55 WBC RBC Hgb Hct MCV MCH MCHC RDW Plt Count Total Counted Seg Neutrophils % Seg Neuts % (Manual) Lymphocytes % Lymphocytes % (Manual) Atypical Lymphs % Monocytes % Monocytes % (Manual) Eosinophils % Eosinophils % (Manual) Basophils % Basophils % (Manual) Absolute Neutrophils Abs Neuts (Manual) Absolute Lymphocytes Abs Lymphs (Manual) Absolute Monocytes Abs Monocytes (Manual) Absolute Eosinophils Absolute Eos (Manual) Absolute Basophils Abs Basophils (Manual) Platelet Comment Poikilocytosis Anisocytosis Tear Drop Cells Ovalocytes PT INR Sodium Potassium Chloride Carbon Dioxide Anion Gap BUN Creatinine Est GFR ( Amer) Est GFR (Non-Af Amer) Glucose Calcium Total Bilirubin Direct Bilirubin Neonat Total Bilirubin Neonat Direct Bilirubin Neonat Indirect Bili AST ALT Alkaline Phosphatase Creatine Kinase CK-MB (CK-2) 0.91 Troponin I < 0.012 < 0.012 Total Protein Albumin Chest X-Ray 10/18/18 00:00 IMPRESSION: No acute cardiopulmonary process copyright 2011 [employer]- All Rights Reserved Elbow X-Ray 10/19/18 00:38 IMPRESSION: 1. No acute findings. - Vital Signs Vital signs: Temp Pulse Resp BP Pulse Ox 98.3 F 102 H 19 131/95 H 98 10/19/18 00:11 10/18/18 23:11 10/19/18 03:00 10/19/18 01:11 10/19/18 03:00 - Laboratory Result Diagrams: 10/18/18 23:33 10/18/18 23:33 Laboratory results interpreted by me: 10/18/18 10/18/18 23:33 23:33 RBC 5.85 H RDW 15.1 H Monocytes % (Manual) 2 L Sodium 136.7 L Chloride 95 L Glucose 205 H - EKG Interpretation by Me Additional EKG results interpreted by me: EKG demonstrates sinus rhythm with a ventricular rate of 98 bpm, normal axis, normal intervals, there is T wave inversion in leads I and aVL, no ST elevation, this is compared with the prior EKG from 10/05/2018, without significant change. Discharge - Discharge Clinical Impression: Dizziness Chest pain Qualifiers: Chest pain type: unspecified Qualified Code(s): R07.9 - Chest pain, unspecified Condition: Stable Disposition: HOME, SELF-CARE Instructions: Chest Wall Pain ([facility]), Dizziness ([facility]) Additional Instructions: Please follow-up with the pain management clinic, and I advised you to take the Flonase to help with the dizziness, as well as the Antivert, that is been prescribed, make sure to drink plenty of fluids. Prescriptions: Fluticasone Propionate [Flonase Nasal [place] 50 Mcg/[place] 16 gm] 1 spray NASL Q12 #1 inhaler RX: Meclizine HCl [Motion Relief] 25 mg PO TID PRN #15 tablet PRN Reason: Dizziness Oxycodone HCl [Oxycontin Ir 5 Mg Tablet] 1 mg PO Q8H PRN #6 tablet PRN Reason: chest wall pain Forms: Return to Work Referrals: [facility] [Provider Group] - Follow up in 3-5 days
[2018-10-19] MEDS: NITROGLYCERIN 0.4 MG/TAB 25 TAB/BOTTLE SL PRN ×2 (00:46→01:43)
[2018-10-19] MEDS ORDERED: NORMAL SALINE 1000 ML 1,000 ML IV ONE (00:58)
--- NOTE | 2018-10-19 02:17 | RADIOLOGY REPORT (SQ) ---
EXAM DESCRIPTION: Right elbow [employer]Lex: XR ELBOW 3 VIEWS Views: 4 CLINICAL HISTORY: 43 years Male, right elbow pain, injury COMPARISON: None. FINDINGS: Negative for acute fracture, dislocation, or radiopaque foreign body. No joint effusion. Olecranon spur is noted. No lytic bone changes or periosteal reaction. IMPRESSION: 1. No acute findings.
[2018-10-19] MEDS ORDERED: MECLIZINE HCL 25 MG TABLET PO ONE (03:23)
[2018-10-19 03:32] VITALS: BP 131/95
--- NOTE | 2018-10-19 10:12 | EKG REPORT ---
SEVERITY:- ABNORMAL ECG - SINUS RHYTHM PROBABLE LEFT ATRIAL ABNORMALITY INFERIOR INFARCT, OLD ANTERIOR INFARCT, AGE INDETERMINATE : Confirmed by: Sarah Gonzalez MD 19-Oct-2018 10:11:59
== END 2018-10-19 03:43 | disposition home or self-care (01) ==
LOC: ER 22:55
DX: R42 Dizziness and giddiness (principal); R07.9 Chest pain, unspecified; M79.10 Myalgia, unspecified site; I25.10 Atherosclerotic heart disease of native coronary artery without angina pectoris; E78.00 Pure hypercholesterolemia, unspecified; I10 Essential (primary) hypertension; E11.9 Type 2 diabetes mellitus without complications; I25.2 Old myocardial infarction; Z95.1 Presence of aortocoronary bypass graft
CPT/HCPCS: 93005; 36415; 82553; 82550; 85025; 85610; 80053; 84484; 71046; 73080; 93010; J2270; J2405; J7030; 96361; 96374; 96375; 99285

== ENCOUNTER 2018-12-19 18:19 | Emergency (ER) | payer SELFPAY ==
[2018-12-19] MEDS ORDERED: ASPIRIN 81 MG TABLET, CHEWABLE PO ONE (18:40)
[2018-12-19 18:51] LABS: ABSOLUTE BASOPHILS # (AUTO) 0.1 10^3/uL (0.0-0.2); ABSOLUTE EOSINOPHILS # (AUTO) 0.1 10^3/uL (0.0-0.6); ABSOLUTE LYMPHOCYTES (AUTO) 1.8 10^3/uL (0.5-4.7); ABSOLUTE MONOCYTES (AUTO) 0.6 10^3/uL (0.1-1.4); BASOPHILS % (AUTO) 0.8 % (0-2); EOSINOPHILS % (AUTO) 1.3 % (0-6); HEMATOCRIT 48.5 % (37.9-51.0); HEMOGLOBIN 16.2 g/dL (13.5-17.0); LYMPHOCYTES % (AUTO) 20.6 % (13-45); MEAN CORPUSCULAR HEMOGLOBIN 28.4 pg (27.0-33.4); MEAN CORPUSCULAR HGB CONC 33.5 g/dL (32.0-36.0); MEAN CORPUSCULAR VOLUME 85 fl (80-97); MONOCYTES % (AUTO) 7.3 % (3-13); PLATELET COUNT 266 10^3/uL (150-450); RED BLOOD COUNT 5.71 10^6/uL (4.35-5.55); RED CELL DISTRIBUTION WIDTH 13.8 % (11.5-14.0); TOTAL CELLS COUNTED % (AUTO) 100 %; WHITE BLOOD COUNT 8.5 10^3/uL (4.0-10.5)
[2018-12-19 19:12] LABS: ALKALINE PHOSPHATASE 108 U/L (38-126); ANION GAP 15 (5-19); ASPARTATE AMINO TRANSFERASE 35 U/L (17-59); BILIRUBIN,DIRECT 0.2 mg/dL (0.0-0.4); BILIRUBIN,TOTAL 0.4 mg/dL (0.2-1.3); BLOOD UREA NITROGEN 9 mg/dL (7-20); CALCIUM 9.8 mg/dL (8.4-10.2); CARBON DIOXIDE 25 mmol/L (22-30); CHLORIDE 102 mmol/L (98-107); CREATINE KINASE 93 U/L (55-170); GLUCOSE 198 mg/dL (75-110); POTASSIUM 3.9 mmol/L (3.6-5.0); TOTAL PROTEIN 8.4 g/dL (6.3-8.2)
[2018-12-19 19:28] LABS: CREATINE KINASE MB 0.89 ng/mL (<4.55)
[2018-12-19 19:29] LABS: TROPONIN I < 0.012 ng/mL
[2018-12-19] MEDS ORDERED: PROCHLORPERAZINE EDISYLATE INJ 10 MG/2 ML VIAL IV ONE (20:36)
[2018-12-19] MEDS ORDERED: DIPHENHYDRAMINE HCL 50 MG/ML VIAL IV ONE (20:36)
--- NOTE | 2018-12-19 20:55 | ER Document Report ---
ED General - General Chief Complaint: Chest Pain Stated Complaint: CHEST PAIN Time Seen by Provider: 12/19/18 20:22 TRAVEL OUTSIDE OF THE [place] IN LAST 30 DAYS: No - HPI Notes: 43-year-old male with a history of prior CABG in outside facility, prior DVT, presents chest pain. Has history of chronic pain in his anterior chest. Of note, states he forgot to take his pain patch today. Typically uses a daily fentanyl patch. He has had pain since yesterday essentially constant, sharp at times and achy. No real dyspnea. He states that it got much more severe after he was pulled over for speeding and given a ticket earlier this evening just prior to coming in. Nonradiating. No fever, chills or sweats. Like similar pain in the past. Moderate intensity, gradual onset. No other modifying factors, no other associated symptoms, no other provocative or palliative factors. - Related Data Allergies/Adverse Reactions: No Known Allergies Allergy (Verified 06/02/18 09:09) Home Medications: METFORMIN. NITRO. LISINOPRIL Past Medical History - Social History Smoking Status: Unknown if Ever Smoked Frequency of alcohol use: None Drug Abuse: None Family History: CAD, Hypertension Patient has suicidal ideation: No Patient has homicidal ideation: No - Past Medical History Cardiac Medical History: Reports: Hx Coronary Artery Disease, Hx DVT, Hx Heart Attack - 10/2017, Hx Hypercholesterolemia, Hx Hypertension Pulmonary Medical History: Reports: Hx COPD Denies: Hx Asthma Neurological Medical History: Denies: Hx Cerebrovascular Accident, Hx Seizures Endocrine Medical History: Reports: Hx Diabetes Mellitus Type 2. Denies: Hx Diabetes Mellitus Type 1, Hx Hyperthyroidism, Hx Hypothyroidism Renal/ Medical History: Denies: Hx Peritoneal Dialysis GI Medical History: Denies: Hx Cirrhosis, Hx Hepatitis Musculoskeletal Medical History: Denies Hx Arthritis, Denies Hx Gout Skin Medical History: Denies Hx Eczema, Denies Hx Psoriasis Psychiatric Medical History: Reports: Hx Depression Infectious Medical History: Denies: Hx Hepatitis Past Surgical History: Reports: Hx Cardiac Catheterization, Hx Cardiac Surgery - cabg 05/13, Hx Coronary Stent - x4, Hx Orthopedic Surgery - Immunizations Hx Diphtheria, Pertussis, Tetanus Vaccination: Yes Review of Systems - Review of Systems Notes: Review of systems as in the history of present illness, otherwise negative x 10 systems. Physical Exam - Vital signs Vitals: Resp 19 12/19/18 18:25 - Notes Notes: General: Well developed . HEENT: Normocephalic, atraumatic. Pupils equal round reactive to light. No JVD. Chest: No trauma. Exquisitely reproducible chest pain left anterolateral chest and midsternal region without any underlying skin abnormalities that appear acute Respiratory: Good air exchange, normal excursion. Cardiac: Regular rhythm. No murmurs or gallops. Abdomen: Soft, benign. Nondistended. Nontender. Back: No asymmetry or gross abnormality. Motor: Grossly normal power and tone. Neurologic: Alert, nonfocal. Cranial nerves II-12 are intact. Sensation intact. Vascular: Well perfused. Normal peripheral pulses. Skin: No petechiae or purpura. Course - Re-evaluation Re-evalutation: 12/19/18 20:54 Female the after mentioned symptoms, protocol laboratory and EKG evaluation initiated prior to my evaluation of the patient. Although he certainly has significant risk factors for ACS, his pain is somewhat atypical, prolonged and I think a single negative troponin makes posttest probability of ACS except below. Given his VTE history, we will proceed with d- dimer screening, this seems atypical as well and apparently had a provoked DVT. Will treat nausea with Compazine and diphenhydramine, reassess pain, check x- ray, reassess. 12/19/18 23:36 Patient was watched through his extensive course in the ED. He is sleeping comfortably, pain is somewhat improved but still remains reproducible and palpable. His is arrived and I spoken with her, this appears to be a chronic pain issue for him more than anything is been going on for some time since his bypass surgery. Labs reviewed, CBC and chemistries are normal. Delta troponin x2 is unchanged and normal. His ECG is nonischemic and baseline. I feel that he is safe for discharge home, I have admonished him to follow-up with his primary care doctor, surgeon and pain clinic physician. Discharge home as discussed. - Vital Signs Vital signs: Temp Pulse Resp BP Pulse Ox 99.3 F 90 26 H 145/84 H 100 12/19/18 18:30 12/19/18 18:30 12/19/18 22:01 12/19/18 22:00 12/19/18 21:00 - Laboratory Result Diagrams: 12/19/18 18:32 12/19/18 18:32 Laboratory results interpreted by me: 12/19/18 12/19/18 18:32 18:32 RBC 5.71 H Glucose 198 H Total Protein 8.4 H - EKG Interpretation by Me EKG shows normal: Sinus rhythm, [place], Intervals - Nonspecific ST-T changes Discharge - Discharge Clinical Impression: Chest pain Qualifiers: Chest pain type: other chest pain Qualified Code(s): R07.89 - Other chest pain; R07.8 - Other chest pain Condition: Stable Disposition: HOME, SELF-CARE Instructions: Chest Pain of Unclear Cause ([facility]) Additional Instructions: See your primary care doctor and pain specialist in follow-up over the next 24 hours.
[2018-12-19] MEDS ORDERED: DIPHENHYDRAMINE HCL 25 MG CAPSULE PO ONE (23:34)
[2018-12-19 23:35] VITALS: BP 133/80
--- NOTE | 2018-12-20 02:16 | EKG REPORT ---
SEVERITY:- ABNORMAL ECG - SINUS RHYTHM [Remains] PROBABLE LEFT ATRIAL ABNORMALITY [Remains] INFERIOR INFARCT, OLD [Remains] ANTERIOR INFARCT, AGE INDETERMINATE [Remains] NO SIGNIFICANT CHANGE : Confirmed by: Otis Franz 20-Dec-2018 02:16:34
== END 2018-12-19 23:49 | disposition home or self-care (01) ==
LOC: ER 18:19
DX: R07.89 Other chest pain (principal); I25.10 Atherosclerotic heart disease of native coronary artery without angina pectoris; E78.00 Pure hypercholesterolemia, unspecified; I10 Essential (primary) hypertension; E11.9 Type 2 diabetes mellitus without complications; Z86.718 Personal history of other venous thrombosis and embolism; Z95.1 Presence of aortocoronary bypass graft; Z79.84 Long term (current) use of oral hypoglycemic drugs; I25.2 Old myocardial infarction
CPT/HCPCS: 93005; 36415; 82553; 82550; 85025; 80053; 84484; 85379; 93010; J1200; J0780; 96374; 96375; 99285

== ENCOUNTER 2019-04-14 03:29 | Emergency (ER) | payer SELFPAY ==
[2019-04-14 03:43] VITALS: BP 140/92
[2019-04-14 04:32] LABS: ABSOLUTE BASOPHILS # (AUTO) 0.1 10^3/uL (0.0-0.2); ABSOLUTE EOSINOPHILS # (AUTO) 0.3 10^3/uL (0.0-0.6); ABSOLUTE LYMPHOCYTES (AUTO) 2.1 10^3/uL (0.5-4.7); ABSOLUTE MONOCYTES (AUTO) 0.5 10^3/uL (0.1-1.4); ABSOLUTE NEUT (AUTO) 3.2 10^3/uL (1.7-8.2); BASOPHILS % (AUTO) 1.2 % (0-2); EOSINOPHILS % (AUTO) 4.9 % (0-6); HEMATOCRIT 43.7 % (37.9-51.0); HEMOGLOBIN 15.2 g/dL (13.5-17.0); LYMPHOCYTES % (AUTO) 33.2 % (13-45); MEAN CORPUSCULAR HEMOGLOBIN 29.4 pg (27.0-33.4); MEAN CORPUSCULAR HGB CONC 34.9 g/dL (32.0-36.0); MEAN CORPUSCULAR VOLUME 84 fl (80-97); MONOCYTES % (AUTO) 8.7 % (3-13); PLATELET COUNT 247 10^3/uL (150-450); RED BLOOD COUNT 5.17 10^6/uL (4.35-5.55); RED CELL DISTRIBUTION WIDTH 13.8 % (11.5-14.0); TOTAL CELLS COUNTED % (AUTO) 100 %; WHITE BLOOD COUNT 6.2 10^3/uL (4.0-10.5)
[2019-04-14 04:48] LABS: ALBUMIN 4.5 g/dL (3.5-5.0); ALKALINE PHOSPHATASE 98 U/L (38-126); ANION GAP 15 (5-19); ASPARTATE AMINO TRANSFERASE 54 U/L (17-59); BILIRUBIN,DIRECT 0.3 mg/dL (0.0-0.4); BILIRUBIN,TOTAL 0.4 mg/dL (0.2-1.3); BLOOD UREA NITROGEN 7 mg/dL (7-20); CALCIUM 9.5 mg/dL (8.4-10.2); CARBON DIOXIDE 24 mmol/L (22-30); CHLORIDE 100 mmol/L (98-107); GLUCOSE 346 mg/dL (75-110); POTASSIUM 4.2 mmol/L (3.6-5.0); TOTAL PROTEIN 7.7 g/dL (6.3-8.2)
--- NOTE | 2019-04-14 09:06 | EKG REPORT ---
SEVERITY:- ABNORMAL ECG - SINUS TACHYCARDIA PROBABLE LEFT ATRIAL ABNORMALITY INFERIOR INFARCT, AGE INDETERMINATE ANTERIOR INFARCT, AGE INDETERMINATE : Confirmed by: Pramod Borden MD 14-Apr-2019 07:02:57
== END 2019-04-14 07:28 | disposition left against medical advice (07) ==
LOC: ER 03:29
DX: Z53.21 Procedure and treatment not carried out due to patient leaving prior to being seen by health care provider (principal)
CPT/HCPCS: 36415; 80053; 84484; 85025; 93005; 93010

== ENCOUNTER 2019-09-03 01:18 | Emergency (ER) | payer SELFPAY ==
--- NOTE | 2019-09-03 02:03 | ER Document Report ---
ED Medical Screen (RME) - General Chief Complaint: Pain All Over Stated Complaint: PAIN ALL OVER Mode of Arrival: Medic Information source: Patient Notes: Patient is a 44-year-old male presents the emergency department with a multitude of complaints. Complaint 1 is that patient ran out of his oxycodone yesterday. He has been out of his medicine for approximately 48 hours. He states he takes oxycodone 5 times daily for his chronic pain. Today patient is complaining of numbness and tingling to his left arm, left facial numbness and left sided upper extremity weakness. He states the symptoms started at 4 PM. He is also complaining of left-sided chest pain. He reports this is chronic and has been ongoing since he had cardiac surgery 1 year ago. Patient is alert, oriented, visibly shaky in the triage room. He will be sent for a stroke rule out due to his neurological complaints. I have greeted and performed a rapid initial assessment of this patient. A comprehensive ED assessment and evaluation of the patient, analysis of test results and completion of the medical decision making process will be conducted by additional ED providers. I have specifically instructed the patient or family members with the patient to immediately return to any nursing staff should anything change in the patient's condition or with their chief complaint. TRAVEL OUTSIDE OF THE [place] IN LAST 30 DAYS: No - Related Data Allergies/Adverse Reactions: No Known Allergies Allergy (Verified 04/14/19 03:48) Past Medical History - Social History Family history: Reviewed & Not Pertinent - Past Medical History Cardiac Medical History: Reports: Hx Coronary Artery Disease, Hx DVT, Hx Heart Attack - 10/2017, Hx Hypercholesterolemia, Hx Hypertension Pulmonary Medical History: Reports: Hx COPD Denies: Hx Asthma Neurological Medical History: Denies: Hx Cerebrovascular Accident, Hx Seizures Endocrine Medical History: Reports: Hx Diabetes Mellitus Type 2. Denies: Hx Diabetes Mellitus Type 1, Hx Hyperthyroidism, Hx Hypothyroidism Renal/ Medical History: Denies: Hx Peritoneal Dialysis GI Medical History: Denies: Hx Cirrhosis, Hx Hepatitis Musculoskeltal Medical History: Denies Hx Arthritis, Denies Hx Gout Skin Medical History: Denies Hx Eczema, Denies Hx Psoriasis Psychiatric Medical History: Reports: Hx Depression Infectious Medical History: Denies: Hx Hepatitis Past Surgical History: Reports: Hx Cardiac Catheterization, Hx Cardiac Surgery - cabg 05/13, Hx Coronary Stent - x4, Hx Orthopedic Surgery - Immunizations Hx Diphtheria, Pertussis, Tetanus Vaccination: Yes Physical Exam - Vital signs Vitals: Temp Pulse Resp BP Pulse Ox 98.7 F 116 H 16 109/71 99 09/03/19 01:09/03/19 01:09/03/19 01:09/03/19 01:09/03/19 01:29 Course - Vital Signs Vital signs: Temp Pulse Resp BP Pulse Ox 98.7 F 116 H 16 109/71 99 09/03/19 01:09/03/19 01:09/03/19 01:09/03/19 01:09/03/19 01:29
--- NOTE | 2019-09-03 02:23 | RADIOLOGY REPORT (SQ) ---
CT head without contrast on 09/03/2019 at 2:08 AM CLINICAL INDICATION: Arm numbness and weakness, stroke alert TECHNIQUE: Multiple axial images are obtained throughout the head without the administration of contrast. This exam was performed according to our departmental dose-optimization program, which includes automated exposure control, adjustment of the mA and/or kV according to patient size and/or use of iterative reconstruction technique. Total DLP is 990.56 mGy*cm. COMPARISON: 12/06/2017 FINDINGS: There is a stable linear low-density area extending from the right basal ganglia into the right periventricular region consistent with a small old lacunar infarct. There is no hydrocephalus. There is no CT evidence of acute infarct. There is no hemorrhage. There are no abnormal extra-axial fluid collections. There is no mass, mass effect or midline shift. No bony abnormality is noted. IMPRESSION: Stable examination with no acute intracranial abnormality.
--- NOTE | 2019-09-03 02:35 | RADIOLOGY REPORT (SQ) ---
EXAM DESCRIPTION: XR CHEST 1 VIEW COMPLETED DATE/TME: 09/03/2019 02:01 CLINICAL HISTORY: 44 years, Male, stroke alert COMPARISON: X-ray chest 10/05/2018 NUMBER OF VIEWS: TECHNIQUE: LIMITATIONS: None. FINDINGS: No evidence of pulmonary infiltrate or pleural effusion. The heart is normal in size. Pulmonary vascularity appears normal. There is evidence of prior coronary artery bypass surgery. There is no significant change, as compared with the prior x-ray(s). IMPRESSION: No acute finding. copyright 2010 [employer]- All Rights Reserved
[2019-09-03 04:09] LABS: ABSOLUTE BASOPHILS # (AUTO) 0.1 10^3/uL (0.0-0.2); ABSOLUTE EOSINOPHILS # (AUTO) 0.1 10^3/uL (0.0-0.6); EOSINOPHILS % (AUTO) 1.3 % (0-6); MEAN CORPUSCULAR HEMOGLOBIN 29.3 pg (27.0-33.4); TOTAL CELLS COUNTED % (AUTO) 100 %
[2019-09-03 04:15] LABS: ABSOLUTE LYMPHOCYTES (AUTO) 2.1 10^3/uL (0.5-4.7); ABSOLUTE MONOCYTES (AUTO) 0.6 10^3/uL (0.1-1.4); ABSOLUTE NEUT (AUTO) 8.6 10^3/uL (1.7-8.2); BASOPHILS % (AUTO) 0.7 % (0-2); HEMATOCRIT 49.7 % (37.9-51.0); HEMOGLOBIN 17.4 g/dL (13.5-17.0); LYMPHOCYTES % (AUTO) 17.9 % (13-45); MEAN CORPUSCULAR VOLUME 84 fl (80-97); MONOCYTES % (AUTO) 5.4 % (3-13); PLATELET COUNT 329 10^3/uL (150-450); RED BLOOD COUNT 5.94 10^6/uL (4.35-5.55); SEGMENTED NEUTROPHILS % (AUTO) 74.7 % (42-78); WHITE BLOOD COUNT 11.5 10^3/uL (4.0-10.5)
[2019-09-03 04:17] LABS: INTERNATIONAL RATION (INR) 0.95; PARTIAL THROMBOPLASTIN TIME 22.7 SEC (23.5-35.8); PROTHROMBIN TIME 12.6 SEC (11.4-15.4)
[2019-09-03 04:24] LABS: ALBUMIN 4.9 g/dL (3.5-5.0); ALKALINE PHOSPHATASE 92 U/L (38-126); ANION GAP 10 (5-19); ASPARTATE AMINO TRANSFERASE 27 U/L (17-59); BILIRUBIN,TOTAL 0.6 mg/dL (0.2-1.3); BLOOD UREA NITROGEN 17 mg/dL (7-20); CALCIUM 10.4 mg/dL (8.4-10.2); CARBON DIOXIDE 25 mmol/L (22-30); CHLORIDE 100 mmol/L (98-107); CREATINE KINASE 41 U/L (55-170); GLUCOSE 227 mg/dL (75-110); POTASSIUM 4.8 mmol/L (3.6-5.0); TOTAL PROTEIN 8.3 g/dL (6.3-8.2)
[2019-09-03 04:35] LABS: CREATINE KINASE MB 0.58 ng/mL (<4.55)
[2019-09-03 04:38] LABS: TROPONIN I < 0.012 ng/mL
[2019-09-03 07:53] LABS: APPEARANCE,URINE CLEAR; BILIRUBIN,URINE NEGATIVE (NEGATIVE); COLOR,URINE YELLOW; GLUCOSE, URINE >=500 mg/dL (NEGATIVE); KETONES,URINE NEGATIVE (NEGATIVE); LEUKOCYTE ESTERASE,URINE NEGATIVE (NEGATIVE); NITRITE,URINE NEGATIVE (NEGATIVE); PROTEIN,URINE NEGATIVE (NEGATIVE); UROBILINOGEN,URINE NEGATIVE mg/dL (<2.0)
[2019-09-03 08:11] LABS: URINE AMPHETAMINES SCREEN NEGATIVE; URINE BARBITURATES SCREEN NEGATIVE; URINE BENZODIAZEPINES SCREEN NEGATIVE; URINE COCAINE SCREEN NEGATIVE; URINE MARIJUANA (THC) SCREEN NEGATIVE; URINE METHADONE SCREEN NEGATIVE; URINE PHENCYCLIDINE SCREEN NEGATIVE
[2019-09-03] MEDS ORDERED: OXYCODONE-ACETAMINOPHEN 5-325 MG TABLET PO ONE (08:54)
[2019-09-03 09:05] VITALS: BP 118/81
--- NOTE | 2019-09-03 09:29 | ER Document Report ---
Entered by SONAL MARRUFO SCRIBE 09/03/19 0709 Acting as scribe for:CHRIS TOSCANO MD ED General - General Chief Complaint: Shortness Of Breath Stated Complaint: PAIN ALL OVER Time Seen by Provider: 09/03/19 02:03 Mode of Arrival: Medic Information source: Patient Notes: This 44 year old male patient presents to the emergency department today with complaints of pain after withdrawal from his prescribed oxycodone. Patient states he takes oxycodone for chronic pain and ran out x2 days ago after getting his medications wet on a fishing trip. Patient states he has taken oxycodone for the past x1 year and this is the first time this has happened. Patient states he talked to the pain clinic, and is picking up prescribed oxycodone tomorrow morning when things are open again since today was a holiday. TRAVEL OUTSIDE OF THE [place] IN LAST 30 DAYS: No - Related Data Allergies/Adverse Reactions: No Known Allergies Allergy (Verified 04/14/19 03:48) Home Medications: metformin, lisinopril, ntg, plavix, oxycodone Past Medical History - General Information source: Patient - Social History Smoking Status: Former Smoker Cigarette use (# per day): No Family History: Reviewed & Not Pertinent, CAD, Hypertension Patient has homicidal ideation: No - Past Medical History Cardiac Medical History: Reports: Hx Coronary Artery Disease, Hx DVT, Hx Heart Attack - 10/2017, Hx Hypercholesterolemia, Hx Hypertension Pulmonary Medical History: Reports: Hx COPD Endocrine Medical History: Reports: Hx Diabetes Mellitus Type 2 Psychiatric Medical History: Reports: Hx Depression Past Surgical History: Reports: Hx Cardiac Catheterization, Hx Cardiac Surgery - cabg 05/13, Hx Coronary Stent - x4, Hx Orthopedic Surgery - Immunizations Hx Diphtheria, Pertussis, Tetanus Vaccination: Yes Review of Systems - Review of Systems Constitutional: No symptoms reported EENT: No symptoms reported Cardiovascular: No symptoms reported Respiratory: No symptoms reported Gastrointestinal: No symptoms reported Genitourinary: No symptoms reported Male Genitourinary: No symptoms reported Musculoskeletal: See HPI Skin: No symptoms reported Hematologic/Lymphatic: No symptoms reported Neurological/Psychological: No symptoms reported -: Yes All other systems reviewed and negative Physical Exam - Vital signs Vitals: Temp Pulse Resp BP Pulse Ox 98.7 F 116 H 16 109/71 99 09/03/19 01:29 09/03/19 01:29 09/03/19 01:29 09/03/19 01:29 09/03/19 01:29 - General General appearance: Appears well, Alert - HEENT Head: Normocephalic, Atraumatic Eyes: Normal Pupils: PERRL - Respiratory Respiratory status: No respiratory distress Breath sounds: Normal Notes: Superficial tenderness with palpation to the chest wall. - Cardiovascular Rhythm: Regular Heart sounds: Normal auscultation, S1 appreciated, S2 appreciated Murmur: No - Abdominal Inspection: Normal Distension: No distension Bowel sounds: Normal Tenderness: Nontender - Extremities General upper extremity: Normal inspection. No: Edema General lower extremity: Normal inspection. No: Edema - Neurological Neuro grossly intact: Yes Cognition: Normal Orientation: AAOx4 Speech: Normal - Psychological Associated symptoms: Normal affect, Normal mood - Skin Skin Temperature: Warm Skin Moisture: Dry Skin Color: Normal Course - Re-evaluation Re-evalutation: 09/03/19 09:22 Patient resting comfortably. Patient reports that he does not want to wait for a second troponin that was just ordered. Patient is already call for his right to be discharged home. 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 - Vital Signs Vital signs: Temp Pulse Resp BP Pulse Ox 98.7 F 109 H 22 H 118/81 95 09/03/19 01:29 09/03/19 09:05 09/03/19 09:05 09/03/19 09:05 09/03/19 09:05 09/03/19 09:23 Vital signs stable - Laboratory Result Diagrams: 09/03/19 03:57 09/03/19 03:57 Laboratory results interpreted by me: 09/03/19 09/03/19 09/03/19 03:57 03:57 03:57 WBC 11.5 H RBC 5.94 H Hgb 17.4 H Absolute Neuts (auto) 8.6 H APTT 22.7 L Sodium 135.4 L Glucose 227 H Calcium 10.4 H Creatine Kinase 41 L Total Protein 8.3 H Urine Glucose (UA) 09/03/19 07:26 WBC RBC Hgb Absolute Neuts (auto) APTT Sodium Glucose Calcium Creatine Kinase Total Protein Urine Glucose (UA) >=500 H - Diagnostic Test Radiology reviewed: Image reviewed, Reports reviewed Radiology results interpreted by me: 09/03/19 09:24 Chest x-ray shows no acute process. CT scan of head shows no evidence for stroke or any other acute process. - EKG Interpretation by Me Additional EKG results interpreted by me: 09/03/19 09:25 Twelve-lead EKG shows sinus tachycardia rate of 107 with left atrial abnormality abnormality, and old indeterminate age inferior lateral and anterior infarctions. Discharge - Discharge Clinical Impression: Opiate withdrawal, Chest pain Condition: Stable Disposition: HOME, SELF-CARE Additional Instructions: Chronic Pain Control Stress, inactivity, and depression make pain more severe regardless of the cause of the pain. Stress and poor physical condition can cause pain such as headaches and backache. Relaxation: Rest in a quiet place with your eyes closed for 20 minutes twice daily. Concentrate on a pleasant image, or simply "feel" your breathing. Clear your mind. Stress management: Deal with your "stressors." Either take action, or eliminate the stressor from your life. Don't let things hang over you. Accept those things you can't change. Nutrition: Eat small, balanced meals -- don't skip, don't overeat. Meals should be high-carbohydrate, low-sugar, low-fat. Exercise: Exercise helps painful conditions and eases stress. Get 30 minutes of moderate exercise, five days a week. Do an activity that does not flare your pain. Precautions: Pain which continues to disrupt daily activities, or which changes in nature, requires a medical evaluation. Pain Clinic referral is available. Please follow-up as you have indicated to pick up truck driver your occasions as been prescribed by your chest pain provider. We do not manage chronic pain in the Emergency Department. We will try to appropriately help you through an acute flare of your chronic painful condition, but for on-going chronic pain that does not improve, you will need to see your private doctor or paint technician. We do not provide repeated medication management of chronic painful conditions. If you wish, we can provide the name of local pain management physicians. I personally performed the services described in the documentation, reviewed and edited the documentation which was dictated to the scribe in my presence, and it accurately records my words and actions.
--- NOTE | 2019-09-03 12:04 | EKG REPORT ---
SEVERITY:- ABNORMAL ECG - SINUS TACHYCARDIA LEFT ATRIAL ABNORMALITY INFERIOR INFARCT, AGE INDETERMINATE LATERAL INFARCT, AGE INDETERMINATE ANTERIOR INFARCT, AGE INDETERMINATE : Confirmed by: Sarah Gonzalez MD 03-Sep-2019 12:03:46
== END 2019-09-03 09:35 | disposition home or self-care (01) ==
LOC: ER 01:18
DX: F11.23 Opioid dependence with withdrawal (principal); R06.02 Shortness of breath; M79.10 Myalgia, unspecified site; E78.00 Pure hypercholesterolemia, unspecified; I25.10 Atherosclerotic heart disease of native coronary artery without angina pectoris; Z79.02 Long term (current) use of antithrombotics/antiplatelets; Z79.4 Long term (current) use of insulin; Z86.718 Personal history of other venous thrombosis and embolism; I25.2 Old myocardial infarction
CPT/HCPCS: 36415; 70450; 71045; 80053; 80307; 81001; 82550; 82553; 84484; 85025; 85610; 85730; 93005; 93010; 99284

== ENCOUNTER 2019-10-29 09:51 | Inpatient (IN) | payer SELFPAY ==
[2019-10-29 10:26] LABS: ABSOLUTE BASOPHILS # (AUTO) 0.1 10^3/uL (0.0-0.2); ABSOLUTE EOSINOPHILS # (AUTO) 0.2 10^3/uL (0.0-0.6); ABSOLUTE LYMPHOCYTES (AUTO) 1.4 10^3/uL (0.5-4.7); ABSOLUTE MONOCYTES (AUTO) 0.7 10^3/uL (0.1-1.4); BASOPHILS % (AUTO) 0.7 % (0-2); EOSINOPHILS % (AUTO) 2.3 % (0-6); HEMATOCRIT 47.2 % (37.9-51.0); HEMOGLOBIN 16.5 g/dL (13.5-17.0); LYMPHOCYTES % (AUTO) 13.3 % (13-45); MEAN CORPUSCULAR HEMOGLOBIN 29.5 pg (27.0-33.4); MEAN CORPUSCULAR HGB CONC 35.1 g/dL (32.0-36.0); MEAN CORPUSCULAR VOLUME 84 fl (80-97); MONOCYTES % (AUTO) 6.9 % (3-13); PLATELET COUNT 284 10^3/uL (150-450); RED BLOOD COUNT 5.62 10^6/uL (4.35-5.55); RED CELL DISTRIBUTION WIDTH 13.4 % (11.5-14.0); SEGMENTED NEUTROPHILS % (AUTO) 76.8 % (42-78); TOTAL CELLS COUNTED % (AUTO) 100 %; WHITE BLOOD COUNT 10.5 10^3/uL (4.0-10.5)
[2019-10-29 10:43] LABS: ALBUMIN 4.6 g/dL (3.5-5.0); ALKALINE PHOSPHATASE 84 U/L (38-126); ANION GAP 18 (5-19); ASPARTATE AMINO TRANSFERASE 24 U/L (17-59); BILIRUBIN,DIRECT 0.3 mg/dL (0.0-0.4); BILIRUBIN,TOTAL 0.9 mg/dL (0.2-1.3); BLOOD UREA NITROGEN 36 mg/dL (7-20); CALCIUM 9.7 mg/dL (8.4-10.2); CARBON DIOXIDE 24 mmol/L (22-30); CHLORIDE 90 mmol/L (98-107); CREATINE KINASE 97 U/L (55-170); GLUCOSE 312 mg/dL (75-110); POTASSIUM 4.9 mmol/L (3.6-5.0); TOTAL PROTEIN 7.2 g/dL (6.3-8.2)
[2019-10-29] MEDS ORDERED: HYDROMORPHONE HCL INJ/PF 2 MG/ML AMPULE IV ONE (10:47)
[2019-10-29] MEDS ORDERED: NORMAL SALINE 1000 ML 1,000 ML IV ONE ×2 (10:47→10:55)
[2019-10-29 10:52] LABS: APPEARANCE,URINE CLOUDY; BILIRUBIN,URINE SMALL (NEGATIVE); COLOR,URINE AMBER; GLUCOSE, URINE >=500 mg/dL (NEGATIVE); KETONES,URINE NEGATIVE (NEGATIVE); LEUKOCYTE ESTERASE,URINE NEGATIVE (NEGATIVE); NITRITE,URINE NEGATIVE (NEGATIVE); PROTEIN,URINE 30 mg/dL (NEGATIVE)
--- NOTE | 2019-10-29 10:54 | ER Document Report ---
Entered by VENKAT CARBAJAL SCRIBE 10/29/19 1043 Acting as scribe for:CARON MATHEW MD ED General - General Stated Complaint: SYNCOPE,FALL,BODY PAIN Time Seen by Provider: 10/29/19 10:16 Information source: Patient Notes: This 44 year old opiate dependent male patient s/p CABG April 2018 that presents to the emergency department today with complaints of multiple syncopal events. He reports that he has blacked out "bunches of times" and he noticed that it happens if he stands up. He is in pain management taking 15 mg oxycodone 5 times a day secondary to pain from median sternotomy. He denies chills or fevers. TRAVEL OUTSIDE OF THE [place] IN LAST 30 DAYS: No - Related Data Allergies/Adverse Reactions: No Known Allergies Allergy (Verified 04/14/19 03:48) Past Medical History - General Information source: Patient, [facility] Records - Social History Smoking Status: Former Smoker - quit early in 2019 Cigarette use (# per day): No Chew tobacco use (# tins/day): Yes Frequency of alcohol use: None Drug Abuse: None Family History: Reviewed & Not Pertinent, CAD, Hypertension - Past Medical History Cardiac Medical History: Reports: Hx Coronary Artery Disease, Hx DVT, Hx Heart Attack - 10/2017, Hx Hypercholesterolemia, Hx Hypertension Pulmonary Medical History: Reports: Hx COPD Endocrine Medical History: Reports: Hx Diabetes Mellitus Type 2 Psychiatric Medical History: Reports: Hx Depression Past Surgical History: Reports: Hx Cardiac Catheterization, Hx Coronary Artery B ypass Graft, Hx Coronary Stent - x4, Hx Orthopedic Surgery - Immunizations Hx Diphtheria, Pertussis, Tetanus Vaccination: Yes Review of Systems - Review of Systems Constitutional: No symptoms reported EENT: No symptoms reported Cardiovascular: See HPI, Syncope Respiratory: No symptoms reported Gastrointestinal: No symptoms reported Genitourinary: No symptoms reported Male Genitourinary: No symptoms reported Musculoskeletal: No symptoms reported Skin: No symptoms reported Hematologic/Lymphatic: No symptoms reported Neurological/Psychological: No symptoms reported -: Yes All other systems reviewed and negative Physical Exam - Vital signs Vitals: Temp Pulse Resp BP Pulse Ox 97.5 F 122 H 20 110/42 L 97 10/29/19 09:56 10/29/19 09:56 10/29/19 09:56 10/29/19 09:56 10/29/19 09:56 - Notes Notes: Physical Exam: General: Alert, multiple tattoos. HEENT: Normocephalic. Atraumatic. PERRL. Extraocular movements intact. Oropharynx clear. Neck: Supple. Non-tender. Respiratory: No respiratory distress. Clear and equal breath sounds bilaterally. Left anterior chest wall is exquisitely tender to palpation. Cardiovascular: Regular rate and rhythm. Abdominal: Normal Inspection. Non-tender. No distension. Normal Bowel Sounds. Back: No gross abnormalities. Extremities: Moves all four extremities. Upper extremities: Normal inspection. Normal ROM. Lower extremities: Normal inspection. No edema. Normal ROM. Neurological: Normal cognition. AAOx4. Normal speech. Psychological: Normal affect. Normal Mood. Skin: Warm. Dry. Normal color. Course - Re-evaluation Re-evalutation: 10/29/19 11:15 The patient was evaluated during the global COVID-19 pandemic and that diagnosis was suspected/considered upon their initial presentation. Their evaluation, treatment and testing was consistent with current guidelines for patients who present with complaints or symptoms that may be related to COVID-19. 10/29/19 11:27 Patient is noted to have an acute rise in his creatinine to 4.28, it was less t hidalgo 1.0 a month ago. His urine had 224 hyaline casts. His BUN is elevated. His blood pressure was about 90 systolic laying on the stretcher when I was evaluating him, and he would become symptomatic just sitting up for long auscultation. He does have past history of DVT, so d-dimer was checked but it is only 0.36 and that is a negative dimer at this facility. - Vital Signs Vital signs: Temp Pulse Resp BP Pulse Ox 97.5 F 122 H 18 98/68 L 95 10/29/19 09:56 10/29/19 09:56 10/29/19 12:01 10/29/19 12:01 10/29/19 12:01 - Laboratory Result Diagrams: 10/29/19 10:13 10/29/19 10:13 Laboratory results interpreted by me: 10/29/19 10/29/19 10/29/19 10:13 10:13 10:23 RBC 5.62 H Sodium 131.5 L Chloride 90 L BUN 36 H Creatinine 4.28 H Est GFR ( Amer) 18 L Est GFR (MDRD) Non-Af 15 L Glucose 312 H Urine Protein 30 H Urine Glucose (UA) >=500 H Urine Bilirubin SMALL H Urine Urobilinogen 2.0 H - EKG Interpretation by Me EKG shows normal: Sinus rhythm, [place], Intervals, ST-T Waves. abnormal: QRS Complexes - Old inferior and anterior MIs Rate: Normal - 99 Rhythm: NSR P Waves: LAE - Consults Dr. Mata Time consulted: 11:21 Consulted provider: will come to ER Critical Care Note - Critical Care Note Total time excluding time spent on procedures (mins): 35 Comments: At least 35 minutes spent evaluating the patient, reviewing old medical records and old history. Time spent responding to grossly abnormal lab work showing acute kidney injury, managing hypotension. Phone calls made to hospitalist to arrange admission. Discharge - Discharge Clinical Impression: Syncope due to orthostatic hypotension, Dehydration, Chronic chest wall pain Acute renal failure Qualifiers: Acute renal failure type: unspecified Qualified Code(s): N17.9 - Acute kidney failure, unspecified Opioid dependence Qualifiers: Substance use status: with unspecified opioid-induced disorder Qualified Code(s): F11.29 - Opioid dependence with unspecified opioid-induced disorder Hypotension Qualifiers: Hypotension type: unspecified hypotension type Qualified Code(s): I95.9 - Hypotension, unspecified Condition: Stable Disposition: ADMITTED INPATIENT Admitting Provider: Adolfo (Hospitalist) Unit Admitted: Telemetry I personally performed the services described in the documentation, reviewed and edited the documentation which was dictated to the scribe in my presence, and it accurately records my words and actions.
[2019-10-29 10:56] LABS: INTERNATIONAL RATION (INR) 0.92; PROTHROMBIN TIME 12.5 SEC (11.4-15.4)
[2019-10-29 10:58] LABS: CREATINE KINASE MB 0.84 ng/mL (<4.55); D-DIMER 0.36 ug/mL (0.00-0.50); TROPONIN I 0.017 ng/mL
[2019-10-29 11:29] LABS: URINE AMPHETAMINES SCREEN NEGATIVE; URINE BARBITURATES SCREEN NEGATIVE; URINE BENZODIAZEPINES SCREEN NEGATIVE; URINE COCAINE SCREEN NEGATIVE; URINE MARIJUANA (THC) SCREEN NEGATIVE; URINE METHADONE SCREEN NEGATIVE; URINE PHENCYCLIDINE SCREEN NEGATIVE
[2019-10-29] MEDS ORDERED: MAG HYDROX/AL HYDROX/SIMETH SUSP 30 ML UDCUP PO PRN (13:11)
[2019-10-29] MEDS ORDERED: GLUCAGON,HUMAN RECOMB 1 MG INJ IM PRN (13:24)
[2019-10-29] MEDS ORDERED: DEXTROSE 50%-WATER 25 GM/50 ML DISP.SYRIN IV PRN ×2 (13:24)
[2019-10-29] MEDS ORDERED: DEXTROSE 40% GEL 15 GM TUBE PO PRN ×2 (13:24)
--- NOTE | 2019-10-29 13:51 | PDOC H&P ---
History of Present Illness Admission Date/PCP: 10/29/19 12:18 Patient complains of: Syncope on standing up History of Present Illness: MAUDE MENA is a 44 year old male with a history of STEMI status post CABG [8 months ago at [facility]], chronic chest wall pain following open sternotomy, diabetes mellitus type 2, hypertension, who presents to the hospital with complaints of multiple episodes of syncope starting yesterday. He states that these episodes are precipitated by standing up. When he stands up, everything goes white out and then he syncopized this. Uncertain about the duration of his syncopal episodes but does not think it lasts up to 20 minutes. He takes oxycodone 15 mg 5 times a day sometimes more than that. He takes this for his chest wall pain and 2 days ago he try taking fentanyl patch as he still had 1 left. He does tell me that he follows at [facility] and was taken off fentanyl 2 months ago. He has not had it since then until 2 days ago. He is scheduled to have some type of nerve block to help with his chest wall pain. Currently denies any symptoms suggestive of heart attack and just states that he is having his typical severe chest wall pain. He denies diuretic use. He also denies any new additions of any antihypertensive medications. Past Medical History Cardiac Medical History: Reports: Coronary Artery Disease, DVT, Myocardial Infarction - 10/2017, Hyperlipidema, Hypertension Pulmonary Medical History: Reports: Chronic Obstructive Pulmonary Disease (COPD) Denies: Asthma Neurological Medical History: Denies: Seizures Endocrine Medical History: Reports: Diabetes Mellitus Type 2 Denies: Diabetes Mellitus Type 1, Hyperthyroidism, Hypothyroidism GI Medical History: Denies: Cirrhosis, Hepatitis Musculoskeltal Medical History: Denies: Arthritis, Gout Skin Medical History: Denies: Eczema, Psoriasis Psychiatric Medical History: Reports: Depression Hematology: Denies: Anemia, Bleeding Tendencies Past Surgical History Past Surgical History: Reports: Cardiac Catheterization, Coronary Artery Bypass Graft, Coronary Stent - x4, Orthopedic Surgery Social History Smoking Status: Former Smoker - quit early in 2019 Frequency of Alcohol Use: Rare Hx Recreational Drug Use: No Drugs: None Hx Prescription Drug Abuse: No - Advance Directive Resuscitation Status: Full Code Family History Family History: Reviewed & Not Pertinent, CAD, Hypertension Parental Family History Reviewed: Yes Children Family History Reviewed: NA Sibling(s) Family History Reviewed.: NA Medication/Allergy Home Medications: Hydromorphone HCl [Dilaudid 2 Mg Tablet] 2 mg PO Q6H PRN #30 tablet 05/20/18 Ondansetron HCl [Zofran 4 mg Tablet] 1 - 2 tab PO Q4H PRN #10 tablet 05/20/18 Hydromorphone HCl [Dilaudid 2 Mg Tablet] 2 mg PO Q6H PRN #20 tablet 05/28/18 Oxycodone HCl [Oxycodone HCl 10 MG Tablet] 1 tab PO Q6H PRN #10 tablet 10/05/18 Fluticasone Propionate [Flonase Nasal [place] 50 Mcg/[place] 16 gm] 1 spray NASL Q12 #1 inhaler 10/19/18 Meclizine HCl [Motion Relief] 25 mg PO TID PRN #15 tablet 10/19/18 Oxycodone HCl [Oxycontin Ir 5 Mg Tablet] 1 mg PO Q8H PRN #6 tablet 10/19/18 Allergies/Adverse Reactions: No Known Allergies Allergy (Verified 04/14/19 03:48) Review of Systems Constitutional: ABSENT: chills, fever(s) Eyes: PRESENT: visual disturbances - As per HPI Ears: ABSENT: hearing changes Nose, Mouth, and Throat: ABSENT: headache(s) Cardiovascular: PRESENT: chest pain Respiratory: ABSENT: cough, dyspnea Gastrointestinal: PRESENT: nausea. ABSENT: abdominal pain Genitourinary: ABSENT: dysuria Musculoskeletal: ABSENT: back pain Integumentary: ABSENT: diaphoresis Neurological: PRESENT: dizziness Psychiatric: PRESENT: depression - History of this in the past Endocrine: ABSENT: polyuria Allergic/Immunologic: ABSENT: seasonal rhinorrhea Physical Exam Vital Signs: Temp Pulse Resp BP Pulse Ox 97.5 F 122 H 18 98/68 L 95 10/29/19 09:56 10/29/19 09:56 10/29/19 12:01 10/29/19 12:01 10/29/19 12:01 Intake & Output 10/28/19 10/29/19 10/30/19 06:59 06:59 06:59 Intake Total 1999 Balance 1999 Weight 90.718 kg General appearance: PRESENT: no acute distress, cooperative Head exam: PRESENT: normocephalic Eye exam: PRESENT: EOMI Neck exam: ABSENT: JVD Respiratory exam: PRESENT: chest wall tenderness, clear to auscultation elizabeth, symmetrical, unlabored. ABSENT: accessory muscle use, retraction, tachypnea, wheezes Cardiovascular exam: PRESENT: RRR, +S1, +S2. ABSENT: tachycardia GI/Abdominal exam: PRESENT: soft. ABSENT: rebound, rigid, tenderness Extremities exam: ABSENT: pedal edema Neurological exam: PRESENT: alert, awake, oriented to person, oriented to place, oriented to time Psychiatric exam: PRESENT: anxious. ABSENT: agitated Focused psych exam: ABSENT: pressured speech Skin exam: ABSENT: jaundice Results Laboratory Results: 10/29/19 10:13 10/29/19 10:13 10/29/19 10/29/19 10/29/19 10:13 10:13 10:23 WBC 10.5 RBC 5.62 H Hgb 16.5 Hct 47.2 MCV 84 MCH 29.5 MCHC 35.1 RDW 13.4 Plt Count 284 Seg Neutrophils % 76.8 Sodium 131.5 L Potassium 4.9 Chloride 90 L Carbon Dioxide 24 Anion Gap 18 BUN 36 H Creatinine 4.28 H Est GFR ( Amer) 18 L Glucose 312 H Calcium 9.7 Total Bilirubin 0.9 AST 24 Alkaline Phosphatase 84 Total Protein 7.2 Albumin 4.6 Urine Color MARY ALICE Urine Appearance CLOUDY Urine pH 5.0 Ur Specific [place] 1.020 Urine Protein 30 H Urine Glucose (UA) >=500 H Urine Ketones NEGATIVE Urine Blood NEGATIVE Urine Nitrite NEGATIVE Ur Leukocyte Esterase NEGATIVE Urine WBC (Auto) 3 Urine RBC (Auto) 1 10/29/19 10/29/19 10:13 10:13 Creatine Kinase 97 CK-MB (CK-2) 0.84 Troponin I 0.017 Assessment and Plan - Diagnosis (1) Syncope due to orthostatic hypotension Is this a current diagnosis for this admission?: Yes Plan: Several episodes occurred at home over the past day associated with standing up. Noted to be hypotensive in the ER 90s/50s and felt very dizzy whenever attempted to stand up to measure orthostatics. Such orthostatics could not be measured. I suspect this is secondary to his heavy narcotic use. He uses oxycodone 15 mg 5-6 times a day and took a dose of fentanyl patch 2 days ago [does not typically use the fentanyl]. Has received 2 L in the ER of IV fluids. I will continue on normal saline infusion. I will try Midodrine to help counteract vasodilatory effects of the opioids Discussed with Dr. Natarajan via phone to see if he has had any echos and Dr. Dong mullins informs me that he has had an echo within the past 8 months which showed low normal ejection fraction without any hemodynamically significant valvular disease. Maintain bedrest for now until BP improves. (2) Acute renal failure Qualifiers: Acute renal failure type: unspecified Qualified Code(s): N17.9 - Acute kidney failure, unspecified Is this a current diagnosis for this admission?: Yes Plan: Baseline creatinine is normal. Creatinine level 4.5. I suspect it is secondary to hypotension. Monitor response to IV fluids Monitor outputs strictly Recheck BMP in the morning (3) Chronic chest wall pain Is this a current diagnosis for this admission?: Yes Plan: Secondary to nerve pain from his CABG. Follows with [place] [facility]. Has heavy chronic opioid dependence. States he is being scheduled for some type of nerve block to help to reduce pain. I will put him on oxycodone 15 mg every 6 hours PRN. We will overlap with other nonnarcotic options. We will try to be cautious with opioids in order not to worsen his orthostasis. (4) Coronary artery disease Qualifiers: Coronary Disease-Associated Artery/Lesion type: [place] artery [place] vs. transplanted heart: [place] heart Associated angina: with unstable angina Qualified Code(s): I25.110 - Atherosclerotic heart disease of [place] coronary artery with unstable angina pectoris Is this a current diagnosis for this admission?: Yes Plan: Status post CABG end of 2019. his primary svp monetization is Dr. Cruz Natarajan. Continue aspirin and Plavix. Beta-marin. Awaiting med rec to see if he is on cholesterol medication. (5) Diabetes mellitus type 2 in nonobese Is this a current diagnosis for this admission?: Yes Plan: Sliding scale insulin Accu-Cheks - Time Time Spent with patient: 35 or more minutes Anticipated Discharge Disposition: Home, Self Care Anticipated Discharge Timeframe: within 48 hours
[2019-10-29] MEDS: CLOPIDOGREL BISULFATE 75 MG TABLET PO SCH (14:46)
[2019-10-29] MEDS: ASPIRIN 81 MG TABLET, CHEWABLE PO SCH (14:46)
[2019-10-29] MEDS: HEPARIN SOD (PORCINE) 5,000 UNIT/ML 1 ML VIAL SUBCUT SCH ×2 (14:46→22:00)
[2019-10-29] MEDS: OXYCODONE HCL IR 5 MG TABLET PO PRN ×2 (14:46→20:46)
[2019-10-29] MEDS: NORMAL SALINE 1000 ML 1,000 ML IV PRN (14:50)
[2019-10-29] MEDS: MIDODRINE HCL 5 MG TABLET PO SCH ×2 (15:04→18:16)
[2019-10-29] MEDS: ACETAMINOPHEN 325 MG TABLET PO PRN (18:12)
[2019-10-29] MEDS: INSULIN LISPRO 100 UNIT/ML 3 ML VIAL SUBCUT SCH ×2 (18:24→22:00)
--- NOTE | 2019-10-29 19:00 | EKG REPORT ---
SEVERITY:- ABNORMAL ECG - SINUS RHYTHM PROBABLE LEFT ATRIAL ABNORMALITY INFERIOR INFARCT, OLD ANTERIOR INFARCT, AGE INDETERMINATE : Confirmed by: Sarah Gonzalez MD 29-Oct-2019 18:58:39
[2019-10-29] MEDS: FAMOTIDINE 20 MG TABLET PO SCH (21:59)
[2019-10-29] MEDS: BUSPIRONE HCL 10 MG TABLET PO SCH (22:00)
[2019-10-30] MEDS: OXYCODONE HCL IR 5 MG TABLET PO PRN ×4 (03:04→22:43)
[2019-10-30] MEDS: HEPARIN SOD (PORCINE) 5,000 UNIT/ML 1 ML VIAL SUBCUT SCH ×3 (05:24→22:45)
[2019-10-30 06:27] LABS: HEMATOCRIT 39.2 % (37.9-51.0); MEAN CORPUSCULAR HEMOGLOBIN 29.2 pg (27.0-33.4); MEAN CORPUSCULAR HGB CONC 34.8 g/dL (32.0-36.0); MEAN CORPUSCULAR VOLUME 84 fl (80-97); PLATELET COUNT 187 10^3/uL (150-450); RED BLOOD COUNT 4.67 10^6/uL (4.35-5.55); RED CELL DISTRIBUTION WIDTH 13.5 % (11.5-14.0); WHITE BLOOD COUNT 5.2 10^3/uL (4.0-10.5)
[2019-10-30 06:28] LABS: ALBUMIN 3.5 g/dL (3.5-5.0); ALKALINE PHOSPHATASE 67 U/L (38-126); ANION GAP 6 (5-19); ASPARTATE AMINO TRANSFERASE 26 U/L (17-59); BILIRUBIN,DIRECT 0.3 mg/dL (0.0-0.4); BILIRUBIN,TOTAL 0.7 mg/dL (0.2-1.3); BLOOD UREA NITROGEN 26 mg/dL (7-20); CALCIUM 8.7 mg/dL (8.4-10.2); CARBON DIOXIDE 27 mmol/L (22-30); CHLORIDE 99 mmol/L (98-107); GLUCOSE 153 mg/dL (75-110); HEMOGLOBIN 13.7 g/dL (13.5-17.0); POTASSIUM 5.3 mmol/L (3.6-5.0); TOTAL PROTEIN 5.7 g/dL (6.3-8.2)
[2019-10-30] MEDS: ACETAMINOPHEN 325 MG TABLET PO PRN ×3 (08:04→23:36)
[2019-10-30] MEDS: INSULIN LISPRO 100 UNIT/ML 3 ML VIAL SUBCUT SCH ×4 (08:05→22:43)
[2019-10-30] MEDS: NORMAL SALINE 1000 ML 1,000 ML IV PRN ×2 (08:07→22:45)
[2019-10-30] MEDS: FAMOTIDINE 20 MG TABLET PO SCH ×2 (09:16→22:45)
[2019-10-30] MEDS: BUSPIRONE HCL 10 MG TABLET PO SCH ×2 (09:17→22:44)
[2019-10-30] MEDS: CLOPIDOGREL BISULFATE 75 MG TABLET PO SCH (09:17)
[2019-10-30] MEDS: ASPIRIN 81 MG TABLET, CHEWABLE PO SCH (09:17)
[2019-10-30] MEDS: MIDODRINE HCL 5 MG TABLET PO SCH (09:38)
[2019-10-30] MEDS: ONDANSETRON HCL INJ/PF 4 MG/2 ML SDV IV PRN (09:56)
--- NOTE | 2019-10-30 10:34 | EKG REPORT ---
SEVERITY:- ABNORMAL ECG - SINUS RHYTHM PROBABLE LEFT ATRIAL ABNORMALITY INFERIOR INFARCT, OLD ANTEROLATERAL INFARCT, OLD : Confirmed by: Sarah Gonzalez MD 30-Oct-2019 10:34:00
[2019-10-30] MEDS: NITROGLYCERIN 0.4 MG/TAB 25 TAB/BOTTLE SL PRN ×3 (10:35→23:24)
[2019-10-30] MEDS ORDERED: LORAZEPAM INJ 2 MG/1 ML VIAL IV PRN (12:27)
--- NOTE | 2019-10-30 16:33 | RADIOLOGY REPORT (SQ) ---
EXAM DESCRIPTION: MRA HEAD WITHOUT; MRA NECK WITHOUT IMAGES COMPLETED DATE/TIME: 10/30/2019 2:23 pm REASON FOR STUDY: w/wo contr. B/l Vision loss syncope on standing.; B/l Vision loss syncope on s tanding. COMPARISON: CT brain 09/03/2019 TECHNIQUE: Axial 3-D ksoy-cr-eaerap acquisition imaging performed through the brain in the area of t he [place]. Images reformatted using 3-D MIPS. 3D xvya-et-melcjo MRA exam of extracranial carotid and vertebral circulation was obtained. 2D time-o f-flight MRA extracranial carotid vertebral circulations. Images reformatted using 3D MIPS. LIMITATIONS: None. FINDINGS: [place] MRA: SOURCE IMAGES: No unexpected findings on source images. No large masses. 3-D MIP: No [place] stenosis, vascular malformation, or aneurysm. . OTHER: No other significant finding. Extracranial carotid and vertebral MRA: Source images: No gross neck masses. 3D MIPS: Visualized extracranial carotid circulation unremarkable. Common carotid arteries, carotid bifurcations, cervical internal carotid artery are widely patent. Left vertebral artery is dominant. Small right vertebral artery, MINIMAL LUMINAL IRREGULARITY. RIGH T VERTEBRAL ARTERY DISSECTION MAY BE PRESENT. Consider follow-up CT angio neck Other: No other significant findings IMPRESSION: NORMAL MRA OF THE [place]. NORMAL MRA EXAM OF THE EXTRACRANIAL CAROTID CIRCULATION NORMAL FLOW SIGNAL LEFT CERVICAL VERTEBRAL ARTERY DIMINISHED FLOW RIGHT CERVICAL VERTEBRAL ARTERY WITH VESSEL IRREGULARITY. RIGHT VERTEBRAL ARTERY DIS SECTION COULD NOT BE EXCLUDED. CONSIDER FOLLOW-UP CT ANGIO NECK TECHNICAL DOCUMENTATION: JOB ID: [id number] [employer]- All Rights Reserved Reading location - IP/workstation name: [id number]
--- NOTE | 2019-10-30 16:33 | RADIOLOGY REPORT (SQ) ---
EXAM DESCRIPTION: MRA HEAD WITHOUT; MRA NECK WITHOUT IMAGES COMPLETED DATE/TIME: 10/30/2019 2:23 pm REASON FOR STUDY: w/wo contr. B/l Vision loss syncope on standing.; B/l Vision loss syncope on s tanding. COMPARISON: CT brain 09/03/2019 TECHNIQUE: Axial 3-D [id number]-ze-nlrylp acquisition imaging performed through the brain in the area of t he [place]. Images reformatted using 3-D MIPS. 3D khek-ul-ulumye MRA exam of extracranial carotid and vertebral circulation was obtained. 2D time-o f-flight MRA extracranial carotid vertebral circulations. Images reformatted using 3D MIPS. LIMITATIONS: None. FINDINGS: [place] MRA: SOURCE IMAGES: No unexpected findings on source images. No large masses. 3-D MIP: No [place] stenosis, vascular malformation, or aneurysm. . OTHER: No other significant finding. Extracranial carotid and vertebral MRA: Source images: No gross neck masses. 3D MIPS: Visualized extracranial carotid circulation unremarkable. Common carotid arteries, carotid bifurcations, cervical internal carotid artery are widely patent. Left vertebral artery is dominant. Small right vertebral artery, MINIMAL LUMINAL IRREGULARITY. RIGH T VERTEBRAL ARTERY DISSECTION MAY BE PRESENT. Consider follow-up CT angio neck Other: No other significant findings IMPRESSION: NORMAL MRA OF THE [place]. NORMAL MRA EXAM OF THE EXTRACRANIAL CAROTID CIRCULATION NORMAL FLOW SIGNAL LEFT CERVICAL VERTEBRAL ARTERY DIMINISHED FLOW RIGHT CERVICAL VERTEBRAL ARTERY WITH VESSEL IRREGULARITY. RIGHT VERTEBRAL ARTERY DIS SECTION COULD NOT BE EXCLUDED. CONSIDER FOLLOW-UP CT ANGIO NECK TECHNICAL DOCUMENTATION: JOB ID: [id number] 2010 [employer]- All Rights Reserved Reading location - IP/workstation name: [id number]
--- NOTE | 2019-10-30 18:36 | RADIOLOGY REPORT (SQ) ---
EXAM DESCRIPTION: CTA NECK IMAGES COMPLETED DATE/TIME: 10/30/2019 6:16 pm REASON FOR STUDY: abnormal mri findings. COMPARISON: MRA exam carotid bifurcations 10/30/2019 TECHNIQUE: Axial dynamic scanning technique with dynamic contrast enhancement through the extra-crate maker nial carotid and vertebral arteries. Multiplanar reconstruction. 3-D MIPS and Volume-rendered imag es acquired at the workstation and saved to PACS. Images are reviewed in soft tissue, bone, lung w indows. All CT scanners at this facility use dose modulation, iterative reconstruction, and/or weight based d osing when appropriate to reduce radiation dose to as low as reasonably achievable (ALARA). [facility]: Dose Right [facility]: CareDose [facility]: Dose Right [facility]: Teradose 4D [facility]: [employer] CONTRAST TYPE AND DOSE: contrast/concentration: Isovue 350.00 mmol/ml; Total Contrast Delivered: 70. 0 ml; Total Saline Delivered: 75.0 ml RENAL FUNCTION: Creatinine 1.3 LIMITATIONS: None. FINDINGS: AORTIC ARCH: Normal three-vessel origin. Bilateral subclavian arteries are patent. No d issection. RIGHT CAROTIDS: Patent common, internal and external carotid arteries. Mild non calcific plaque at t he origin of the right proximal internal carotid artery without flow significant stenosis. No dissec tion. LEFT CAROTIDS: Patent common, internal and external carotid arteries without suggestion of significan t stenosis or irregular plaque. No dissection. RIGHT VERTEBRAL: Diffusely small proximally, best shown on coronal image 20-30. Mid cervical vertebr al artery larger in caliber with minimal vessel wall irregularity high cervical/ distal intracranial vertebral artery diffusely small. This most likely represents a right vertebral artery dissection, a ge indeterminate. LEFT VERTEBRAL: Patent. No dissection. OTHER: No other significant finding. OTHER: 3-D reconstructions confirm findings. IMPRESSION: Small irregular right vertebral artery proximally distally, findings likely represent a right vertebral dissection, age indeterminate. COMMENT: Quality ID #[id number]: Measurements of distal internal carotid diameter were used as the denomina tor for stenosis measurement. TECHNICAL DOCUMENTATION: JOB ID: [id number] Quality ID # [id number]: Final reports with documentation of one or more dose reduction techniques (e.g., Au tomated exposure control, adjustment of the mA and/or kV according to patient size, use of iterative reconstruction technique) 2010 [employer]- All Rights Reserved Reading location - IP/workstation name: [id number]
--- NOTE | 2019-10-30 20:24 | PDOC PROGRESS REPORT ---
Subjective Progress Note for:: 10/30/19 Subjective:: Patient became very dizzy when stood this morning to check orthostatics. Almost syncopized. He also became very jittery started feeling some tingling in his right arm. Reason For Visit: SYNCOPE DUE TO ORTHOSTATIC HYPOTENSION, Physical Exam Vital Signs: Temp Pulse Resp BP Pulse Ox 97.9 F 72 18 133/74 H 100 10/30/19 19:45 10/30/19 19:45 10/30/19 15:59 10/30/19 19:45 10/30/19 19:45 Intake & Output 10/29/19 10/30/19 10/31/19 06:59 06:59 06:59 Intake Total 4360 880 Output Total 500 2050 Balance 3860 -1170 Weight 90.5 kg 90.5 kg General appearance: PRESENT: no acute distress, cooperative Neck exam: ABSENT: JVD Respiratory exam: PRESENT: clear to auscultation elizabeth, symmetrical, unlabored. ABSENT: tachypnea, wheezes Cardiovascular exam: PRESENT: RRR, +S1, +S2. ABSENT: tachycardia GI/Abdominal exam: PRESENT: soft. ABSENT: rebound, rigid, tenderness Neurological exam: PRESENT: alert, awake, oriented to person, oriented to place, oriented to time, oriented to situation. ABSENT: ataxia, CN II-XII grossly intact - no gross abnormality, motor sensory deficit - felt too jittery to follow commands. But not grossly weak Results Laboratory Results: 10/30/19 05:35 10/30/19 05:35 10/30/19 10/30/19 10/30/19 05:35 05:35 05:35 WBC 5.2 RBC 4.67 Hgb 13.7 D Hct 39.2 MCV 84 MCH 29.2 MCHC 34.8 RDW 13.5 Plt Count 187 Sodium 132.1 L Potassium 5.3 H Chloride 99 Carbon Dioxide 27 Anion Gap 6 BUN 26 H Creatinine 1.29 H Est GFR ( Amer) > 60 Glucose 153 H Calcium 8.7 Magnesium 2.2 Total Bilirubin 0.7 AST 26 Alkaline Phosphatase 67 Total Protein 5.7 L Albumin 3.5 TSH 0.98 10/29/19 10/29/19 10/29/19 10:13 10:13 15:00 Creatine Kinase 97 CK-MB (CK-2) 0.84 Troponin I 0.017 < 0.012 Impressions: Brain MRI with MRA 10/30/19 00:00 IMPRESSION: NORMAL MRA OF THE [place] OF [place]. NORMAL MRA EXAM OF THE EXTRACRANIAL CAROTID CIRCULATION NORMAL FLOW SIGNAL LEFT CERVICAL VERTEBRAL ARTERY DIMINISHED FLOW RIGHT CERVICAL VERTEBRAL ARTERY WITH VESSEL IRREGULARITY. RIGHT VERTEBRAL ARTERY DISSECTION COULD NOT BE EXCLUDED. CONSIDER FOLLOW-UP CT ANGIO NECK Neck MRA 10/30/19 00:00 IMPRESSION: NORMAL MRA OF THE [place]. NORMAL MRA EXAM OF THE EXTRACRANIAL CAROTID CIRCULATION NORMAL FLOW SIGNAL LEFT CERVICAL VERTEBRAL ARTERY DIMINISHED FLOW RIGHT CERVICAL VERTEBRAL ARTERY WITH VESSEL IRREGULARITY. RIGHT VERTEBRAL ARTERY DISSECTION COULD NOT BE EXCLUDED. CONSIDER FOLLOW-UP CT ANGIO NECK Neck CTA 10/30/19 16:54 IMPRESSION: Small irregular right vertebral artery proximally distally, findings likely represent a right vertebral dissection, age indeterminate. Assessment and Plan - Diagnosis (1) Syncope due to orthostatic hypotension Is this a current diagnosis for this admission?: Yes Plan: Today blood pressure has improved very well. Notably still had symptoms upon standing up this morning even though not orthostatics on vital signs. I will have ophthalmology see patient tomorrow regarding this issue of whitening of his vision when he stands up. MRI/MRA head and neck negative for stroke but incidentally picked up small right vertebral artery dissection (2) Vertebral artery dissection Is this a current diagnosis for this admission?: Yes Plan: Sent over radiology images to [facility] I did a phone consult Dr. Simms (Neurovascular) regarding this finding. He recommends that there is typically no intervention needed for such finding and that it is not possible to know the acuity of this finding based off imaging. Recommend that the only intervention needed is daily baby aspirin for stroke prevention. (3) Acute renal failure Qualifiers: Acute renal failure type: unspecified Qualified Code(s): N17.9 - Acute kidney failure, unspecified Is this a current diagnosis for this admission?: Yes Plan: Baseline creatinine is normal. Creatinine level 4.5. I suspect it is secondary to hypotension. Markedly improved with IV fluids. Creatinine down to 1.29 today. Check BMP in the morning. (4) Chronic chest wall pain Is this a current diagnosis for this admission?: Yes Plan: Secondary to nerve pain from his CABG. Follows with [place] pain management clinic. Has heavy chronic opioid dependence. States he is being scheduled for some type of nerve block to help to reduce pain. I will put him on oxycodone 15 mg every 6 hours PRN. We will overlap with other nonnarcotic options. We will try to be cautious with opioids in order not to worsen his orthostasis. (5) Coronary artery disease Qualifiers: Coronary Disease-Associated Artery/Lesion type: [place] artery [place] vs. transplanted heart: [place] heart Associated angina: with unstable angina Qualified Code(s): I25.110 - Atherosclerotic heart disease of [place] coronary artery with unstable angina pectoris Is this a current diagnosis for this admission?: Yes (6) Diabetes mellitus type 2 in nonobese Is this a current diagnosis for this admission?: Yes - Time Time Spent with patient: 25-34 minutes Anticipated Discharge Disposition: Home, Self Care Anticipated Discharge Timeframe: within 36 hours
[2019-10-30] MEDS ORDERED: LORAZEPAM INJ 2 MG/1 ML VIAL IV ONE (21:15)
[2019-10-31] MEDS ORDERED: HYDRALAZINE HCL INJ/PF 20 MG/1 ML SDV IV PRN (00:41)
[2019-10-31] MEDS: OXYCODONE HCL IR 5 MG TABLET PO PRN ×2 (05:48→11:38)
[2019-10-31] MEDS: HEPARIN SOD (PORCINE) 5,000 UNIT/ML 1 ML VIAL SUBCUT SCH ×2 (05:49→14:08)
[2019-10-31 06:37] LABS: ANION GAP 6 (5-19); BLOOD UREA NITROGEN 17 mg/dL (7-20); CALCIUM 9.2 mg/dL (8.4-10.2); CARBON DIOXIDE 28 mmol/L (22-30); CHLORIDE 100 mmol/L (98-107); GLUCOSE 146 mg/dL (75-110); POTASSIUM 5.2 mmol/L (3.6-5.0)
[2019-10-31] MEDS: INSULIN LISPRO 100 UNIT/ML 3 ML VIAL SUBCUT SCH ×4 (09:05→23:10)
[2019-10-31] MEDS: ACETAMINOPHEN 325 MG TABLET PO PRN ×2 (09:32→17:37)
[2019-10-31] MEDS: FAMOTIDINE 20 MG TABLET PO SCH ×2 (09:32→23:06)
[2019-10-31] MEDS: BUSPIRONE HCL 10 MG TABLET PO SCH ×2 (09:32→23:06)
[2019-10-31] MEDS: CLOPIDOGREL BISULFATE 75 MG TABLET PO SCH (09:32)
[2019-10-31] MEDS: ASPIRIN 81 MG TABLET, CHEWABLE PO SCH (09:33)
--- NOTE | 2019-10-31 13:19 | PDOC CONSULTATION ---
Consultation Consult Date: 10/31/19 Provider Consulted: MICH GARCIA History of Present Illness Admission Date/PCP: 10/31/2019 13:02 pm Patient presented to hospital for continued chest wall pain and near syncopal episodes that have been off and on for months. He is s/p CABAG in 2018 in which after surgery he noted sharp shooting constant pain in the chest wall and upper extremities. 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 Stated that he was recently in [place] and while there he noted that the chest wall and "heart" pain became worse. Started to experience dizziness and episodes of syncope. Once back in [place] he decided to reach out for help regarding continued chest pain and new symptoms. [facility] [place] pain management has been managing his chest wall pain since 10/28/2018. Have discussed intercostal nerve blocks but was unable to discontinue anti-coagulant therapy and so patient has been taking Oxycodone 15 mg 5 x's a day. He has been on Oxycodone since September of 2018. Has had a trial of Fentanyl which was not helpful for pain. Due to concerns of his syncopal episodes I am in agreement t hat he needs to wean off of his pain medication as not to exacerbate current symptoms. As patient has been on this medication (Oxycodone) for an extended time I do not feel that the current episodes are caused by his opioid use for chronic pain but have discussed w/ the patient that opioids can exacerbate his condition. History of Present Illness: MAUDE MENA is a 44 year old male Past Medical History Cardiac Medical History: Reports: Coronary Artery Disease, DVT, Myocardial Infarction - 10/2017, Hyperlipidema, Hypertension Pulmonary Medical History: Reports: Chronic Obstructive Pulmonary Disease (COPD) Denies: Asthma Neurological Medical History: Denies: Seizures Endocrine Medical History: Reports: Diabetes Mellitus Type 2 Denies: Diabetes Mellitus Type 1, Hyperthyroidism, Hypothyroidism GI Medical History: Denies: Cirrhosis, Hepatitis Musculoskeltal Medical History: Denies: Arthritis, Gout Skin Medical History: Denies: Eczema, Psoriasis Psychiatric Medical History: Reports: Depression Hematology: Denies: Anemia, Bleeding Tendencies Past Surgical History Past Surgical History: Reports: Cardiac Catheterization, Coronary Artery Bypass Graft, Coronary Stent - x4, Orthopedic Surgery Social History Smoking Status: Former Smoker Frequency of Alcohol Use: None Hx Recreational Drug Use: No Drugs: None Hx Prescription Drug Abuse: No - Advance Directive Resuscitation Status: Full Code Family History Family History: Reviewed & Not Pertinent, CAD, Hypertension Parental Family History Reviewed: No Children Family History Reviewed: NA Sibling(s) Family History Reviewed.: NA Medication/Allergy Home Medications: Buspirone HCl 7.5 mg PO BID 10/29/19 Clopidogrel Bisulfate [Plavix 75 mg Tablet] 75 mg PO DAILY 10/29/19 Lisinopril 20 mg PO DAILY 10/29/19 Metformin HCl [Glucophage 500 mg Tablet] 500 mg PO DAILY 10/29/19 Oxycodone HCl [Oxy-Ir 5 mg Tablet] 15 mg PO 5XD 10/29/19 Allergies/Adverse Reactions: No Known Allergies Allergy (Verified 04/14/19 03:48) Physical Exam Vital Signs: Temp Pulse Resp BP Pulse Ox 97.9 F 76 19 121/63 98 10/31/19 07:52 10/31/19 07:52 10/31/19 07:52 10/31/19 07:52 10/31/19 07:52 Intake & Output 10/30/19 10/31/19 11/01/19 06:59 06:59 06:59 Intake Total 4360 1880 480 Output Total 500 4300 400 Balance 3860 -2420 80 Weight 90.5 kg 91.2 kg General appearance: PRESENT: no acute distress, cooperative Head exam: PRESENT: normocephalic Respiratory exam: PRESENT: unlabored Neurological exam: PRESENT: alert, awake, oriented to person, oriented to place, oriented to time, oriented to situation Psychiatric exam: PRESENT: anxious Results Laboratory Results: 10/30/19 05:35 10/31/19 05:33 10/31/19 05:33 Sodium 134.3 L Potassium 5.2 H Chloride 100 Carbon Dioxide 28 Anion Gap 6 BUN 17 Creatinine 1.10 Est GFR ( Amer) > 60 Glucose 146 H Calcium 9.2 10/29/19 10/29/19 10/29/19 10:13 10:13 15:00 Creatine Kinase 97 CK-MB (CK-2) 0.84 Troponin I 0.017 < 0.012 Impressions: Brain MRI with MRA 10/30/19 00:00 IMPRESSION: NORMAL MRA OF THE [place]. NORMAL MRA EXAM OF THE EXTRACRANIAL CAROTID CIRCULATION NORMAL FLOW SIGNAL LEFT CERVICAL VERTEBRAL ARTERY DIMINISHED FLOW RIGHT CERVICAL VERTEBRAL ARTERY WITH VESSEL IRREGULARITY. RIGHT VERTEBRAL ARTERY DISSECTION COULD NOT BE EXCLUDED. CONSIDER FOLLOW-UP CT ANGIO NECK Neck MRA 10/30/19 00:00 IMPRESSION: NORMAL MRA OF THE [place]. NORMAL MRA EXAM OF THE EXTRACRANIAL CAROTID CIRCULATION NORMAL FLOW SIGNAL LEFT CERVICAL VERTEBRAL ARTERY DIMINISHED FLOW RIGHT CERVICAL VERTEBRAL ARTERY WITH VESSEL IRREGULARITY. RIGHT VERTEBRAL ARTERY DISSECTION COULD NOT BE EXCLUDED. CONSIDER FOLLOW-UP CT ANGIO NECK Neck CTA 10/30/19 16:54 IMPRESSION: Small irregular right vertebral artery proximally distally, findings likely represent a right vertebral dissection, age indeterminate. Assessment & Plan - Diagnosis (1) Chronic chest wall pain Is this a current diagnosis for this admission?: Yes Plan: 1. Treatment plan, risk, and benefits reviewed and in agreement w/ plan 2. Due to current work up of syncopal episode will start to wean Oxycodone 3. Weaning schedule as follows (will wean q 2 day. Can slow to 3 days if needed) Today: start Oxycodone 15 mg q 8 hours (max 3 a day) November 01: D/C OXycodone 15mg q 8 hours and start OXycodone 10 mg Q 6 hours (max 4 tablets a day) November 03: Decrease to Oxycodone 10 mg Q 8 hours (max 3 tablets a day) 4. If patient is still inpatient on November 05 will continue to decrease 5. If patient is to be discharged patient is to follow up w/ me on day of discharge. 6. I have explained and discussed in length the weaning schedule at this time. 7. I have also discussed alternative pain therapies that I will further explore in an outpatient setting (Intercostal NB).
[2019-10-31] MEDS: OXYCODONE HCL IR 5 MG TABLET PO SCH ×2 (14:08→23:08)
--- NOTE | 2019-10-31 15:45 | PDOC PROGRESS REPORT ---
Subjective Progress Note for:: 10/31/19 Subjective:: Feels less dizzy today but still gets dizzy when standing. Discussed plan to wean pain meds as he stated that he takes oxycodone every 3hours. Reason For Visit: SYNCOPE DUE TO ORTHOSTATIC HYPOTENSION, Physical Exam Vital Signs: Temp Pulse Resp BP Pulse Ox 98.4 F 71 18 111/73 100 10/31/19 11:12 10/31/19 11:12 10/31/19 11:12 10/31/19 11:12 10/31/19 11:12 Intake & Output 10/30/19 10/31/19 11/01/19 06:59 06:59 06:59 Intake Total 4360 1880 960 Output Total 500 4300 1000 Balance 3860 -2420 -40 Weight 90.5 kg 91.2 kg General appearance: PRESENT: no acute distress, cooperative Neck exam: ABSENT: JVD Respiratory exam: PRESENT: chest wall tenderness, clear to auscultation elizabeth, symmetrical, unlabored. ABSENT: tachypnea, wheezes Cardiovascular exam: PRESENT: RRR, +S1, +S2. ABSENT: tachycardia GI/Abdominal exam: PRESENT: soft. ABSENT: rebound, rigid, tenderness Neurological exam: PRESENT: alert, awake, oriented to person, oriented to place, oriented to time, oriented to situation, other - tremor in right arm. Has normal ocular movements. ABSENT: ataxia - Negative on [id number]-[id number]-[id number] test, motor sensory deficit Psychiatric exam: PRESENT: appropriate affect Focused psych exam: ABSENT: pressured speech Skin exam: ABSENT: jaundice Results Laboratory Results: 10/30/19 05:35 10/31/19 05:33 10/31/19 05:33 Sodium 134.3 L Potassium 5.2 H Chloride 100 Carbon Dioxide 28 Anion Gap 6 BUN 17 Creatinine 1.10 Est GFR ( Amer) > 60 Glucose 146 H Calcium 9.2 10/29/19 10/29/19 10/29/19 10:13 10:13 15:00 Creatine Kinase 97 CK-MB (CK-2) 0.84 Troponin I 0.017 < 0.012 Impressions: Brain MRI with MRA 10/30/19 00:00 IMPRESSION: NORMAL MRA OF THE [place]. NORMAL MRA EXAM OF THE EXTRACRANIAL CAROTID CIRCULATION NORMAL FLOW SIGNAL LEFT CERVICAL VERTEBRAL ARTERY DIMINISHED FLOW RIGHT CERVICAL VERTEBRAL ARTERY WITH VESSEL IRREGULARITY. RIGHT VERTEBRAL ARTERY DISSECTION COULD NOT BE EXCLUDED. CONSIDER FOLLOW-UP CT ANGIO NECK Neck MRA 10/30/19 00:00 IMPRESSION: NORMAL MRA OF THE [place]. NORMAL MRA EXAM OF THE EXTRACRANIAL CAROTID CIRCULATION NORMAL FLOW SIGNAL LEFT CERVICAL VERTEBRAL ARTERY DIMINISHED FLOW RIGHT CERVICAL VERTEBRAL ARTERY WITH VESSEL IRREGULARITY. RIGHT VERTEBRAL ARTERY DISSECTION COULD NOT BE EXCLUDED. CONSIDER FOLLOW-UP CT ANGIO NECK Neck CTA 10/30/19 16:54 IMPRESSION: Small irregular right vertebral artery proximally distally, finding s likely represent a right vertebral dissection, age indeterminate. Assessment and Plan - Diagnosis (1) Syncope due to orthostatic hypotension Is this a current diagnosis for this admission?: Yes Plan: Rather strange presentation of feeling dizzy with whiteout of his vision prior to syncopizing when standing. Initially hypotensive with orthostasis on presentation. Still having dizziness when standing despite improvement of BP and resolution of orthostatic hypotension MRA head and neck ordered 10/30/2019 negative for stroke but revealed narrow right vertebral artery and small right vertebral artery dissection. Given that patient's vision loss precedes his dizziness and syncope and that his right vertebral artery which supplies posterior brain circulation seems insufficient, I strongly believe that this might be associated with his symptoms. I consulted neurology in [facility] and discussed case with Dr. Emerald Alvarenga who reviewed the images and discussed case with Neurointerventionalist Dr. Vee Jones who recommends patient for transfer to [facility] service for further studies, potential angio and treatment and recommends continuing aspirin. Awaiting bed availability. (2) Vertebral artery dissection Is this a current diagnosis for this admission?: Yes Plan: Plan as above (3) Acute renal failure Qualifiers: Acute renal failure type: unspecified Qualified Code(s): N17.9 - Acute kidney failure, unspecified Is this a current diagnosis for this admission?: Yes Plan: Baseline creatinine is normal. Creatinine level 4.5 on admission. Resolved at this point. dc fluids. (4) Chronic chest wall pain Is this a current diagnosis for this admission?: Yes Plan: Secondary to nerve pain from his CABG. Follows with [place] pain management clinic. Has heavy chronic opioid dependence. Was meant to be taking oxycodone 15 mg IR 5 times a day but takes it every 3 hours at home. States he is being scheduled for some type of nerve block to help to reduce pain. I consulted Timur with [facility] [place] pain management who will wean patient's narcotics and pursue other options. Wean plan as below: Today: start Oxycodone 15 mg q 8 hours (max 3 a day) November 01: D/C OXycodone 15mg q 8 hours and start OXycodone 10 mg Q 6 hours (max 4 tablets a day) November 03: Decrease to Oxycodone 10 mg Q 8 hours (max 3 tablets a day) (5) Coronary artery disease Qualifiers: Coronary Disease-Associated Artery/Lesion type: [place] artery [place] vs. transplanted heart: [place] heart Associated angina: with unstable angina Qualified Code(s): I25.110 - Atherosclerotic heart disease of [place] coronary artery with unstable angina pectoris Is this a current diagnosis for this admission?: Yes Plan: Status post CABG end of 2018. his primary nurse infection control is Dr. Cruz Natarajan. Continue aspirin and Plavix. Beta-marin. (6) Diabetes mellitus type 2 in nonobese Is this a current diagnosis for this admission?: Yes Plan: Sliding scale insulin Accu-Cheks (7) Hyperkalemia Is this a current diagnosis for this admission?: Yes Plan: Renal function has normalized. I believe hyperkalemia of 5.2 is secondary to subcutaneous q8h heparin prophylaxis. Switch to Lovenox daily. Check BMP in the morning. - Time Time Spent with patient: 15-24 minutes Anticipated Discharge Disposition: Tertiary Anticipated Discharge Timeframe: when bed available
[2019-10-31] MEDS: ONDANSETRON HCL INJ/PF 4 MG/2 ML SDV IV PRN (16:03)
[2019-11-01] MEDS: ACETAMINOPHEN 325 MG TABLET PO PRN ×4 (04:02→19:50)
[2019-11-01] MEDS: OXYCODONE HCL IR 5 MG TABLET PO SCH ×3 (06:11→21:13)
[2019-11-01 06:30] LABS: ANION GAP 6 (5-19); BLOOD UREA NITROGEN 19 mg/dL (7-20); CALCIUM 9.2 mg/dL (8.4-10.2); CARBON DIOXIDE 27 mmol/L (22-30); CHLORIDE 101 mmol/L (98-107); GLUCOSE 141 mg/dL (75-110); POTASSIUM 5.3 mmol/L (3.6-5.0)
[2019-11-01 07:27] LABS: APPEARANCE,URINE CLEAR; BILIRUBIN,URINE NEGATIVE (NEGATIVE); COLOR,URINE STRAW; GLUCOSE, URINE >=500 mg/dL (NEGATIVE); KETONES,URINE NEGATIVE (NEGATIVE); LEUKOCYTE ESTERASE,URINE NEGATIVE (NEGATIVE); NITRITE,URINE NEGATIVE (NEGATIVE); PROTEIN,URINE NEGATIVE (NEGATIVE); UROBILINOGEN,URINE NEGATIVE mg/dL (<2.0)
[2019-11-01] MEDS: INSULIN LISPRO 100 UNIT/ML 3 ML VIAL SUBCUT SCH ×4 (07:44→22:54)
[2019-11-01] MEDS: ONDANSETRON HCL INJ/PF 4 MG/2 ML SDV IV PRN (09:11)
[2019-11-01] MEDS: ENOXAPARIN SODIUM INJ 40 MG/0.4 ML DISP.SYRIN SUBCUT SCH (09:14)
[2019-11-01] MEDS: FAMOTIDINE 20 MG TABLET PO SCH ×2 (09:15→21:11)
[2019-11-01] MEDS: ASPIRIN 81 MG TABLET, CHEWABLE PO SCH (09:15)
[2019-11-01] MEDS: CLOPIDOGREL BISULFATE 75 MG TABLET PO SCH (09:15)
[2019-11-01] MEDS: BUSPIRONE HCL 10 MG TABLET PO SCH ×2 (09:40→21:11)
[2019-11-01] MEDS ORDERED: LORAZEPAM INJ 2 MG/1 ML VIAL ONE (11:22)
--- NOTE | 2019-11-01 17:01 | PDOC PROGRESS REPORT ---
Subjective Progress Note for:: 11/01/19 Subjective:: Patient's complains of residual chest wall pain. He also has some anxiety today. Reason For Visit: SYNCOPE DUE TO ORTHOSTATIC HYPOTENSION, Physical Exam Vital Signs: Temp Pulse Resp BP Pulse Ox 97.8 F 83 19 116/74 98 11/01/19 09:29 11/01/19 08:19 11/01/19 08:19 11/01/19 08:19 11/01/19 08:19 Intake & Output 10/31/19 11/01/19 11/02/19 06:59 06:59 06:59 Intake Total 1880 2920 Output Total 4300 2850 Balance -2420 70 Weight 91.2 kg 90.1 kg General appearance: PRESENT: no acute distress, cooperative Neck exam: ABSENT: JVD Respiratory exam: PRESENT: chest wall tenderness, clear to auscultation elizabeth, symmetrical, unlabored. ABSENT: tachypnea Cardiovascular exam: PRESENT: RRR, +S1, +S2. ABSENT: tachycardia GI/Abdominal exam: PRESENT: soft. ABSENT: rebound, rigid, tenderness Neurological exam: PRESENT: alert, awake, oriented to person, oriented to place, oriented to time Psychiatric exam: PRESENT: anxious Results Laboratory Results: 10/30/19 05:35 11/01/19 05:01 11/01/19 11/01/19 05:01 06:04 Sodium 134.0 L Potassium 5.3 H Chloride 101 Carbon Dioxide 27 Anion Gap 6 BUN 19 Creatinine 1.12 Est GFR ( Amer) > 60 Glucose 141 H Calcium 9.2 Urine Color STRAW Urine Appearance CLEAR Urine pH 7.0 Ur Specific [place] 1.010 Urine Protein NEGATIVE Urine Glucose (UA) >=500 H Urine Ketones NEGATIVE Urine Blood NEGATIVE Urine Nitrite NEGATIVE Ur Leukocyte Esterase NEGATIVE Urine WBC (Auto) 1 Urine RBC (Auto) 1 10/29/19 10/29/19 10/29/19 10:13 10:13 15:00 Creatine Kinase 97 CK-MB (CK-2) 0.84 Troponin I 0.017 < 0.012 Impressions: Brain MRI with MRA 10/30/19 00:00 IMPRESSION: NORMAL MRA OF THE [place]. NORMAL MRA EXAM OF THE EXTRACRANIAL CAROTID CIRCULATION NORMAL FLOW SIGNAL LEFT CERVICAL VERTEBRAL ARTERY DIMINISHED FLOW RIGHT CERVICAL VERTEBRAL ARTERY WITH VESSEL IRREGULARITY. RIGHT VERTEBRAL ARTERY DISSECTION COULD NOT BE EXCLUDED. CONSIDER FOLLOW-UP CT ANGIO NECK Neck MRA 10/30/19 00:00 IMPRESSION: NORMAL MRA OF THE [place]. NORMAL MRA EXAM OF THE EXTRACRANIAL CAROTID CIRCULATION NORMAL FLOW SIGNAL LEFT CERVICAL VERTEBRAL ARTERY DIMINISHED FLOW RIGHT CERVICAL VERTEBRAL ARTERY WITH VESSEL IRREGULARITY. RIGHT VERTEBRAL ARTERY DISSECTION COULD NOT BE EXCLUDED. CONSIDER FOLLOW-UP CT ANGIO NECK Neck CTA 10/30/19 16:54 IMPRESSION: Small irregular right vertebral artery proximally distally, findings likely represent a right vertebral dissection, age indeterminate. Assessment and Plan - Diagnosis (1) Syncope due to orthostatic hypotension Is this a current diagnosis for this admission?: Yes Plan: Rather strange presentation of feeling dizzy with whiteout of his vision prior to syncopizing when standing. Initially hypotensive with orthostasis on presentation. Still having dizziness when standing despite improvement of BP and resolution of orthostatic hypotension MRA head and neck ordered 10/30/2019 negative for stroke but revealed narrow right vertebral artery and small right vertebral artery dissection. Given that patient's vision loss precedes his dizziness and syncope and that his right vertebral artery which supplies posterior brain circulation seems insufficient, I strongly believe that this might be associated with his symptoms. On 10/30, I consulted neurology in [facility] and discussed case with Dr. Emerald Alvarenga who reviewed the images and discussed case with Neurointerventionalist Dr. Vee Jones who recommends patient for transfer to [place] onto [facility] service for further studies, potential angio and treatment and recommends continuing aspirin. Awaiting bed availability. 11/01/2019 Still awaiting bed availability at [facility]. Patient's dizziness gets triggered when he stands up. (2) Vertebral artery dissection Is this a current diagnosis for this admission?: Yes Plan: Plan as above (3) Acute renal failure Qualifiers: Acute renal failure type: unspecified Qualified Code(s): N17.9 - Acute kidney failure, unspecified Is this a current diagnosis for this admission?: Yes Plan: Baseline creatinine is normal. Creatinine level 4.5 on admission but resolved with IV fluids administration. Creatinine remains normal off fluids. (4) Hyperkalemia Is this a current diagnosis for this admission?: Yes Plan: Renal function has normalized. Suspected that hyperkalemia of 5.2 was secondary to subcutaneous q8h heparin prophylaxis. Switched to Lovenox daily. Still persistent on BMP this morning. We will try to avoid giving Lasix as not to drop blood pressure and exacerbate symptoms. Will give Kayexalate 15 g and check BMP in the morning. Low potassium diet. (5) Chronic chest wall pain Is this a current diagnosis for this admission?: Yes Plan: Secondary to nerve pain from his CABG. Follows with [facility]. Has heavy chronic opioid dependence. Was meant to be taking oxycodone 15 mg IR 5 times a day but takes it every 3 hours at home. States he is being scheduled for some type of nerve block to help to reduce pain. I consulted Timur with [facility] who will wean patient's narcotics and pursue other options. Wean plan as below: 10/30: start Oxycodone 15 mg q 8 hours (max 3 a day) November 01: D/C OXycodone 15mg q 8 hours and start OXycodone 10 mg Q 6 hours (max 4 tablets a day) November 03: Decrease to Oxycodone 10 mg Q 8 hours (max 3 tablets a day) (6) Coronary artery disease Qualifiers: Coronary Disease-Associated Artery/Lesion type: [place] artery [place] vs. transplanted heart: [place] heart Associated angina: with unstable angina Qualified Code(s): I25.110 - Atherosclerotic heart disease of [place] coronary artery with unstable angina pectoris Is this a current diagnosis for this admission?: Yes Plan: Status post CABG end of 2018. his primary mortgage loan counselor is Dr. Cruz Natarajan. Continue aspirin and Plavix. Beta-marin. (7) Diabetes mellitus type 2 in nonobese Is this a current diagnosis for this admission?: Yes Plan: Sliding scale insulin Accu-Cheks - Time Time Spent with patient: Less than 15 minutes Anticipated Discharge Disposition: Tertiary Anticipated Discharge Timeframe: when bed available
[2019-11-01] MEDS ORDERED: SODIUM POLYSTYRENE SULFONATE 15 GM/60 ML PO ONE (17:15)
[2019-11-01] MEDS: LORAZEPAM INJ 2 MG/1 ML VIAL IV PRN (20:19)
[2019-11-02] MEDS: ACETAMINOPHEN 325 MG TABLET PO PRN ×3 (01:14→20:43)
[2019-11-02] MEDS ORDERED: ZOLPIDEM TARTRATE 5 MG TABLET PO ONE (01:15)
[2019-11-02 05:34] LABS: ANION GAP 11 (5-19); BLOOD UREA NITROGEN 18 mg/dL (7-20); CALCIUM 9.4 mg/dL (8.4-10.2); CARBON DIOXIDE 23 mmol/L (22-30); CHLORIDE 99 mmol/L (98-107); GLUCOSE 143 mg/dL (75-110); POTASSIUM 4.8 mmol/L (3.6-5.0)
[2019-11-02] MEDS: OXYCODONE HCL IR 5 MG TABLET PO SCH ×4 (06:23→19:23)
[2019-11-02] MEDS: LORAZEPAM INJ 2 MG/1 ML VIAL IV PRN (08:18)
[2019-11-02] MEDS: INSULIN LISPRO 100 UNIT/ML 3 ML VIAL SUBCUT SCH ×4 (08:32→21:19)
[2019-11-02] MEDS: ASPIRIN 81 MG TABLET, CHEWABLE PO SCH (09:18)
[2019-11-02] MEDS: FAMOTIDINE 20 MG TABLET PO SCH ×2 (09:18→21:18)
[2019-11-02] MEDS: CLOPIDOGREL BISULFATE 75 MG TABLET PO SCH (09:19)
[2019-11-02] MEDS: ENOXAPARIN SODIUM INJ 40 MG/0.4 ML DISP.SYRIN SUBCUT SCH (09:19)
[2019-11-02] MEDS: BUSPIRONE HCL 10 MG TABLET PO SCH ×2 (09:19→21:18)
[2019-11-02] MEDS ORDERED: MORPHINE SULFATE 10 MG/ML INJ IV ONE (09:30)
[2019-11-02] MEDS ORDERED: OXYCODONE HCL IR 5 MG TABLET PO SCH (12:00)
[2019-11-02] MEDS: LORAZEPAM INJ 2 MG/1 ML VIAL IV SCH ×3 (12:16→23:04)
[2019-11-03] MEDS: LORAZEPAM INJ 2 MG/1 ML VIAL IV SCH ×2 (05:53→11:45)
[2019-11-03] MEDS: INSULIN LISPRO 100 UNIT/ML 3 ML VIAL SUBCUT SCH ×3 (07:09→18:41)
[2019-11-03] MEDS: OXYCODONE HCL IR 5 MG TABLET PO SCH ×4 (07:45→18:44)
[2019-11-03] MEDS: ENOXAPARIN SODIUM INJ 40 MG/0.4 ML DISP.SYRIN SUBCUT SCH (11:02)
[2019-11-03] MEDS: FAMOTIDINE 20 MG TABLET PO SCH (11:05)
[2019-11-03] MEDS: BUSPIRONE HCL 10 MG TABLET PO SCH (11:05)
[2019-11-03] MEDS: ASPIRIN 81 MG TABLET, CHEWABLE PO SCH (11:05)
[2019-11-03] MEDS: CLOPIDOGREL BISULFATE 75 MG TABLET PO SCH (11:05)
[2019-11-03] MEDS ORDERED: LIDOCAINE 5% (700 MG) TRANSDERMAL ADH..PATCH TP SCH (13:00)
[2019-11-03] MEDS ORDERED: MORPHINE SULFATE 10 MG/ML INJ IV ONE (14:00)
[2019-11-03 16:39] LABS: ABSOLUTE BASOPHILS # (AUTO) 0.1 10^3/uL (0.0-0.2); ABSOLUTE EOSINOPHILS # (AUTO) 0.3 10^3/uL (0.0-0.6); ABSOLUTE LYMPHOCYTES (AUTO) 2.1 10^3/uL (0.5-4.7); ABSOLUTE MONOCYTES (AUTO) 0.4 10^3/uL (0.1-1.4); ABSOLUTE NEUT (AUTO) 4.3 10^3/uL (1.7-8.2); BASOPHILS % (AUTO) 0.9 % (0-2); EOSINOPHILS % (AUTO) 3.8 % (0-6); HEMOGLOBIN 15.1 g/dL (13.5-17.0); LYMPHOCYTES % (AUTO) 29.3 % (13-45); MEAN CORPUSCULAR HEMOGLOBIN 28.9 pg (27.0-33.4); MEAN CORPUSCULAR HGB CONC 34.4 g/dL (32.0-36.0); MEAN CORPUSCULAR VOLUME 84 fl (80-97); MONOCYTES % (AUTO) 6.2 % (3-13); PLATELET COUNT 210 10^3/uL (150-450); RED BLOOD COUNT 5.22 10^6/uL (4.35-5.55); RED CELL DISTRIBUTION WIDTH 13.4 % (11.5-14.0); SEGMENTED NEUTROPHILS % (AUTO) 59.8 % (42-78); TOTAL CELLS COUNTED % (AUTO) 100 %; WHITE BLOOD COUNT 7.2 10^3/uL (4.0-10.5)
--- NOTE | 2019-11-03 16:49 | PDOC TRANSFER SUMMARY ---
General Admission Date/PCP: 10/29/19 12:18 Resuscitation Status: Full Code - Transfer Diagnosis (1) Vertebral artery dissection Is this a current diagnosis for this admission?: Yes (2) Acute renal failure Is this a current diagnosis for this admission?: Yes (4) Chronic chest wall pain Is this a current diagnosis for this admission?: Yes (5) Diabetes mellitus type 2 in nonobese Is this a current diagnosis for this admission?: Yes (6) Hyperkalemia Is this a current diagnosis for this admission?: Yes (8) Opioid dependence Is this a current diagnosis for this admission?: Yes (9) Syncope due to orthostatic hypotension Is this a current diagnosis for this admission?: Yes (10) Coronary artery disease Is this a current diagnosis for this admission?: Yes - Transfer Medications Home Medications: Buspirone HCl 7.5 mg PO BID 10/29/19 Clopidogrel Bisulfate [Plavix 75 mg Tablet] 75 mg PO DAILY 10/29/19 Lisinopril 20 mg PO DAILY 10/29/19 Metformin HCl [Glucophage 500 mg Tablet] 500 mg PO DAILY 10/29/19 Oxycodone HCl [Oxy-Ir 5 mg Tablet] 15 mg PO 5XD 10/29/19 Transfer Medications: Current Medications Acetaminophen (Tylenol 325 Mg Tablet) 975 mg PO Q4HP PRN PRN Reason: FOR PAIN Stop: 11/28/19 13:46 Last Admin: 11/02/19 20:43 Dose: 975 mg Documented by: Al Hydrox/Mg Hydrox/Simethicone (Maalox Plus Susp 30 Udcup) 15 ml PO Q6HP PRN PRN Reason: HEARTBURN Stop: 11/28/19 13:10 Aspirin (Aspirin 81 Mg Chewable Tablet) 81 mg PO DAILY [facility] Stop: 11/28/19 14:29 Last Admin: 11/03/19 11:05 Dose: 81 mg Documented by: Buspirone HCl (Buspar 10 Mg Tablet) 7.5 mg PO Q12 [facility] Stop: 11/28/19 21:59 Last Admin: 11/03/19 11:05 Dose: 7.5 mg Documented by: Clopidogrel Bisulfate (Plavix 75 Mg Tablet) 75 mg PO DAILY [facility] Stop: 11/28/19 14:29 Last Admin: 11/03/19 11:05 Dose: 75 mg Documented by: Dextrose (Dextrose Inj 50% Syringe (25 Gm/50 Ml)) 12.5 gm IV PRN PRN; Protocol PRN Reason: FOR BG 50-69 IN ALERT PATIENT Stop: 11/28/19 13:23 Dextrose (Dextrose Inj 50% Syringe (25 Gm/50 Ml)) 25 gm IV PRN PRN; Protocol PRN Reason: PER PROTOCOL Stop: 11/28/19 13:23 Enoxaparin Sodium (Lovenox Inj 40 Mg/0.4 Ml Disp.Syrin) 40 mg SUBCUT DAILY [facility] Stop: 12/01/19 09:59 Last Admin: 11/03/19 11:02 Dose: 40 mg Documented by: Famotidine (Pepcid 20 Mg Tablet) 20 mg PO Q12 [facility] Stop: 11/28/19 21:59 Last Admin: 11/03/19 11:05 Dose: 20 mg Documented by: Glucagon (Glucagen Inj 1 Mg Vial) 1 mg IM PRN PRN; Protocol PRN Reason: Evaluate for BG < 70 Stop: 11/28/19 13:23 Glucose (Glutose 40% Gel 15 Gm Tube) 15 gm PO PRN PRN; Protocol PRN Reason: FOR BG 50-69 IN ALERT PATIENT Stop: 11/28/19 13:23 Glucose (Glutose 40% Gel 15 Gm Tube) 30 gm PO PRN PRN; Protocol PRN Reason: FOR BG < 50 IN ALERT PATIENT Stop: 11/28/19 13:23 Hydralazine HCl (Apresoline Inj/Pf 20 Mg/1 Ml Sdv) 10 mg IV Q3HP PRN PRN Reason: Give For Sbp > [160] Stop: 11/30/19 00:40 Insulin Human Lispro (Humalog Insulin 100 Unit/1 Ml 3 Ml Vial) 0 - 12 unit SUBCUT ACHS [facility]; Protocol Stop: 11/28/19 15:59 Last Admin: 11/03/19 11:44 Dose: Not Given Documented by: Lidocaine (Lidoderm 5% (700 Mg) Transdermal Patch) 1 patch TP DAILY [facility] Stop: 12/03/19 12:59 Last Admin: 11/03/19 12:25 Dose: 1 patch Documented by: Lorazepam (Ativan Inj 2 Mg/1 Ml Vial) 1 mg IV Q6 [facility] Stop: 11/09/19 11:59 Last Admin: 11/03/19 11:45 Dose: 1 mg Documented by: Nitroglycerin (Nitrostat 0.4 Mg (1/150 Gr) Tabs 25/Bottle) 1 tab SL Q5MP PRN PRN Reason: FOR CHEST PAIN Stop: 11/29/19 10:28 Last Admin: 10/30/19 23:24 Dose: 1 tab Documented by: Ondansetron HCl (Zofran Inj/Pf 4 Mg/2 Ml Sdv) 4 mg IV Q6HP PRN PRN Reason: FOR NAUSEA/VOMITING Stop: 11/28/19 13:10 Last Admin: 11/01/19 09:11 Dose: 4 mg Documented by: Oxycodone HCl (Oxy-Ir 5 Mg Tablet) 15 mg PO 5XD [facility] Stop: 11/09/19 12:59 Last Admin: 11/03/19 14:04 Dose: 15 mg Documented by: - Allergies Allergies/Adverse Reactions: No Known Allergies Allergy (Verified 04/14/19 03:48) Hospital Course Hospital Course: Per Admitting Physician: "History of Present Illness: MAUDE MENA is a 44 year old male with a history of STEMI status post CABG [8 months ago at [facility]], chronic chest wall pain following open sternotomy, diabetes mellitus type 2, hypertension, who presents to the hospital with complaints of multiple episodes of syncope starting yesterday. He states that these episodes are precipitated by standing up. When he stands up, everything goes white out and then he syncopized this. Uncertain about the duration of his syncopal episodes but does not think it lasts up to 20 minutes. He takes oxycodone 15 mg 5 times a day sometimes more than that. He takes this for his chest wall pain and 2 days ago he try taking fentanyl patch as he still had 1 left. He does tell me that he follows at [facility] and was taken off fentanyl 2 months ago. He has not had it since then until 2 days ago. He is scheduled to have some type of nerve block to help with his chest wall pain. Currently denies any symptoms suggestive of heart attack and just states that he is having his typical severe chest wall pain. He denies diuretic use. He also denies any new additions of any antihypertensive medications." Patient admitted with syncope and visual changes found to have right vertebral artery dissection, patient having very positional syncopal episodes with going from supine position to lateral decubitus for nursing care, syncopized for approximately 1 minute and upon return of consciousness vision was completely white and this gradually improved to a distorted warped vision according to the patient. Patient is to be transferred to [facility] for neurology and vascular care as we do not have these resources at our facility. Case was discussed with Dr. Rincon as well as the neurologist on staff and they agreed with transfer. Patient has been stabilized the best of our ability for transfer and he is in agreement with this plan. (1) Syncope due to orthostatic hypotension Is this a current diagnosis for this admission?: Yes Plan: Rather strange presentation of feeling dizzy with whiteout of his vision prior to syncopizing when standing. Initially hypotensive with orthostasis on presentation. Still having dizziness when standing despite improvement of BP and resolution of orthostatic hypotension MRA head and neck ordered 10/30/2019 negative for stroke but revealed narrow right vertebral artery and small right vertebral artery dissection. Given that patient's vision loss precedes his dizziness and syncope and that his right vertebral artery which supplies posterior brain circulation seems insufficient, I strongly believe that this might be associated with his symptoms. On 10/30, I consulted neurology in [facility] and discussed case with Dr. Emerald Alvarenga who reviewed the images and discussed case with Neurointerventionalist Dr. Vee Jones who recommends patient for transfer to [place] onto [facility] service for further studies, potential angio and treatment and recommends continuing aspirin. Awaiting bed availability. 11/01/2019 Still awaiting bed availability at [facility]. Patient's dizziness gets triggered when he stands up. 11/03/2019 Consulted ophthalmology who will not be able to see the patient today before he is transferred, they stated there is no acute ophthalmologic reason to see him immediately and this should not delay his transfer Patient is accepted to [facility] and the accepting physician is Dr. Rincon, reportedly there is a bed available and he should be transferred tonight (2) Vertebral artery dissection Is this a current diagnosis for this admission?: Yes Plan: Plan as above (3) Acute renal failure Qualifiers: Acute renal failure type: unspecified Qualified Code(s): N17.9 - Acute kidney failure, unspecified Is this a current diagnosis for this admission?: Yes Plan: Baseline creatinine is normal. Creatinine level 4.5 on admission but resolved with IV fluids administration. Creatinine remains normal off fluids. (4) Hyperkalemia Is this a current diagnosis for this admission?: Yes Plan: Renal function has normalized. Suspected that hyperkalemia of 5.2 was secondary to subcutaneous q8h heparin prophylaxis. Switched to Lovenox daily. Still persistent on BMP this morning. We will try to avoid giving Lasix as not to drop blood pressure and exacerbate symptoms. Will give Kayexalate 15 g and check BMP in the morning. Low potassium diet. (5) Chronic chest wall pain Is this a current diagnosis for this admission?: Yes Plan: Secondary to nerve pain from his CABG. Follows with [facility]. Has heavy chronic opioid dependence. Was meant to be taking oxycodone 15 mg IR 5 times a day but takes it every 3 hours at home. States he is being scheduled for some type of nerve block to help to reduce pain. I consulted Timur with [facility] pain management who will wean patient's narcotics and pursue other options. Wean plan as below: 10/30: start Oxycodone 15 mg q 8 hours (max 3 a day) November 01: D/C OXycodone 15mg q 8 hours and start OXycodone 10 mg Q 6 hours (max 4 tablets a day) November 03: Decrease to Oxycodone 10 mg Q 8 hours (max 3 tablets a day) (6) Coronary artery disease Qualifiers: Coronary Disease-Associated Artery/Lesion type: [place] artery [place] vs. transplanted heart: [place] and [place] heart Associated angina: with unstable angina Qualified Code(s): I25.110 - Atherosclerotic heart disease of [place] coronary artery with unstable angina pectoris Is this a current diagnosis for this admission?: Yes Plan: Status post CABG end of 2018. his primary cake puncher is Dr. Cruz Natarajan. Continue aspirin and Plavix. Beta-marin. (7) Diabetes mellitus type 2 in nonobese Is this a current diagnosis for this admission?: Yes Plan: Sliding scale insulin Accu-Cheks Physical Exam Vital Signs: Temp Pulse Resp BP Pulse Ox 97.6 F 93 16 163/86 H 100 11/03/19 12:37 11/03/19 12:37 11/03/19 12:37 11/03/19 12:37 11/03/19 12:37 Intake & Output 11/02/19 11/03/19 11/04/19 06:59 06:59 06:59 Intake Total 2150 2390 240 Output Total 2616 0850 Balance 475 -1360 240 Weight 90.1 kg 90.1 kg 90.1 kg General appearance: PRESENT: no acute distress, well-developed, well-nourished Head exam: PRESENT: atraumatic, normocephalic Eye exam: PRESENT: conjunctiva pink, EOMI, PERRLA. ABSENT: scleral icterus Ear exam: PRESENT: normal external ear exam Mouth exam: PRESENT: moist, tongue midline Neck exam: ABSENT: carotid bruit, JVD, lymphadenopathy, thyromegaly Respiratory exam: PRESENT: clear to auscultation elizabeth. ABSENT: rales, rhonchi, wheezes Cardiovascular exam: PRESENT: RRR. ABSENT: diastolic murmur, rubs, systolic murmur Pulses: PRESENT: normal dorsalis pedis pul Vascular exam: PRESENT: normal capillary refill GI/Abdominal exam: PRESENT: normal bowel sounds, soft. ABSENT: distended, guarding, mass, organolmegaly, rebound, tenderness Rectal exam: PRESENT: deferred Extremities exam: PRESENT: full ROM. ABSENT: calf tenderness, clubbing, pedal edema Neurological exam: PRESENT: alert, awake, oriented to person, oriented to place, oriented to time, oriented to situation. ABSENT: motor sensory deficit Psychiatric exam: PRESENT: appropriate affect, normal mood. ABSENT: homicidal ideation, suicidal ideation Skin exam: PRESENT: dry, intact, warm. ABSENT: cyanosis, rash Results Laboratory Results: 10/29/19 10/29/19 10/29/19 10:13 10:13 15:00 Creatine Kinase 97 CK-MB (CK-2) 0.84 Troponin I 0.017 < 0.012 Impressions: Brain MRI with MRA 10/30/19 00:00 IMPRESSION: NORMAL MRA OF THE [place]. NORMAL MRA EXAM OF THE EXTRACRANIAL CAROTID CIRCULATION NORMAL FLOW SIGNAL LEFT CERVICAL VERTEBRAL ARTERY DIMINISHED FLOW RIGHT CERVICAL VERTEBRAL ARTERY WITH VESSEL IRREGULARITY. RIGHT VERTEBRAL ARTERY DISSECTION COULD NOT BE EXCLUDED. CONSIDER FOLLOW-UP CT ANGIO NECK Neck MRA 10/30/19 00:00 IMPRESSION: NORMAL MRA OF [place]. NORMAL MRA EXAM OF THE EXTRACRANIAL CAROTID CIRCULATION NORMAL FLOW SIGNAL LEFT CERVICAL VERTEBRAL ARTERY DIMINISHED FLOW RIGHT CERVICAL VERTEBRAL ARTERY WITH VESSEL IRREGULARITY. RIGHT VERTEBRAL ARTERY DISSECTION COULD NOT BE EXCLUDED. CONSIDER FOLLOW-UP CT ANGIO NECK Neck CTA 10/30/19 16:54 IMPRESSION: Small irregular right vertebral artery proximally distally, findings likely represent a right vertebral dissection, age indeterminate. Plan Discharge Plan: Transfer to [place] [facility] Accepting physician is Dr. Rincon Time Spent: Greater than 30 Minutes
[2019-11-03 17:04] LABS: ANION GAP 10 (5-19); BLOOD UREA NITROGEN 16 mg/dL (7-20); CALCIUM 9.5 mg/dL (8.4-10.2); CARBON DIOXIDE 26 mmol/L (22-30); CHLORIDE 96 mmol/L (98-107); GLUCOSE 165 mg/dL (75-110); POTASSIUM 4.2 mmol/L (3.6-5.0)
[2019-11-03] MEDS ORDERED: ALPRAZOLAM 0.5 MG TABLET PO PRN (18:04)
[2019-11-03 20:33] VITALS: BP 143/76
--- NOTE | 2019-11-03 20:37 | XCELERA REPORT ---
[address] [address] Transthoracic Echocardiogram Report Name: MAUDE MENA Age: 44 yrs Gender: Male : 1975 Patient Status: Inpatient Patient Location: [address] [place], [place] [id number] Study Date: 11/03/2019 06:39 PM History: Syncope Height: 73 in Weight: 198 lb BSA: 2.1 m2 Procedure: A complete two-dimensional transthoracic echocardiogram was performed (2D, M-mode, spectral and color flow Doppler). The study was technically difficult with many images being suboptimal in quality. Reason For Study: syncope Previous Evaluation: A previous study was performed on 01/20/2019 LVEF 40-45%. Ordering Physician: CHANELLE MIR Performed By: Yarelis Ferreira Interpretation Summary No significant valvular regurgitation or stenosis noted. Left ventricular systolic function is mildly reduced. The Ejection Fraction estimate is 40-45% The right ventricle is normal in size and function. No significant valvular regurgitation or stenosis noted. There is no pericardial effusion. MMode/2D Measurements & Calculations RVDd: 3.1 cm LVIDd: 5.2 cm FS: 36.2 % Ao root diam: 2.8 cm IVSd: 1.2 cm LVIDs: 3.3 cm EDV(Teich): 127.6 ml Ao root area: 6.3 cm2 LVPWd: 0.96 cm ESV(Teich): 44.1 ml LA dimension: 2.9 cm EF(Teich): 65.4 % Doppler Measurements & Calculations MV E max namrata: MV P1/2t max [place]: Ao V2 max: LV V1 max P.2 cm/sec 81.4 cm/sec 139.4 cm/sec 5.8 mmHg MV A max [place]: MV P1/2t: 68.3 msec Ao max PG: LV V1 max: 96.8 cm/sec MVA(P1/2t): 3.2 cm2 7.8 mmHg 120.3 cm/sec MV E/A: 0.65 MV dec slope: 349.5 cm/sec2 MV dec time: 0.28 sec PA V2 max: MV P1/2t-pr_phl: 83.9 cm/sec 68.3 msec PA max P.8 mmHg Left Ventricle The left ventricle is mildly dilated. There is moderate concentric left ventricular hypertrophy. Left ventricular systolic function is mildly reduced. The Ejection Fraction estimate is 40-45%. Doppler measurements suggest impaired left ventricular relaxation, which is associated with grade I/IV or mild diastolic dysfunction. There is anterior wall severe hypokinesis. There is distal anterior wall severe hypokinesis. There is proximal anterior wall severe hypokinesis. There is mid to distal anterior wall severe hypokinesis. There is anteroseptal wall severe hypokinesis. There is inferoseptal wall severe hypokinesis. There is proximal septal wall mild hypokinesis. Right Ventricle The right ventricle is normal in size and function. Atria The right atrium is normal. The left atrial size is normal. The interatrial septum is intact with no evidence for an atrial septal defect. There is no Doppler evidence for an interatrial shunt. Mitral Valve The mitral valve is grossly normal. There is no mitral valve stenosis. There is no mitral regurgitation noted. Aortic Valve The aortic valve is sclerotic and shows some degree of functional abnormality. The aortic valve is mildly calcified. The aortic valve opens well. There is no aortic valve stenosis. No aortic regurgitation is present. Tricuspid Valve The tricuspid valve is normal in structure and function. There is no tricuspid stenosis. No tricuspid regurgitation. Pulmonic Valve The pulmonic valve is normal in structure and function. There is no pulmonic valvular stenosis. There is no pulmonic valvular regurgitation. Great Vessels The aortic root is normal size. The inferior vena cava appeared small and collapsed with respiration (RAP 0-5 mmHg). Effusions There is no pericardial effusion. : CHANELLE MIR Anil
[2019-11-03] MEDS ORDERED: HYDROMORPHONE HCL INJ/PF 2 MG/ML AMPULE IV ONE (21:00)
[2019-11-04] MEDS ORDERED: OXYCODONE HCL IR 5 MG TABLET PO SCH (14:00)
== END 2019-11-03 22:21 | disposition short-term general hospital (02) | DRG 300 ==
LOC: ER 09:51 → EH 12:18 → 4N 16:50
PROVIDERS: ADMIT Internal Medicine; ATTEND Internal Medicine
DX: I77.74 Dissection of vertebral artery (principal); N17.9 Acute kidney failure, unspecified; I25.110 Atherosclerotic heart disease of native coronary artery with unstable angina pectoris; F11.20 Opioid dependence, uncomplicated; R07.89 Other chest pain; E11.9 Type 2 diabetes mellitus without complications; E87.5 Hyperkalemia; I95.1 Orthostatic hypotension; I10 Essential (primary) hypertension; G89.29 Other chronic pain; E78.5 Hyperlipidemia, unspecified; J44.9 Chronic obstructive pulmonary disease, unspecified; I25.2 Old myocardial infarction; F32.9 Major depressive disorder, single episode, unspecified; Z79.02 Long term (current) use of antithrombotics/antiplatelets; Z79.899 Other long term (current) drug therapy; Z95.1 Presence of aortocoronary bypass graft; Z86.718 Personal history of other venous thrombosis and embolism; Z95.5 Presence of coronary angioplasty implant and graft; Z87.891 Personal history of nicotine dependence; Z82.49 Family history of ischemic heart disease and other diseases of the circulatory system
CPT/HCPCS: 36415; 70498; 70544; 70547; 80048; 80053; 80307; 81001; 82550; 82553; 82962; 83735; 84443; 84484; 85025; 85027; 85379; 85610; 93005; 93010; 93306; 96361; 96374; 99285; J1170; J1644; J1650; J1815; J2060; J2270; J2405; J7030

== ENCOUNTER 2020-01-11 17:06 | Inpatient (IN) | payer SELFPAY ==
--- NOTE | 2020-01-11 17:24 | ER Document Report ---
ED Medical Screen (RME) - General Chief Complaint: Syncope Stated Complaint: DIZZINESS, POSSIBLE SYNCOPE,VOMITING Time Seen by Provider: 01/11/20 17:17 Mode of Arrival: Wheelchair Information source: Patient Notes: 44-year-old male presented to ED for syncope x4 today dizziness vomiting sweating chest pain to the left side is just since his open heart surgery about 18 months ago. He also has diabetes type 2 coronary artery disease high blood pressure and cholesterol. He is alert oriented respirations regular nonlabored speaking in full sentences. He states last time he felt like this he ended up going to [place] and have an open heart surgery. His blood sugar is 182 at this time. He states he does feel dehydrated. Patient is alert oriented respirations regular nonlabored speaking in full sentences. I have greeted and performed a rapid initial assessment of this patient. A comprehensive ED assessment and evaluation of the patient, analysis of test results and completion of medical decision making process will be conducted by an additional ED providers. TRAVEL OUTSIDE OF THE [place] IN LAST 30 DAYS: No - Related Data Allergies/Adverse Reactions: No Known Allergies Allergy (Verified 04/14/19 03:48) Home Medications: pain medication. lisinopril. metformin. plavix Past Medical History - Social History Chew tobacco use (# tins/day): No Frequency of alcohol use: None Drug Abuse: None Family history: Reviewed & Not Pertinent - Past Medical History Cardiac Medical History: Reports: Hx Coronary Artery Disease, Hx DVT, Hx Heart Attack - 10/2017, Hx Hypercholesterolemia, Hx Hypertension Pulmonary Medical History: Reports: Hx COPD Denies: Hx Asthma Neurological Medical History: Denies: Hx Cerebrovascular Accident, Hx Seizures Endocrine Medical History: Reports: Hx Diabetes Mellitus Type 2. Denies: Hx Diabetes Mellitus Type 1, Hx Hyperthyroidism, Hx Hypothyroidism Renal/ Medical History: Denies: Hx Peritoneal Dialysis GI Medical History: Denies: Hx Cirrhosis, Hx Hepatitis Musculoskeltal Medical History: Denies Hx Arthritis, Denies Hx Gout Skin Medical History: Denies Hx Eczema, Denies Hx Psoriasis Psychiatric Medical History: Reports: Hx Depression Infectious Medical History: Denies: Hx Hepatitis Past Surgical History: Reports: Hx Cardiac Catheterization, Hx Cardiac Surgery - cabg 05/13, Hx Coronary Artery Bypass Graft, Hx Coronary Stent - x4, Hx Orthopedic Surgery - Immunizations Hx Diphtheria, Pertussis, Tetanus Vaccination: Yes Physical Exam - Vital signs Vitals: Temp 98.4 F 01/11/20 17:17 Course - Vital Signs Vital signs: Temp Pulse Resp BP Pulse Ox 98.4 F 01/11/20 17:17
[2020-01-11 17:47] LABS: ABSOLUTE BASOPHILS # (AUTO) 0.1 10^3/uL (0.0-0.2); ABSOLUTE LYMPHOCYTES (AUTO) 1.4 10^3/uL (0.5-4.7); ABSOLUTE MONOCYTES (AUTO) 0.7 10^3/uL (0.1-1.4); ABSOLUTE NEUT (AUTO) 9.3 10^3/uL (1.7-8.2); EOSINOPHILS % (AUTO) 0.4 % (0-6); HEMOGLOBIN 15.4 g/dL (13.5-17.0); LYMPHOCYTES % (AUTO) 11.8 % (13-45); MEAN CORPUSCULAR HEMOGLOBIN 29.6 pg (27.0-33.4); MEAN CORPUSCULAR HGB CONC 34.9 g/dL (32.0-36.0); MEAN CORPUSCULAR VOLUME 85 fl (80-97); MONOCYTES % (AUTO) 6.5 % (3-13); PLATELET COUNT 288 10^3/uL (150-450); RED BLOOD COUNT 5.19 10^6/uL (4.35-5.55); RED CELL DISTRIBUTION WIDTH 13.1 % (11.5-14.0); SEGMENTED NEUTROPHILS % (AUTO) 80.3 % (42-78); TOTAL CELLS COUNTED % (AUTO) 100 %; WHITE BLOOD COUNT 11.5 10^3/uL (4.0-10.5)
--- NOTE | 2020-01-11 17:51 | RADIOLOGY REPORT (SQ) ---
EXAM DESCRIPTION: CHEST 2 VIEWS IMAGES COMPLETED DATE/TIME: 01/11/2020 5:39 pm REASON FOR STUDY: chest pain openheart surgery 18 months ago COMPARISON: None. NUMBER OF VIEWS: Two view. TECHNIQUE: Frontal and lateral radiographic views of the chest acquired. LIMITATIONS: None. FINDINGS: LUNGS AND PLEURA: No opacities, masses or pneumothorax. No pleural effusion. MEDIASTINUM AND HILAR STRUCTURES: No masses or contour abnormalities. HEART AND VASCULATURE: Heart normal size. No evidence for failure. Prior CABG. BONES: No acute findings. HARDWARE: CABG hardware. OTHER: No other significant finding. IMPRESSION: NO SIGNIFICANT RADIOGRAPHIC FINDING IN THE CHEST. PRIOR CABG. TECHNICAL DOCUMENTATION: JOB ID: [id number] 2010 [employer]- All Rights Reserved Reading location - IP/workstation name: [email or web address]
[2020-01-11 18:06] LABS: ALKALINE PHOSPHATASE 98 U/L (38-126); ANION GAP 15 (5-19); ASPARTATE AMINO TRANSFERASE 23 U/L (17-59); BILIRUBIN,DIRECT 0.3 mg/dL (0.0-0.4); BILIRUBIN,TOTAL 0.6 mg/dL (0.2-1.3); BLOOD UREA NITROGEN 17 mg/dL (7-20); CALCIUM 10.1 mg/dL (8.4-10.2); CARBON DIOXIDE 26 mmol/L (22-30); CHLORIDE 94 mmol/L (98-107); GLUCOSE 175 mg/dL (75-110); POTASSIUM 4.9 mmol/L (3.6-5.0); TOTAL PROTEIN 7.9 g/dL (6.3-8.2)
--- NOTE | 2020-01-11 18:08 | EKG REPORT ---
SEVERITY:- ABNORMAL ECG - SINUS TACHYCARDIA PROBABLE LEFT ATRIAL ABNORMALITY INFERIOR INFARCT, AGE INDETERMINATE ANTERIOR INFARCT, AGE INDETERMINATE : Confirmed by: Otis Franz 11-Jan-2020 18:07:12
[2020-01-12] MEDS ORDERED: NORMAL SALINE 1000 ML 1,000 ML IV ONE (00:48)
[2020-01-12] MEDS ORDERED: NORMAL SALINE 500 ML IV ONE (00:49)
[2020-01-12] MEDS ORDERED: FENTANYL 25 MCG/HR PATCH.TD72 TD ONE (00:55)
[2020-01-12] MEDS ORDERED: OXYCODONE HCL IR 5 MG TABLET PO ONE (00:56)
--- NOTE | 2020-01-12 00:57 | ER Document Report ---
Entered by VENKAT CARBAJAL SCRIBE 01/12/20 0029 Acting as scribe for:ORAL VILLEDA DO ED General - General Chief Complaint: Syncope Stated Complaint: DIZZINESS, POSSIBLE SYNCOPE,VOMITING Time Seen by Provider: 01/11/20 17:17 Mode of Arrival: Wheelchair Information source: Patient Notes: This 44 year old male patient presents to the emergency department today with concerns of feeling lightheaded with possible syncope off and on for the last day or two with associated nausea and vomiting. Patient reports having a CABG done 18 months ago at [facility], currently on plavix and aspirin and hasn't missed any meds. 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 He reports he had a stress test 3 or 4 months ago and he does not remember the results but he has not had a cath since the CABG. He denies any diarrhea, concerns for bad food, or COVID exposure. TRAVEL OUTSIDE OF THE [place] IN LAST 30 DAYS: No - Related Data Allergies/Adverse Reactions: No Known Allergies Allergy (Verified 04/14/19 03:48) Home Medications: pain medication. lisinopril. metformin. plavix Past Medical History - General Information source: Patient - Social History Smoking Status: Unknown if Ever Smoked Cigarette use (# per day): No Chew tobacco use (# tins/day): No Frequency of alcohol use: None Drug Abuse: None Lives with: Family Family History: Reviewed & Not Pertinent, CAD, Hypertension Patient has homicidal ideation: No - Past Medical History Cardiac Medical History: Reports: Hx Coronary Artery Disease, Hx DVT, Hx Heart Attack - 10/2017, Hx Hypercholesterolemia, Hx Hypertension Pulmonary Medical History: Reports: Hx COPD Endocrine Medical History: Reports: Hx Diabetes Mellitus Type 2 Psychiatric Medical History: Reports: Hx Depression Past Surgical History: Reports: Hx Cardiac Catheterization, Hx Cardiac Surgery - cabg 05/13, Hx Coronary Artery Bypass Graft, Hx Coronary Stent - x4, Hx Orthopedic Surgery - Immunizations Hx Diphtheria, Pertussis, Tetanus Vaccination: Yes Review of Systems - Review of Systems Constitutional: No symptoms reported EENT: No symptoms reported Cardiovascular: See HPI, Syncope Respiratory: No symptoms reported Gastrointestinal: See HPI, Nausea, Vomiting. denies: Diarrhea Genitourinary: No symptoms reported Male Genitourinary: No symptoms reported Musculoskeletal: No symptoms reported Skin: No symptoms reported Hematologic/Lymphatic: No symptoms reported Neurological/Psychological: No symptoms reported -: Yes All other systems reviewed and negative Physical Exam - Vital signs Vitals: Temp Pulse Resp BP Pulse Ox 98.4 F 98 20 107/69 100 01/11/20 17:14 01/11/20 17:14 01/11/20 17:14 01/11/20 17:14 01/11/20 17:14 - Notes Notes: Physical Exam: General: Alert, appears well. HEENT: Normocephalic. Atraumatic. PERRL. Extraocular movements intact. Oropharynx clear. Neck: Supple. Non-tender. Respiratory: No respiratory distress. Clear and equal breath sounds bilaterally. Reproducible chest pain, anterior midsternal tenderness to palpation. Cardiovascular: Regular rate and rhythm. Abdominal: Normal Inspection. Non-tender. No distension. Normal Bowel Sounds. Back: No gross abnormalities. Extremities: Moves all four extremities. Upper extremities: Normal inspection. Normal ROM. Lower extremities: Normal inspection. No edema. Normal ROM. Neurological: Normal cognition. AAOx4. Normal speech. Psychological: Normal affect. Normal Mood. Skin: Warm. Dry. Normal color. Course - Re-evaluation Re-evalutation: 01/12/20 01:00 MDM 44 year old male with nausea and vomiting since last evening. No fever or chills. Also light headed. Nearly passed out today more than once. He is s/p cabg 18 months ago at [facility] and then EST at [facility] 4 months ago. Chronic chest pain since the CABG. Also history complicated by Vert artery dissection and treated at [facility] for this beginning of Oct. Per pt xarelto was added to plavix and asa which he was taking already and the [facility] team told him he'd need to be on aspirin and plavix forever. No fever or covid exposure. I have discussed the pt with the hospitalist who is uncomfortable with admitting until/ unless his vertebral artery is imaged. The best imaging previously looks like CTA so will hydrate with expected improvement in economic historian and imaging after that. Records from [facility] have been requested. 01/12/20 02:06 I have discussed the pt on more than one occaision with Dr. Nathan and he is uncomfortable with the pt being here due to his h/o vertebral artery dissection. He would like the pt to be transferred back to [facility]. I have called [facility] with the transfer center and they will have a provider call back. We are currently awaiting a call back. 01/12/20 02:47 I have discussed with Dr. Starr and she has accepted the pt to [facility]. 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 Underwent PT and OT there for vestibular symptoms. I have called Dr. Nathan back regarding the pt and he will assist with maanagement while the pt is here. - Vital Signs Vital signs: Temp Pulse Resp BP Pulse Ox 97.8 F 98 27 H 116/64 99 01/12/20 01:35 01/11/20 17:14 01/12/20 01:38 01/12/20 01:38 01/12/20 01:38 - Laboratory Result Diagrams: 01/11/20 17:33 01/11/20 17:33 Laboratory results interpreted by me: 01/11/20 01/11/20 01/11/20 17:20 17:33 17:33 WBC 11.5 H Lymph % (Auto) 11.8 L Absolute Neuts (auto) 9.3 H Seg Neutrophils % 80.3 H Sodium 135.1 L Chloride 94 L Creatinine 2.48 H Est GFR ( Amer) 34 L Est GFR (MDRD) Non-Af 28 L Glucose 175 H POC Glucose 182 H - Diagnostic Test Radiology reviewed: Image reviewed, Reports reviewed - EKG Interpretation by Me EKG shows normal: Sinus rhythm - Sinus Tachy [address] elevation or depresion ant q waves. Rate: Tachycardia Rhythm: NSR Discharge - Discharge Clinical Impression: Acute kidney injury, Dizziness Condition: Stable Disposition: [facility] I personally performed the services described in the documentation, reviewed and edited the documentation which was dictated to the scribe in my presence, and it accurately records my words and actions.
[2020-01-12] MEDS ORDERED: ONDANSETRON 4 MG TAB.RAPDIS PO PRN ×2 (02:28→13:20)
[2020-01-12] MEDS ORDERED: ONDANSETRON HCL INJ/PF 4 MG/2 ML SDV IV PRN (02:28)
--- NOTE | 2020-01-12 02:35 | PDOC CONSULTATION ---
Consultation Consult Date: 01/12/20 Attending physician:: ORAL VILLEDA Provider Consulted: CHANELLE MIR Consult reason:: Frequent Syncope, Blurred Vision, BATOOL, Vomiting History of Present Illness History of Present Illness: MAUDE MENA is a 44 year old male with past medical history significant for T2DM, HTN, CAD status post CABG 18 months ago, chronic chest pain, vertebral artery dissection who presents to the ED with 4-day history of recurrent frequent syncope with blurred vision which patient states is consistent with previous admission symptoms which was determined to be due to vertebral artery dissection. Patient states his syncope mostly occurs with any exertion, but it does not occur with turning his head to the right as it did on his previous admission. Patient was transferred from this hospital to [facility] where patient states he was admitted there for 1 month and he been put on Xarelto, Plavix, aspirin. Patient states he was taken off of Xarelto and continued on DAPT since then. Patient denies any fever/chills/diarrhea/abdominal pain/sick contacts/COVID-19 exposure. Patient does not know why he is vomiting and states it just occurs spontaneously anytime he eats or drinks anything. He is also not been able to take his medications including aspirin and Plavix while he has been vomiting for the past several days. I discussed case with the ED attending who will reach out to [facility] to see if they are able to accept the patient in transfer. Due to the patient's complicated vascular history, he would be best served in a tertiary facility with access to vascular surgery. This was dis cussed with the patient he is in agreement with this. If [facility] is unable to accept the patient, he can be admitted here to our stepdown unit where he can be reassessed while he is awaiting transfer. Past Medical History Cardiac Medical History: Reports: Coronary Artery Disease, DVT, Myocardial Infarction - 10/2017, Hyperlipidema, Hypertension, Other - Vertebral artery dissection Pulmonary Medical History: Reports: Chronic Obstructive Pulmonary Disease (COPD) Denies: Asthma Neurological Medical History: Denies: Seizures Endocrine Medical History: Reports: Diabetes Mellitus Type 2 Denies: Diabetes Mellitus Type 1, Hyperthyroidism, Hypothyroidism GI Medical History: Denies: Cirrhosis, Hepatitis Musculoskeltal Medical History: Denies: Arthritis, Gout Skin Medical History: Denies: Eczema, Psoriasis Psychiatric Medical History: Reports: Depression Hematology: Denies: Anemia, Bleeding Tendencies Past Surgical History Past Surgical History: Reports: Cardiac Catheterization, Coronary Artery Bypass Graft, Coronary Stent - x4, Orthopedic Surgery Social History Information Source: Patient, Emergency Med Personnel Lives with: Family Smoking Status: Unknown if Ever Smoked Electronic Cigarette use?: No Frequency of Alcohol Use: None Hx Recreational Drug Use: No Drugs: None Hx Prescription Drug Abuse: No - Advance Directive Resuscitation Status: Full Code Family History Family History: Reviewed & Not Pertinent, CAD, Hypertension Parental Family History Reviewed: Yes Children Family History Reviewed: Yes Sibling(s) Family History Reviewed.: Yes Medication/Allergy Home Medications: Buspirone HCl 7.5 mg PO BID 10/29/19 Clopidogrel Bisulfate [Plavix 75 mg Tablet] 75 mg PO DAILY 10/29/19 Lisinopril 20 mg PO DAILY 10/29/19 Metformin HCl [Glucophage 500 mg Tablet] 500 mg PO DAILY 10/29/19 Oxycodone HCl [Oxy-Ir 5 mg Tablet] 15 mg PO 5XD 10/29/19 Allergies/Adverse Reactions: No Known Allergies Allergy (Verified 04/14/19 03:48) Review of Systems All systems: reviewed and no additional remarkable complaints except as stated - Per HPI otherwise negative Physical Exam Vital Signs: Temp Pulse Resp BP Pulse Ox 97.8 F 98 27 H 116/64 99 01/12/20 01:35 01/11/20 17:14 01/12/20 01:38 01/12/20 01:38 01/12/20 01:38 Intake & Output 01/10/20 01/11/20 01/12/20 06:59 06:59 06:59 Weight 87.997 kg Exam: General appearance: PRESENT: no acute distress, well-developed, well-nourished, ill-appearing Head exam: PRESENT: atraumatic, normocephalic Eye exam: PRESENT: conjunctiva pink. ABSENT: scleral icterus Mouth exam: PRESENT: moist Respiratory exam: PRESENT: clear to auscultation elizabeth. ABSENT: rales, rhonchi, wheezes Cardiovascular exam: PRESENT: RRR. ABSENT: diastolic murmur, rubs, systolic murmur GI/Abdominal exam: PRESENT: normal bowel sounds, soft. ABSENT: distended, guarding, mass, organolmegaly, rebound, tenderness Neurological exam: PRESENT: alert, awake, oriented to person, oriented to place, oriented to time, oriented to situation; cranial nerves II through XII grossly intact, strength 5/5 upper and lower extremities equal bilaterally Psychiatric exam: PRESENT: appropriate affect, normal mood Skin exam: PRESENT: dry, intact, warm Results Laboratory Results: 01/11/20 17:33 01/11/20 17:33 01/11/20 01/11/20 17:33 17:33 WBC 11.5 H RBC 5.19 Hgb 15.4 Hct 44.0 MCV 85 MCH 29.6 MCHC 34.9 RDW 13.1 Plt Count 288 Seg Neutrophils % 80.3 H Sodium 135.1 L Potassium 4.9 Chloride 94 L Carbon Dioxide 26 Anion Gap 15 BUN 17 Creatinine 2.48 H Est GFR ( Amer) 34 L Glucose 175 H Calcium 10.1 Magnesium 1.6 Total Bilirubin 0.6 AST 23 Alkaline Phosphatase 98 Total Protein 7.9 Albumin 5.0 01/11/20 17:33 Troponin I 0.022 Impressions: Chest X-Ray 01/11/20 17:22 IMPRESSION: NO SIGNIFICANT RADIOGRAPHIC FINDING IN THE CHEST. PRIOR CABG. Assessment and Plan - Diagnosis (1) Recurrent syncope Is this a current diagnosis for this admission?: Yes Plan: 4-day history syncopal episodes with blurred vision, per patient seems consistent with his previous admission for vertebral artery dissection however this time he does not see flashing lights as before Unable to get CTA/MRA of head and neck due to BATOOL; rehydrate and recheck BMP until able to get the studies Carotid PVL in the meantime Recommend [facility] vascular surgery evaluate for transfer, discussed with the ED Can be admitted here while awaiting transfer if [facility] is unable or unwilling to accept the patient (2) Vomiting Qualifiers: Vomiting type: unspecified Vomiting Intractability: non-intractable Nausea presence: with nausea Qualified Code(s): R11.2 - Nausea with vomiting, unspecified Is this a current diagnosis for this admission?: Yes Plan: Antiemetics IV fluids PPI (3) Blurred vision, bilateral Is this a current diagnosis for this admission?: Yes Plan: Unclear etiology, possibly due to vascular insufficiency as is occurred on his previous admission Consider ophthalmology consult (4) Acute kidney injury Is this a current diagnosis for this admission?: Yes Plan: Likely prerenal due to dehydration Trend BMP IV fluids (5) Coronary artery disease Qualifiers: Coronary Disease-Associated Artery/Lesion type: [place] artery [place] vs. transplanted heart: [place] heart Associated angina: with unstable angina Qualified Code(s): I25.110 - Atherosclerotic heart disease of [place] coronary artery with unstable angina pectoris Is this a current diagnosis for this admission?: Yes (6) Dehydration Is this a current diagnosis for this admission?: Yes (7) Diabetes mellitus type 2 in nonobese Is this a current diagnosis for this admission?: Yes (8) Hypertension Is this a current diagnosis for this admission?: Yes (9) Vertebral artery dissection Is this a current diagnosis for this admission?: Yes Plan: Occurred in October 2019, transferred to [facility] where he was monitored for approximately 1 month per patient, started on Xarelto/aspirin/Plavix later transitioned to DAPT alone Continue DAPT [facility] evaluation for transfer - Time Time Spent with patient: 35 or more minutes Medications reviewed and adjusted accordingly: Yes Anticipated Discharge Disposition: Tertiary Anticipated Discharge Timeframe: within 24 hours
[2020-01-12] MEDS ORDERED: MORPHINE SULFATE 10 MG/ML INJ IV ONE (09:26)
[2020-01-12] MEDS: PANTOPRAZOLE SODIUM 40 MG VIAL IV SCH ×2 (10:04→18:24)
[2020-01-12] MEDS ORDERED: MAGNESIUM SULFATE/D5W 1 GM/100 ML RTUPB IV ONE (11:26)
[2020-01-12] MEDS ORDERED: RINGERS SOLUTION,LACTATED 1,000 ML IV ONE (11:26)
--- NOTE | 2020-01-12 11:31 | ER Document Report ---
Doctor's Note Notes: 01/12/20 11:30 Case was discussed with Dr. Cormier. He agreed to come down to the emergency department and evaluate the patient.
--- NOTE | 2020-01-12 12:44 | RADIOLOGY REPORT (SQ) ---
EXAM DESCRIPTION: CAROTID DOPPLER IMAGES COMPLETED DATE/TIME: 01/12/2020 11:47 am REASON FOR STUDY: vascular disease, syncope, blurred vision COMPARISON: None. TECHNIQUE: Grayscale ultrasound, Doppler velocity and spectra, and color Doppler images acquired of the extra-cranial carotid and vertebral arteries. Images stored on PACS. LIMITATIONS: None. FINDINGS: RIGHT CAROTID CCA Velocities: Within normal limits. ICA Velocities Peak systolic 139 cm/s. End diastolic 53 cm/s. Proximal ICA/CCA peak systolic ratio 1.37. There is soft plaque in the proximal ICA suggesting approximately 50% occlusion. LEFT CAROTID CCA Velocities: Within normal limits. ICA Velocities Peak systolic 105 cm/s. End diastolic 27 cm/s. Proximal ICA/CCA peak systolic ratio 0.9. Spectra normal. No significant plaque. VERTEBRAL ARTERIES: Antegrade flow. Normal waveforms. SUBCLAVIAN ARTERIES: No finding. OTHER: No other significant finding. IMPRESSION: There is soft plaque in the proximal ICA suggesting approximately 50% stenosis. COMMENT: Quality ID #[id number]: Velocity criteria are extrapolated from the diameter data as defined by t he Society of Radiologists in Ultrasound Consensus Conference. Radiology 2003: 229; 340-346. TECHNICAL DOCUMENTATION: JOB ID: [id number] 2010 [employer]- All Rights Reserved Reading location - IP/workstation name: [email or web address]
[2020-01-12] MEDS ORDERED: ALPRAZOLAM 0.5 MG TABLET PO ONE (13:07)
[2020-01-12] MEDS ORDERED: MAGNESIUM HYDROXIDE SUSP 30 ML UDCUP PO PRN (13:20)
[2020-01-12] MEDS ORDERED: TEMAZEPAM 15 MG CAPSULE PO PRN (13:20)
[2020-01-12] MEDS ORDERED: MAG HYDROX/AL HYDROX/SIMETH SUSP 30 ML UDCUP PO PRN (13:20)
[2020-01-12] MEDS ORDERED: ACETAMINOPHEN 325 MG TABLET PO PRN (13:20)
[2020-01-12] MEDS ORDERED: DEXTROSE 40% GEL 15 GM TUBE PO PRN ×2 (13:38)
[2020-01-12] MEDS ORDERED: GLUCAGON,HUMAN RECOMB 1 MG INJ IM PRN (13:38)
[2020-01-12] MEDS ORDERED: DEXTROSE 50%-WATER 25 GM/50 ML DISP.SYRIN IV PRN ×2 (13:38)
[2020-01-12] MEDS ORDERED: IPRATROPIUM/ALBUTEROL 0.5-2.5 MG/3 ML AMPUL NEB PRN (13:40)
--- NOTE | 2020-01-12 14:20 | PDOC H&P ---
History of Present Illness Admission Date/PCP: 01/12/20 11:37 Patient complains of: Nausea and Vomitting History of Present Illness: MAUDE MENA is a 44 year old male was recently transferred from this institution to [facility] for a vertebral artery dissection. He was evaluated and it was felt that this was a chronic issue not acute. He did not undergo any surgical intervention. The patient reports that a treat him with medications and physical therapy and Occupational Therapy. He presents today having not had anything significant to eat or drink for several days. He feels lightheaded and dizzy but notes that it is different from his presentation earlier in the year. He is not been having the syncopal episodes related to turning his head to the right as he did before. He does feel lightheaded when sitting up or standing up. This resolves spontaneously but slowly. The emergency department did contact [facility]. They reviewed the clinical information on the patient and felt that this was not necessarily related to the vertebral artery itself. They suggested that we treat the current abnormal issues to see if he responds. The patient did verbalize that he would rather not travel to another facility if possible. He has been given 2 boluses of IV fluid in the emergency department. He does have chronic left chest wall pain that is believed to be a cervical radiculopathy. The pain is more pressing than his nausea or vomiting at this minute. Because of his elevated serum creatinine and hyperglycemia from his diabetes he will be admitted to the hospitalist service. We will give aggressive IV fluids and monitor his labs closely as well as monitoring intake and output. I will reassess in the morning. If it is just a volume issue then he may very well go home tomorrow. Past Medical History Cardiac Medical History: Reports: Coronary Artery Disease, DVT, Myocardial Infar ct - 10/2017, Hyperlipidema, Hypertension, Other - Vertebral artery dissection Pulmonary Medical History: Reports: Chronic Obstructive Pulmonary Disease (COPD) Denies: Asthma EENT Medical History: Denies: Cataracts Neurological Medical History: Denies: Ischemic CVA, Seizures Endocrine Medical History: Reports: Diabetes Mellitus Type 2 Denies: Diabetes Mellitus Type 1, Hyperthyroidism, Hypothyroidism Renal/ Medical History: Denies: Chronic Kidney Disease GI Medical History: Denies: Cirrhosis, Hepatitis, Peptic Ulcer Disease Musculoskeltal Medical History: Denies: Arthritis, Gout Skin Medical History: Denies: Eczema, Psoriasis Psychiatric Medical History: Reports: Depression, Other - Chronic pain left neck and chest Hematology: Denies: Anemia, Bleeding Tendencies Past Surgical History Past Surgical History: Reports: Cardiac Catheterization, Coronary Artery Bypass Graft, Coronary Stent - x4, Orthopedic Surgery Social History Information Source: Patient, [facility] Records Lives with: Family Smoking Status: Unknown if Ever Smoked Electronic Cigarette use?: No Frequency of Alcohol Use: None Hx Recreational Drug Use: No Drugs: None Hx Prescription Drug Abuse: No - Advance Directive Resuscitation Status: Full Code Surrogate healthcare decision maker:: Ashleigh his significant other Family History Family History: CAD, Hypertension Parental Family History Reviewed: Yes Children Family History Reviewed: Yes Sibling(s) Family History Reviewed.: Yes Medication/Allergy Home Medications: Buspirone HCl 7.5 mg PO BID 10/29/19 Lisinopril 20 mg PO DAILY 10/29/19 Oxycodone HCl [Oxy-Ir 5 mg Tablet] 15 mg PO 5XD 10/29/19 Clopidogrel Bisulfate [Plavix 75 mg Tablet] 75 mg PO DAILY 01/12/20 Diazepam [Valium] 2 mg PO TID 01/12/20 Nitroglycerin [Nitrostat 0.4 mg (1/150 Gr) Tabs 25/Bottle] 1 tab SL Q5MP PRN 01/12/20 Allergies/Adverse Reactions: No Known Allergies Allergy (Verified 04/14/19 03:48) Review of Systems All systems: reviewed and no additional remarkable complaints except as stated Constitutional: PRESENT: fatigue Gastrointestinal: PRESENT: abdominal pain, nausea, vomiting Neurological: PRESENT: other - Chronic neck and left sided radicular chest pain Psychiatric: PRESENT: anxiety Physical Exam Vital Signs: Temp Pulse Resp BP Pulse Ox 97.8 F 98 17 130/114 H 97 01/12/20 01:35 01/11/20 17:14 01/12/20 09:01 01/12/20 09:01 01/12/20 08:01 Intake & Output 01/11/20 01/12/20 01/13/20 06:59 06:59 06:59 Intake Total 500 1100 Balance 500 1100 Weight 87.997 kg General appearance: PRESENT: cooperative, mild distress - Mild to moderate distress, well-developed Eye exam: PRESENT: conjunctiva pink, EOMI. ABSENT: nystagmus, scleral icterus Ear exam: PRESENT: normal external ear exam. ABSENT: bleeding, drainage Mouth exam: PRESENT: dry mucosa, tongue midline Neck exam: ABSENT: carotid bruit, JVD, lymphadenopathy Respiratory exam: PRESENT: chest wall tenderness - Left side, symmetrical, unlabored. ABSENT: accessory muscle use, prolonged expiratory phas, rales, rhonchi, tachypnea, wheezes Cardiovascular exam: PRESENT: RRR, +S1, +S2. ABSENT: bradycardia, diastolic murmur, irregular rhythm, systolic murmur, tachycardia GI/Abdominal exam: PRESENT: normal bowel sounds, soft. ABSENT: distended, guarding, tenderness Rectal exam: PRESENT: deferred Gentrourinary exam: ABSENT: indwelling catheter Extremities exam: ABSENT: pedal edema Musculoskeletal exam: PRESENT: ambulatory, normal inspection. ABSENT: deformity, dislocation Neurological exam: PRESENT: alert, awake, oriented to person, oriented to place, oriented to time, oriented to situation, CN II-XII grossly intact. ABSENT: altered, motor sensory deficit Psychiatric exam: PRESENT: appropriate affect. ABSENT: agitated, anxious Focused psych exam: ABSENT: delusional, paranoid, restlessness Skin exam: PRESENT: dry, normal color, warm. ABSENT: rash Results Laboratory Results: 01/11/20 17:33 01/11/20 17:33 01/11/20 01/11/20 17:33 17:33 WBC 11.5 H RBC 5.19 Hgb 15.4 Hct 44.0 MCV 85 MCH 29.6 MCHC 34.9 RDW 13.1 Plt Count 288 Seg Neutrophils % 80.3 H Sodium 135.1 L Potassium 4.9 Chloride 94 L Carbon Dioxide 26 Anion Gap 15 BUN 17 Creatinine 2.48 H Est GFR ( Amer) 34 L Glucose 175 H Calcium 10.1 Magnesium 1.6 Total Bilirubin 0.6 AST 23 Alkaline Phosphatase 98 Total Protein 7.9 Albumin 5.0 01/11/20 17:33 Troponin I 0.022 Impressions: Chest X-Ray 01/11/20 17:22 IMPRESSION: NO SIGNIFICANT RADIOGRAPHIC FINDING IN THE CHEST. PRIOR CABG. Carotid Doppler Study 01/12/20 02:19 IMPRESSION: There is soft plaque in the proximal ICA suggesting approximately 50% stenosis. Assessment and Plan - Diagnosis (1) Nausea and vomiting Qualifiers: Vomiting type: unspecified Vomiting Intractability: non-intractable Qualified Code(s): R11.2 - Nausea with vomiting, unspecified Is this a current diagnosis for this admission?: Yes (2) Acute kidney injury Is this a current diagnosis for this admission?: Yes (3) Hyperglycemia due to type 2 diabetes mellitus Qualifiers: Diabetes mellitus exterminator insulin use: without exterminator use Qualified Code(s): E11.65 - Type 2 diabetes mellitus with hyperglycemia Is this a current diagnosis for this admission?: Yes (4) Dizziness Is this a current diagnosis for this admission?: Yes (5) Recurrent syncope Is this a current diagnosis for this admission?: Yes (6) Chronic chest wall pain Is this a current diagnosis for this admission?: Yes (7) Coronary artery disease Qualifiers: Coronary Disease-Associated Artery/Lesion type: [place] artery [place] vs. transplanted heart: [place] heart Associated angina: without angina Qualified Code(s): I25.10 - Atherosclerotic heart disease of [place] coronary artery without angina pectoris Is this a current diagnosis for this admission?: Yes (8) History of dissection of artery Is this a current diagnosis for this admission?: Yes Plan: Chronic Vertebral Artery Dissection - Plan Summary Summary: (1) Nausea and vomiting Qualifiers: Vomiting type: unspecified Vomiting Intractability: non-intractable Qualified Code(s): R11.2 - Nausea with vomiting, unspecified Is this a current diagnosis for this admission?: Yes Unsure of the exact etiology of the nausea and vomiting. There does not appear to be any evidence of infection. At this time he exhibits no vertigo. He is not nauseated currently. We will continue antiemetic medications as needed. He will be on acid reducing medications and will receive aggressive IV fluids. (2) Acute kidney injury Is this a current diagnosis for this admission?: Yes Interestingly, the BUN is not elevated. The BUN to creatinine ratio is only 6.85. It could be related to the DOLORES inhibitor and/or Metformin or both. Will administer aggressive IV fluids and monitor function. (3) Hyperglycemia due to type 2 diabetes mellitus Qualifiers: Diabetes mellitus exterminator insulin use: without exterminator use Qualified Code(s): E11.65 - Type 2 diabetes mellitus with hyperglycemia Is this a current diagnosis for this admission?: Yes We will hold on the Metformin currently. We will utilize sliding scale insulin and the patient will be on a controlled carbohydrate diet. (4) Dizziness Is this a current diagnosis for this admission?: Yes Possibly related to hypovolemia. Will administer aggressive fluids and reassess. At this point I see no reason for meclizine. (5) Recurrent syncope Is this a current diagnosis for this admission?: Yes No syncope at this time. I believe the patient will benefit from aggressive fluids. No additional work-up at this time other than telemetry monitoring. (6) Chronic chest wall pain Is this a current diagnosis for this admission?: Yes Patient reports that the next step in this treatment plan would be nerve root section therapy. He does not want to have them cut any nerve roots. We will continue his current regimen of 15 mg of oxycodone 5 times a day and fentanyl patch. Tylenol will be available as well. We will not use nonsteroidal anti- inflammatories due to the renal function issue. (7) Coronary artery disease Qualifiers: Coronary Disease-Associated Artery/Lesion type: [place] artery [place] vs. transplanted heart: [place] heart Associated angina: without angina Qualified Code(s): I25.10 - Atherosclerotic heart disease of [place] coronary artery without angina pectoris Is this a current diagnosis for this admission?: Yes History of coronary artery disease. Continue current medications. Surprisingly the patient is not on a statin. I will review this with the patient and if there is no contraindication we will discuss initiating statin therapy with him. (8) History of dissection of artery Is this a current diagnosis for this admission?: Yes Plan: Chronic Vertebral Artery Dissection Earlier this year may vertebral artery dissection was identified. The patient was sent to [facility]. No surgical intervention was required. We will continue to control his blood pressure. As noted above I will further discuss the use of statin therapy with the patient. He will remain on his antiplatelet therapy. - Time Time Spent with patient: 35 or more minutes Medications reviewed and adjusted accordingly: Yes Anticipated Discharge Disposition: Home, Self Care Anticipated Discharge Timeframe: within 48 hours
[2020-01-12 14:25] LABS: ANION GAP 10 (5-19); BLOOD UREA NITROGEN 21 mg/dL (7-20); CARBON DIOXIDE 27 mmol/L (22-30); CHLORIDE 97 mmol/L (98-107); GLUCOSE 187 mg/dL (75-110); PHOSPHORUS 3.1 mg/dL (2.5-4.5); POTASSIUM 4.9 mmol/L (3.6-5.0)
[2020-01-12] MEDS: HEPARIN SOD (PORCINE) 5,000 UNIT/ML 1 ML VIAL SUBCUT SCH ×2 (15:54→22:19)
[2020-01-12] MEDS: OXYCODONE HCL IR 5 MG TABLET PO SCH ×2 (15:56→18:24)
[2020-01-12] MEDS: INSULIN REG, HUMAN 100 UNIT/ML 3 ML VIAL (PYX) SUBCUT SCH ×2 (16:32→22:20)
[2020-01-12] MEDS: RINGERS SOLUTION,LACTATED 1,000 ML IV PRN (18:27)
[2020-01-12] MEDS ORDERED: ASPIRIN 81 MG TABLET, ENT COATED PO SCH (22:00)
[2020-01-12 22:41] LABS: APPEARANCE,URINE CLEAR; BILIRUBIN,URINE NEGATIVE (NEGATIVE); COLOR,URINE YELLOW; GLUCOSE, URINE 150 mg/dL (NEGATIVE); KETONES,URINE NEGATIVE (NEGATIVE); LEUKOCYTE ESTERASE,URINE NEGATIVE (NEGATIVE); NITRITE,URINE NEGATIVE (NEGATIVE); PROTEIN,URINE NEGATIVE (NEGATIVE); URINE SPECIFIC GRAVITY 1.015; UROBILINOGEN,URINE NEGATIVE mg/dL (<2.0)
[2020-01-13] MEDS: HEPARIN SOD (PORCINE) 5,000 UNIT/ML 1 ML VIAL SUBCUT SCH ×2 (05:46→13:39)
[2020-01-13] MEDS: RINGERS SOLUTION,LACTATED 1,000 ML IV PRN (05:50)
[2020-01-13 07:06] LABS: ALBUMIN 4.2 g/dL (3.5-5.0); ANION GAP 6 (5-19); BLOOD UREA NITROGEN 16 mg/dL (7-20); CALCIUM 9.1 mg/dL (8.4-10.2); CARBON DIOXIDE 31 mmol/L (22-30); CHLORIDE 97 mmol/L (98-107); GLUCOSE 159 mg/dL (75-110); PHOSPHORUS 2.9 mg/dL (2.5-4.5); POTASSIUM 5.5 mmol/L (3.6-5.0)
[2020-01-13] MEDS: OXYCODONE HCL IR 5 MG TABLET PO SCH ×3 (07:58→13:39)
[2020-01-13] MEDS: INSULIN REG, HUMAN 100 UNIT/ML 3 ML VIAL (PYX) SUBCUT SCH ×2 (08:47→12:10)
[2020-01-13] MEDS: PANTOPRAZOLE SODIUM 40 MG VIAL IV SCH (09:18)
[2020-01-13 12:12] VITALS: BP 160/80
--- NOTE | 2020-01-13 14:10 | PDOC DISCHARGE SUMMARY ---
Impression - Admit/DC Date/PCP Admission Date/Primary Care Provider: 01/12/20 13:21 Discharge Date: 01/13/20 - Discharge Diagnosis (1) Nausea and vomiting Is this a current diagnosis for this admission?: Yes (2) Acute kidney injury Is this a current diagnosis for this admission?: Yes (3) Hyperglycemia due to type 2 diabetes mellitus Is this a current diagnosis for this admission?: Yes (4) Dizziness Is this a current diagnosis for this admission?: Yes (5) Recurrent syncope Is this a current diagnosis for this admission?: Yes (6) Chronic chest wall pain Is this a current diagnosis for this admission?: Yes (7) Coronary artery disease Is this a current diagnosis for this admission?: Yes (8) History of dissection of artery Is this a current diagnosis for this admission?: Yes - Assessment Summary: (1) Nausea and vomiting Qualifiers: Vomiting type: unspecified Vomiting Intractability: non-intractable Qualified Code(s): R11.2 - Nausea with vomiting, unspecified Is this a current diagnosis for this admission?: Yes Unsure of the exact etiology of the nausea and vomiting. There does not appear to be any evidence of infection. At this time he exhibits no vertigo. He is not nauseated currently. We will continue antiemetic medications as needed. He will be on acid reducing medications and will receive aggressive IV fluids. (2) Acute kidney injury Is this a current diagnosis for this admission?: Yes Interestingly, the BUN is not elevated. The BUN to creatinine ratio is only 6.85. It could be related to the DOLORES inhibitor and/or Metformin or both. Will administer aggressive IV fluids and monitor function. (3) Hyperglycemia due to type 2 diabetes mellitus Qualifiers: Diabetes mellitus fpc insulin use: without long term care pharmacist use Qualified Code(s): E11.65 - Type 2 diabetes mellitus with hyperglycemia Is this a current diagnosis for this admission?: Yes We will hold on the Metformin currently. We will utilize sliding scale insulin and the patient will be on a controlled carbohydrate diet. (4) Dizziness Is this a current diagnosis for this admission?: Yes Possibly related to hypovolemia. Will administer aggressive fluids and reassess. At this point I see no reason for meclizine. (5) Recurrent syncope Is this a current diagnosis for this admission?: Yes No syncope at this time. I believe the patient will benefit from aggressive fluids. No additional work-up at this time other than telemetry monitoring. (6) Chronic chest wall pain Is this a current diagnosis for this admission?: Yes Patient reports that the next step in this treatment plan would be nerve root section therapy. He does not want to have them cut any nerve roots. We will continue his current regimen of 15 mg of oxycodone 5 times a day and fentanyl patch. Tylenol will be available as well. We will not use nonsteroidal anti- inflammatories due to the renal function issue. (7) Coronary artery disease Qualifiers: Coronary Disease-Associated Artery/Lesion type: [place] artery [place] vs. transplanted heart: [place] heart Associated angina: without angina Qualified Code(s): I25.10 - Atherosclerotic heart disease of [place] coronary artery without angina pectoris Is this a current diagnosis for this admission?: Yes History of coronary artery disease. Continue current medications. Surprisingly the patient is not on a statin. I will review this with the patient and if there is no contraindication we will discuss initiating statin therapy with him. (8) History of dissection of artery Is this a current diagnosis for this admission?: Yes Plan: Chronic Vertebral Artery Dissection Earlier this year may vertebral artery dissection was identified. The patient was sent to [facility]. No surgical intervention was required. We will continue to control his blood pressure. As noted above I will further discuss the use of statin therapy with the patient. He will remain on his antiplatelet therapy. - Additional Information Resuscitation Status: Full Code Discharge Diet: Cardiac, Diabetic Discharge Activity: Activity As Tolerated Referrals: CONCEPCION SMITH PA-C [NO LOCAL MD] - 01/17/20 3:00 pm Home Medications: Lisinopril 20 mg PO DAILY 10/29/19 Oxycodone HCl [Oxy-Ir 5 mg Tablet] 15 mg PO 5XD 10/29/19 Clopidogrel Bisulfate [Plavix 75 mg Tablet] 75 mg PO DAILY 01/12/20 Diazepam [Valium] 2 mg PO TID 01/12/20 Nitroglycerin [Nitrostat 0.4 mg (1/150 Gr) Tabs 25/Bottle] 1 tab SL Q5MP PRN 01/12/20 Fentanyl [Duragesic 25 mcg/hr Transdermal Patch] 1 each TD Q3DAYS patch.[id number] 01/13/20 Rosuvastatin Calcium 80 mg PO DAILY 01/13/20 History of Present Illiness History of Present Illness: MAUDE MENA is a 44 year old male was recently transferred from this institution to [facility] for a vertebral artery dissection. He was evaluated and it was felt that this was a chronic issue not acute. He did not undergo any surgical intervention. The patient reports that a treat him with medications and physical therapy and Occupational Therapy. He presents today having not had anything significant to eat or drink for several days. He feels lightheaded and dizzy but notes that it is different from his presentation earlier in the year. He is not been having the syncopal episodes related to turning his head to the right as he did before. He does feel lightheaded when sitting up or standing up. This resolves spontaneously but slowly. The emergency department did contact [facility]. They reviewed the clinical information on the patient and felt that this was not necessarily related to the vertebral artery itself. They suggested that we treat the current abnormal issues to see if he responds. The patient did verbalize that he would rather not travel to another facility if possible. He has been given 2 boluses of IV fluid in the emergency department. He does have chronic left chest wall pain that is believed to be a cervical radiculopathy. The pain is more pressing than his nausea or vomiting at this minute. Because of his elevated serum creatinine and hyperglycemia from his diabetes he will be admitted to the hospitalist service. We will give aggressive IV fluids and monitor his labs closely as well as monitoring intake and output. I will reassess in the morning. If it is just a volume issue then he may very well go home tomorrow. Hospital Course Hospital Course: Benign hospital course-symptoms greatly improved with aggressive hydration. Physical Exam Vital Signs: Temp Pulse Resp BP Pulse Ox 98.3 F 81 16 160/80 H 98 01/13/20 13:43 01/13/20 13:43 01/13/20 13:43 01/13/20 13:43 01/13/20 13:43 Intake & Output 01/12/20 01/13/20 01/14/20 06:59 06:59 06:59 Intake Total 500 2360 Output Total 1045 Balance 500 1315 Weight 87.997 kg 92.1 kg General appearance: PRESENT: no acute distress Respiratory exam: PRESENT: clear to auscultation elizabeth, symmetrical, unlabored. ABSENT: rhonchi, tachypnea, wheezes Cardiovascular exam: PRESENT: RRR, +S1, +S2 GI/Abdominal exam: PRESENT: normal bowel sounds, soft. ABSENT: tenderness Rectal exam: PRESENT: deferred Gentrourinary exam: ABSENT: indwelling catheter Extremities exam: ABSENT: pedal edema Neurological exam: PRESENT: alert, awake, oriented to person, oriented to place, oriented to time, oriented to situation, CN II-XII grossly intact. ABSENT: altered Psychiatric exam: PRESENT: appropriate affect. ABSENT: agitated, anxious Results Laboratory Results: WBC 11.5 10^3/uL (4.0-10.5) H 01/11/20 17:33 RBC 5.19 10^6/uL (4.35-5.55) 01/11/20 17:33 Hgb 15.4 g/dL (13.5-17.0) 01/11/20 17:33 Hct 44.0 % (37.9-51.0) 01/11/20 17:33 MCV 85 fl (80-97) 01/11/20 17:33 MCH 29.6 pg (27.0-33.4) 01/11/20 17:33 MCHC 34.9 g/dL (32.0-36.0) 01/11/20 17:33 RDW 13.1 % (11.5-14.0) 01/11/20 17:33 Plt Count 288 10^3/uL (150-450) 01/11/20 17:33 Lymph % (Auto) 11.8 % (13-45) L 01/11/20 17:33 [place] % (Auto) 6.5 % (3-13) 01/11/20 17:33 Eos % (Auto) 0.4 % (0-6) 01/11/20 17:33 Baso % (Auto) 1.0 % (0-2) 01/11/20 17:33 Absolute Neuts (auto) 9.3 10^3/uL (1.7-8.2) H 01/11/20 17:33 Absolute Lymphs (auto) 1.4 10^3/uL (0.5-4.7) 01/11/20 17:33 Absolute Monos (auto) 0.7 10^3/uL (0.1-1.4) 01/11/20 17:33 Absolute Eos (auto) 0.0 10^3/uL (0.0-0.6) 01/11/20 17:33 Absolute Basos (auto) 0.1 10^3/uL (0.0-0.2) 01/11/20 17:33 Seg Neutrophils % 80.3 % (42-78) H 01/11/20 17:33 Sodium 133.9 mmol/L (137-145) L 01/13/20 05:55 Potassium 5.5 mmol/L (3.6-5.0) H 01/13/20 05:55 Chloride 97 mmol/L (98-107) L 01/13/20 05:55 Carbon Dioxide 31 mmol/L (22-30) H 01/13/20 05:55 Anion Gap 6 (5-19) 01/13/20 05:55 BUN 16 mg/dL (7-20) 01/13/20 05:55 Creatinine 0.95 mg/dL (0.52-1.25) 01/13/20 05:55 Est GFR ( Amer) > 60 (>60) 01/13/20 05:55 Est GFR (MDRD) Non-Af > 60 (>60) 01/13/20 05:55 Glucose 159 mg/dL (75-110) H 01/13/20 05:55 POC Glucose 152 mg/dL (70-110) H 01/13/20 11:47 Calcium 9.1 mg/dL (8.4-10.2) 01/13/20 05:55 Phosphorus 2.9 mg/dL (2.5-4.5) 01/13/20 05:55 Magnesium 2.2 mg/dL (1.6-2.3) 01/13/20 05:55 Total Bilirubin 0.6 mg/dL (0.2-1.3) 01/11/20 17:33 Direct Bilirubin 0.3 mg/dL (0.0-0.4) 01/11/20 17:33 Neonat Total Bilirubin Not Reportable 01/11/20 17:33 Neonat Direct Bilirubin Not Reportable 01/11/20 17:33 Neonat Indirect Bili Not Reportable 01/11/20 17:33 AST 23 U/L (17-59) 01/11/20 17:33 ALT 22 U/L (<50) 01/11/20 17:33 Alkaline Phosphatase 98 U/L (38-126) 01/11/20 17:33 Troponin I 0.022 ng/mL 01/11/20 17:33 Total Protein 7.9 g/dL (6.3-8.2) 01/11/20 17:33 Albumin 4.2 g/dL (3.5-5.0) 01/13/20 05:55 Urine Color YELLOW 01/12/20 22:18 Urine Appearance CLEAR 01/12/20 22:18 Urine pH 5.0 (5.0-9.0) 01/12/20 22:18 Ur Specific [place] 1.015 01/12/20 22:18 Urine Protein NEGATIVE mg/dL (NEGATIVE) 01/12/20 22:18 Urine Glucose (UA) 150 mg/dL (NEGATIVE) H 01/12/20 22:18 Urine Ketones NEGATIVE mg/dL (NEGATIVE) 01/12/20 22:18 Urine Blood NEGATIVE (NEGATIVE) 01/12/20 22:18 Urine Nitrite NEGATIVE (NEGATIVE) 01/12/20 22:18 Urine Bilirubin NEGATIVE (NEGATIVE) 01/12/20 22:18 Urine Urobilinogen NEGATIVE mg/dL (<2.0) 01/12/20 22:18 Ur Leukocyte Esterase NEGATIVE (NEGATIVE) 01/12/20 22:18 Urine WBC (Auto) 0 /HPF 01/12/20 22:18 U Hyaline Cast (Auto) 1 /LPF 01/12/20 22:18 Urine Mucus (Auto) RARE /LPF 01/12/20 22:18 Urine Ascorbic Acid NEGATIVE (NEGATIVE) 01/12/20 22:18 01/11/20 17:33 Troponin I 0.022 Impressions: Chest X-Ray 01/11/20 17:22 IMPRESSION: NO SIGNIFICANT RADIOGRAPHIC FINDING IN THE CHEST. PRIOR CABG. Carotid Doppler Study 01/12/20 02:19 IMPRESSION: There is soft plaque in the proximal ICA suggesting approximately 50% stenosis. Plan Health Concerns: Patient still needs lifestyle modifications to better control his chronic illnesses. Plan of Treatment: There was significant concern that he was not on statin therapy. His was on the cell phone during this encounter. He is in fact taking the maximum dose of rosuvastatin. In addition we discussed the constant intake of Dr. Alvarenga. I told him that he would benefit by stopping all consumption of Dr. Alvarenga. He should avoid caffeine and try and maintain a good cardiac controlled carbohydrate diet Goals: Continue to improve lifestyle modifications Time Spent: Greater than 30 Minutes Stroke Is this a Stroke Patient?: No Acute Heart Failure Is this a Heart Failure Patient?: No
--- OUTSIDE RECORDS SUMMARY | 2020-01-13 14:49 | XMS REPORT ---
:1975 [facility] Address [address] [address] Care Team Providers Name Role Phone MARYCARMEN MEDINA Attending Clinician Unavailable MILAGRO Attending Clinician Unavailable JAGDEEP JAUREGUI Attending Clinician Unavailable Allergies, Adverse Reactions, Alerts This patient has no known allergies or adverse reactions. Medications Ordered Filled Start Stop Current Ordering Indication Dosage Frequency Signature Comments Components Medication Medication Date Date Medication? Clinician (SIG) Name Name oxyCODONE Yes 15mg Q6H Take 1 (ROXICODONE 9-13 tablet (15 ) 15 MG 00:00: mg total) immediate 00 by mouth release every 6 tablet (six) hours Decreased freq from 5 times/day to 4 times/day. NOT a new prescripti on sennosides- Yes 2{tbl} Q.5D Take 2 docusate 9-13 tablets by (SENOKOT-S) 00:00: mouth 2 8.6-50 mg 00 (two) tablet times daily diclofenac 2020- Yes 4g [id number] Apply 4 g (VOLTAREN) 11-12 [id number] topically 1 % topical 00:00: 23:59 3D 3 (three) gel 00 :00 times daily as needed (chest pain) nicotine 2020- No 1{patch QD Place 1 (NICODERM 11-12 } patch onto CQ) 14 00:00: 23:59 the skin mg/24 hr 00 :00 once daily patch for 14 days acetaminoph 2020- No 1000mg Q8H Take 2 en 11-12 tablets (TYLENOL) 00:00: 23:59 (1,000 mg 500 MG 00 :00 total) by tablet mouth every 8 (eight) hours for 10 days meclizine 2020-0 2020- No 25mg Q.19241184 Take 1 (ANTIVERT) 11-12 [id number] tablet (25 25 mg 00:00: 23:59 3D mg total) tablet 00 :00 by mouth 3 (three) times daily for 10 days diazePAM 2019-0 2020- No 2mg Q.92403317 Take 1 (VALIUM) 2 11-12 [id number] tablet (2 MG tablet 00:00: 23:59 3D mg total) 00 :00 by mouth 3 (three) times daily for 5 days fentaNYL 2020-0 2020- No 1{patch Q72H 1 patch, (DURAGESIC) 11-10 } Transderma 25 mcg/hr 1 11:30: 19:45 l, patch 00 :17 Administer over 72 Hours, Every 72 hours, First dose on Thu11/11/19 at 1130, For 5 days
Do not cut patch.<b r> meclizine 0 No 25mg Q6H 25 mg, (ANTIVERT) 11-09 Oral, tablet 25 19:58: Every 6 mg 00 hours, First dose (after last modificati on) on Thu11/10/19 at 2000 fentaNYL 2020-0 2020- No 1{patch Q72H 1 patch, (DURAGESIC) 11-09 } Transderma 12 mcg/hr 1 13:00: 10:44 l, patch 00 :41 Administer over 72 Hours, Every 72 hours, First dose on Thu11/10/19 at 1300, For 5 days
Do not cut patch.<b r> insulin 2019-0 No 0U Q.25D 0-10 LISPRO 9-10 Units, (HumaLOG) 12:15: Subcutaneo injection 00 us, 4 correction times dose 0-10 Daily Units before meals and Nightly (INSULIN), First dose on Thu11/10/19 at 1215
If nutrition stops, give correction dose per scale below. (If BG < 70, treat per hypoglycem ia protocol.) Gluc ose Range&nbsp ; &nbs p; < 70 mg/dL &nbs p; &n bsp; See Hypoglycem ia Protocol&n bsp; 70 - 150 mg/dl 0 units&nbsp ;151 - 200 mg/dL 0 units&nbsp ;201 - 250 mg/dL 3 units&nbsp ;251 - 300 mg/dL 5 units&nbsp ;301 - 350 mg/dL 7 units&nbsp ;&nbsp ; > 350 mg/dL 9 units & notify Provider<b r> diazePAM 2020- No 5mg Q.37313434 5 mg, (VALIUM) 11-08 [id number] Oral, tablet 5 mg 16:00: 15:59 3D Every 8 00 :00 hours, First dose on Thu11/09/19 at 1600, For 14 days oxyCODONE 2020- No 15mg Q6H 15 mg, (ROXICODONE 11-08 Oral, ) immediate 15:15: 15:14 Every 6 release 00 :00 hours, tablet 15 First dose mg on Thu11/09/19 at 1515, For 5 days diclofenac 2019- No 4g Q.35048747 4 g, (VOLTAREN) 11-08 [id number] Topical, 3 1 % topical 00:23: 00:22 3D times gel 4 g 46 :46 Daily PRN, chest pain, Starting Thu11/09/19 at 0023, For 30 days
Ap ply to area of maximal pain
perflutren 2019- 2020- No Starting lipid 11-0711/08/19 microsphere 14:31: 14:39 at 1431, s 17 :00 For 1 (DEFINITY) dose
Cr 1.1 mg/mL eated by injection cabinet override&n bsp;0.01 milliliter s/kg = 10 microliter s/kg
diazePAM 2019- No 2mg 2 mg, (VALIUM) 11-07 Oral, tablet 2 mg 12:00: 13:49 Every 6 00 :57 hours, First dose on Thu11/08/19 at 1200, For 14 days meclizine 2020- No 25mg Q6H 25 mg, (ANTIVERT) 11-07 Oral, tablet 25 10:21: 17:21 Every 6 mg 24 :32 hours PRN, Dizziness, Starting Thu11/08/19 at 1021 insulin 2020- No 0U Q.23952417 0-10 LISPRO 11-07 [id number] Units, (HumaLOG) 07:05: 11:28 3D Subcutaneo injection 00 :51 us, 3 correction times dose 0-10 Daily CC Units (with meals) (INSULIN), First dose (after last modificati on) on Thu11/08/19 at 0705
If nutrition stops, give correction dose per scale below. (If BG < 70, treat per hypoglycem ia protocol.) Gluc ose Range&nbsp ; &amp ;nbsp;&nbs p; < 70 mg/dL &nbs p; &n bsp; See Hypoglycem ia Protocol&n bsp; 70 - 150 mg/dl 0 units&nbsp ;151 - 200 mg/dL 0 units&nbsp ;201 - 250 mg/dL 2 units&nbsp ;251 - 300 mg/dL 3 units&nbsp ;301 - 350 mg/dL 4 units&nbsp ; &nb sp; > 350 mg/dL 5 units & notify Provider<b r> acetaminoph 2019- No 1000mg Q.73202075 1,000 m g, en 11-05 [id number] Oral, (TYLENOL) 16:00: 3D Every 8 tablet 00 hours, 1,000 mg First dose (after last modificati on) on Thu11/06/19 at 1600
Cinthya ximum acetaminop hen intake from all sources should not exceed 75 mg/kg OR 4 grams in any 24 hour period, whichever is less.
oxyCODONE 2019- 2020- No 15mg Q6H 15 mg, (ROXICODONE 11-05 Oral, ) immediate 12:00: 14:26 Every 6 release 00 :18 hours PRN, tablet 15 severe mg pain (7-10), Starting 11/06/19 at 1200 enoxaparin 2019-0 2020- No 40mg QD 40 mg, (LOVENOX) 11-05 Subcutaneo 40 mg/0.4 11:56: 08:59 us, Daily, mL inj 00 :00 First dose syringe 40 (after mg last modificati on) on 11/06/19 at 1245, For 30 days
Alterna te injection sites between the left and right Anterolate ral; and left and right Posterolat eral Abdominal Wall
hydrOXYzine 2019-0 2020- No 25mg Q6H 25 mg, pamoate 11-04 Oral, (VISTARIL) 14:35: 14:34 Every 6 capsule 25 03 :03 hours PRN, mg Anxiety, Starting 11/05/19 at 1435, For 30 days melatonin 2019-0 No 3mg QD 3 mg, tablet 3 mg 11-03 Oral, 23:45: Nightly, 00 First dose on Thu11/04/19 at 2345 nicotine 2020-0 No 1{patch QD 1 patch, (NICODERM 11-03 } Transderma CQ) 14 23:15: l, mg/24 hr 1 00 Administer patch over 24 Hours, Daily, First dose (after last modificati on) on Thu11/04/19 at 2315
Caution: Hazardous Drug. Special handling and disposal in blue bin required.* *
traZODone 2019-0 No 50mg Q24H 50 mg, (DESYREL) 11-03 Oral, tablet 50 22:51: Nightly mg 21 PRN, Sleep, Starting Thu11/04/19 at 2251 nicotine 2020-0 No 2mg 2 mg, polacrilex 11-03 Buccal, (NICORETTE) 22:24: Every 30 gum 2 mg 32 min PRN, Smoking cessation, Starting Thu11/04/19 at 2224
Caution: Hazardous Drug. Special handling and disposal in blue bin required.* *
lidocaine 2020-0 No 1{patch Q24H 1 patch, (LIDODERM) 11-03 } Transderma 5 % 1 patch 21:30: l, 00 Administer over 12 Hours, Every 24 hours, First dose on Thu11/04/19 at 2130
Ap ply to Chest&nbsp ;Do not apply if patient has "amide" type anesthetic allergy.<b r> sennosides- 2019-0 No 2{tbl} Q.5D 2 tablet, docusate 11-03 Oral, 2 (SENOKOT-S) 09:00: times 8.6-50 mg 00 Daily, tablet 2 First dose tablet on Thu11/04/19 at 0900
Co ntains sennosides 8.6 mg-docusat e 50 mg per tab.
lisinopriL No 20mg Q.5D 20 mg, (ZESTRIL) 11-03 Oral, 2 tablet 20 09:00: times mg 00 Daily, First dose on Thu11/04/19 at 0900
Ho ld for SBP < 90 .
clopidogreL No 75mg QD 75 mg, (PLAVIX) 11-03 Oral, tablet 75 09:00: Daily, mg 00 First dose on Thu11/04/19 at 0900 aspirin EC No 81mg QD 81 mg, tablet 81 11-03 Oral, mg 09:00: Daily, 00 First dose on Thu11/04/19 at 0900
Do not crush, chew, or split. Swallow whole.<b r> busPIRone 0 No 7.5mg Q.5D 7.5 mg, (BUSPAR) 11-03 Oral, 2 tablet 7.5 04:45: times mg 00 Daily, First dose (after last modificati on) on Thu11/04/19 at 0445 insulin 2020- No 0U Q.25D 0-10 LISPRO 11-03 09-07 Units, (HumaLOG) 02:15: 16:45 Subcutaneo injection 00 :59 us, Every correction 6 hours dose 0-10 (INSULIN), Units First dose on Thu11/04/19 at 0215
If nutrition stops, give correction dose per scale below. (If BG < 70, treat per hypoglycem ia protocol.) Gluc ose Range&nbsp ; &nbs p; < 70 mg/dL &nbs p; &n bsp; See Hypoglycem ia Protocol&n bsp; 70 - 150 mg/dl 0 units&nbsp ;151 - 200 mg/dL 0 units&nbsp ;201 - 250 mg/dL 2 units& nbsp;251 - 300 mg/dL 3 units&nbsp ;301 - 350 mg/dL 4 units&nbsp ; &nb sp; > 350 mg/dL 5 units & notify Provider<b r> sodium 2020-0 2020- No at 100 chloride 11-03 mL/hr, 0.9% 02:15: 09:27 Intravenou infusion 00 :53 s, Continuous , Starting Thu11/04/19 at 0215, For 30 days polyethylen 2020-0 No 17g Q24H 17 g, e glycol 11-03 Oral, (MIRALAX) 01:27: Daily PRN, packet 17 g 37 Constipati on, Starting Thu11/04/19 at 0127
Mi x in 4-8 ounces of fluid.
ondansetron 2019-0 No 4mg Q8H [Order 1 (ZOFRAN-ODT 11-03 Start] ) 01:27: Name: disintegrat 29 ondansetro ing tablet n 4 mg (ZOFRAN-OD T) disintegra ting tablet 4 mg Signed Summary: 4 mg, Oral, Every 8 hours PRN, Nausea/Vom iting (1st line), Starting Thu11/04/19 at 0127 [Order 1 End] [Order 2 Start] Name: ondansetro n (PF) (ZOFRAN) injection 4 mg Signed Summary: 4 mg, Intravenou s, Every 8 hours PRN, Nausea/Vom iting (if PO ineffectiv e or NPO), (1st line), Starting Thu11/04/19 at 0127
IV Push over 2-5 minutes up to a MAXIMUM of 8 mg
[Order 2 End] acetaminoph 2020-0 2020- No 650mg Q6H 650 mg, en 11-0306 Oral, (TYLENOL) 01:27: 11:40 Every 6 tablet 650 22 :13 hours PRN, mg mild pain (1-3), Starting Thu11/04/19 at 0127
Ma ximum acetaminop hen intake from all sources should not exceed 75 mg/kg OR 4 grams in any 24 hour period, whichever is less.
glucagon 2019-0 No 1mg 1 mg, (GLUCAGEN) 11-03 Intramuscu injection 1 01:25: lar, As mg 55 Directed, Low blood sugar, Per Hypoglycem ia Protocol, Starting Thu11/04/19 at 0125
Gi ve if BG < 70 (or < 80 with hypoglycem ia symptoms) and NPO with NO IV access.
dextrose No 12.5g 12.5-25 g, 50% in 11-03 Intravenou water 01:25: s, As solution 54 Directed, 12.5-25 g Per Hypoglycem ia Protocol, Starting Thu11/04/19 at 0125
If BG < 70 (or < 80 with hypoglycem ia symptoms) and patient is NPO or limited PO, give 12.5 g for BG >= 50 or 25 g for BG < 50.
lidocaine 2019-0 No .5mL 0.5 mL, (XYLOCAINE) 11-03 Subcutaneo 1 % 01:25: us, As injection 54 Directed, 0.5 mL For PIV insertion: may use lidocaine and may repeat x 1 for additional attempt., Starting Thu11/04/19 at 0125 oxyCODONE 2019-0 2020- No 15mg Q4H 15 mg, (ROXICODONE 11-03 Oral, ) immediate 01:25: 10:52 Every 4 release 42 :13 hours PRN, tablet 15 severe mg pain (7-10), Starting Thu11/04/19 at 0125, For 5 days busPIRone Yes 7.5mg Q.5D Take 7.5 (BUSPAR) mg by 7.5 MG mouth 2 tablet (two) times daily clopidogreL Yes 75mg QD Take 75 mg (PLAVIX) 75 by mouth mg tablet once daily aspirin 81 Yes 81mg QD Take 81 mg MG EC by mouth tablet once daily lisinopriL Yes 20mg Q.5D Take 20 mg (ZESTRIL) by mouth 2 20 MG (two) tablet times daily metFORMIN Yes 500mg QD Take 500 (GLUCOPHAGE mg by ) 500 MG mouth tablet daily with breakfast glipiZIDE Yes 10mg QD Take 10 mg (GLUCOTROL) by mouth 10 MG every tablet morning before breakfast naloxone No 4mg 1 spray (4 (NARCAN) 4 mg total) mg/actuatio by n nasal Intranasal spray route once as needed (if not breathing. ) for up to 1 dose naloxone No 4mg 1 spray (4 (NARCAN) 4 mg total) mg/actuatio by n nasal Intranasal spray route once as needed (if not breathing. ) for up to 1 dose iopamidoL No 75mL 75 mL, (ISOVUE-370 Intravenou ) 76% s, Once, injection Sat 75 mL 11/12/19 at 1300, For 1 dose, Radiology magnesium No 2g 2 g, sulfate 2 Intravenou g/50 mL s, at 25 IVPB mL/hr, Once, 11/12/19 at 0830, For 1 dose morphine No 2mg 2 mg, intravenous Intravenou syringe 2 s, Once, mg Thu11/11/19 at 1045, For 1 dose ketorolac No 15mg 15 mg, (TORADOL) Intravenou injection s, Once, 15 mg Thu11/11/19 at 2000, For 1 dose
The total combined duration of oral and injectable ketorolac must not exceed 5 days
morphine No 2mg 2 mg, intravenous Intravenou syringe 2 s, Once, mg Billie 11/10/19 at 1215, For 1 dose sodium No 500mL 500 mL, chloride Intravenou 0.9 % bolus s, at 500 500 mL mL/hr, Once, Billie 11/10/19 at 0545, For 1 dose morphine No 2mg 2 mg, intravenous Intravenou syringe 2 s, Once, mg Thu11/09/19 at 1745, For 1 dose magnesium No 4g 4 g, sulfate 4 Intravenou g/100 mL s, at 25 IVPB mL/hr, Once, Thu11/09/19 at 0845, For 1 dose morphine No 4mg 4 mg, intravenous Intravenou syringe 4 s, Once, mg 11/08/19 at 1615, For 1 dose diazePAM No 2.5mg 2.5 mg, (VALIUM) Oral, tablet 2.5 Once, Mon mg 11/07/19 at 1315, For 1 dose ketorolac No 7.5mg 7.5 mg, (TORADOL) Intravenou injection s, Once, 7.5 mg 11/06/19 at 2145, For 1 dose
The total combined duration of oral and injectable ketorolac must not exceed 5 days
sodium No 500mL 500 mL, chloride Intravenou 0.9 % bolus s, at 250 500 mL mL/hr, Once, 11/05/19 at 1215, For 1 dose HYDROmorpho No 1mg 1 mg, ne (PF) Intravenou (DILAUDID) s, Once, 1 mg/mL inj Thu11/04/19 syringe 1 at 1230, mg For 1 dose HYDROmorpho No 1mg 1 mg, ne (PF) Intravenou (DILAUDID) s, Once, 1 mg/mL inj Thu11/04/19 syringe 1 at 0415, mg For 1 dose HYDROmorpho No 1mg 1 mg, ne (PF) Intravenou (DILAUDID) s, Once, 1 mg/mL inj Thu11/04/19 syringe 1 at 0230, mg For 1 dose oxyCODONE 2019- No 15mg Q.2D Take 15 mg (ROXICODONE 11-12 by mouth 5 ) 15 MG 00:00 (five) immediate :00 times release daily tablet Problems Condition Condition Condition Status Onset Resolution Last Treatin g Comments Name Details Category Date Date Treatment Clinician Date Recurrent Recurrent [id number] Active 2019-11-04 syncope syncope 11-03 05:42:26 00:00: 00 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 00:00: 00 BATOOL (acute BATOOL (acute [id number] Active 2019-11-04 kidney kidney 11-03 05:42:52 injury) injury) 00:00: 00 CAD CAD [id number] Active 2019-11-04 Over view: (coronary (coronary 11-03 05:43:01 H/o CABG artery artery 00:00: disease) disease) 00 DM2 DM2 [id number] Active 2019-11-04 (diabetes (diabetes 11-03 05:43:08 mellitus, mellitus, 00:00: type 2) type 2) 00 Essential Essential [id number] Active 2019-11-04 hypertensio hypertensio 11-03 05:43:22 n n 00:00: 00 Pain Pain [id number] Active 2019-11-04 syndrome, syndrome, 11-03 05:43:33 chronic chronic 00:00: 00 Procedures Procedure Date / Time Performed Performing Clinician Mode everett [id number] 00:00:00 Marycarmen Medina POC GLUCOSE WHOLE BLOOD 2019-11-13 11:06:00 Kenia Humphrey POC GLUCOSE WHOLE BLOOD 2019-11-13 06:40:00 Kenia Humphrey POC GLUCOSE WHOLE BLOOD 2019-11-12 20:23:00 Kenia Humphrey POC GLUCOSE WHOLE BLOOD 2019-11-12 16:17:[address] HEAD AND NECK ANGIOGRAM WITH 2019-11-12 12:52:07 Rony Humphrey a AND WITHOUT CONTRAST POC GLUCOSE WHOLE BLOOD 2019-11-12 11:27:00 Kenia Humphrey POC GLUCOSE WHOLE BLOOD 2019-11-12 06:33:00 Kenia Humphrey POC GLUCOSE WHOLE BLOOD 2019-11-11 20:49:00 Kenia Humphrey COMPLETE BLOOD COUNT (CBC) 2019-11-11 19:34:00 Zahra Dodge TOTAL PARENTERAL NUTRITION (TPN) 2019-11-11 19:34:00 Loren Dodge PANEL B TROPONIN I 2019-11-11 19:34:00 Zahra Dodge HEMOGLOBIN A1C 2019-11-11 19:34:00 Kenia Humphrey MS ELECTROCARDIOGRAM REPORT 2019-11-11 18:58:47 Zahra Dodge venaugh POC GLUCOSE WHOLE BLOOD 2019-11-11 18:41:00 Kenia Humphrey [id number] 2019-11-11 18:36:39 Kenia Humphrey POC GLUCOSE WHOLE BLOOD 2019-11-11 16:54:00 Kenia Humphrey BASIC METABOLIC PANEL (BMP) 2019-11-11 16:40:00 Kenia Humphrey MRI CERVICAL SPINE WITHOUT 2019-11-11 12:40:08 Belur, Kenia CONTRAST POC GLUCOSE WHOLE BLOOD 2019-11-11 10:53:00 Belur, Kenia POC GLUCOSE WHOLE BLOOD 2019-11-11 06:26:00 Belur, Kenia POC GLUCOSE WHOLE BLOOD 2019-11-10 20:08:00 Belur, Kenia POC GLUCOSE WHOLE BLOOD 2019-11-10 16:25:00 Belur, Kenia POC GLUCOSE WHOLE BLOOD 2019-11-10 11:07:00 Belur, Kenia POC GLUCOSE WHOLE BLOOD 2019-11-10 06:42:00 Belur, Kenia POC GLUCOSE WHOLE BLOOD 2019-11-10 04:44:00 Belur, Kenia POC GLUCOSE WHOLE BLOOD 2019-11-09 20:49:00 Belur, Kenia POC GLUCOSE WHOLE BLOOD 2019-11-09 16:36:00 Belur, Kenia POC GLUCOSE WHOLE BLOOD 2019-11-09 10:40:00 Belur, Kenia POC GLUCOSE WHOLE BLOOD 2019-11-09 06:28:00 Belur, Kenia COMPLETE BLOOD COUNT (CBC) 2019-11-09 05:11:00 Belur, Kenia BASIC METABOLIC PANEL (BMP) 2019-11-09 05:11:00 Belur, Kenia MAGNESIUM 2019-11-09 05:11:00 Belur, Kenia POC GLUCOSE WHOLE BLOOD 2019-11-08 20:48:00 Belur, Kenia POC GLUCOSE WHOLE BLOOD 2019-11-08 16:33:00 Milagro, Kenia MS ELECTROCARDIOGRAM REPORT 2019-11-08 16:32:11 Chani De Leon ECHOCARDIOGRAM 2D COMPLETE WITH 2019-11-08 14:40:53 Rony Humphrey a CONTRAST XR CHEST PA AND LATERAL 2019-11-08 13:28:37 Beljaswant, Kenia POC GLUCOSE WHOLE BLOOD 2019-11-08 11:07:00 Beljaswant, Kenia [id number] 2019-11-08 08:39:17 Belur, Kenia POC GLUCOSE WHOLE BLOOD 2019-11-08 05:54:00 Jessica Liu y POC GLUCOSE WHOLE BLOOD 2019-11-08 00:09:00 Jessica Liu y POC GLUCOSE WHOLE BLOOD 2019-11-07 17:00:00 Jessica Liu y POC GLUCOSE WHOLE BLOOD 2019-11-07 10:59:00 Alexa, Jessica Correa y POC GLUCOSE WHOLE BLOOD 2019-11-07 05:53:00 Alexa, Jessica Correa y COMPLETE BLOOD COUNT (CBC) 2019-11-07 05:22:00 Alexa, Jessica Jacoob BASIC METABOLIC PANEL (BMP) 2019-11-07 05:22:00 Alexa, Jessica Jacobo POC GLUCOSE WHOLE BLOOD 2019-11-06 23:50:00 Alexa, Jessica Mar y POC GLUCOSE WHOLE BLOOD 2019-11-06 16:36:00 Alexa, Jessica Mar y POC GLUCOSE WHOLE BLOOD 2019-11-06 11:00:00 Alexa, Jessica Mar y POC GLUCOSE WHOLE BLOOD 2019-11-06 06:01:00 Alexa, Jessica Correa y COMPLETE BLOOD COUNT (CBC) 2019-11-06 05:30:00 Alexa, Jessica Jacobo COMPREHENSIVE METABOLIC PANEL 2019-11-06 05:29:00 AlexaVanda mccall ra (CMP) MAGNESIUM 2019-11-06 05:29:00 Alexa, Jessica Jacobo POC GLUCOSE WHOLE BLOOD 2019-11-05 23:49:00 Alexa, Jessica Correa y POC GLUCOSE WHOLE BLOOD 2019-11-05 21:18:00 Alexa, Jessica Correa y POC GLUCOSE WHOLE BLOOD 2019-11-05 16:47:00 Alexa, Jessica Correa y [id number] 2019-11-05 11:25:06 Alexa, Jessica Jacobo POC GLUCOSE WHOLE BLOOD 2019-11-05 11:17:00 Alexa, Jessica Correa y POC GLUCOSE WHOLE BLOOD 2019-11-05 06:22:00 Alexa, Jessica Correa y COMPLETE BLOOD COUNT (CBC) 2019-11-05 05:12:00 Alexa, Jessica Jacobo COMPREHENSIVE METABOLIC PANEL 2019-11-05 05:12:00 AlexaVanda ra (CMP) MAGNESIUM 2019-11-05 05:12:00 Alexa, Jessica Jacobo POC GLUCOSE WHOLE BLOOD 2019-11-05 00:01:00 Alexa, Jessica Mar y POC GLUCOSE WHOLE BLOOD 2019-11-04 21:19:00 Alexa, Jessica Correa y TOXICOLOGY (DRUG) SCREEN, URINE 2019-11-04 18:47:00 AlexaSa smooth POC GLUCOSE WHOLE BLOOD 2019-11-04 16:23:00 Jessica Liu POC GLUCOSE WHOLE BLOOD 2019-11-04 11:37:00 Jessica Liu MRI BRAIN WITHOUT CONTRAST 2019-11-04 11:05:56 Jessica Liu POC GLUCOSE WHOLE BLOOD 2019-11-04 05:57:00 Andrey Beltreis CORONAVIRUS (COVID-19) 2019-11-04 03:43:00 Andrey Beltre SARS-COV-2 RAPID TEST POC GLUCOSE WHOLE BLOOD 2019-11-04 02:26:00 Andrey Beltre rris PROTHROMBIN TIME (INR) 2019-11-04 01:44:00 Andrey Beltre ACTIVATED PARTIAL THROMBOPLASTIN 2019-11-04 01:44:00 Andrey Beltre TIME (APTT) COMPLETE BLOOD COUNT (CBC) WITH 2019-11-04 01:44:00 Andrey Beltre DIFFERENTIAL COMPREHENSIVE METABOLIC PANEL 2019-11-04 01:44:00 Andrey Beltre (CMP) VITAMIN B12 2019-11-04 01:44:00 Andrey Beltre MAGNESIUM 2019-11-04 01:44:00 Andrey Beltre PHOSPHORUS 2019-11-04 01:44:00 Andrey Beltre THYROID STIMULATING HORMONE 2019-11-04 01:44:00 Andrey Beltre h Tolu (TSH) [id number] 2019-11-04 01:28:34 Andrey Beltre [id number] 8219-09-03 00:00:00 Provider, On-File [id number] 0394-08-30 00:10:00 Arnel Jauregui [id number] 9363-08-30 00:05:00 Arnel Jauregui [id number] 2976-08-30 00:00:00 Provider, On-File [id number] 5384-08-30 00:00:00 Provider, On-File [id number] 4173-08-30 00:00:00 Provider, On-File [id number] 2263-08-30 00:00:00 Arnel Jauregui [id number] 1096-08-29 00:00:00 Provider, On-File [id number] 8616-08-23 00:00:00 Shania, Baltazar Results Test Description Test Time Test Comments Text Results Atomic Results Result Comments X-ray chest reference only 2020-01-12 02:48:50 This or javier has been auto-finalized. Please see additional clinical document ation for result report. POC Glucose Whole Blood 2019-11-13 11:17:00 Test Item Value Reference Range Comments POC Glucose (test code = 00586-5) 189 mg/dL 70-140 ALERT VALUES <50 or >250 Others <70 or >3 50 Performed at patient care [facility] e; overseen by [facility] POCT progra m REFERENCE RANGES Above is NONFASTING. Below are FASTING: NOR MAL: 70-99 mg/dL PRED IABETES: 100-125 mg/dL DIABETES: > 125 mg/dL Ranges for neonates are dependent on ges tational age and weight. MARYAM (test code = MARYAM) Lab Interpretation (test code = Abnormal 48902-4) POC Glucose Whole [id number] 06:56:00 Test Item Value Reference Range Comments POC Glucose (test code = 181 mg/dL 70-140 ALERT V ALUES <50 or 69099-3) >250 Others <70 or >350 Performed at [facility]; overseen b y [facility] POCT program REFERENC E RANGES Above is NONFAST ING. Below are FASTING: NOR MAL: 70-99 mg/dL P REDIABETES: 100-125 mg/dL DIABETES: > 125 mg/dL R anges for neonates are dep endent on gestational age and weight. MARYAM (test code = MARYAM) Lab Interpretation (test code = Abnormal 73553-5) POC Glucose Whole [id number] 20:24:00 Test Item Value Reference Range Comments POC Glucose (test code = 254 mg/dL 70-140 ALERT V ALUES <50 or 49410-9) >250 Others <70 or >350 Performed at [facility]; overseen b y [facility] POCT program REFERENC E RANGES Above is NONFAST ING. Below are FASTING: NOR MAL: 70-99 mg/dL P REDIABETES: 100-125 mg/dL DIABETES: > 125 mg/dL R anges for neonates are dep endent on gestational age and weight. MARYAM (test code = MARYAM) Lab Interpretation (test code = Abnormal 46676-1) POC Glucose Whole [id number] 16:18:00 Test Item Value Reference Range Comments POC Glucose (test code = 252 mg/dL 70-140 ALERT V ALUES <50 or 53147-3) >250 Others <70 or >350 Performed at [facility]; overseen b y [facility] POCT program REFERENC E RANGES Above is NONFAST ING. Below are FASTING: NOR MAL: 70-99 mg/dL P REDIABETES: 100-125 mg/dL DIABETES: > 125 mg/dL R anges for neonates are dep endent on gestational age and weight. 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 COMPARISON: Cervical spine MRI 11/11/2019. Brain MRI 11/04/2019. CT [facility]angi[facility] from [facility] 10/30/2019. TECHNIQUE: Unenhanced CT imaging was obtained from the skull base throughthe vertex. Subsequently, helical CT imaging was performed from the headthrough the aortic arch following intravenous administration of 75 mlIsovue 370 to include the intracranial and neck vessels. Post-processed, 3DMIP imaging was performed on a separate workstation. Dose reductionwasobtained with Automatic Exposure Control (AEC) or, if AEC could not beutilized, by manual adjustment of the mA and/or kV according to patientsize. FINDINGS: Brain: No evidence of acute hemorrhage nor large vessel territoryinfarction. Stable lacunar infarct or prominent perivascular space in theright basal ganglia. No mass effect, midline shift, extra-axial fluidcollection, or space-occupying lesion otherwise seen Ventricles and sulciare appropriate for patient age. Basilar cisterns are patent. Mild mucosal thickening and retained secretions partially opacify thesphenoid sinuses, more on the right. Visualized portions of the orbits,paranasal sinuses, and mastoid air cells are otherwise unremarkable.Intracranial arterial calcifications. CTA Head: The intracranial internal carotid arteries are normal course andcaliber without flow limiting stenosis or aneurysm. The middle cerebralarteries and anterior cerebral arteries are patent without stenosis oraneurysm. The basilar artery and posteriorcerebral arteries are patentwithout stenosis or aneurysm. Decreased contrast opacification and caliber in the most superior portionof the intracranial right vertebral artery, with marked narrowing of themost superior portion, possibly 2 mm in length. A 1 cm long segment of theupper intracranial right vertebral artery on series 6 image 28 and adjacentimages is not visible, similar to the prior CT. Theleft vertebral arteryis dominant. CT appearance remains stable. CTA Neck: There is no significant stenosis of the right internal carotidartery by NASCET criteria. Narrowing of approximately 25% diameter in a 7mm long segment of the proximal right ICA, unchanged. This may representsoft plaque, but sequela from prior dissection cannot be excluded. Thelumen otherwise shows normal contours.. There is no significant stenosis of the left internal carotid artery byNASCET criteria. Mild alteration of luminal contours in the proximal ICAare best seen on coronal reformatted images, without significant intervalchange. The common carotid arteries are patent without flow limiting stenosis.Right vertebral artery is smaller than the left, stable. Abnormality seenin the intracranial portions are discussed above.Small segmental areas ofeccentric narrowing in the right vertebral artery along the lateral wallagain noted at the C5-C6 and C4-C5 levels. Marked concentric luminalnarrowing in the most proximal/inferior portion of the right vertebralartery on coronal series 12 image 113 and adjacent images, unchanged. Leftvertebral artery is unremarkable. The visualized aortic arch and proximalsubclavian arteries are unremarkable. No acute soft tissue abnormalities inthe neck. Dependent atelectasis or scarring inthe imaged portions of bothlungs. IMPRESSION:1. Abnormalities involving the right vertebral artery show no significantchange from the prior CT study. This includes marked narrowing and absenceof contrast opacification in segments of the right intracranial section,and areas of luminal narrowing, some eccentric, in the lower cervicalportion. Findings raise the possibility for dissection. Segments of vesselocclusion or vasculitis are possible. Atherosclerotic changes would beunusual in a patient of this age without additional predisposing factors.The overall pattern is stable.2. No evidence of intracranial vessel flow limiting stenosis or aneurysmelsewhere.3. No hemodynamically significant stenosis of the right carotid system byNASCET criteria. However, stable narrowing of a short segment of theproximal right ICA is noted, which may related to soft plaque orvasculitis. Dissection not excluded. Mildalterations in luminal contournoted in the proximal left ICA on the coronal reformatted images, stable.4. No hemodynamically significant stenosis of the left carotid system byNASCET criteria.5. Mild sphenoid sinus disease. 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 COMPARISON: Cervical spine MRI 11/11/2019. Brain MRI 11/04/2019. CT neck angiogram from [facility] 10/30/2019. TECHNIQUE: Unenhanced CT imaging was obtained from the skull base through the vertex. Subsequently, helical CT imaging was performed from the head through the aortic arch following intravenous administration of 75 ml Isovue 370 to include the intracranial and neck vessels. Post-processed, 3D MIP imaging was performed on a separate workstation. Dose reduction was obtained with Automatic Exposure Control (AEC) or, if AEC could not be utilized, by manual adjustment of the mA and/or kV according to patient size. FINDINGS: Brain: No evidence of acute hemorrhage nor large vessel territory infarction. Stable lacunar infarct or prominent perivascular space in the right basal ganglia. No mass effect, midline shift, extra-axial fluid collection, or space-occupying lesion otherwise seen Ventricles and sulci are appropriate for patient age. Basilar cisterns are patent. Mild mucosal thickening and retained secretions partially opacify the sphenoid sinuses, more on the right. Visualized portions of the orbits, paranasal sinuses, and mastoid air cells are otherwise unremarkable. Intracranial arterial calcifications. CTA Head: The intracranial internal carotid arteries are normal course and caliber without flow limiting stenosis or aneurysm.The middle cerebral arteries and anterior cerebral arteries are patent without stenosis or aneurysm.The basilar artery and posterior cerebral arteries are patent without stenosis or aneurysm. Decreased contrast opacification and caliber in the most superior portion of the intracranial right vertebralartery, with marked narrowing of the most superior portion, possibly 2 mm in length. A 1 cm long segment of the upper intracranial right vertebral artery on series 6 image 28 and adjacent images is notvisible, similar to the prior CT. The left vertebral artery is dominant. CT appearance remains stable. CTA Neck: There is no significant stenosis of the right internal carotid artery by NASCET criteria. Narrowing of approximately 25% diameter in a 7 mm long segment of the proximal right ICA, unchanged. This may represent soft plaque, but sequela from prior dissection cannot be excluded. The lumen otherwise shows normal contours.. There is no significant stenosis of the left internal carotid artery by NASCET criteria. Mild alteration of luminal contours in the proximal ICA are best seen on coronal reformatted images, without significant interval change. The common carotid arteries are patent without flow limiting stenosis. Right vertebral artery is smaller than the left, stable. Abnormality seen in the intracranial portions are discussed above. Small segmental areas of eccentric narrowing in the right vertebral artery along the lateral wall again noted at the C5-C6 and C4-C5 levels. Marked concentric luminal narrowing in the most proximal/inferior portion of the right vertebral artery on coronal series 12 image 113 and adjacent images, unchanged. Left vertebral artery is unremarkable. The visua lized aortic arch and proximal subclavian arteries are unremarkable. No acute soft tissue abnormalities in the neck. Dependent atelectasis or scarring in the imaged portions of both lungs. IMPRESSION: 1. Abnormalities involving the right vertebral artery show no significant change from the prior CT study. This includes marked narrowing and absence of contrast opacification in segments of the right intracranial section, and areas of luminal narrowing, some eccentric, in the lower cervical portion. Findings raise the possibility for dissection. Segments of vessel occlusion or vasculitis are possible.Atherosclerotic changes would be unusual in a patient of this age without additional predisposing fac tors. The overall pattern is stable. 2. No evidence of intracranial vessel flow limiting stenosis oraneurysm elsewhere. 3. No hemodynamically significant stenosis of the right carotid system by NASCETcriteria. However, stable narrowing of a short segment of the proximal right ICA is noted, which may related to soft plaque or vasculitis. Dissection not excluded. Mild alterations in luminal contour noted in the proximal left ICA on the coronal reformatted images, stable. 4. No hemodynamically significant stenosis of the left carotid system by NASCET criteria. 5. Mild sphenoid sinus disease. *Carotid stenosis measurements derived by comparing the narrowest segment with the distal carotid luminal diameter. PQRS Measure 195: CPT II 3100F Electronically Signed by: Matt Mathew MD, [facility] Electronically Signed on: 11/12/2019 1:48 PM Hemoglobin [id number] 13:04:00 Test Item Value Reference Range Comments Hemoglobin A1C (test code = 4548-4) 9.2 % <6.5 Average Blood Glucose (Calculated From HgBA1c 226 mg/dL Level) (test code = 88097-1) MARYAM (test code = MARYAM) Lab Interpretation (test code = 15078-6) Abnormal POC Glucose Whole [id number] 11:30:00 Test Item Value Reference Range Comments POC Glucose (test code = 224 mg/dL 70-140 ALERT V ALUES <50 or 50357-8) >250 Others <70 or >350 Performed at [facility]; overseen b [facility] POCT program REFERENC E RANGES Above is NONFAST ING. Below are FASTING: NOR MAL: 70-99 mg/dL P REDIABETES: 100-125 mg/dL DIABETES: > 125 mg/dL R anges for neonates are dep endent on gestational age and weight. MARYAM (test code = MARYAM) Lab Interpretation (test code = Abnormal 66326-5) POC Glucose Whole [id number] 06:37:00 Test Item Value Reference Range Comments POC Glucose (test code = 175 mg/dL 70-140 ALERT V ALUES <50 or 25246-2) >250 Others <70 or >350 Performed at [facility]; overseen b y [facility] POCT program REFERENC E RANGES Above is NONFAST ING. Below are FASTING: NOR MAL: 70-99 mg/dL P REDIABETES: 100-125 mg/dL DIABETES: > 125 mg/dL R anges for neonates are dep endent on gestational age and weight. MARYAM (test code = MARYAM) Lab Interpretation (test code = Abnormal 85660-7) POC Glucose Whole [id number] 20:52:00 Test Item Value Reference Range Comments POC Glucose (test code = 279 mg/dL 70-140 ALERT V ALUES <50 or 42241-8) >250 Others <70 or >350 Performed at [facility]; overseen b y [facility] POCT program REFERENC E RANGES Above is NONFAST ING. Below are FASTING: NOR MAL: 70-99 mg/dL P REDIABETES: 100-125 mg/dL DIABETES: > 125 mg/dL R anges for neonates are dep endent on gestational age and weight. MARYAM (test code = MARYAM) Lab Interpretation (test code = Abnormal 58144-0) Troponin I ([facility])2019-11-11 20:24:00 Test Item Value Reference Range Comments Troponin I (test code = 81077-6) 0.01 ng/mL <0.50 MARYAM (test code = MARYAM) Lab Interpretation (test code = 52754-0) Normal Total Parenteral Nutrition (TPN) Panel [id number] 20:24:00 Test Item Value Reference Range Comments Sodium (test code = 2951-2) 135 mmol/L 135-145 Potassium (test code = 2823-3) 4.8 mmol/L 3.5-5 Chloride (test code = 2075-0) 97 mmol/L 98-108 Carbon Dioxide (CO2) (test 26 mmol/L -30 code = 2027-9) Urea Nitrogen (BUN) (test code 13 mg/dL 09-18 = 3094-0) Creatinine (test code = 1.0 mg/dL 0.6-1.3 2160-0) Glucose (test code = 2345-7) 217 mg/dL 70-140 Int erpretive Data: Above is the NONFASTING r eference range. Below are the FASTING reference ranges : NORMAL: 70-99 mg/dL PREDIABETES: 100 -125 mg/dL DIABETES: > 125 mg/dL Calcium (test code = 42336-7) 9.4 mg/dL 8.7-10.2 Magnesium (test code = 1.7 mg/dL 1.8-2.5 02791-6) Phosphorus (test code = 3.7 mg/dL 2.3-4.5 7077-1) Anion Gap (test code = 12 mmol/L 3-12 56976-9) BUN/CREA Ratio (test code = 13 6-27 85083531) Glomerular Filtration Rate 91 mL/min/1.73sq m Inter pretive Ranges eGFR (eGFR) (test code = 57508-2) (C KD-EPI): eGFR: > 60 mL/min/1.73 s q m - Normal eGFR: 30 - 59 mL/min/1.73 sq m - Moderately Decre ased eGFR: 15 - 29 mL/min/1.73 sq m - Severely Decreased eGFR: < 15 mL/min/1.73 sq m - Kidney Failure Note: Th caroline GFR calculations do not apply in acute situations when GFR is changing rapidly or in patients on dial ysis. Lab Interpretation (test code Abnormal = 06958-5) Complete Blood Count (CBC)2019-11-11 20:05:00 Test Item Value Reference Range Comments WBC (White Blood Cell Count) (test code = 7.7 3.2 - 9.8 x10 9 48446-3) /L Hemoglobin (test code = 718-7) 14.3 g/dL 13.7-17.3 Hematocrit (test code = 4544-3) 41.5 % 39-49 Platelets (test code = 10637-9) 259 150 - 45 0 x10 9 /L MCV (Mean Corpuscular Volume) (test code = 85 fL 80-98 787-2) MCH (Mean Corpuscular Hemoglobin) (test code 29.1 pg 26. 5-34 = 785-6) MCHC (Mean Corpuscular Hemoglobin 34.5 % 31.5-36.3 Concentration) (test code = 786-4) RBC (Red Blood Cell Count) (test code = 4.91 4.37 - 5.74 x10 1 24234-2) 2/L RDW-CV (Red Cell Distribution Width) (test 12.7 % 11.5- 14.5 code = 45126-4) NRBC (Nucleated Red Blood Cell Count) (test 0.00 0 x10 9 code = 80679-4) /L NRBC % (Nucleated Red Blood Cell %) (test 0.0 % code = 16143-1) MPV (Mean Platelet Volume) (test code = 10.1 fL 7.2-11.7 78523793) Basic Metabolic Panel (BMP)2019-11-11 19:02:00 Test Item Value Reference Range Comments Sodium (test code = 2951-2) 134 mmol/L 135-145 Potassium (test code = 2823-3) 4.8 mmol/L 3.5-5 Chloride (test code = 2075-0) 96 mmol/L 98-108 Carbon Dioxide (CO2) (test 24 mmol/L 21-30 code = 2027-9) Urea Nitrogen (BUN) (test code 14 mg/dL -20 = 3094-0) Creatinine (test code = 0.9 mg/dL 0.6-1.3 2160-0) Glucose (test code = 2345-7) 235 mg/dL 70-140 Int erpretive Data: Above is the NONFASTING r eference range. Below are the FASTING reference ranges : NORMAL: 70-99 mg/dL PREDIABETES: 100 -125 mg/dL DIABETES: > 125 mg/dL Calcium (test code = 63988-0) 9.5 mg/dL 8.7-10.2 Anion Gap (test code = 14 mmol/L 05-11 61235-1) BUN/CREA Ratio (test code = 15 08-26 04963995) Glomerular Filtration Rate 104 mL/min/1.73sq m Inter pretive Ranges eGFR (eGFR) (test code = 17027-2) (C KD-EPI): eGFR: > 60 mL/min/1.73 s q m - Normal eGFR: 30 - 59 mL/min/1.73 sq m - Moderately Decre ased eGFR: 15 - 29 mL/min/1.73 sq m - Severely Decreased eGFR: < 15 mL/min/1.73 sq m - Kidney Failure Note: Th caroline GFR calculations do not apply in acute situations when GFR is changing rapidly or in patients on dial ysis. Lab Interpretation (test code Abnormal = 33417-9) ECG [id number] 18:58:47 Test Item Value Reference Range Comments Vent Rate (bpm) (test code = 4154722212) 99 MS Interval (msec) (test code = 8890424561) 164 QRS Interval (msec) (test code = 9718638152) 92 QT Interval (msec) (test code = 3410112884) 338 QTc (msec) (test code = 0549228420) 433 MARYAM (test code = MARYAM) POC Glucose Whole [id number] 18:42:00 Test Item Value Reference Range Comments POC Glucose (test code = 279 mg/dL 70-140 ALERT V ALUES <50 or 82346-7) >250 Others <70 or >350 Performed at [facility]; overseen b y [facility] POCT program REFERENC E RANGES Above is NONFAST ING. Below are FASTING: NOR MAL: 70-99 mg/dL P REDIABETES: 100-125 mg/dL DIABETES: > 125 mg/dL R anges for neonates are dep endent on gestational age and weight. MARYAM (test code = MARYAM) Lab Interpretation (test code = Abnormal 11801-6) POC Glucose Whole [id number] 17:00:00 Test Item Value Reference Range Comments POC Glucose (test code = 230 mg/dL 70-140 ALERT V ALUES <50 or 94966-7) >250 Others <70 or >350 Performed at [facility]; overseen b y [facility] POCT program REFERENC E RANGES Above is NONFAST ING. Below are FASTING: NOR MAL: 70-99 mg/dL P REDIABETES: 100-125 mg/dL DIABETES: > 125 mg/dL R anges for neonates are dep endent on gestational age and weight. MARYAM (test code = MARYAM) Lab Interpretation (test code = Abnormal 75015-6) MRI cervical spine without [id number] 14:59:45EXAM: Unenhanced Cervical MRI INDICATION: Severe right-sided neck pain, persistent dizziness. TECHNIQUE: Axial and sagittal images of the cervical spine were obtainedusing multiple pulse sequences. CONTRAST DOSE: None. COMPARISON: [facility] FINDINGS: Craniocervical Junction: No apparent masses, tonsillar herniation ornarrowing of the foramen magnum. Vertebral column: Normal-appearing marrow signal. Straightening of cervicallordotic curvature, presumably positional or due to spasm. Vertebral bodyheights are maintained. Cervical Cord: Normal size with no foci of abnormal signal. C2-C3: No focal herniation or stenosis demonstrated. C3-C4: Mild disc desiccation. Mild disc bulge and central disc protrusion.Ventral impression on the thecal sac and cord. Borderline central canalstenosis. Mild left foraminal narrowing without evidence of stenosis. C4- C5: Disc desiccation and mild disc bulge. No focal herniation seen.Ventral impression on the thecal sac and cord with mild to moderate centralcanal stenosis. AP diameter of the thecal sac is 8 mm at midline. Mildnarrowing of the neural foramina without definite stenosis.C5-C6: Disc space narrowing and desiccation. Minimal right paracentralprotrusion or eccentric bulge is best seen on sagittal images, appearingless pronounced than expected for the CT. Mild to moderate central stenosiswith ventral impression on the thecal sac and cord. 7 to 8 mm AP thecal sacdiameter at midline. Mild left neural foraminal narrowing without evidenceof stenosis. Right neural foramen appears patent. C6- C7: Disc bulge and disc desiccation. Ventral impression on the thecalsac and cord. Mo derately severe to severe central canal stenosis with moreeffacement of CSF signal and flattening ofthe cord than at C5-C6. 6 mmdiameter AP diameter thecal sac at midline. Left paracentral and proximalforaminal disc protrusion, best seen on sagittal series 4 image 11.Bilateral foraminal stenosis, moderate on the right and severe on the left. C7-T1: No evidence of disc degeneration or herniation. No canal orforaminal stenosis. Flow voids are noted in the imaged portions of the vertebral arteries,similar in appearance to the brain MRI. Narrowing of the imaged portions ofthe distal right vertebral artery, not fully included on the study andbetter seen on the prior CTA. Trace thickening of a few mastoid air cells,similar to the prior brain MRI. IMPRESSION: 1. Narrowed central canal from C3-C4 to C6-C7. Corresponding multilevelcentral canal stenosis, most pronounced at C6-C7, accentuated by discbulges. Central disc protrusion at C3-C4. Left C6-C7 paracentral andproximal foraminal protrusion. Minimal right paracentral protrusion oreccentric bulge at C5-C6, less than expected for the CT appearance3. Foraminal stenosis at C6-C7 bilaterally, more on the left. Additionalforaminal narrowing is present to varying degrees at other levels.4. Straightening of cervical lordotic curvature, presumably posit ional ordue to spasm.5. Flow voids in the imaged portions of the vertebral arteries bilaterally.Thisis grossly similar to the brain MRI, with partially visualizednarrowing of the upper right vertebralartery better seen on the prior CTA. Electronically Signed by: Matt Mathew MD, [facility]ron[facility] Signed on: 11/11/2019 2:59 PMInterface, Rad Results In - 11/11/2019 3:47 PM EDTEXAM: Unenhanced Cervical MRI INDICATION: Severe right-sided neck pain, persistent dizziness. TECHNIQUE: Axial and sagittal images of the cervical spine were obtained using multiple pulse sequences. CONTRAST DOSE: None. COMPARISON: Correlated with MRI brain 11/04/2019 and [facility] CT neck angiogra m 10/30/2019. FINDINGS: Craniocervical Junction: No apparent masses, tonsillar herniation or narrowing of the foramen magnum. Vertebral column: Normal- appearing marrow signal. Straightening of cervical lordotic curvature, presumably positional or due to spasm. Vertebral body heights are maintained. Cervical Cord: Normal size with no foci of abnormal signal. C2-C3: No focal herniation or stenosis demonstrated. C3-C4: Mild disc desiccation. Mild disc bulge and central disc protrusion. Ventral impression on the thecal sac and cord. Borderline central canal stenosis. Mild left foraminal narrowing without evidence of stenosis. C4-C5: Disc desiccation and mild disc bulge. No focal herniation seen. Ventral impression on the thecal sac and cord with mild to moderate central canal stenosis. AP diameter of the thecal sac is 8 mm at midline. Mild narrowing of the neural foramina without definite stenosis. C5-C6: Disc space narrowing and desiccation. Minimal right paracentral protrusion or eccentric bulge is best seen on sagittal images, appearing less pronounced than expected for the CT. Mild to moderate central stenosis with ventral impression on the thecal sac and cord. 7 to 8 mm AP thecal sac diameterat midline. Mild left neural foraminal narrowing without evidence of stenosis. Right neural foramen appears patent. C6- C7: Disc bulge and disc desiccation. Ventral impression on the thecal sac and cord. Moderately severe to severe central canal stenosis with more effacement of CSF signal and flattening of the cord than at C5-C6. 6 mm diameter AP diameter thecal sac at midline. Left paracentral and pr oximal foraminal disc protrusion, best seen on sagittal series 4 image 11. Bilateral foraminal stenosis, moderate on the right and severe on the left. C7- T1: No evidence of disc degeneration or herniation. No canal or foraminal stenosis. Flow voids are noted in the imaged portions of the vertebral arteries, similar in appearance to the brain MRI. Narrowing of the imaged portions of the distal right vertebral artery, not fully included on the study and better seen on the prior CTA. Trace thickening of a few mastoid air cells, similar to the prior brain MRI. IMPRESSION: 1. Narrowed central canal fromC3-C4 to C6-C7. Corresponding multilevel central canal stenosis, most pronounced at C6-C7, accentuated by disc bulges. Central disc protrusion at C3-C4. Left C6-C7 paracentral and proximal foraminal protrusion. Minimal right paracentral protrusion or eccentric bulge at C5-C6, less than expected for the CT appearance 3. Foraminal stenosis at C6-C7 bilaterally, more on the left. Additional foraminal narrowing is present to varying degrees at other levels. 4. Straightening of cervical lordotic curvature, presumably positional or due to spasm. 5. Flow voids in the imaged portions of the vertebral arteries bilaterally. This is grossly similar to the brain MRI, with partially visualized narrowing of theupper right vertebral artery better seen on the prior CTA. Electronically Signed by: Matt Mathew MD, [facility] Electronically Signed on: 11/11/2019 2:59 PMPOC Glucose Whole [id number] 10:54:00 Test Item Value Reference Range Comments POC Glucose (test code = 241 mg/dL 70-140 ALERT V ALUES <50 or 23652-8) >250 Others <70 or >350 Performed at [facility]; overseen b [facility] POCT program REFERENC E RANGES Above is NONFAST ING. Below are FASTING: NOR MAL: 70-99 mg/dL P REDIABETES: 100-125 mg/dL DIABETES: > 125 mg/dL R anges for neonates are dep endent on gestational age and weight. MARYAM (test code = MARYAM) Lab Interpretation (test code = Abnormal 40101-5) POC Glucose Whole [id number] 06:53:00 Test Item Value Reference Range Comments POC Glucose (test code = 166 mg/dL 70-140 ALERT V ALUES <50 or 12815-5) >250 Others <70 or >350 Performed at [facility]; overseen b y [facility] POCT program REFERENC E RANGES Above is NONFAST ING. Below are FASTING: NOR MAL: 70-99 mg/dL P REDIABETES: 100-125 mg/dL DIABETES: > 125 mg/dL R anges for neonates are dep endent on gestational age and weight. MARYAM (test code = MARYAM) Lab Interpretation (test code = Abnormal 55239-1) POC Glucose Whole [id number] 20:31:00 Test Item Value Reference Range Comments POC Glucose (test code = 262 mg/dL 70-140 ALERT V ALUES <50 or 92510-1) >250 Others <70 or >350 Performed at [facility]; overseen b y [facility] POCT program REFERENC E RANGES Above is NONFAST ING. Below are FASTING: NOR MAL: 70-99 mg/dL P REDIABETES: 100-125 mg/dL DIABETES: > 125 mg/dL R anges for neonates are dep endent on gestational age and weight. MARYAM (test code = MARYAM) Lab Interpretation (test code = Abnormal 99450-3) POC Glucose Whole [id number] 16:30:00 Test Item Value Reference Range Comments POC Glucose (test code = 251 mg/dL 70-140 ALERT V ALUES <50 or 59210-5) >250 Others <70 or >350 Performed at [facility]; overseen b y [facility] POCT program REFERENC E RANGES Above is NONFAST ING. Below are FASTING: NOR MAL: 70-99 mg/dL P REDIABETES: 100-125 mg/dL DIABETES: > 125 mg/dL R anges for neonates are dep endent on gestational age and weight. MARYAM (test code = MARYAM) Lab Interpretation (test code = Abnormal 01850-2) POC Glucose Whole [id number] 11:10:00 Test Item Value Reference Range Comments POC Glucose (test code = 211 mg/dL 70-140 ALERT V ALUES <50 or 99074-5) >250 Others <70 or >350 Performed at [facility] [place]; overseen b [employer] [facility] POCT program REFERENC E RANGES Above is NONFAST ING. Below are FASTING: NOR MAL: 70-99 mg/dL P REDIABETES: 100-125 mg/dL DIABETES: > 125 mg/dL R anges for neonates are dep endent on gestational age and weight. MARYAM (test code = MARYAM) Lab Interpretation (test code = Abnormal 98929-1) POC Glucose Whole [id number] 06:44:00 Test Item Value Reference Range Comments POC Glucose (test code = 173 mg/dL 70-140 ALERT V ALUES <50 or 68015-0) >250 Others <70 or >350 Performed at [facility] [place]; overseen b y [facility] POCT program REFERENC E RANGES Above is NONFAST ING. Below are FASTING: NOR MAL: 70-99 mg/dL P REDIABETES: 100-125 mg/dL DIABETES: > 125 mg/dL R anges for neonates are dep endent on gestational age and weight. MARYAM (test code = MARYAM) Lab Interpretation (test code = Abnormal 46977-9) POC Glucose Whole [id number] 04:45:00 Test Item Value Reference Range Comments POC Glucose (test code = 197 mg/dL 70-140 ALERT V ALUES <50 or 24429-9) >250 Others <70 or >350 Performed at [facility] [place]; overseen b y [facility] POCT program REFERENC E RANGES Above is NONFAST ING. Below are FASTING: NOR MAL: 70-99 mg/dL P REDIABETES: 100-125 mg/dL DIABETES: > 125 mg/dL R anges for neonates are dep endent on gestational age and weight. MARYAM (test code = MARYAM) Lab Interpretation (test code = Abnormal 06600-9) POC Glucose Whole [id number] 20:51:00 Test Item Value Reference Range Comments POC Glucose (test code = 255 mg/dL 70-140 ALERT V ALUES <50 or 04391-3) >250 Others <70 or >350 Performed at [facility] [place]; overseen b [employer] [facility] POCT program REFERENC E RANGES Above is NONFAST ING. Below are FASTING: NOR MAL: 70-99 mg/dL P REDIABETES: 100-125 mg/dL DIABETES: > 125 mg/dL R anges for neonates are dep endent on gestational age and weight. MARYAM (test code = MARYAM) Lab Interpretation (test code = Abnormal 02383-8) POC Glucose Whole [id number] 16:47:00 Test Item Value Reference Range Comments POC Glucose (test code = 268 mg/dL 70-140 ALERT V ALUES <50 or 88495-1) >250 Others <70 or >350 Performed at [facility] [place]; overseen b y [facility] POCT program REFERENC E RANGES Above is NONFAST ING. Below are FASTING: NOR MAL: 70-99 mg/dL P REDIABETES: 100-125 mg/dL DIABETES: > 125 mg/dL R anges for neonates are dep endent on gestational age and weight. MARYAM (test code = MARYAM) Lab Interpretation (test code = Abnormal 03969-7) POC Glucose Whole [id number] 10:41:00 Test Item Value Reference Range Comments POC Glucose (test code = 209 mg/dL 70-140 ALERT V ALUES <50 or 53734-0) >250 Others <70 or >350 Performed at [facility] [place]; overseen [facility] POCT program REFERENC E RANGES Above is NONFAST ING. Below are FASTING: NOR MAL: 70-99 mg/dL P REDIABETES: 100-125 mg/dL DIABETES: > 125 mg/dL R anges for neonates are dep endent on gestational age and weight. MARYAM (test code = MARYAM) Lab Interpretation (test code = Abnormal 57795-0) POC Glucose Whole [id number] 06:31:00 Test Item Value Reference Range Comments POC Glucose (test code = 173 mg/dL 70-140 ALERT V ALUES <50 or 47086-0) >250 Others <70 or >350 Performed at [facility] [place]; overseen [facility] POCT program REFERENC E RANGES Above is NONFAST ING. Below are FASTING: NOR MAL: 70-99 mg/dL P REDIABETES: 100-125 mg/dL DIABETES: > 125 mg/dL R anges for neonates are dep endent on gestational age and weight. MARYAM (test code = MARYAM) Lab Interpretation (test code = Abnormal 30829-8) Basic Metabolic Panel (BMP)2019-11-09 06:13:00 Test Item Value Reference Range Comments Sodium (test code = 2951-2) 136 mmol/L 135-145 Potassium (test code = 2823-3) 4.4 mmol/L 3.5-5 Chloride (test code = 2075-0) 102 mmol/L 98-108 Carbon Dioxide (CO2) (test 26 mmol/L 21-30 code = 8-9) Urea Nitrogen (BUN) (test code 11 mg/dL 7-20 = 3094-0) Creatinine (test code = 0.9 mg/dL 0.6-1.3 2160-0) Glucose (test code = 2345-7) 176 mg/dL 70-140 Int erpretive Data: Above is the NONFASTING r eference range. Below are the FASTING reference ranges : NORMAL: 70-99 mg/dL PREDIABETES: 100 -125 mg/dL DIABETES: > 125 mg/dL Calcium (test code = 64045-0) 9.1 mg/dL 8.7-10.2 Anion Gap (test code = 8 mmol/L 05-11 25053-7) BUN/CREA Ratio (test code = 13 08-26 14609611) Glomerular Filtration Rate 104 mL/min/1.73sq m Inter pretive Ranges eGFR (eGFR) (test code = 54400-7) (C KD-EPI): eGFR: > 60 mL/min/1.73 s q m - Normal eGFR: 30 - 59 mL/min/1.73 sq m - Moderately Decre ased eGFR: 15 - 29 mL/min/1.73 sq m - Severely Decreased eGFR: < 15 mL/min/1.73 sq m - Kidney Failure Note: Th caroline GFR calculations do not apply in acute situations when GFR is changing rapidly or in patients on dial ysis. Lab Interpretation (test code Abnormal = 12062-6) [id number] 06:13:00 Test Item Value Reference Range Comments Magnesium (test code = 90503-2) 1.7 mg/dL 1.8-2.5 Lab Interpretation (test code = 65490-1) Abnormal Complete Blood Count (CBC)2019-11-09 05:50:00 Test Item Value Reference Range Comments WBC (White Blood Cell Count) (test code = 6.5 3.2 - 9.8 x10 9 06448-9) /L Hemoglobin (test code = 718-7) 13.9 g/dL 13.7-17.3 Hematocrit (test code = 4544-3) 40.7 % 39-49 Platelets (test code = 87512-6) 230 150 - 45 0 x10 9 /L MCV (Mean Corpuscular Volume) (test code = 84 fL 80-98 787-2) MCH (Mean Corpuscular Hemoglobin) (test code 28.8 pg 26. 5-34 = 785-6) MCHC (Mean Corpuscular Hemoglobin 34.2 % 31.5-36.3 Concentration) (test code = 786-4) RBC (Red Blood Cell Count) (test code = 4.82 4.37 - 5.74 x10 1 70718-5) 2/L RDW-CV (Red Cell Distribution Width) (test 12.5 % 11.5- 14.5 code = 01776-3) NRBC (Nucleated Red Blood Cell Count) (test 0.00 0 x10 9 code = 14421-6) /L NRBC % (Nucleated Red Blood Cell %) (test 0.0 % code = 75630-3) MPV (Mean Platelet Volume) (test code = 10.1 fL 7.2-11.7 91090380) POC Glucose Whole [id number] 20:50:00 Test Item Value Reference Range Comments POC Glucose (test code = 282 mg/dL 70-140 ALERT V ALUES <50 or 77677-6) >250 Others <70 or >350 Performed at [facility] [place]; overseen [facility] POCT program REFERENC E RANGES Above is NONFAST ING. Below are FASTING: NOR MAL: 70-99 mg/dL P REDIABETES: 100-125 mg/dL DIABETES: > 125 mg/dL R anges for neonates are dep endent on gestational age and weight. MARYAM (test code = MARYAM) Lab Interpretation (test code = Abnormal 82155-7) POC Glucose Whole [id number] 16:35:00 Test Item Value Reference Range Comments POC Glucose (test code = 254 mg/dL 70-140 ALERT V ALUES <50 or 15754-7) >250 Others <70 or >350 Performed at [facility] [place]; overseen [facility] POCT program REFERENC E RANGES Above is NONFAST ING. Below are FASTING: NOR MAL: 70-99 mg/dL P REDIABETES: 100-125 mg/dL DIABETES: > 125 mg/dL R anges for neonates are dep endent on gestational age and weight. MARYAM (test code = MARYAM) Lab Interpretation (test code = Abnormal 21086-6) ECG [id number] 16:32:11 Test Item Value Reference Range Comments Vent Rate (bpm) (test code = 2659668059) 66 MS Interval (msec) (test code = 0455403685) 164 QRS Interval (msec) (test code = 1579287540) 86 QT Interval (msec) (test code = 2590323404) 390 QTc (msec) (test code = 7056760485) 408 MARYAM (test code = MARYAM) Echo complete with [id number] 15:19:49 Test Item Value Reference Range Comments LV Ejection Fraction (%) (test code = 12195595337) 40 Aortic Valve Stenosis Grade (test code = 6790343010) none Aortic Valve Regurgitation Grade (test code = none 6376156740) Mitral Valve Stenosis Grade (test code = 7156627202) none Mitral Valve Regurgitation Grade (test code = none 2504893305) Tricuspid Valve Regurgitation Grade (test code = trivial 0880652846) Tricuspid Valve Regurgitation Max Velocity (m/s) 1.5 m/sec (test code = 77746170067) LV End Diastolic Diameter (cm) (test code = 4.6 cm 33981139623) LV End Systolic Diameter (cm) (test code = 4 cm 17724321297) LV Septum Wall Thickness (cm) (test code = 0.89 cm 97107375339) LV Posterior Wall Thickness (cm) (test code = 0.92 cm 08091764837) Left Atrium Diameter (cm) (test code = 38039723683) 4.3 cm MARYAM (test code = MARYAM) PXN (test code = PXN) X-ray chest PA and [id number] 13:58:57Exam: Two view chest Indication: Recurrent syncope. Ongoing dizziness for the past 2 weeksgetting worse.. Comparison: . Technique: Frontal and lateral views of the chest were performed. Findings: Evaluation is somewhat technically limited due to body habitusand a lordotic projection distorting the anatomy. Within these limitationsthere are no acute appearing infiltrates or effusions or congestivechanges. The heart is not enlarged. No pneumothorax. The osseous structures suggest nothing acute. 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 Electronically Signed by: Adrián Varma MD, [facility]iology[facility]ronically Signed on: 11/08/2019 1:58 PMInterface, Rad Results In - 11/08/2019 2:00 PM EDTExam: Two view chest Indication: Recurrent syncope. Ongoing dizziness for the past 2 weeks getting worse.. Comparison: . Technique: Frontal and lateral views of the chest were performed. Findings: Evaluation is somewhat technically limited due to body habitus and a lordotic projection distorting the anatomy. Within these limitations there are no acute appearing infiltrates or effusions or congestive changes. The heart is not enlarged. No pn eumothorax. The osseous structures suggest nothing acute. 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 Electronically Signed by: Adrián Varma MD, [facility] Electronically Signed on: 11/08/2019 1:58 PMPOC Glucose Whole [id number] 11:08:00 Test Item Value Reference Range Comments POC Glucose (test code = 184 mg/dL 70-140 ALERT V ALUES <50 or 38080-6) >250 Others <70 or >350 Performed at [facility] [place]; overseen b y [facility] POCT program REFERENC E RANGES Above is NONFAST ING. Below are FASTING: NOR MAL: 70-99 mg/dL P REDIABETES: 100-125 mg/dL DIABETES: > 125 mg/dL R anges for neonates are dep endent on gestational age and weight. MARYAM (test code = MARYAM) Lab Interpretation (test code = Abnormal 89230-1) POC Glucose Whole [id number] 06:08:00 Test Item Value Reference Range Comments POC Glucose (test code = 194 mg/dL 70-140 ALERT V ALUES <50 or 70219-1) >250 Others <70 or >350 Performed at [facility] [place]; overseen b y [facility] POCT program REFERENC E RANGES Above is NONFAST ING. Below are FASTING: NOR MAL: 70-99 mg/dL P REDIABETES: 100-125 mg/dL DIABETES: > 125 mg/dL R anges for neonates are dep endent on gestational age and weight. MARYAM (test code = MARYAM) Lab Interpretation (test code = Abnormal 14342-3) POC Glucose Whole [id number] 00:12:00 Test Item Value Reference Range Comments POC Glucose (test code = 197 mg/dL 70-140 ALERT V ALUES <50 or 93034-9) >250 Others <70 or >350 Performed at [facility] [place]; overseen b y [facility] POCT program REFERENC E RANGES Above is NONFAST ING. Below are FASTING: NOR MAL: 70-99 mg/dL P REDIABETES: 100-125 mg/dL DIABETES: > 125 mg/dL R anges for neonates are dep endent on gestational age and weight. MARYAM (test code = MARYAM) Lab Interpretation (test code = Abnormal 27512-2) POC Glucose Whole [id number] 17:04:00 Test Item Value Reference Range Comments POC Glucose (test code = 330 mg/dL 70-140 ALERT V ALUES <50 or 68867-1) >250 Others <70 or >350 Performed at [facility] [place]; overseen [facility] POCT program REFERENC E RANGES Above is NONFAST ING. Below are FASTING: NOR MAL: 70-99 mg/dL P REDIABETES: 100-125 mg/dL DIABETES: > 125 mg/dL R anges for neonates are dep endent on gestational age and weight. MARYAM (test code = MARYAM) Lab Interpretation (test code = Abnormal 22750-9) POC Glucose Whole [id number] 11:03:00 Test Item Value Reference Range Comments POC Glucose (test code = 190 mg/dL 70-140 ALERT V ALUES <50 or 77445-0) >250 Others <70 or >350 Performed at [facility] [place]; overseen [facility] POCT program REFERENC E RANGES Above is NONFAST ING. Below are FASTING: NOR MAL: 70-99 mg/dL P REDIABETES: 100-125 mg/dL DIABETES: > 125 mg/dL R anges for neonates are dep endent on gestational age and weight. MARYAM (test code = MARYAM) Lab Interpretation (test code = Abnormal 18851-2) Basic Metabolic Panel (BMP)2019-11-07 06:45:00 Test Item Value Reference Range Comments Sodium (test code = 2951-2) 138 mmol/L 135-145 Potassium (test code = 2823-3) 4.7 mmol/L 3.5-5 Chloride (test code = 2075-0) 105 mmol/L 98-108 Carbon Dioxide (CO2) (test 25 mmol/L 21-30 code = 8-9) Urea Nitrogen (BUN) (test code 14 mg/dL 7-20 = 3094-0) Creatinine (test code = 1.0 mg/dL 0.6-1.3 2160-0) Glucose (test code = 2345-7) 177 mg/dL 70-140 Int erpretive Data: Above is the NONFASTING r eference range. Below are the FASTING reference ranges : NORMAL: 70-99 mg/dL PREDIABETES: 100 -125 mg/dL DIABETES: > 125 mg/dL Calcium (test code = 05997-4) 9.1 mg/dL 8.7-10.2 Anion Gap (test code = 8 mmol/L 12 80529-0) BUN/CREA Ratio (test code = 14 6- 11964630) Glomerular Filtration Rate 91 mL/min/1.73sq m Inter pretive Ranges eGFR (eGFR) (test code = 37799-4) (C KD-EPI): eGFR: > 60 mL/min/1.73 s q m - Normal eGFR: 30 - 59 mL/min/1.73 sq m - Moderately Decre ased eGFR: 15 - 29 mL/min/1.73 sq m - Severely Decreased eGFR: < 15 mL/min/1.73 sq m - Kidney Failure Note: Th caroline GFR calculations do not apply in acute situations when GFR is changing rapidly or in patients on dial ysis. Lab Interpretation (test code Abnormal = 71954-2) Complete Blood Count (CBC)2019-11-07 06:23:00 Test Item Value Reference Range Comments WBC (White Blood Cell Count) (test code = 6.9 3.2 - 9.8 x10 9 91583-9) /L Hemoglobin (test code = 718-7) 13.5 g/dL 13.7-17.3 Hematocrit (test code = 4544-3) 39.6 % 39-49 Platelets (test code = 40028-6) 205 150 - 45 0 x10 9 /L MCV (Mean Corpuscular Volume) (test code = 85 fL 80-98 787-2) MCH (Mean Corpuscular Hemoglobin) (test code 29.0 pg 26. 5-34 = 785-6) MCHC (Mean Corpuscular Hemoglobin 34.1 % 31.5-36.3 Concentration) (test code = 786-4) RBC (Red Blood Cell Count) (test code = 4.66 4.37 - 5.74 x10 1 60258-4) 2/L RDW-CV (Red Cell Distribution Width) (test 12.7 % 11.5- 14.5 code = 57842-2) NRBC (Nucleated Red Blood Cell Count) (test 0.00 0 x10 9 code = 80252-7) /L NRBC % (Nucleated Red Blood Cell %) (test 0.0 % code = 93994-8) MPV (Mean Platelet Volume) (test code = 10.5 fL 7.2-11.7 71602455) Lab Interpretation (test code = 14206-3) Abnormal POC Glucose Whole [id number] 06:00:00 Test Item Value Reference Range Comments POC Glucose (test code = 167 mg/dL 70-140 ALERT V ALUES <50 or 93387-1) >250 Others <70 or >350 Performed at [facility] [place]; overseen b y [facility] POCT program REFERENC E RANGES Above is NONFAST ING. Below are FASTING: NOR MAL: 70-99 mg/dL P REDIABETES: 100-125 mg/dL DIABETES: > 125 mg/dL R anges for neonates are dep endent on gestational age and weight. MARYAM (test code = MARYAM) Lab Interpretation (test code = Abnormal 08533-2) POC Glucose Whole [id number] 23:52:00 Test Item Value Reference Range Comments POC Glucose (test code = 196 mg/dL 70-140 ALERT V ALUES <50 or 76208-0) >250 Others <70 or >350 Performed at [facility] [place]; overseen b y [facility] POCT program REFERENC E RANGES Above is NONFAST ING. Below are FASTING: NOR MAL: 70-99 mg/dL P REDIABETES: 100-125 mg/dL DIABETES: > 125 mg/dL R anges for neonates are dep endent on gestational age and weight. MARYAM (test code = MARYAM) Lab Interpretation (test code = Abnormal 24371-8) POC Glucose Whole [id number] 16:42:00 Test Item Value Reference Range Comments POC Glucose (test code = 190 mg/dL 70-140 ALERT V ALUES <50 or 91714-1) >250 Others <70 or >350 Performed at [facility] [place]; overseen b y [facility] POCT program REFERENC E RANGES Above is NONFAST ING. Below are FASTING: NOR MAL: 70-99 mg/dL P REDIABETES: 100-125 mg/dL DIABETES: > 125 mg/dL R anges for neonates are dep endent on gestational age and weight. MARYAM (test code = MARYAM) Lab Interpretation (test code = Abnormal 84887-8) POC Glucose Whole [id number] 11:03:00 Test Item Value Reference Range Comments POC Glucose (test code = 207 mg/dL 70-140 ALERT V ALUES <50 or 33515-8) >250 Others <70 or >350 Performed at [facility] [place]; overseen b y [facility] POCT program REFERENC E RANGES Above is NONFAST ING. Below are FASTING: NOR MAL: 70-99 mg/dL P REDIABETES: 100-125 mg/dL DIABETES: > 125 mg/dL R anges for neonates are dep endent on gestational age and weight. MARYAM (test code = MARYAM) Lab Interpretation (test code = Abnormal 65983-0) Comprehensive Metabolic Panel (CMP)2019-11-06 06:33:00 Test Item Value Reference Range Comments Sodium (test code = 2951-2) 137 mmol/L 135-145 Potassium (test code = 2823-3) 4.3 mmol/L 3.5-5 Chloride (test code = 2075-0) 105 mmol/L 98-108 Carbon Dioxide (CO2) (test 26 mmol/L 21-30 code = 2027-9) Urea Nitrogen (BUN) (test code 13 mg/dL 7-20 = 3094-0) Creatinine (test code = 0.9 mg/dL 0.6-1.3 2160-0) Glucose (test code = 2345-7) 208 mg/dL 70-140 Int erpretive Data: Above is the NONFASTING r eference range. Below are the FASTING reference ranges : NORMAL: 70-99 mg/dL PREDIABETES: 100 -125 mg/dL DIABETES: > 125 mg/dL Calcium (test code = 01239-4) 9.0 mg/dL 8.7-10.2 AST (Aspartate 22 U/L 15-41 Aminotransferase) (test code = 1920-8) ALT (Alanine Aminotransferase) 47 U/L 17-63 (test code = 1742-6) Bilirubin, Total (test code = 0.5 mg/dL 0.4-1.5 1974-2) Alk Phos (Alkaline 56 U/L 24-110 Phosphatase) (test code = 6768-6) Albumin (test code = 1751-7) 3.5 g/dL 3.5-4.8 Protein, Total (test code = 5.9 g/dL 6.2-8.1 2885-2) Anion Gap (test code = 6 mmol/L 05-11 92774-6) BUN/CREA Ratio (test code = 14 08-26 92657073) Glomerular Filtration Rate 104 mL/min/1.73sq m Inter pretive Ranges eGFR (eGFR) (test code = 57116-8) (C KD-EPI): eGFR: > 60 mL/min/1.73 s q m - Normal eGFR: 30 - 59 mL/min/1.73 sq m - Moderately Decre ased eGFR: 15 - 29 mL/min/1.73 sq m - Severely Decreased eGFR: < 15 mL/min/1.73 sq m - Kidney Failure Note: Th caroline GFR calculations do not apply in acute situations when GFR is changing rapidly or in patients on dial ysis. Lab Interpretation (test code Abnormal = 34408-2) [id number] 06:33:00 Test Item Value Reference Range Comments Magnesium (test code = 81239-6) 1.8 mg/dL 1.8-2.5 Lab Interpretation (test code = 03093-1) Normal Complete Blood Count (CBC)2019-11-06 06:11:00 Test Item Value Reference Range Comments WBC (White Blood Cell Count) (test code = 6.8 3.2 - 9.8 x10 9 66175-6) /L Hemoglobin (test code = 718-7) 13.3 g/dL 13.7-17.3 Hematocrit (test code = 4544-3) 39.1 % 39-49 Platelets (test code = 21848-1) 195 150 - 45 0 x10 9 /L MCV (Mean Corpuscular Volume) (test code = 84 fL 80-98 787-2) MCH (Mean Corpuscular Hemoglobin) (test code 28.7 pg 26. 5-34 = 785-6) MCHC (Mean Corpuscular Hemoglobin 34.0 % 31.5-36.3 Concentration) (test code = 786-4) RBC (Red Blood Cell Count) (test code = 4.63 4.37 - 5.74 x10 1 07567-1) 2/L RDW-CV (Red Cell Distribution Width) (test 12.4 % 11.5- 14.5 code = 83345-8) NRBC (Nucleated Red Blood Cell Count) (test 0.00 0 x10 9 code = 71655-4) /L NRBC % (Nucleated Red Blood Cell %) (test 0.0 % code = 73027-6) MPV (Mean Platelet Volume) (test code = 10.3 fL 7.2-11.7 30999911) Lab Interpretation (test code = 35479-6) Abnormal POC Glucose Whole [id number] 06:04:00 Test Item Value Reference Range Comments POC Glucose (test code = 200 mg/dL 70-140 ALERT V ALUES <50 or 29457-9) >250 Others <70 or >350 Performed at [facility] [place]; overseen b y [facility] POCT program REFERENC E RANGES Above is NONFAST ING. Below are FASTING: NOR MAL: 70-99 mg/dL P REDIABETES: 100-125 mg/dL DIABETES: > 125 mg/dL R anges for neonates are dep endent on gestational age and weight. MARYAM (test code = MARYAM) Lab Interpretation (test code = Abnormal 94793-9) POC Glucose Whole [id number] 23:55:00 Test Item Value Reference Range Comments POC Glucose (test code = 191 mg/dL 70-140 ALERT V ALUES <50 or 53538-1) >250 Others <70 or >350 Performed at [facility] [place]; overseen b y [facility] POCT program REFERENC E RANGES Above is NONFAST ING. Below are FASTING: NOR MAL: 70-99 mg/dL P REDIABETES: 100-125 mg/dL DIABETES: > 125 mg/dL R anges for neonates are dep endent on gestational age and weight. MARYAM (test code = MARYAM) Lab Interpretation (test code = Abnormal 44540-4) POC Glucose Whole [id number] 21:39:00 Test Item Value Reference Range Comments POC Glucose (test code = 236 mg/dL 70-140 ALERT V ALUES <50 or 05022-0) >250 Others <70 or >350 Performed at [facility] [place]; overseen b y [facility] POCT program REFERENC E RANGES Above is NONFAST ING. Below are FASTING: NOR MAL: 70-99 mg/dL P REDIABETES: 100-125 mg/dL DIABETES: > 125 mg/dL R anges for neonates are dep endent on gestational age and weight. MARYAM (test code = MARYAM) Lab Interpretation (test code = Abnormal 93764-9) POC Glucose Whole [id number] 16:57:00 Test Item Value Reference Range Comments POC Glucose (test code = 250 mg/dL 70-140 ALERT V ALUES <50 or 22538-8) >250 Others <70 or >350 Performed at [facility] [place]; overseen b y [facility] POCT program REFERENC E RANGES Above is NONFAST ING. Below are FASTING: NOR MAL: 70-99 mg/dL P REDIABETES: 100-125 mg/dL DIABETES: > 125 mg/dL R anges for neonates are dep endent on gestational age and weight. MARYAM (test code = MARYAM) Lab Interpretation (test code = Abnormal 20494-8) POC Glucose Whole [id number] 11:27:00 Test Item Value Reference Range Comments POC Glucose (test code = 156 mg/dL 70-140 ALERT V ALUES <50 or 90977-9) >250 Others <70 or >350 Performed at [facility] [place]; overseen b y [facility] POCT program REFERENC E RANGES Above is NONFAST ING. Below are FASTING: NOR MAL: 70-99 mg/dL P REDIABETES: 100-125 mg/dL DIABETES: > 125 mg/dL R anges for neonates are dep endent on gestational age and weight. MARYAM (test code = MARYAM) Lab Interpretation (test code = Abnormal 70386-1) POC Glucose Whole [id number] 06:27:00 Test Item Value Reference Range Comments POC Glucose (test code = 167 mg/dL 70-140 ALERT V ALUES <50 or 14731-5) >250 Others <70 or >350 Performed at [facility] [place]; overseen b y [facility] POCT program REFERENC E RANGES Above is NONFAST ING. Below are FASTING: NOR MAL: 70-99 mg/dL P REDIABETES: 100-125 mg/dL DIABETES: > 125 mg/dL R anges for neonates are dep endent on gestational age and weight. MARYAM (test code = MARYAM) Lab Interpretation (test code = Abnormal 66197-8) Comprehensive Metabolic Panel (CMP)2019-11-05 06:06:00 Test Item Value Reference Range Comments Sodium (test code = 2951-2) 136 mmol/L 135-145 Potassium (test code = 2823-3) 4.4 mmol/L 3.5-5 Chloride (test code = 2075-0) 102 mmol/L 98-108 Carbon Dioxide (CO2) (test 23 mmol/L 21-30 Annabelle sis repeated code = 2027-9) Urea Nitrogen (BUN) (test code 17 mg/dL 7-20 = 3094-0) Creatinine (test code = 1.2 mg/dL 0.6-1.3 2160-0) Glucose (test code = 2345-7) 184 mg/dL 70-140 Int erpretive Data: Above is the NONFASTING r eference range. Below are the FASTING reference ranges : NORMAL: 70-99 mg/dL PREDIABETES: 100 -125 mg/dL DIABETES: > 125 mg/dL Calcium (test code = 91567-4) 8.8 mg/dL 8.7-10.2 AST (Aspartate 27 U/L 15-41 Aminotransferase) (test code = 1920-8) ALT (Alanine Aminotransferase) 59 U/L 17-63 (test code = 1742-6) Bilirubin, Total (test code = 0.3 mg/dL 0.4-1.5 1974-2) Alk Phos (Alkaline 56 U/L 24-110 Phosphatase) (test code = 6768-6) Albumin (test code = 1751-7) 3.5 g/dL 3.5-4.8 Protein, Total (test code = 6.1 g/dL 6.2-8.1 2885-2) Anion Gap (test code = 11 mmol/L 3-12 83713-9) BUN/CREA Ratio (test code = 14 6-27 63026188) Glomerular Filtration Rate 73 mL/min/1.73sq m Inter pretive Ranges eGFR (eGFR) (test code = 19950-4) (C KD-EPI): eGFR: > 60 mL/min/1.73 s q m - Normal eGFR: 30 - 59 mL/min/1.73 sq m - Moderately Decre ased eGFR: 15 - 29 mL/min/1.73 sq m - Severely Decreased eGFR: < 15 mL/min/1.73 sq m - Kidney Failure Note: Th caroline GFR calculations do not apply in acute situations when GFR is changing rapidly or in patients on dial ysis. Lab Interpretation (test code Abnormal = 94778-6) [id number] 06:06:00 Test Item Value Reference Range Comments Magnesium (test code = 14785-5) 1.8 mg/dL 1.8-2.5 Lab Interpretation (test code = 41133-3) Normal Complete Blood Count (CBC)2019-11-05 05:24:00 Test Item Value Reference Range Comments WBC (White Blood Cell Count) (test code = 6.7 3.2 - 9.8 x10 9 28318-5) /L Hemoglobin (test code = 718-7) 13.3 g/dL 13.7-17.3 Hematocrit (test code = 4544-3) 38.8 % 39-49 Platelets (test code = 20964-2) 195 150 - 45 0 x10 9 /L MCV (Mean Corpuscular Volume) (test code = 84 fL 80-98 787-2) MCH (Mean Corpuscular Hemoglobin) (test code 28.9 pg 26. 5-34 = 785-6) MCHC (Mean Corpuscular Hemoglobin 34.3 % 31.5-36.3 Concentration) (test code = 786-4) RBC (Red Blood Cell Count) (test code = 4.61 4.37 - 5.74 x10 1 01743-1) 2/L RDW-CV (Red Cell Distribution Width) (test 12.6 % 11.5- 14.5 code = 89189-8) NRBC (Nucleated Red Blood Cell Count) (test 0.00 0 x10 9 code = 74852-8) /L NRBC % (Nucleated Red Blood Cell %) (test 0.0 % code = 26766-7) MPV (Mean Platelet Volume) (test code = 10.2 fL 7.2-11.7 80104572) Lab Interpretation (test code = 67457-4) Abnormal POC Glucose Whole [id number] 00:10:00 Test Item Value Reference Range Comments POC Glucose (test code = 187 mg/dL 70-140 ALERT V ALUES <50 or 44809-9) >250 Others <70 or >350 Performed at [facility]; overseen b y [facility] POCT program REFERENC E RANGES Above is NONFAST ING. Below are FASTING: NOR MAL: 70-99 mg/dL P REDIABETES: 100-125 mg/dL DIABETES: > 125 mg/dL R anges for neonates are dep endent on gestational age and weight. MARYAM (test code = MARYAM) Lab Interpretation (test code = Abnormal 97350-5) POC Glucose Whole [id number] 21:27:00 Test Item Value Reference Range Comments POC Glucose (test code = 188 mg/dL 70-140 ALERT V ALUES <50 or 82380-6) >250 Others <70 or >350 Performed at [facility]; overseen b y [facility] POCT program REFERENC E RANGES Above is NONFAST ING. Below are FASTING: NOR MAL: 70-99 mg/dL P REDIABETES: 100-125 mg/dL DIABETES: > 125 mg/dL R anges for neonates are dep endent on gestational age and weight. MARYAM (test code = MARYAM) Lab Interpretation (test code = Abnormal 74540-8) Toxicology (Drug) Screen, [id number] 19:17:00 Test Item Value Reference Range Comments Amphetamine/Methamphetamine, Urine Negative Negative (test code = 69070-8) Barbiturates, Urine (test code = Negative Negative THIS REAGENT LOT JUNE 3376-9) EXHIBIT DIMINISH ED SENSITIVITY FOR DETECTING SOME BARBITURATE COMPOUNDS. INTER PRET NEGATIVE BARBITU RATE RESULTS WITH CAU TION. Benzodiazepine, Urine (test code = Positive Negative 20671-4) Cocaine Metabolites, Urine (test Negative Negative code = 23357-7) Opiates, Urine (test code = Positive Negative 38893-1) Tetrahydrocannabinol (THC), Urine Negative Negative (test code = 26772-5) MARYAM (test code = MARYAM) Lab Interpretation (test code = Abnormal 67995-3) POC Glucose Whole [id number] 16:51:00 Test Item Value Reference Range Comments POC Glucose (test code = 219 mg/dL 70-140 ALERT V ALUES <50 or 05519-9) >250 Others <70 or >350 Performed at [facility]; overseen b y [facility] POCT program REFERENC E RANGES Above is NONFAST ING. Below are FASTING: NOR MAL: 70-99 mg/dL P REDIABETES: 100-125 mg/dL DIABETES: > 125 mg/dL R anges for neonates are dep endent on gestational age and weight. MARYAM (test code = MARYAM) Lab Interpretation (test code = Abnormal 66928-4) POC Glucose Whole [id number] 11:53:00 Test Item Value Reference Range Comments POC Glucose (test code = 129 mg/dL 70-140 ALERT V ALUES <50 or 33390-6) >250 Others <70 or >350 Performed at [facility]; overseen b y [facility] POCT program REFERENC E RANGES Above is NONFAST ING. Below are FASTING: NOR MAL: 70-99 mg/dL P REDIABETES: 100-125 mg/dL DIABETES: > 125 mg/dL R anges for neonates are dep endent on gestational age and weight. MARYAM (test code = MARYAM) Lab Interpretation (test code = Normal 21685-8) MRI brain without [id number] 11:16:10MRI BRAIN WITHOUT CONTRAST Comparison: CTA 10/30/2019. Indication: Syncope, recurrent, Recurrent syncope, R55 Syncope andcollapse, I77.74 Dissection of vertebral artery (CMS-HCC) Technique: Multiplanar MR sequences were performed of the brain without IVcontrast. Findings:No restricted diffusion. No midline shift or mass effect. There is an areaof remote insult within and adjacent to the right basal ganglia. Ventriclesand sulci are normal for age. There is marked narrowing of a portion of thedistal right vertebral artery as seen on the prior CTA. Mild mucosalthickening in the right sphenoid sinus and trace thickening of thebilateral mastoid air cells. Orbits are normal. Impression:1. No acute intra cranial findings. Specifically, no evidence of stroke.2. Remote area of probable insult (likely infarct, less likely infection ortrauma) within and adjacent to the right basal ganglia. Electronically Signed by: Kristel Barrera MD, [facility] Signed on: 11/04/2019 11:16 AMInterface, Rad Results In - 11/04/2019 11:23 AM EDTMRI BRAIN WITHOUT CONTRAST Comparison: CTA 10/30/2019. 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 Findings: No restricted diffusion. No midline shift or mass effect. There is an area of remote insult within and adjacent to the right basal ganglia. Ventricles and sulci are normal for age. There is marked narrowing of a portion of the distal right vertebral artery as seen on the prior CTA. Mild mucosal thickening in the right sphenoid sinus and trace thickening of the bilateral mastoid air cells. Orbits are normal. Impression: 1. No acute intracranial findings. Specifically, no evidence of stroke. 2. Remote area of probable insult (likely infarct, less likely infection or trauma) within and adjacent to the right basal ganglia. Electronically Signed by: Kristel Barrera MD, [facility] Electronically Signed on: 11/04/2019 11:16 AMPOC Glucose Whole [id number] 05:59:00 Test Item Value Reference Range Comments POC Glucose (test code = 152 mg/dL 70-140 ALERT V ALUES <50 or 70524-9) >250 Others <70 or >350 Performed at [facility]; overseen b y [facility] POCT program REFERENC E RANGES Above is NONFAST ING. Below are FASTING: NOR MAL: 70-99 mg/dL P REDIABETES: 100-125 mg/dL DIABETES: > 125 mg/dL R anges for neonates are dep endent on gestational age and weight. MARYAM (test code = MARYAM) Lab Interpretation (test code = Abnormal 46419-6) Coronavirus (COVID-19) SARS-CoV-2 Rapid [id number] 04:10:00 Test Item Value Reference Range Comments Coronavirus (COVID-19) SARS-CoV-2 Rapid Test Not Detected Not Detected (test code = 07958-7) MARYAM (test code = MARYAM) Lab Interpretation (test code = 39953-3) Normal Comprehensive Metabolic Panel (CMP)2019-11-04 02:41:00 Test Item Value Reference Range Comments Sodium (test code = 2951-2) 136 mmol/L 135-145 Potassium (test code = 2823-3) 4.3 mmol/L 3.5-5 Chloride (test code = 2075-0) 100 mmol/L 98-108 Carbon Dioxide (CO2) (test 29 mmol/L 21-30 code = 8-9) Urea Nitrogen (BUN) (test code 16 mg/dL 7-20 = 3094-0) Creatinine (test code = 1.1 mg/dL 0.6-1.3 2160-0) Glucose (test code = 2345-7) 137 mg/dL 70-140 Int erpretive Data: Above is the NONFASTING r eference range. Below are the FASTING reference ranges : NORMAL: 70-99 mg/dL PREDIABETES: 100 -125 mg/dL DIABETES: > 125 mg/dL Calcium (test code = 41958-9) 9.7 mg/dL 8.7-10.2 AST (Aspartate 43 U/L 15-41 Aminotransferase) (test code = 1920-8) ALT (Alanine Aminotransferase) 78 U/L 17-63 (test code = 1742-6) Bilirubin, Total (test code = 0.7 mg/dL 0.4-1.5 1974-2) Alk Phos (Alkaline 63 U/L 24-110 Phosphatase) (test code = 6768-6) Albumin (test code = 1751-7) 4.1 g/dL 3.5-4.8 Protein, Total (test code = 7.0 g/dL 6.2-8.1 2885-2) Anion Gap (test code = 7 mmol/L 3-12 34879-8) BUN/CREA Ratio (test code = 15 6- 94083754) Glomerular Filtration Rate 81 mL/min/1.73sq m Inter pretive Ranges eGFR (eGFR) (test code = 18891-4) (C KD-EPI): eGFR: > 60 mL/min/1.73 s q m - Normal eGFR: 30 - 59 mL/min/1.73 sq m - Moderately Decre ased eGFR: 15 - 29 mL/min/1.73 sq m - Severely Decreased eGFR: < 15 mL/min/1.73 sq m - Kidney Failure Note: Th caroline GFR calculations do not apply in acute situations when GFR is changing rapidly or in patients on dial ysis. Lab Interpretation (test code Abnormal = 36257-9) [id number] 02:41:00 Test Item Value Reference Range Comments Magnesium (test code = 62713-1) 2.1 mg/dL 1.8-2.5 Lab Interpretation (test code = 87730-3) Normal [id number] 02:41:00 Test Item Value Reference Range Comments Phosphorus (test code = 2777-1) 3.8 mg/dL 2.3-4.5 Lab Interpretation (test code = 41207-6) Normal Thyroid Stimulating-Hormone (TSH)2019-11-04 02:41:00 Test Item Value Reference Range Comments Thyroid Stimulating Hormone (TSH) (test code = 3.75 0 .34 - 5.66 IU/mL 11608-5) Lab Interpretation (test code = 19849-0) Normal Vitamin [id number] 02:41:00 Test Item Value Reference Range Comments Vitamin B12 (test code = 50124378) 435 pg/mL 123-730 Lab Interpretation (test code = 77022-8) Normal POC Glucose Whole [id number] 02:28:00 Test Item Value Reference Range Comments POC Glucose (test code = 164 mg/dL 70-140 ALERT V ALUES <50 or 42842-2) >250 Others <70 or >350 Performed at [facility]; overseen b y [facility] POCT program REFERENC E RANGES Above is NONFAST ING. Below are FASTING: NOR MAL: 70-99 mg/dL P REDIABETES: 100-125 mg/dL DIABETES: > 125 mg/dL R anges for neonates are dep endent on gestational age and weight. MARYAM (test code = MARYAM) Lab Interpretation (test code = Abnormal 26711-4) Prothrombin Time (INR)2019-11-04 02:05:00 Test Item Value Reference Range Comments Prothrombin Time (test code = 11.3 9.5 - 13.1 sec 5902-2) Prothrombin INR (test code = 1.0 0.9-1.1 Ref erence Ranges: DVT/PE/PVD 6301-6) = INR 2.0 - 3.0 Mechanical Heart Valve = IN R 2.5 - 3.5 NOTE: The INR is not a PT Ratio and is qian id only for Coumadin patient s Lab Interpretation (test code = Normal 90994-7) Activated Partial Thromboplastin Time (APTT)2019-11-04 02:05:00 Test Item Value Reference Range Comments Act Partial Thromboplastin Time 28.0 26.8 - 37.1 sec Therapeutic Range (Heparin) = (test code = 70987-8) 65-95 seco nds Note: The therapeutic rang e for Heparin has been determi sindy using ex-vivo whole bl ood samples and therapeutic Heparin level of 0.30-0.70 ant i-factor Xa units. Lab Interpretation (test code = Normal 93171-7) Complete Blood Count (CBC) with [id number] 01:57:00 Test Item Value Reference Range Comments WBC (White Blood Cell Count) (test code = 6.7 3.2 - 9.8 x10 9 41625-7) /L Hemoglobin (test code = 718-7) 15.1 g/dL 13.7-17.3 Hematocrit (test code = 4544-3) 43.0 % 39-49 Platelets (test code = 01089-4) 219 150 - 45 0 x10 9 /L MCV (Mean Corpuscular Volume) (test code = 82 fL 80-98 787-2) MCH (Mean Corpuscular Hemoglobin) (test code 28.8 pg 26. 5-34 = 785-6) MCHC (Mean Corpuscular Hemoglobin 35.1 % 31.5-36.3 Concentration) (test code = 786-4) RBC (Red Blood Cell Count) (test code = 5.25 4.37 - 5.74 x10 1 31551-9) 2/L RDW-CV (Red Cell Distribution Width) (test 12.2 % 11.5- 14.5 code = 31493-1) NRBC (Nucleated Red Blood Cell Count) (test 0.00 0 x10 9 code = 99230-8) /L NRBC % (Nucleated Red Blood Cell %) (test 0.0 % code = 92728-2) MPV (Mean Platelet Volume) (test code = 10.4 fL 7.2-11.7 47970362) Neutrophil Count (test code = 53780-2) 3.8 2 .0 - 8.6 x10 9 /L Neutrophil % (test code = 59142-4) 56.2 % 37-80 Lymphocyte Count (test code = 91805-5) 2.1 0 .6 - 4.2 x10 9 /L Lymphocyte % (test code = 54830-1) 31.4 % 10-50 Monocyte Count (test code = 62628-7) 0.5 0 - 0.9 x10 9 /L Monocyte % (test code = 46966-6) 7.1 % 0-12 Eosinophil Count (test code = 711-2) 0.28 0 - 0.70 x10 9 /L Eosinophil % (test code = 64627-2) 4.2 % 0-7 Basophil Count (test code = 704-7) 0.06 0 - 0 .20 x10 9 /L Basophil % (test code = 706-2) 0.9 % 0-2 Immature Granulocyte Count (test code = 0.01 <=0.06 x10 9 72049-1) /L Immature Granulocyte % (test code = 14471-7) 0.2 % <=0 .7 PEDIATRIC [id number] 00:00:00Ordered by an unspecified provider.MRI neck reference [id number] 17:44:52This order has been auto- finalized. Please see additional clinical documentation for result report.MRI neck reference [id number] 17:44:52This order has been auto-finalized. Please see additional clinical documentation for result report.MRI head reference [id number] 17:42:39This order has been auto-finalized. Please see additional clinical documentation for result report.MRI head reference only 2019-10-31 17:42:39This order has been auto-finalized. Please see additional clinical documentation for result report.MRI neck reference [id number] 17:42:12This order has been auto-finalized. Please see additional clinical documentation for result report.MRI neck reference [id number] 17:42:12This order has been auto-finalized. Please see additional clinical documentation for result report.CT neck reference [id number] 17:41:46This order has been auto-finalized. Please see additional clinical documentation for result report.CT neck reference [id number] 17:41:46This order has been auto- finalized. Please see additional clinical documentation for result report.ECG 2019-10-30 00:00:00Ordered by an unspecified provider.EXTERNAL RADIOLOGY RESULT - [id number] 00:00:00Ordered by an unspecified provider.EXTERNAL RADIOLOGY RESULT -[id number] 00:00:00Ordered by an unspecified provider.EXTERNAL RADIOLOGY RESULT - [id number] 00:00:00Ordered by an unspecified provider.ECG 2019-10-29 00:00:00Ordered by an unspecified provider. Assessments Condition Name Status Diagnosis Date Treating Clinici an Recurrent syncope Unknown Vertebral [place] [place] Coronary artery disease involving [place] Unknown heart with angina pectoris, unspecified vessel or lesion type [place] [place] BATOOL (acute kidney injury) [place] Unknown DM2 (diabetes mellitus, type 2) [place] Unknown Essential hypertension Unknown Pain syndrome, chronic Unknown Encounters Start End Encounter Admission Attending Care Care Encounter Date/Time Date/Time Type Type Clinicians Facility Department ID 2020-01-11 2020-01-11 [id number] [facility]:00 00:00:00 FEEROZEH 2019-11-18 2019-11-18 Outpatient [facility] [id number] 00:00:00 00:00:00 2019-11-04 2019-11-13 Inpatient MILAGRO DAVIDEALVARO [facility] [id number] 00:39:00 13:21:00 KENIA 2019-10-31 2019-10-31 Outpatient [facility] [id number] 00:00:00 00:00:00 2019-10-31 2019-10-31 Outpatient [facility] [id number] 00:00:00 00:00:00 2019-10-30 2019-10-30 [facility] [id number] 00:10:00 00:10:00 ARNEL 2019-10-30 2019-10-30 [facility] [id number] 00:05:00 00:05:00 ARNEL 2019-10-30 2019-10-30 [facility] [id number] 00:00:00 00:04:00 ARNEL 2019-10-23 2019-10-23 [facility] [id number] 00:00:00 00:00:00 ARNEL Plan of Treatment Planned Activity Planned Date Details Comments Future Scheduled Test [code = ] Future Scheduled Test [code = ] Future Scheduled Test [code = ] Future Scheduled Test [code = ] Future Scheduled Test [code = ] Future Scheduled Test [code = ] Future Scheduled Test [code = ] Future Scheduled Test [code = ] Future Scheduled Test [code = ] Future Scheduled Test [code = ] Future Scheduled Test [code = ] Future Scheduled Test [code = ] Future Scheduled Test [code = ] Future Scheduled Test [code = ] Future Scheduled Test [code = ] Future Scheduled Test [code = ] Future Scheduled Test [code = ] Future Scheduled Test [code = ] Future Scheduled Test [code = ] Future Scheduled Test [code = ] Future Scheduled Test [code = ] Future Scheduled Test [code = ] Future Scheduled Test [code = ] Future Scheduled Test [code = ] Future Scheduled Test [code = ] Future Scheduled Test [code = ] Future Scheduled Test [code = ] Future Scheduled Test [code = ] Future Scheduled Test [code = ] Future Scheduled Test [code = ] Future Scheduled Test [code = ] Future Scheduled Test [code = ] Future Scheduled Test [code = ] Future Scheduled Test [code = ] Future Scheduled Test [code = ] Future Scheduled Test [code = ] Future Scheduled Test [code = ] Future Scheduled Test [code = ] Future Scheduled Test [code = ] Social History Social Habit Start Date Stop Date Comments Exposure to SARS-CoV-2 (event) Cigarettes smoked current (pack per 2019-11-04 00:00:00 00:00:00 day) - Reported Cigarette pack-years 2019-11-04 00:00:00 2019-11-04 00:00:00 Tobacco use and exposure 2019-11-04 00:00:00 2019-11-04 00:00:00 Alcohol intake 2019-11-04 00:00:00 2019-11-04 00:00:00 Alcohol Comment 2019-11-04 00:00:00 2019-11-04 00:00:00 Smoking Status Start Date Stop Date History of tobacco use Former smoker 2019-11-04 00:00:00 2019-11-04 00:00:00 Vital Signs Vital Name Observation Time Observation Value Comments Systolic blood pressure 2019-11-12 19:30:00 100 mm[Hg] Diastolic blood pressure 2019-11-12 19:30:00 55 mm[Hg] Heart rate 2019-11-12 19:30:00 72 /min Body temperature 2019-11-12 19:30:00 36.72 Adeline Respiratory rate 2019-11-12 19:30:00 18 /min Oxygen saturation in Arterial blood by 2019-11-12 19:30:00 96 % Pulse oximetry Body weight 2019-11-11 06:37:00 95.2 kg BMI 2019-11-11 06:37:00 27.69 kg/m2 Body height 2019-11-04 01:03:00 185.4 cm Hospital Discharge Instructions Appointments Phoebe Shahid RN - [facility]04[facility]2019 [facility] Payment [facility] and Financial Assistance Please tell us if you cannot pay your bill in full. We can help -- with interest-free payment plans, information about financial assistance you may be eligible for, and help applying for government- sponsored programs. Call Customer Service at [phone] (local) or (toll-free), 8:00 am to 5:00 pm Thursday through Thursday. Payment Plans [facility] ([facility]) offers interest?free payment plans of up to six years in length, depending upon the combined total you owe to all [facility] entities. The table below shows the maximum amount of time you can take topay based on your total outstanding balance. To set up a payment plan, please contact a financial care counselor at one of our locations or contact Customer Service at [phone] (local) or (toll-free). Payment plans may be set up before, at the time of, or after you receive services.For payment plans set up before or at the time of service, you must make the first months paymentto establish the plan, and you must not have any other outstanding bills with [facility]. [facility] Financial Assistance Which Providers Participate? Patients who receive treatment at a [facility] facility and demonstrate an inability to pay may receive discounted services under [facility]' Financial Assistance Policy. Thispolicy applies to [facility] and all its entities, including: [facility] Amb[facility], [facility] ([facility]) does not have prescribed financial assistance policies but, as an accommodation and courtesy to [facility] patients, has elected to follow the financial assistance determinations made by [facility] under this policy. [facility], and [facility] have separate financial assistance policies but have elected to follow the financial assistance determinations made by [facility] under this policy. What Services Are Eligible? Medical treatment that is urgent or provided on an emergency basis is eligible for a financial assistance discountunder the [facility] Financial Assistance Policy. Examples of this type of treatment include: Treatment provided in a [facility] Emergency Department Treatment provided in an inpatient setting following an urgent admission to a [facility] hospital Follow-up treatment to services provided through the Emergency Department once a follow-up visit and evaluation has occurred with a [place] physician Health care services necessary to prevent a serious health impact as determined by a [place] physician also may be eligible for a financial assistance discount. Transplant, experimental, and elective services are not eligible for afinancial assistance discount. [facility] Financial Assistance Discounts Patients may receive up to a 100 p ercent discount on eligible services based upon how their household income compares to current Federal Poverty Income Guidelines. Patients who have large [id number] costs after insurance may also beeligible for financial assistance discounts. These medical hardship situations affect a patient's ability to pay for basic living expenses and are evaluated on a rnzg-zm-hhut basis. Other types of patients who may be approved for financial assistance adjustments include: patients with limited-value estates Patients with collections balances who are in verified Chapter 7 or Chapter 13 bankruptcy [facility] [employer] patients Patients approved for treatment at [facility] Patients who express an inability to pay for outpatient prescription medications from [facility] retail pharmacy Applying for Financial Assistance For care provided through the emergency department, and for many uninsuredpatients receiving eligible services, no formal application is required. Patients will automaticallybe screened for potential financial assistance eligibility. During the visit, financial counselors can meet with you to determine whether there are any outside forms of financial assistance -- such as Medicaid or the Crime-Victim or Cancer-Control Programs -- that can help pay for your services. If outside financial assistance is not available, we will automatically apply a financial assistance discount to your bill based on your reported income level. For other eligible inpatient and outpatient services, [facility] financial counselors can assist you with applying for outside forms of financial assistance or [facility] financial assistance during your stay or visit. To qualify for a financial assistance discount, you must provide us with the necessary information and documentation to determine whether any forms of outside financial assistance are available. You may be denied financial assistance if you or your family fails to cooperate with this process. To obtain the full version of the [facility] Financial Assistance Self-Pay Collections policies, send a request in writing to: Self-Pay Collections [id number] [place] [address] Community Financial Resources In addition to [facility] Financial Assistance discounts and government-sponsored programs, there are a number of community resources that may be able to assist you. If You Have Questions If you believe you qualify for financial assistance or other forms of outside financial assistance but have not spoken with a financial counselor or received a discount, please contact Customer Service at [phone] (local) or (toll-free), 8:00 am to 5:00 pm Thursday through Thursday. Financial Assistance: Part of Our Commitment to [facility] As a [facility] system, [facility] is committed to caring for our patients, nurturing the sick, and strengthening the well. We honor our tax-exempt status and our responsibility to the counties we serve through various programs, activities, and partnerships thatare aimed at improving the health of our communities. The details of our community involvement can be found here. Additional Instructions Kenia Humphrey MD - 11/13/2019 Physician discharge instructions: Dear Mr. Gonzalez, Thank you for allowing me to provide your medical care during this hospital stay. Here is a brief summary of what we found and instructions for youas you leave the hospital. Reason(s) for hospital stay: Admitted for persistent dizziness and syncope. Was evaluated by multiple specialists, neurologist, surface to air weapons officer and neurosurgery. There was a concern of small right vertebral artery dissection. Neurology recommended aspirin and no further work-up. You are also noted to have cervical stenosis and was evaluated by neurosurgeon. No indication for surgery at this point. Encourage PT/OT. Chronic pain of the left chest: On narcotics. Encouraged to cut back on the narcotics. Please follow-up with your PCP and consider nerve block. We have decreased your oxycodone 15 mg every 4 hours to every 6 hours. Please do not use medications from other family members. It was a pleasure taking care of you! Sincerely, KENIA HUMPHREY MD [facility] [phone] If you want to give any feedback about the care you received, you can go to: [email or web address], click on the drop down menu, and select "Compliments, suggestions, complaints." Opioid Safety Comprehensive Patient Education Medicine called opioids (o-pee-oyds) may be ordered for chronic pain. Opioidsare sometimes called narcotics. These medicines may be helpful. They can also be harmful if not taken correctly or if misused. For this reason, opioids are closely controlled by medical providers and the law. 1. Take pain medicines only as prescribed. ? Prescriptions for opioid medicines can only be given using an official paper prescription from a medical provider or, in the near future, be prescribed electronically. Most cannot be refilled. Most providers will not give a new prescription if the prescription runs out early, or is lost, spilled, misplaced, or stolen. ? Taking more opioids than prescribed could lead to a drug overdose. An overdose can cause the heart or breathing to become very slow or even stop. This may lead to . ? Using opioids for a long time can cause your body to dependon them. Physical dependence is NOT the same as addiction. Decreasing or suddenly stopping these medicines can lead to withdrawal symptoms. These include sweating, chills and joint pain. Some patients may also have trouble sleeping or feel sick to their stomach. ? The use of opioid pain medicines can cause addiction. This means loss of control over the use of the medicine. Lack of control includes using the medicine in spite of harm. Harm may be physical, mental or social to the patient. It may alsomean craving the medicine. ? Tolerance may develop to pain medicine. Tolerance means that more medicine is needed to obtain the same amount of pain relief. Taking more medicine may not lessen pain. Instead, it may cause distressing side effects. Tolerance or failure to respond well to the medicine maylead your provider to choose another form of treatment. ? Your prescriber is encouraged to review your pain medicine on a regular basis. If a medicine is not improving your quality of life or ability to function on a daily basis, it may be stopped. It is important to follow the prescribers directions to slowly stop an opioid medicine. 2. Safe Storage and Disposal of your opioid prescriptions ? Keep all opioid medications locked in a safe location in your home ? Keep in the original prescription bottle ? If there are children in the house, the pharmacy can provide a childproof top ? If opioid medicine is stolen, report to the local police department ? Safely dispose of unused prescriptions opioids: Find your community drug take-back program or your pharmacy mail-back program Resources for Opioid Disposal Visit http://www.disposemymeds.org/ Call your local non-emergency law enforcement number Ask your pharmacist Contact the [facility]: (http://www.deadiversion.[facility] [place]drug_disposal/takeback/) 3. Report any new side effects. Also report side effects that do not go away or that affect your ability to think. Some known side effects of opioids include: Drowsiness Confusion Constipation Nausea Vomiting Itching Dizziness Slowed breathing Slowed reaction times For most people, these side effects decrease with continued use of the medicine. Avoid any activity that may be harmful to you, especially if yo u feel drowsy or are not thinking clearly. Also avoid if someone else thinks the patient feels drowsy or is not thinking clearly. These activities include: ? Driving a motor vehicle or using heavy equipment ? Being responsible for another individual who is unable to care for him or herself 4. Other substances can affect the way opioid medicines work in the body. It is important to tell all medical prescribers when taking opioids. Avoid drinking alcohol. ? Taking opioid medicines with alcohol may cause: Very slow breathing Very low blood pressure Extreme drowsiness ? Some common medicines could react with opioid medicine. These include, but are not limited to: Anxiety medicine ( example: lorazepam (Ativan), diazepam (Valium), alprazolam (Xanax)) Muscle relaxers (example: cyclobenzaprine (Flexeril)) Sleeping medicine (example: zolpidem (Ambien), kxjv-mns-hkqbkgb sleep medicine) Allergy/Cold medicine (example: diphenhydramine (Benadryl)) There may be other medicines. Ask your prescriber before taking any new medicine. 5. Your prescriber may stop ordering your opioids if you use street drugs. Your opioid may also be stopped if you refuse to provide random urine andblood samples for drug screening. 6. If you become or are planning to become , talkto your medical provider. 7. Only use opioid medicines that have been prescribed to you. The medicine should never be given or sold to others. If you have any questions or concerns, please notify your primary care provider. To find your local treatment resources: Website: Substance Abuse and MentalHealth Administration www.SAMHSA.gov, or Phone: 5-491-405-GIQV ( ) [facility] PFEGC December 2016, Revised April 2017 Opioid Task Force Opioid Safety Comprehensive Patient Education [place]: 7.4 Developed and Approved Specifically for [facility] Patients and their Loved Ones Not intendedfor distribution or use by individuals outside of [facility] documented in this encounter
[2020-01-15] MEDS ORDERED: FENTANYL 25 MCG/HR PATCH.TD72 TD SCH (10:00)
== END 2020-01-13 16:00 | disposition home or self-care (01) | DRG 682 ==
LOC: ER 17:06 → EH 01-12 11:37 → OBSVTOIN 01-12 13:21 → EH 01-12 14:40 → 5TH 01-12 14:57 → 5 01-12 18:13
PROVIDERS: ADMIT Hospitalist; ATTEND Hospitalist
DX: N17.9 Acute kidney failure, unspecified (principal); I77.74 Dissection of vertebral artery; E11.65 Type 2 diabetes mellitus with hyperglycemia; I25.10 Atherosclerotic heart disease of native coronary artery without angina pectoris; I10 Essential (primary) hypertension; R42 Dizziness and giddiness; R07.89 Other chest pain; M54.12 Radiculopathy, cervical region; Z79.84 Long term (current) use of oral hypoglycemic drugs; H53.8 Other visual disturbances; F32.9 Major depressive disorder, single episode, unspecified; Z79.01 Long term (current) use of anticoagulants; Z79.82 Long term (current) use of aspirin; Z82.49 Family history of ischemic heart disease and other diseases of the circulatory system; I25.2 Old myocardial infarction; Z95.1 Presence of aortocoronary bypass graft; Z86.718 Personal history of other venous thrombosis and embolism; Z79.899 Other long term (current) drug therapy
CPT/HCPCS: 36415; 71046; 80053; 80069; 81001; 82962; 83735; 84484; 85025; 93005; 93010; 93880; C9113; J1644; J1815; J2270; J3475; J3490; J7030; J7040; J7120